=== PATIENT | male | born 1950 | race Caucasian/White ===

== ENCOUNTER 2022-10-16 16:46 | Outpatient (OUT) | payer MEDICARE, OTHER, SELFPAY ==
[2022-10-16 17:08] VITALS: BP 179/85; PULSE 48; RESP 16; O2SAT 97
--- NOTE | 2022-10-16 17:39 | PC.NURSE ---
Call from office, advising pt will be coming for foster placement following post void residual of 1liter. He is a mutual pt of and they have been in communication with treatment. Pt was advised to arrie to hospital at 1700. Order was faxed to place urinary catheter. 1700- pt arrived to unit alert and oriented, explained urinary catheter placement to pt and . He undressed, vitals obtained. This nurse attempted to place 16 fr foster, pt felt pressure and discomfort. Instant return of blood in catheter tubing, bright red. Catheter was removed with no further bleeding. Pt made aware of plan to contact for further interventions. This nruse spoke with whom advised for pt to be evaluated in ED, he was calling for conversation with ED physician. Pt and then escorted to ED.
== END 2022-10-16 17:50 ==
LOC: INF 16:54 → MS 16:58
PROVIDERS: PCP Family Medicine; Visit Provider Family Medicine
DX: N32.89 Other specified disorders of bladder (principal); N40.0 Benign prostatic hyperplasia without lower urinary tract symptoms

== ENCOUNTER 2022-10-16 17:38 | Emergency (ER) | payer MEDICARE, OTHER, SELFPAY ==
[2022-10-16 17:48] VITALS: BP 173/84; PULSE 49; RESP 16; O2SAT 97; BMI 26.6
--- NOTE | 2022-10-16 17:49 | ED.GENADUL1 ---
HPI - General Adult General Chief complaint: Urogenital-Male Stated complaint: BLADDER DISTENSION, PROSTATE ENLARGEMENT Time Seen by Provider: 10/16/22 17:42 History of Present Illness HPI narrative: 71-year-old male presents because he can't urinate. He was at a urologist office today and they found him to have greater than a thousand mL is in his bladder. They wanted to place a catheter there but he walked out. He then called his own physician who directed him to this hospital and as an outpatient attempted to have a catheter placed but were not successful so he was sent down here. He's never had prostate issues and has never had a catheter. No history of kidney issues. No fever or vomiting. Related Data Allergies Allergy/AdvReac Type Severity Reaction Status Date / Time No Known Drug Allergies Allergy Verified 10/16/22 17:48 Review of Systems ROS Narrative A ten point review of systems is negative except as noted above. Genitourinary Reports: decreased urine ouput and difficulty starting urination Exam Narrative Exam Narrative: Nurses note and vital signs reviewed and patient is not hypoxic. General: The patient appears well and in no apparent distress. Patient is sitting comfortably on at the edge of the cart. Skin: Warm, dry, no pallor noted. There is no rash noted. Head: Normocephalic, atraumatic Eye: Normal conjunctiva, no drainage Ears, Nose, Mouth, and Throat: oral mucosa is moist. Nares patent. Cardiovascular: not tachycardic Respiratory: Patient is in no distress, no accessory muscle use, lungs are clear to auscultation, no wheezing, rales or rhonchi Back: non-tender GI: mild distention Musculoskeletal: The patient has no evidence of calf tenderness, no pitting edema, symmetrical pulses noted bilaterally Neurological: A&O, normal speech Psychiatric: Cooperative Constitutional Vital Signs - 24 hr 10/16/22 17:48 Pulse Rate [Monitor] 49 L Respiratory Rate 16 Blood Pressure [Left Arm] 173/84 H Pulse Oximetry 97 Oxygen Delivery Method Room Air Course Vital Signs Vital signs: Vital Signs Pulse Rate 49 L 10/16/22 17:48 Respiratory Rate 16 10/16/22 17:48 Blood Pressure 173/84 H 10/16/22 17:48 Pulse Oximetry 97 10/16/22 17:48 Oxygen Delivery Method Room Air 10/16/22 17:48 Pulse Rate 49 L 10/16/22 17:48 Respiratory Rate 16 10/16/22 17:48 Blood Pressure 173/84 H 10/16/22 17:48 Pulse Oximetry 97 10/16/22 17:48 Oxygen Delivery Method Room Air 10/16/22 17:48 Medical Decision Making MDM Narrative Medical decision making narrative: Creatinine is elevated at 1.93. CT scan is ordered and pending and the patient is signed out to Dr. Corea. Rosa catheter inserted and two thousand mL is of urine were obtained. Differential Diagnosis Differential Diagnosis: urinary retention, prostate enlargement, renal mass, bladder mass Lab Data Lab results reviewed: Yes I reviewed the patient's lab results Labs: Lab Results 10/16/22 Range/Units 17:56 WBC 6.0 (4.0-11.0) 10^3/uL RBC 3.93 L (4.70-6.10) 10^6/uL Hgb 11.6 L (14.0-18.0) g/dL Hct 35.3 L (42.0-54.0) % MCV 89.8 (80.0-94.0) fL MCH 29.5 (25.9-34.0) pg MCHC 32.9 (29.9-35.2) g/dL RDW 12.6 (11.0-15.0) % Plt Count 217 (150-450) 10^3/uL MPV 10.2 (9.5-13.5) fL Neut % (Auto) 68.3 (43.0-75.0) % Lymph % (Auto) 17.4 L (20.5-60.0) % Haskell % (Auto) 9.6 (1.7-12.0) % Eos % (Auto) 3.9 (0.9-7.0) % Baso % (Auto) 0.5 (0.2-2.0) % Neut # (Auto) 4.1 (1.4-6.5) 10^3/uL Lymph # (Auto) 1.0 L (1.2-3.8) 10^3/uL Haskell # (Auto) 0.6 (0.3-0.8) 10^3/uL Eos # (Auto) 0.2 (0.0-0.7) 10^3/uL Baso # (Auto) 0.0 (0.0-0.1) 10^3/uL Abs Immat Gran (auto) 0.02 (0.00-0.03) 10^3/uL Imm/Tot Granulo (auto) 0.3 (0.0-0.5) % Sodium 138 (136-145) mmol/L Potassium 4.3 (3.5-5.1) mmol/L Chloride 104 (98-107) mmol/L Carbon Dioxide 28.1 (21.0-32.0) mmol/L Anion Gap 10.2 BUN 33.0 H (7.0-18.0) mg/dL Creatinine 1.93 H (0.70-1.30) mg/dL Est GFR ( Amer) 42 L (>=60) Est GFR (Non-Af Amer) 34 L (>=60) BUN/Creatinine Ratio 17.1 Glucose 123 H (74-106) mg/dL Calcium 9.2 (8.5-10.1) mg/dL Discharge Plan Discharge Chief Complaint: Urogenital-Male Clinical Impression: Acute urinary retention Referrals: Narayan Melendez MD [Primary Care Provider] - 1 week
[2022-10-16 18:01] LABS: Basophils Percent Auto 0.5 % (0.2-2.0); Eosinophils Absolute Auto 0.2 10^3/uL (0.0-0.7); Eosinophils Percent Auto 3.9 % (0.9-7.0); Hematocrit 35.3 % (42.0-54.0); Hemoglobin 11.6 g/dL (14.0-18.0); Immature Granulocytes Abs Auto 0.02 10^3/uL (0.00-0.03); Immature Granulocytes Pct Auto 0.3 % (0.0-0.5); Lymphocytes Percent Auto 17.4 % (20.5-60.0); Mean Corpuscular HGB Conc 32.9 g/dL (29.9-35.2); Mean Corpuscular Hemoglobin 29.5 pg (25.9-34.0); Mean Corpuscular Volume 89.8 fL (80.0-94.0); Mean Platelet Volume 10.2 fL (9.5-13.5); Monocytes Absolute Auto 0.6 10^3/uL (0.3-0.8); Monocytes Percent Auto 9.6 % (1.7-12.0); Neutrophils Absolute Auto 4.1 10^3/uL (1.4-6.5); Neutrophils Percent Auto 68.3 % (43.0-75.0); Platelet Count 217 10^3/uL (150-450); Red Blood Count 3.93 10^6/uL (4.70-6.10); Red Cell Distribution Width 12.6 % (11.0-15.0)
[2022-10-16] MEDS: LIDOCAINE 2% JELLY 10 ML UR (18:06)
[2022-10-16 18:08] LABS: Anion Gap 10.2; BUN Creatinine Ratio 17.1; Calcium 9.2 mg/dL (8.5-10.1); Carbon Dioxide 28.1 mmol/L (21.0-32.0); Chloride 104 mmol/L (98-107); Estimated GFR (African America 42 (>=60); Estimated GFR (Non-African Ame 34 (>=60); Glucose 123 mg/dL (74-106); Potassium 4.3 mmol/L (3.5-5.1); Sodium 138 mmol/L (136-145)
--- NOTE | 2022-10-16 18:34 | CT_ITS ---
[address] [address] Patient Name: ANAND RUSSELL MRN: [id number] date: 1950 Sex: M Assigned Patient Location: ER Current Patient Location: .[facility] Accession/Order Number: [id number] Exam Date: 10/16/2022 18:45 Report Date: 10/16/2022 20:19 At the request of: LEESA PARK Procedure: CT abdomen pelvis wo con EXAM: CT abdomen pelvis wo con HISTORY: urinary retention, CLARISSE COMPARISON: None. TECHNIQUE: Axial CT imaging was performed through the abdomen and pelvis with intravenous contrast. Multiplanar reformats were performed. Dose reduction techniques were achieved by using automated exposure control and/or adjustment of mA and/or kV according to patient size and/or use of iterative reconstruction technique. FINDINGS: Lung bases: Lung bases are clear. No pleural effusion. GI upper: Unremarkable. Liver: Normal size and contour. There is a 3.4 cm cyst in the left hepatic lobe. A 0.9 cm low density focus is seen in the posterior segment of right hepatic lobe, too small to accurately assess, but likely also a cyst. No specific space-occupying lesion is otherwise identified. Gallbladder: Cholelithiasis without evidence of acute cholecystitis. Biliary system: No intra or extrahepatic biliary ductal dilatation. Pancreas: Unremarkable. Spleen: Normal size. Adrenal glands: Normal adrenal glands. Kidneys/ureters: There is bilateral hydronephrosis and bilateral hydroureter. The ureters are tortuous in their course to the bladder. No nephrolithiasis. Vessels: No aneurysmal dilatation of the aorta. Atherosclerotic disease is noted. Retroperitoneum: No lymphadenopathy. Small bowel: No wall thickening or dilatation. Colon: No wall thickening or dilatation. Appendix: Appendix is identified with normal appearance. Peritoneal cavity: No free fluid or pneumoperitoneum. Lower : There is a Rosa catheter in place with the bladder decompressed. Circumferential wall thickening of the urinary bladder is noted. The prostate is enlarged, measuring approximately 5.60 cm AP by 5.6 cm transverse by 5.3 cm craniocaudal. Bones: No acute bony abnormality. Soft tissues: No acute finding. Additional findings: None. IMPRESSION: Bilateral hydronephrosis and hydroureter. No renal or ureteral calculi are appreciated. Circumferential wall thickening of the urinary bladder. A Rosa catheter is in place with the bladder decompressed. Prostatomegaly. Hepatic cysts. Electronically authenticated by: Nathaly JARRELL Date: 10/16/2022 20:19
[2022-10-16 18:59] LABS: Bilirubin Urine NEGATIVE (NEGATIVE); Blood Urine LARGE (NEGATIVE); Clarity Urine CLEAR (CLEAR); Color Urine LT. YELLOW (YELLOW); Glucose Urine UA NEGATIVE (NEGATIVE); Ketones Urine NEGATIVE (NEGATIVE); Leukocyte Esterase Urine NEGATIVE (NEGATIVE); Nitrite Urine NEGATIVE (NEGATIVE); Protein Urine TRACE mg/dL (NEG/TRACE); Specific Gravity Urine 1.015 (1.005-1.025); Urobilinogen Urine 0.2 EU/dL (0.2-1.0); pH Urine 5.5 (5.0-9.0)
[2022-10-16 19:16] VITALS: BP 154/81; PULSE 51; RESP 16; TEMP 37.1; O2SAT 96
[2022-10-16 20:32] VITALS: BP 158/79; PULSE 54; RESP 16; O2SAT 100
== END 2022-10-16 21:02 | disposition home or self-care (01) ==
PROVIDERS: Emergency Medicine; Emergency Provider Emergency Medicine; PCP Family Medicine
DX: R33.9 Retention of urine, unspecified (principal); N32.89 Other specified disorders of bladder; N40.0 Benign prostatic hyperplasia without lower urinary tract symptoms
CPT/HCPCS: 36415; 74176; 80048; 81003; 85025; 99284

== ENCOUNTER 2022-10-19 09:04 | Outpatient (OUT) | payer MEDICARE, OTHER, SELFPAY ==
[2022-10-19 09:24] LABS: Basophils Percent Auto 0.6 % (0.2-2.0); Eosinophils Absolute Auto 0.4 10^3/uL (0.0-0.7); Hemoglobin 11.4 g/dL (14.0-18.0); Immature Granulocytes Abs Auto 0.02 10^3/uL (0.00-0.03); Immature Granulocytes Pct Auto 0.3 % (0.0-0.5); Lymphocytes Percent Auto 13.9 % (20.5-60.0); Mean Corpuscular HGB Conc 32.6 g/dL (29.9-35.2); Mean Corpuscular Hemoglobin 29.4 pg (25.9-34.0); Mean Corpuscular Volume 90.2 fL (80.0-94.0); Mean Platelet Volume 10.5 fL (9.5-13.5); Monocytes Absolute Auto 0.6 10^3/uL (0.3-0.8); Monocytes Percent Auto 8.3 % (1.7-12.0); Neutrophils Absolute Auto 5.2 10^3/uL (1.4-6.5); Neutrophils Percent Auto 71.9 % (43.0-75.0); Platelet Count 210 10^3/uL (150-450); Red Blood Count 3.88 10^6/uL (4.70-6.10); Red Cell Distribution Width 12.6 % (11.0-15.0); White Blood Count 7.3 10^3/uL (4.0-11.0)
[2022-10-19 10:19] LABS: Alanine Aminotransferase 19 U/L (16-63); Albumin Globulin Ratio 0.9; Albumin Level 3.4 g/dL (3.4-5.0); Alkaline Phosphatase 54 U/L (46-116); Anion Gap 14.3; Aspartate Amino Transferase 14 U/L (15-37); BUN Creatinine Ratio 11.5; Calcium 8.8 mg/dL (8.5-10.1); Carbon Dioxide 27.2 mmol/L (21.0-32.0); Chloride 101 mmol/L (98-107); Estimated GFR (African America 50 (>=60); Estimated GFR (Non-African Ame 41 (>=60); Globulin 3.6 g/dL; Glucose 200 mg/dL (74-106); Potassium 4.5 mmol/L (3.5-5.1); Sodium 138 mmol/L (136-145)
== END 2022-10-19 09:05 | disposition home or self-care (01) ==
LOC: LAB 09:07
PROVIDERS: PCP Family Medicine; Visit Provider Family Medicine
DX: R33.9 Retention of urine, unspecified (principal); Z79.899 Other long term (current) drug therapy
CPT/HCPCS: 36415; 80053; 85025

== ENCOUNTER 2022-10-20 10:13 | Outpatient (OUT) | payer MEDICARE, OTHER, SELFPAY ==
--- NOTE | 2022-10-20 10:16 | US_ITS ---
The [address] [address] Patient Name: ANAND RUSSELL MRN: [id number] date: 1950 Sex: M Assigned Patient Location: US Current Patient Location: [place] Accession/Order Number: [id number] Exam Date: 10/20/2022 10:20 Report Date: 10/20/2022 12:10 At the request of: MCKINLEY GAMBOA Procedure: US renal bladder EXAM: US renal bladder HISTORY: Urine retention R33.9, long-term drug therapy Z79.899 COMPARISON: CT abdomen and pelvis 10/16/2022. TECHNIQUE: Real-time ultrasound imaging of the kidneys and bladder. Findings: The right and left kidneys measure 10.1 and 12.4 cm. The bilateral renal cortices are echogenic. Mild leftward severe right collecting system dilatation. No renal stones. Off the interpolar region of the left kidney there is a 0.5 x 0.4 x 0.3 cm cyst. No perinephric fluid collection. The bladder is nondistended and contains a Rosa catheter. There is bladder wall thickening. IMPRESSION: 1. Mild left and severe right renal collecting system dilatation. 2. Left renal cyst. 3. Bladder wall thickening. Although a portion of this likely relates to lack of distention, findings likely relate to cystitis or chronic outlet obstruction. Electronically authenticated by: LINN BELL Date: 10/20/2022 12:10
== END 2022-10-20 10:14 | disposition home or self-care (01) ==
LOC: US 10:13
PROVIDERS: PCP Family Medicine; Visit Provider Family Medicine
DX: R33.9 Retention of urine, unspecified (principal); Z79.899 Other long term (current) drug therapy
CPT/HCPCS: 76770

== ENCOUNTER 2022-10-23 02:59 | Emergency (ER) | payer MEDICARE, OTHER, SELFPAY ==
[2022-10-23 03:04] VITALS: BP 130/74; PULSE 57; RESP 16; TEMP 36.4; O2SAT 98; BMI 25.8
--- NOTE | 2022-10-23 03:18 | PC.NURSE ---
Pt presents to ER for a catheter that is not draining Pt states he had a cath placed last Wednesday after finding out he had urinary retention Tonight he noticed it has been about 5 hours since he has had any urine output Pt is not in any discomfort at this time Pt was bladder scanned which showed 392ml
--- NOTE | 2022-10-23 03:54 | ED.MALEGU1 ---
HPI - Male Genitourinary General Chief complaint: Urogenital-Male Stated complaint: [employer] PROBLEM- COLD Time Seen by Provider: 10/23/22 03:09 Source: patient Mode of arrival: walk-in Limitations: no limitations History of Present Illness HPI Narrative: This 71-year-old male with a history of prostate enlargement presents for evaluation of a clogged Rosa catheter. The Rosa catheter was placed approximately one week ago urinary retention. The patient has been monitoring his urine output and states that since last night around 10 PM he has not had any drainage. He has not had any blood clots in his urine. He has not had any fever. He denies any abdominal pain. Bladder scan showed around 400 mL of urine retained in the bladder. He denies that he is having any drainage around the urethral meatus or leaking from the catheter. He is scheduled to have some bladder urodynamic testing with Dr. Sims In the near future. Related Data Home Medications Medication Instructions Recorded Confirmed alfuzosin 10 mg tablet,extended 10 mg PO DAILY 10/23/22 10/23/22 release 24 hr apixaban 5 mg tablet (Eliquis) 5 mg PO Q12H 10/23/22 10/23/22 metformin 500 mg tablet 500 mg PO DAILY 10/23/22 10/23/22 simvastatin 10 mg tablet 10 mg PO DAILY 10/23/22 10/23/22 sotalol 120 mg tablet 120 mg PO Q12H 10/23/22 10/23/22 Allergies Allergy/AdvReac Type Severity Reaction Status Date / Time No Known Drug Allergies Allergy Verified 10/23/22 03:09 Review of Systems ROS Status of ROS 10 or more systems reviewed and unremarkable except as noted in history and below PFSH PFS Social History Smoking status: Never smoker Exam Narrative Exam Narrative: Constitutional: Well-appearing elderly male, no distress noted Vital signs reviewed, the patient is afebrile, he is mildly bradycardic with a pulse 57, blood pressure is normal at 130/74, he is not hypoxic with pulse ox of 98 percent on room air HEENT: normocephalic atraumatic, mucous members moist and pink Neck: Supple, no meningeal signs Chest: Lungs are clear with good air entry, there is no wheezing rhonchi or rales appreciated CVS: Regular rate and rhythm, pulses are brisk and equal bilaterally Abdomen: Soft, nondistended, nontender, No tenderness or fullness over the urinary bladder, no flank tenderness : Rosa catheter in urethral meatus, dark yellow urine in the leg bag. Extremity: Nontender, full range of motion Neuro: Normal exam, no focal deficits Constitutional Vital Signs - 24 hr 10/23/22 03:04 Temperature 97.6 F Pulse Rate [Monitor] 57 L Respiratory Rate 16 Blood Pressure [Right Arm] 130/74 H Pulse Oximetry 98 Oxygen Delivery Method Room Air Course Vital Signs Vital signs: Vital Signs Temperature 97.6 F 10/23/22 03:04 Pulse Rate 57 L 10/23/22 03:04 Respiratory Rate 16 10/23/22 03:04 Blood Pressure 130/74 H 10/23/22 03:04 Pulse Oximetry 98 10/23/22 03:04 Oxygen Delivery Method Room Air 10/23/22 03:04 Temperature 97.6 F 10/23/22 03:04 Pulse Rate 57 L 10/23/22 03:04 Respiratory Rate 16 10/23/22 03:04 Blood Pressure 130/74 H 10/23/22 03:04 Pulse Oximetry 98 10/23/22 03:04 Oxygen Delivery Method Room Air 10/23/22 03:04 MDM - Male Genitourinary MDM Narrative Medical decision making narrative: 71-year-old male with a history of an enlarged prostate and urinary retention who had a Rosa catheter placed one week ago presents for evaluation of a blocked Rosa catheter. The patient has not had any fever. He has no abdominal pain. He last had urine output around 10 PM. He presents to the emergency department around 3:30 AM. His physical exam was benign. He is not having difficulty tolerating the Rosa catheter. Bladder scan showed approximately 400 mL of retained urine in the bladder. I had given him a prescription for Detrol last week when he was initially seen for urinary retention and a Rosa catheter was placed but he states he has not been having any bladder spasms and has not needed to use this. His Rosa catheter was removed without incident and replaced. Immediately upon replacement he was able to drain clear yellow urine. He has follow-up with Dr. Sims from urology for urodynamic bladder testing in the near future. He is otherwise stable for discharge. Discharge Plan Discharge Chief Complaint: Urogenital-Male Clinical Impression: Complication, blocked Rosa catheter Patient Disposition: Home, Self-Care Time of Disposition Decision: 03:54 Condition: Good Prescriptions / Home Meds: No Action alfuzosin 10 mg tablet extended release 24 hr 10 mg PO DAILY metformin 500 mg tablet 500 mg PO DAILY simvastatin 10 mg tablet 10 mg PO DAILY sotalol 120 mg tablet 120 mg PO Q12H Eliquis 5 mg tablet 5 mg PO Q12H Instructions: Rosa Catheter Placement and Care (ED) Additional Instructions: Follow up as scheduled with Dr Sims, Return to the ED as needed. Continue to drink plenty of fluids and monitor urine output. Stand Alone Forms: Portal Instructions Referrals: Narayan Melendez MD [Primary Care Provider] - 1 week
--- NOTE | 2022-10-23 03:58 | PC.NURSE ---
16 ge[place]ian coude placed pt tolerated procedure well 400 ml dark yellow urine immediately drained
[2022-10-23] MEDS: LIDOCAINE 2% JELLY 10 ML (04:11)
== END 2022-10-23 04:10 | disposition home or self-care (01) ==
PROVIDERS: Emergency Provider Emergency Medicine; PCP Family Medicine
DX: T83.091A Other mechanical complication of indwelling urethral catheter, initial encounter (principal); N40.0 Benign prostatic hyperplasia without lower urinary tract symptoms; Z79.84 Long term (current) use of oral hypoglycemic drugs; Z79.899 Other long term (current) drug therapy; Z79.01 Long term (current) use of anticoagulants
CPT/HCPCS: 51702; 99284

== ENCOUNTER 2022-11-26 07:46 | Outpatient (OUT) | payer MEDICARE, OTHER, SELFPAY ==
[2022-11-26 08:51] LABS: Basophils Percent Auto 0.5 % (0.2-2.0); Eosinophils Absolute Auto 0.4 10^3/uL (0.0-0.7); Eosinophils Percent Auto 4.9 % (0.9-7.0); Hematocrit 40.5 % (42.0-54.0); Hemoglobin 13.4 g/dL (14.0-18.0); Immature Granulocytes Abs Auto 0.03 10^3/uL (0.00-0.03); Immature Granulocytes Pct Auto 0.4 % (0.0-0.5); Lymphocytes Percent Auto 13.7 % (20.5-60.0); Mean Corpuscular HGB Conc 33.1 g/dL (29.9-35.2); Mean Corpuscular Hemoglobin 29.8 pg (25.9-34.0); Mean Corpuscular Volume 90.2 fL (80.0-94.0); Mean Platelet Volume 9.9 fL (9.5-13.5); Monocytes Absolute Auto 0.6 10^3/uL (0.3-0.8); Monocytes Percent Auto 8.4 % (1.7-12.0); Neutrophils Absolute Auto 5.4 10^3/uL (1.4-6.5); Neutrophils Percent Auto 72.1 % (43.0-75.0); Platelet Count 294 10^3/uL (150-450); Red Blood Count 4.49 10^6/uL (4.70-6.10); Red Cell Distribution Width 12.9 % (11.0-15.0); White Blood Count 7.5 10^3/uL (4.0-11.0)
[2022-11-26 09:03] LABS: Prothrombin Time 10.6 sec (9.0-11.6)
[2022-11-26 09:15] LABS: BUN Creatinine Ratio 17.4; Calcium 9.3 mg/dL (8.5-10.1); Carbon Dioxide 25.9 mmol/L (21.0-32.0); Chloride 103 mmol/L (98-107); Estimated GFR (African America 54 (>=60); Estimated GFR (Non-African Ame 44 (>=60); Glucose 176 mg/dL (74-106); Potassium 4.9 mmol/L (3.5-5.1); Sodium 136 mmol/L (136-145)
== END 2022-11-26 07:47 | disposition home or self-care (01) ==
LOC: PST 07:46
PROVIDERS: PCP Family Medicine; Visit Provider Urology
DX: Z01.812 Encounter for preprocedural laboratory examination (principal); N40.1 Benign prostatic hyperplasia with lower urinary tract symptoms; N13.8 Other obstructive and reflux uropathy; R33.9 Retention of urine, unspecified; I10 Essential (primary) hypertension; D64.9 Anemia, unspecified; I48.91 Unspecified atrial fibrillation; Z79.01 Long term (current) use of anticoagulants
CPT/HCPCS: 80048; 85025; 85610; 85730

== ENCOUNTER 2023-01-01 14:50 | Day surgery (SDC) | payer MEDICARE, OTHER, SELFPAY ==
[2023-01-01] MEDS: LIDOCAINE 2% JELLY 10 ML UR (15:22)
--- NOTE | 2023-01-01 15:53 | P.URON_ITS ---
Urology Surgery Operative Note Operative Note Procedure Date: 01/01/23 Time Out Performed: yes Pre-op Diagnosis: urinary retention inability to place Rosa catheter Post-op Diagnosis: same as pre-op Procedures performed: #1. Cystoscopy. #2. Placement of 22 [employer] tip Rosa catheter over a wire Anesthesia: local Primary Surgeon: Aldair Sims Complications: none Estimated blood loss (mL): 0 Findings: #1. Mild posterior false passage from failed catheter attempts. #2. Long prostate Specimens: none Drains: 22 [employer] tip Rosa catheter into the bladder Indications for Procedures: this gentleman had a cystoscopy and transurethral resection of the prostate just 3 days ago. His catheter was removed this morning. He was only able to void minimal amounts. He tried to catheter himself a few times but was unable. He presented to our office in the nursing staff was unable to pass a catheter. He now presents for cystoscopy and Rosa catheter placement over a wire. He has signed an informed consent for this procedure. Detailed description of Procedure: patient was kept on his rcabot bed and brought into the endoscopy suite. He was in the supine position. Genitals were sterilely prepped and draped in usual fashion. 2 percent Xylocaine jelly was passed per urethra. Time out was done by all parties in the room. We'll agreed-upon the patient's identification and the planned procedures for this patient. I started by passing a flexible cystoscope per urethra and one could see in the posterior bulb of the urethra there was a false passage that was developed from the failed catheter attempts. I was able to divert the beak of the scope anteriorly and get over this and then get t hrough the long prostate and into the bladder. I then passed a Glidewire through the scope and into the bladder. Scope was removed. I then passed a 22 [place] coud? catheter over the wire and into the bladder easily. The wire was removed. 10 mL of fluid was placed in the balloon. I then irrigated the catheter with a catheter tip syringe numerous times and extracted a couple clots. Clear urine then drained easily. He was then discharged to home with a leg bag.
== END 2023-01-01 16:05 | disposition home or self-care (01) ==
PROVIDERS: PCP Family Medicine; Visit Provider Urology
PROC: (CPT 52000; principal; 2023-01-01 14:55)
DX: R33.9 Retention of urine, unspecified (principal); I48.91 Unspecified atrial fibrillation; N40.1 Benign prostatic hyperplasia with lower urinary tract symptoms; E11.9 Type 2 diabetes mellitus without complications; I10 Essential (primary) hypertension; Z79.01 Long term (current) use of anticoagulants; Z79.84 Long term (current) use of oral hypoglycemic drugs; E78.00 Pure hypercholesterolemia, unspecified; I34.0 Nonrheumatic mitral (valve) insufficiency; Z87.440 Personal history of urinary (tract) infections; R35.1 Nocturia; Z79.899 Other long term (current) drug therapy; N13.4 Hydroureter; R97.20 Elevated prostate specific antigen [PSA]
CPT/HCPCS: 52000

== ENCOUNTER 2023-07-15 14:11 | Outpatient (REF) | payer MEDICARE, OTHER, SELFPAY ==
[2023-07-15 15:09] LABS: Influenza Virus A Antigen Positive; Influenza Virus B Antigen Negative; Internal Control Within Normal Limits; SARS-CoV-2 Ag NEGATIVE (NEGATIVE)
[2023-07-15 16:18] LABS: SARS-CoV-2 NAA NOT DETECTED (NOT DETECTE)
== END 2023-07-15 14:12 | disposition home or self-care (01) ==
LOC: LAB 14:11
PROVIDERS: PCP Family Medicine; Visit Provider Family Medicine
DX: J20.9 Acute bronchitis, unspecified (principal)
CPT/HCPCS: 87635; 87804; 87811

== ENCOUNTER 2023-07-27 06:29 | Outpatient (OUT) | payer MEDICARE, OTHER, SELFPAY ==
[2023-07-27 07:08] LABS: Basophils Percent Auto 0.4 % (0.2-2.0); Eosinophils Absolute Auto 0.1 10^3/uL (0.0-0.7); Hematocrit 40.3 % (42.0-54.0); Hemoglobin 13.7 g/dL (14.0-18.0); Immature Granulocytes Abs Auto 0.02 10^3/uL (0.00-0.03); Immature Granulocytes Pct Auto 0.3 % (0.0-0.5); Lymphocytes Absolute Auto 1.8 10^3/uL (1.2-3.8); Lymphocytes Percent Auto 25.3 % (20.5-60.0); Mean Corpuscular Hemoglobin 30.3 pg (25.9-34.0); Mean Corpuscular Volume 89.2 fL (80.0-94.0); Mean Platelet Volume 10.1 fL (9.5-13.5); Monocytes Absolute Auto 0.7 10^3/uL (0.3-0.8); Monocytes Percent Auto 10.6 % (1.7-12.0); Neutrophils Absolute Auto 4.3 10^3/uL (1.4-6.5); Neutrophils Percent Auto 61.4 % (43.0-75.0); Platelet Count 342 10^3/uL (150-450); Red Blood Count 4.52 10^6/uL (4.70-6.10); Red Cell Distribution Width 12.3 % (11.0-15.0)
[2023-07-27 07:26] LABS: Estimated Average Glucose 183 mg/dL
[2023-07-27 08:11] LABS: Alanine Aminotransferase 46 U/L (16-63); Albumin Globulin Ratio 0.9; Albumin Level 3.4 g/dL (3.4-5.0); Alkaline Phosphatase 76 U/L (46-116); Anion Gap 14.5; Aspartate Amino Transferase 24 U/L (15-37); BUN Creatinine Ratio 16.4; Bilirubin Total 0.6 mg/dL (0.2-1.0); Calcium 9.1 mg/dL (8.5-10.1); Carbon Dioxide 25.9 mmol/L (21.0-32.0); Chloride 103 mmol/L (98-107); Chol HDL Ratio 2.9; Cholesterol 115 mg/dL (<=200); Estimated GFR (African America 44 (>=60); Estimated GFR (Non-African Ame 36 (>=60); Free T3 2.44 pg/mL (2.18-3.98); Globulin 3.6 g/dL; Glucose 163 mg/dL (74-106); HDL Cholesterol 39 mg/dL (40-60); Potassium 4.4 mmol/L (3.5-5.1); Sodium 139 mmol/L (136-145); Thyroid Stimulating Hormone 2.884 uIU/mL (0.358-3.740); Triglycerides 218 mg/dL (<=150); Uric Acid 6.9 mg/dL (3.5-7.2); VLDL CHOLESTEROL 43.6 mg/dL
[2023-07-27 09:11] LABS: Prostate Specific Antigen Scrn 7.83 ng/mL (<=4.00)
[2023-07-31 08:11] LABS: PSA, Free 1.31 ng/mL; Prostate Specific Ag 6.4 ng/mL (0.0-4.0)
== END 2023-07-27 06:30 | disposition home or self-care (01) ==
LOC: LAB 06:31
PROVIDERS: PCP Family Medicine; Visit Provider Family Medicine
DX: E78.5 Hyperlipidemia, unspecified (principal); E11.9 Type 2 diabetes mellitus without complications; I48.91 Unspecified atrial fibrillation; Z12.5 Encounter for screening for malignant neoplasm of prostate; R97.20 Elevated prostate specific antigen [PSA]; I11.0 Hypertensive heart disease with heart failure
CPT/HCPCS: 36415; 80053; 80061; 83036; 84153; 84154; 84436; 84443; 84481; 84550; 85025; G0103

== ENCOUNTER 2023-12-03 07:08 | Outpatient (OUT) | payer MEDICARE, OTHER, SELFPAY ==
[2023-12-03 09:54] LABS: Prostate Specific Antigen Dx 6.81 ng/mL (<=4.00)
== END 2023-12-03 07:09 | disposition home or self-care (01) ==
PROVIDERS: PCP Family Medicine; Visit Provider Urology
DX: R97.20 Elevated prostate specific antigen [PSA] (principal)
CPT/HCPCS: 36415; 84153

== ENCOUNTER 2024-02-17 11:41 | Outpatient (OUT) | payer MEDICARE, OTHER, SELFPAY ==
--- OUTSIDE RECORDS SUMMARY | 2024-02-17 11:55 | XMS_ITS | CCD ---
Author Organization 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 Mckinley Melendez Primary Care Unavail able Sai BRAVO, Dr. Nancy Quinteros Attending Unavailable Sai BRAVO, Dr. Nancy Quinteros Referring Unavailable Unavailable Unavailable GREGORY Sun, DR FRANCISCO Quevedo Admitting Unavaila manisha Sun, DR FRANCISCO Quevedo Attending Unavaila ble COOPER ., DR SEN Primary Care Unavailable GREGORY Sun, DR FRANCISCO Quevedo Consulting Unavaila ble HOY ., DR SEN Admitting Unavailable HOY ., DR SEN Attending Unavailable HOY ., DR SEN Primary Care Unavailable HOY ., DR SEN Admitting Unavailable HOY ., DR SEN Attending Unavailable HOY ., DR SEN Primary Care Unavailable HOY ., DR SEN Consulting Unavailable HOY ., DR SEN Admitting Unavailable HOY ., DR SEN Attending Unavailable HOY ., DR SEN Primary Care Unavailable HOY ., DR SEN Consulting Unavailable SIMS ., DR QUINTEROS Admitting Unavailable SIMS ., DR QUINTEROS Attending Unavailable HOY ., DR SEN Primary Care Unavailable SIMS ., DR QUITNEROS Consulting Unavailable MD Mckinley Melendez Primary Care Provider [phone] MD Aldair Sims Attending Provider [phone] Mckinley Melendez Primary Care Unavailable Aldair Sims Attending Unavailable Aldair Sims Admitting Unavailable Aldair Sims Admitting Unavailable Mckinley Melendez Primary Care Unavailable Aldair Sims Attending Unavailable Mckinley Melendez MD Primary Care Provider Aldair SIMS Attending Unavailable Aldair SIMS Attending Unavailable Aldair SIMS Attending Unavailable SIMS, Aldair R Attending Unavailable SIMS, Aldair R Attending Unavailable SIMS, Aldair R Attending Unavailable SIMS, Aldair R Attending Unavailable SIMS, Aldair R Attending Unavailable SIMS, Aldair R Attending Unavailable SIMS, Aldair R Referring Unavailable SIMS, Aldair R Referring Unavailable SIMS, Aldair R Attending Unavailable SIMS, Aldair R Attending Unavailable SIMS, Aldair R Attending Unavailable NANCY MAGUIRE Attending Unavailable MCKINLEY MELENDEZ Primary Care Unavailable SHEJERMAINE ROSA ELENA Attending Unavailable NANCY MAGUIRE Referring Unavailable MCKINLEY MELENDEZ Primary Care Unavailable Medications Current Medications Medication Drug Class(es) Dates Sig (Normalized) Sig (Original) 24 hr alfuzosin hydrochloride 10 mg extended release oral tablet (5 sources) alpha-Adrenergi c Westley Start: 07-27-2022 End: 07-22-2023 take 1 tablet by mouth once daily alfuzosin 10 mg ER Tab 10 mg = 1 tab(s), Oral, Daily, X 30 day(s), # 30 tab(s), Refills(s) 11, [facility]: [facility][id number], 175.3, cm, 07/27/22 12:39:00 EDT, Height/Length Dosing, 79, kg, 07/27/22 12:39:00 EDT, Weight Dosing Start Date: 07/27/22 Stop Date: 07/22/23 Status: Ordered apixaban 5 mg oral tablet (20 sources) Factor Xa Inhibitor Start: 03-02-2019 take 5 mg by mouth twice daily Eliquis 5 mg, Oral, BID, Refills(s) 0 Start Date: 03/02/19 Status: Ordered cholecalciferol 0.05 mg oral capsule (10 sources) Vitamin D Start: 07-03-2019 take 1 capsule by mouth once daily Cholecalciferol (Vitamin D3) (Vitamin D3) 50 mcg (2,000 unit) Capsule Active 2000 UNIT PO Daily July 03, 2019 12:00am take 1 tablet by mouth once tunde y cholecalciferol (Vitamin D-3) 25 MCG (1000 UT) tablet Take 1 tablet (25 mcg) by mouth once daily. Active doxycycline hyclate 100 mg oral tablet (6 sources) Tetracycline-class Drug Start: 05-03-2023 End: 05-24-2023 take 1 tablet by mouth twice daily doxycycline hyclate 100 mg Tab 100 mg = 1 tab(s), Oral, BID, X 21 day(s), # 42 tab(s), Refills(s) 0, [facility]: [facility] #[id number], 175, cm, 05/03/23 12:32:00 EST, Height/Length Dosing, 78, kg, 05/03/23 12:32:00 EST, Weight Dosing Start Date: 05/03/23 Stop Date: 05/24/23 Status: Ordered Start: 12-29-2022 End: 12-29-2022 take 100 mg by mouth twice daily Doxycycline Hyclate Discontinued 100 MG PO Twice daily 14 December 29, 2022 12:00am December 29, 2022 3:58pm Start: 10-22-2022 take 1 capsule by [facility] once daily doxycycline hyclate 100 mg Cap 100 mg = 1 cap(s), Oral, Daily, Take 1 pill the day before the procedure and 1 pill after the procedure, # 2 cap(s), Refills(s) 0, [facility]: [facility] #[id number], 175.3, cm, 07/27/22 12:39:00 EDT, Height/Length Dosing, 79, kg, 07/27/22 12:39:00 EDT, Weight... Start Date: 10/22/22 Status: Ordered Start: 07-27-2022 End: 08-26-2022 take 1 capsule by mouth twice daily doxycycline hyclate 100 mg Cap 100 mg = 1 cap(s), Oral, BID, X 30 day(s), # 60 cap(s), Refills(s) 0, [facility]: [facility] #[id number], 175.3, cm, 07/27/22 12:39:00 EDT, Height/Length Dosing, 79, kg, 07/27/22 12:39:00 EDT, Weight Dosing Start Date: 07/27/22 Stop Date: 08/26/22 Status: Ordered ferrous gluconate 240 mg oral tablet (14 sources) Start: 02-05-2021 take 240 mg by mouth twice daily ferrous gluconate 240 mg, Oral, BID, Refills(s) 0 Start Date: 02/05/21 Status: Ordered ferrous sulfate 325 mg oral tablet (10 sources) Start: 07-03-2019 take 325 mg by mouth once daily Ferrous Sulfate Active 325 MG PO Daily July 03, 2019 12:00am Start: 07-03-2019 take 325 mg by mouth twice briseida ly Ferrous Sulfate Active 325 MG PO 2 times daily July 03, 2019 12:00am Fish Oils (14 sources) Start: 03-01-2019 take 1000 mg by mouth once daily Fish Oil 1,000 mg, Oral, Daily Start Date: 03/01/19 Status: Ordered Garlic preparation (9 sources) Non-Standardized Food Allergenic Extract Start: 07-03-2019 garlic 1,000 mg capsule 1 capsule once daily. 07/03/2019 Active Start: 07-03-2019 garlic 1,000 m g capsule 1 capsule once daily. 0 07/03/2019 Active Start: 07-03-2019 take 1000 mg by mouth once briseida ly Garlic Active 1000 MG PO Daily July 03, 2019 12:00am take 1 capsule by mo uth once daily Garlic 1000 MG Oral Capsule TAKE 1 CAPSULE Daily Quantity: 0 Refills: 0 Ordered: 15-Jun-2022 DO Active glimepiride 2 mg oral tablet (14 sources) Sulfonylurea Start: 04-03-2022 take 1 tablet by mouth once daily Amaryl 2 mg Tab 2 mg = 1 tab(s), Oral, Daily, Refills(s) 0 Start Date: 04/03/22 Status: Ordered lisinopril 10 mg oral tablet (9 sources) Angiotensin Converting Enzyme Inhibitor Start: 02-05-2021 End: 06-15-2023 take 1 tablet by mouth once daily lisinopril 10 mg Tab 10 mg = 1 tab(s), Oral, Daily, Refills(s) 0 Start Date: 02/05/21 Status: Ordered metFORMIN hydrochloride 500 mg oral tablet (20 sources) Biguanide Start: 02-05-2021 take 2 tablets by mouth twice daily metformin 500 mg oral tablet 1,000 mg = 2 tab(s), Oral, BID, Refills(s) 0 Start Date: 02/05/21 Status: Ordered Start: 07-03-2019 take 500 mg by mouth twice briseida ly Metformin Active 500 MG PO Twice daily July 03, 2019 12:00am 24 hr metoprolol succinate 100 mg extended release oral tablet (2 sources) beta-Adrenergic Westley Start: 06-15-2023 End: 06-14-2024 take 1 tablet by mouth once daily metoprolol succinate XL (Toprol XL) 100 mg 24 hr tablet Indications: Paroxysmal atrial fibrillation (Multi) Take 1 tablet (100 mg) by mouth once daily. Do not crush or chew. 90 tablet 3 06/15/2023 06/14/2024 Active multivit-min/ferr ous fumarate (MULTI VITAMIN ORAL) (2 sources) take 1 tablet by mouth once daily multivit-min/lexx us fumarate (MULTI VITAMIN ORAL) Take 1 tablet by mouth once daily. Active take 1 tablet by mouth once tunde y multivit-min/ferrous fumarate (MULTI VITAMIN ORAL) Take 1 tablet by mouth once daily. 0 Active Multivitamin (Multiple Vitamins) Tablet (2 sources) Start: 07-03-2019 take 1 tablet by mouth once daily Multivitamin (Multiple Vitamins) Tablet Active 1 TAB PO Daily July 03, 2019 12:00am Multivitamins and Minerals (14 sources) Start: 02-05-2021 take 1 tablet by mouth once daily Multivitamins and Minerals 1 tab(s), Oral, Daily, Refill(s) 0 Start Date: 02/05/21 Status: Ordered simvastatin 10 mg oral tablet (20 sources) HMG-CoA Reductase Inhibitor Start: 07-03-2019 take 1 tablet by mouth once daily at bedtime simvastatin 10 mg Tab 10 mg = 1 tab(s), Oral, Once a day (at bedtime), Refills(s) 0 Start Date: 02/05/21 Status: Ordered SITagliptin 100 mg oral tablet (20 sources) Dipeptidyl Peptidase 4 Inhibitor Start: 07-03-2019 take 1 tablet by mouth once daily Januvia 100 mg Tab 100 mg = 1 tab(s), Oral, Daily Start Date: 02/05/21 Status: Ordered sotalol hydrochloride 120 mg oral tablet (20 sources) Antiarrhythmic Start: 07-23-2021 End: 06-15-2023 take 1.5 tablets by mouth twice daily sotalol (Betapace) 120 mg tablet Take 1.5 tablets (180 mg) by mouth 2 times a day. 0 07/23/2021 06/15/2023 Discontinued (Therapy completed) Start: 02-05-2021 take 1 tablet by nathan twice daily Betapace AF 120 mg oral tablet 120 mg = 1 tab(s), Oral, BID, Refills(s) 0 Start Date: 02/05/21 Status: Ordered Start: 07-03-2019 take 120 mg by mouth twice briseida ly Sotalol Active 120 MG PO Twice daily July 03, 2019 12:00am Vitamin D3 2000 intl units oral Tab (14 sources) Start: 02-05-2021 take 1 tablet by mouth once daily Vitamin D3 2000 intl units oral Tab = 1 tab(s), Oral, Daily Start Date: 02/05/21 Status: Ordered Completed/Discontinued Medications Medication Drug Class(es) Dates Sig (Normalized) Sig (Original) cephalexin 500 mg oral capsule (2 sources) Cephalosporin Antibacterial Start: 09-27-2019 End: 12-29-2022 take 500 mg by mouth every twelve hours Cephalexin Discontinued 500 MG PO Q12H September 27, 2019 12:00am December 29, 2022 7:43am empagliflozin 10 mg oral tablet (5 sources) Sodium-Glucose Cotransporter 2 Inhibitor take 1 tablet by mouth once daily Jardiance 10 MG Oral Tablet Take 1 tablet daily Quantity: 90 Refills: 1 Ordered: 15-Jun-2022 DO Active Multi Vitamin TABS (6 sources) Multi Vitamin TA BS TAKE 1 TABLET DAILY. Quantity: 0 Refills: 0 Ordered: 06-May-2021 DO Active Prostate CAPS (5 sources) Prostate CAPS TA KE 1 CAPSULE Daily Quantity: 0 Refills: 0 Ordered: 15-Jun-2022 DO Active prostate complete (11 sources) Start: 05-01-2021 prostate complete prostate complete Start Date: 05/01/21 Status: Ordered Problems Active Problems Problem Classification Problem Date Documented Da te Episodic/Chronic Allergic reactions (14 sources) Eczema 04-03-2022 Episodic Cardiac dysrhythmias (20 sources) Atrial fibrillation; Translations: [Atrial fibrillation] Onset: 05-07-2023 02-05-2021 Chronic Cardiac dysrhythmias (14 sources) Bradycardia 02-05-2021 Episodic Congestive heart failure; nonhypertensive (1 source) Unspecified diastolic (congestive) heart failure; Translations: [UNSPECIFIED DIASTOLIC HEART FAILURE] Onset: 07-31-2022 Chronic Deficiency and other anemia (14 sources) Anemia 04-03-2022 Episodic Diabetes mellitus without complication (20 sources) Diabetes mellitus; Translations: [Diabetes mellitus without mention of complication, type II or unspecified type, not stated as uncontrolled] Onset: 07-31-2022 1 Chronic Diabetes mellitus without complication (1 source) Other abnormal glucose; Translations: [OTHER ABNORMAL GLUCOSE] Onset: 07-31-2022 Episodic Disorders of lipid metabolism (20 sources) Hyperlipidemia; Translations: [Other and unspecified hyperlipidemia] Onset: 07-28-2022 03-01-2019 Chronic Essential hypertension (20 sources) Benign essential hypertension; Translations: [Benign essential hypertension] Onset: 05-07-2023 03-01-2019 Chronic Genitourinary symptoms and ill-defined conditions (20 sources) Nocturia; Translations: [Retention of urine] Onset: 10-16-2022 04-09-2020 Episodic Heart valve disorders (14 sources) Mitral valve regurgitation 02-05-2021 Chronic Hyperplasia of prostate (20 sources) Benign prostatic hypertrophy with outflow obstruction; Translations: [Benign prostatic hyperplasia with lower urinary tract symptoms] Onset: 07-27-2022 04-09-2020 Chronic Hypertension with complications and secondary hypertension (1 source) Hypertensive heart disease with heart failure; Translations: [HTN HEART DISEASE W/HEART FAIL] Onset: 07-31-2022 Chronic Neoplasms of unspecified nature or uncertain behavior (13 sources) Neoplasm of uncertain behavior of skin 04-25-2022 Episodic Nutritional deficiencies (14 sources) Vitamin D deficiency 02-05-2021 Chronic Other aftercare (2 sources) intermediate card tender (current) use of anticoagulants; Translations: [intermediate card tender (current) use of anticoagulants] Onset: 01-26-2024 Episodic Other aftercare (2 sources) Long-term current use of anticoagulant; Translations: [intermediate card tender (current) use of anticoagulants] Onset: 01-26-2024 01-26-2024 Episodic Other and ill-defined heart disease (14 sources) Left ventricular hypertrophy 02-05-2021 Chronic Other diseases of kidney and ureters (2 sources) Urinary tract obstruction; Translations: [Other obstructive and reflux uropathy] Onset: 07-27-2022 Episodic Other diseases of kidney and ureters (13 sources) Hydroureter; Translations: [Hydroureter] Onset: 10-16-2022 Episodic Other diseases of kidney and ureters (1 source) Stricture of ureter; Translations: [Crossing vessel and stricture of ureter without hydronephrosis] Onset: 10-16-2022 Episodic Other diseases of kidney and ureters (10 sources) Occlusion of ureter 10-16-2022 Episodic Other diseases of kidney and ureters (3 sources) Acquired renal cyst without neoplastic change; Translations: [Cyst of kidney, acquired] Onset: 05-03-2023 Episodic Other diseases of kidney and ureters (4 sources) Cyst of kidney 01-29-2023 Episodic Other infections; including parasitic (14 sources) History of herpes zoster 02-05-2021 Episodic Other nutritional; endocrine; and metabolic disorders (20 sources) Overweight in adulthood with body mass index of 25 or more but less than 30; Translations: [Overweight] Onset: 01-26-2024 04-14-2022 Episodic Other nutritional; endocrine; and metabolic disorders (2 sources) Body mass index (BMI) 26.0-26.9, adult; Translations: [Body mass index (BMI) 26.0-26.9, adult] Onset: 01-26-2024 Episodic Other screening for suspected conditions (not mental disorders or infectious disease) (20 sources) Raised prostate specific antigen; Translations: [Elevated prostate specific antigen [PSA]] Onset: 07-27-2022 04-09-2020 Episodic Other skin disorders (14 sources) Change in skin lesion 02-07-2021 Episodic Other skin disorders (14 sources) Seborrheic keratosis of scalp 03-18-2021 Episodic Other skin disorders (1 source) Senile hyperkeratosis; Translations: [Other seborrheic keratosis] Onset: 05-05-2022 Episodic Residual codes; unclassified (4 sources) Never smoked any substance; Translations: [Other specified health status] Onset: 06-15-2023 06-15-2023 Episodic Screening and history of mental health and substance abuse codes (6 sources) Ex-smoker; Translations: [Personal history of tobacco use] Episodic Comment on above: Quit 1979; Unclassified (14 sources) Drug therapy finding 03-02-2019 Unclassified (1 source) Benign prostatic hyperplasia with lower urinary tract symptoms; Translations: [Benign prostatic hyperplasia with lower urinary tract symptoms] Onset: 12-29-2022 Urinary tract infections (14 sources) Urinary tract infectious disease; Translations: [Urinary tract infection, site not specified] Onset: 07-27-2022 Episodic Past or Other Problems Problem Classification Problem Date Documented Da te Episodic/Chronic Residual codes; unclassified (2 sources) Other specified health status; Translations: [Other specified health status] Onset: 06-15-2023 Episodic Unclassified (2 sources) Onset: 06-15-2023 06-15-2023 Results Test Name Value Interpretation Reference Range Facil ity Ambulatory Visit Summaryon 0 12-13-2023 Ambulatory Visit Summary Ambulatory Visit Summary LENNY RUSSELL JR :1950 Visit Date:12/13/2023 Ambulatory Visit Instructions Your Diagnosis Elevated PSA Urinary retention BPH with urinary obstruction Renal cyst Your Care Team Attending Physician - Aldair SIMS MD Primary Care Physician - Mckinley Melendez MD This Is Your Medications List Contact prescribing physician if questions or concerns apixaban (Eliquis) cholecalciferol (Vitamin D3 2000 intl units oral Tab) ferrous gluconate glimepiride (Amaryl 2 mg Tab) metformin (metformin 500 mg oral tablet) multivitamin with minerals (Multivitamins and Minerals) omega-3 polyunsaturated fatty acids (Fish Oil) simvastatin (simvastatin 10 mg Tab) sitagliptin (Januvia 100 mg Tab) sotalol (Betapace AF 120 mg oral tablet) Procedures Performed Transurethral resection of prostate (12/29/2022), Cystoscopy (11/10/2022), Urodynamics (11/10/2022), Excisional biopsy (03/12/2021), Transrectal biopsy of prostate using ultrasound (US) guidance (09/27/2019), Cardioversion (04/2019), Transrectal biopsy of prostate using ultrasound (US) guidance (08/15/2018), Colonoscopy, Repair of left inguinal hernia, Vasectomy. Discharge Vitals Temperature (Temporal Artery) 37 ?C Heart Rate (Peripheral) 68 Respiratory Rate 16 Blood Pressure 131/72 Height 175 cm Height 69 in Weight 76.7 kg Weight 168.74 lb BMI 25.04 What to do next Scheduled Follow-Up Appointments Wednesday 8:45 AM EST With: Aldair SIMS MD Where: [facility] [place] [address]- You Need to Schedule the Following Appointments Follow Up with Aldair SIMS MD, URL When: Comments: 6 mos w/ PSA Where: [facility] [address] , [place] [address] [phone] Medications What How Much When Instructions Unchanged apixaban (Eliquis) 5 Milligram By Mouth 2 times a day Contact prescribing physician if questions or concerns Unchanged cholecalciferol (Vitamin D3 2000 intl units oral Tab) 1 Tablets By Mouth Every day Contact prescribing physician if questions or concerns Unchanged ferrous gluconate 240 Milligram By Mouth 2 times a day Contact prescribing physician if questions or concerns Unchanged glimepiride (Amaryl 2 mg Tab) 1 Tablets By Mouth Every day Contact prescribing physician if questions or concerns Unchanged metformin (metformin 500 mg oral tablet) 2 Tablets By Mouth 2 times a day Contact prescribing physician if questions or concerns Unchanged multivitamin with minerals (Multivitamins and Minerals) 1 Tablets By Mouth Every day Contact prescribing physician if questions or concerns Unchanged omega-3 polyunsaturated fatty acids (Fish Oil) 1,000 Milligram By Mouth Every day Contact prescribing physician if questions or concerns Unchanged simvastatin (simvastatin 10 mg Tab) 1 Tablets By Mouth Once a day (at bedtime) Contact prescribing physician if questions or concerns Unchanged sitagliptin (Januvia 100 mg Tab) 1 Tablets By Mouth Every day Contact prescribing physician if questions or concerns Unchanged sotalol (Betapace AF 120 mg oral tablet) 1 Tablets By Mouth 2 times a day Contact prescribing physician if questions or concerns Allergies No Known Allergies Problems Ongoing - Any problem that you are currently receiving treatment for. Anemia Anticoagulated Atrial fibrillation Bilateral ureteral obstruction BMI 27.0-27.9,adult BPH with urinary obstruction Bradycardia Changing pigmented skin lesion Diabetes Eczema Elevated cholesterol Elevated PSA History of shingles Hydroureter Hypercholesterolemia Hypertension Left ventricular hypertrophy Mitral valve regurgitation Neoplasm of uncertain behavior of skin Nocturia Renal cyst Seborrheic keratosis of scalp Urinary retention UTI (urinary tract infection) Vitamin D deficiency Patient Survey You may receive a survey via text or e-mail asking about your office visit. Please share your experience with us by completing your survey. We appreciate your feedback and thank you for choosing us for your care. Education Materials Prostate Cancer Screening Prostate cancer screening is testing that is done to check for the presence of prostate cancer in men. The prostate gland is a walnut-sized gland that is located below the bladder and in front of the rectum in males. The function of the prostate is to add fluid to semen during ejaculation. Prostate cancer is one of the most common types of cancer in men. Who should have prostate cancer screening? Screening recommendations vary based on age and other risk factors, as well as between the professional organizations who make the recommendations. In general, screening is recommended if: ? You are age 50 to 70 and have an average risk for prostate cancer. You should talk with yo (more content not included)... Normal [facility] Urology Office/Clinic Noteon 12-13-2023 Urology Office/Clinic Note Urology Office/Clinic Note Chief Complaint elevated PSA HPI Staff 6 mos w/ PSA. Dx: urinary retention, BPH with obstruction, elevated PSA, hydroureter, renal cyst. S/p TURP 12/29/22. *No urological meds. CIC 2x/day. Previous PSA 09/03/22 - 11.25 Current PSA 12/03/23 - 6.81 Dysuria: no Incomplete bladder emptying: pt is doing CIC 2x daily Hematuria: no Frequency: no Urgency: no Nocturia: not getting up anymore Stream: no straining or intermittency Leaking: no Post void dripping: no Wearing pads/ Depends: no Urge incontinence: no Stress incontinence: no Incontinence without Sensory Awareness: no Abdominal pain: no Flank pain: no Sexual complaints: no History of Present Illness Tests reviewed: reviewed UA, PSA I have reviewed the previous health record information and history for this patient from Dr. Sims. I have reviewed and verified the staff HPI to be accurate for this encounter. Review of Systems PHQ Score Initial Depression Screen Score: 0 SCORE ROS - Provider Constitutional: denies weight loss, denies hot flashes. Eyes: denies eye problems. Gastrointestinal: denies nausea, denies vomiting. Cardiovascular: denies chest pain or angina. Integumentary: no dryness Musculoskeletal: denies musculoskeletal symptoms. ENMT: denies otolaryngeal symptoms. Respiratory: no shortness of breath. Heme/Lymph: denies easy bleeding tendency, denies easy bruising tendency. Psychiatric: no confusion, no anxiety. Genitourinary: See HPI. Physical Exam Vitals & Measurements T: 37 ?C(Temporal Artery) HR: 68(Peripheral) RR: 16 BP: 131/72 HT: 69 in HT: 175 cm WT: 76.7 kg WT: 168.74 lb BMI: 25.04 General Appearance: alert, no distress, well nourished, well developed male. Assessment/Plan 1. Elevated PSA (R97.20: Elevated prostate specific antigen [PSA]) PSA 07/13/19 - 13.14 04/01/20 - 6.8 & 27.5% 04/15/21 - 8.1 & 25.4% 07/08/21 - 10.87 07/10/21 - 9.5 & 20.7% 10/28/21 - 9.5 & 22.7% 07/22/22 - 17.18 07/27/22 - 16.98 09/03/22 - 11.25 12/03/23 - 6.81 (PO TURP) TRUS/bx 08/15/18 and 09/30/19 by DLS - Neg. MRI prostate w/wo con done 10/14/22 - Negative for prostate malignancy. Prostate volume 100mL. PSA has decreased from prior. Will continue to monitor. -PSA in 6 mos 2. Urinary retention (R33.9: Retention of urine, unspecified) Episode of retention in 09/2022. PVR (cc): 05/03/23 - 346 06/04/23 - 117 Completed voiding diary for prior OV 06/04/23, outputs of catheterization ranged from 100-500mL. Continues to CIC 2x/day and also voids 2x/day. States he gets ~200-300mL pvrs. Shares he is able to go on car trips without having to stop. Does not get up during the night to void. -Cont CIC 2x/day 3. BPH with urinary obstruction (N40.1: Benign prostatic hyperplasia with lower urinary tract symptoms) S/p Cysto/UROS 11/10/22 - severe trabeculation of prostate. Renal US 10/20/22 - bladder wall thickening likely due to chronic outlet obstruction. S/p TURP 12/29/22. [1] Not currently taking any BPH meds. Not voicing any urinary habit complaints. -See #1 4. Renal cyst (N28.1: Cyst of kidney, acquired) Renal US 10/20/22 - 0.5 x 0.4 x 0.3 cm cyst off the interpolar region of the left kidney. -No surveillance required for simple cysts Follow-up With When Contact Information EMANUEL MULLIGAN, Aldair Doan, URL [facility] [address], [place] [address] [phone] Additional Instructions: 6 mos w/ PSA Patient Education Prostate Cancer Screening I, Cathleen Bocanegra, personally scribed for Dr. Sims on 12/13/2023 10:28:38. . Documentation recorded by the scribe, Cathleen Bocanegra, accurately reflects the services(s) I performed and decisions made by me. Authenticated by Dr. Sims on 12/13/2023 10:30:50. Problem List/Past Medical History Ongoing Anemia Anticoagulated Atrial fibrillation Bilateral ureteral obstruction BMI 27.0-27.9,adult BPH with urinary obstruction Bradycardia Changing pigmented skin lesion Diabetes Eczema Elevated cholesterol Elevated PSA History of shingles Hydroureter Hypercholesterolemia Hypertension Left ventricular hypertrophy Mitral valve regurgitation Neoplasm of uncertain behavior of skin Nocturia Renal cyst Seborrheic keratosis of scalp Urinary retention UTI (urinary tract infection) Vitamin D deficiency Historical No qualifying data Procedure/Surgical History Transurethral resection of prostate (12/29/2022), Cystoscopy (11/10/2022), Urodynamics (11/10/2022), Excisional biopsy (03/12/2021), Transrectal biopsy of prostate using ultrasound (US) guidance (09/27/2019), Cardioversion (04/2019), Transrectal biopsy of prostate using ultrasound (US) guidance (08/15/2018), Colonoscopy, Repair of left inguinal hernia, Vasectomy. Medications Amaryl 2 mg Tab, 2 mg= 1 tab(s), Oral, Daily Betapace AF 120 mg oral tablet, 120 mg= 1 tab(s), O (more content not included)... Normal [facility] Comment on above: Result Comment: Elec tronically Signed By: Aldair SIMS MD\.br\Date and Time Signed: 12/13/23 10:30 EDT\.br\Electronically Co-Signed By: Cathleen Bocanegra.br\Date and Time Co-Signed: 12/13/23 10:28 EDT Lab Reportson 08-09-2023 Lab Reports [id number] .[id number] Normal [facility] Lab Reports [id number] .00TIFF [facility] [place] ECG 12 Leadon 06-15-2023 Atrial fibrillation with a controlled ventricular response QTc 446 ms [facility] Work Phone: Patient Logson 06-07-2023 Patient Logs [id number] .[id number] [facility] Ambulatory Visit Summaryon 0 06-04-2023 Ambulatory Visit Summary LENNY RUSSELL JR :1950 Visit Date:06/04/2023 Ambulatory Visit Instructions Your Diagnosis Urinary retention BPH with urinary obstruction Elevated PSA Hydroureter Renal cyst Your Care Team Attending Physician - EMANUEL MULLIGAN, Aldair Doan Primary Care Physician - Mckinley Melendez MD This Is Your Medications List Contact prescribing physician if questions or concerns apixaban (Eliquis) cholecalciferol (Vitamin D3 2000 intl units oral Tab) ferrous gluconate glimepiride (Amaryl 2 mg Tab) metformin (metformin 500 mg oral tablet) multivitamin with minerals (Multivitamins and Minerals) omega-3 polyunsaturated fatty acids (Fish Oil) simvastatin (simvastatin 10 mg Tab) sitagliptin (Januvia 100 mg Tab) sotalol (Betapace AF 120 mg oral tablet) Procedures Performed Transurethral resection of prostate (12/29/2022), Cystoscopy (11/10/2022), Urodynamics (11/10/2022), Excisional biopsy (03/12/2021), Transrectal biopsy of prostate using ultrasound (US) guidance (09/27/2019), Cardioversion (04/2019), Transrectal biopsy of prostate using ultrasound (US) guidance (08/15/2018), Colonoscopy, Repair of left inguinal hernia, Vasectomy. Discharge Vitals Heart Rate (Peripheral) 52 Respiratory Rate 16 Blood Pressure 128/77 Height 175 cm Height 69 in Weight 78 kg Weight 171.6 lb BMI 25.47 What to do next Scheduled Follow-Up Appointments Wednesday 9:15 AM EDT With: EMANUEL MULLIGAN, Aldair Doan Where: [facility] Patient Educationon 06-04-19 24 Patient Education Urology Clean Intermittent Catheterization, Male Clean intermittent catheterization (CIC) is a procedure to remove urine from the bladder by placing a small, flexible tube (catheter) into the bladder though the urethra. The urethra is a tube in the body that carries urine from the bladder out of the body. CIC may be done when: ? You cannot completely empty your bladder on your own. This may be due to a blockage in the bladder or urethra. ? Your bladder leaks urine. This may happen when the muscles or nerves near the bladder are not working normally, so the bladder overflows. Your health care provider will show you how to perform CIC and will help you to become comfortable performing this procedure at home. Your health care provider will also help you to get the home care supplies that are needed for this procedure. Supplies needed: ? Germ-free (sterile), water-based lubricant. ? A container for urine collection. You may also use the toilet to dispose of urine from the catheter. ? A catheter. Your health care provider will determine the best size for you. ? Use this catheter size: ? Clean gloves. ? Soap and water. ? Towel. How to perform this procedure: Most people need CIC at least 4 times per day to adequately empty the bladder. Your health care provider will tell you how often you should perform CIC. ? Number of times per day to perform CIC: To perform CIC, follow these steps: 1. Wash your hands with soap and water. If soap and water are not available, use hand director law enforcement. 2. Clean your penis with soap and water. Dry the tip of your penis completely. 3. Prepare the supplies that you will use during the procedure. Open the catheter package and lubricant. 4. Get in a comfortable position. Possible positions include: ? Sitting on a toilet, a chair, or the edge of a bed. ? Standing near a toilet. ? Lying down with your head raised on pillows and your knees pointing to the ceiling. You may wish to place a waterproof mat or pad under you. 5. If you are using a urine collection container, position it between your legs. 6. Urinate, if you are able. 7. Put on gloves. 8. Apply lubricant to about 2 inches (5 cm) of the tip of the catheter. 9. Set the catheter down on a clean, dry surface within reach. 10. Gently stretch your penis out from your body. Pull back any skin that covers the end of your penis (foreskin). Clean the end of your penis with medicated sterile swabs as told by your health care provider. 11. Hold your penis upward at a 45?60 degree angle. This helps to straighten the urethra. 12. Slowly insert the lubricated catheter straight into your urethra until urine flows freely. This is usually about 6?8 inches (15?20 cm). 13. When urine starts to flow freely, insert the catheter 1 inch (3 cm) more. Allow urine to drain into the toilet or the urine collection container. 14. When urine stops flowing, slowly remove the catheter. 15. Note the color, amount, and odor of the urine. 16. Measure your urine and note the amount, if told by your health care provider. 17. Discard the urine in the toilet. 18. Clean your penis using soap and water. 19. Move the foreskin back in place, if applicable. 20. If you are using a single-use catheter, discard the catheter and supplies. 21. Wash your hands with soap and water. 22. If you are using a reusable catheter, follow package instructions about how to clean the catheter after each use. How often should I perform this procedure? ? Do CIC to empty your bladder every 4?6 hours or as often as told by your health care provider. ? If you have symptoms of too much urine in your bladder (overdistension) and you are not able to urinate, perform CIC. Symptoms of overdistension may include: ? Restlessness. ? Sweating or chills. ? Headache. ? Flushed or pale skin. ? Bloated lower abdomen. What are the risks? Generally, this is a safe procedure, however problems may occur, including: ? Infection. ? Injury to the urethra. ? Irritation of the urethra. Follow these instructions at home General instructions ? Drink enough fluid to keep your urine pale yellow. ? Dispose of a multiple use catheter when it becomes dry, brittle, or cloudy. This usually happens after you use the catheter for 1 week. ? Avoid caffeine. Caffeine may make you need to urinate more frequently and more urgently. ? When traveling, bring extra supplies with you in case of delays. Keep supplies with you in a place that you can access easily. If traveling by plane: ? Make sure that the lubricant in your carry-on bag is less than 3.4 ounces (100 mL). ? Use a single-use catheter. It may be difficult to clean a reusable catheter in a small bathroom. ? Take nafg-zih-vlkjnvf and prescription medicines only as told by your he (more content not included)... Normal [facility] Urology Office/Clinic Noteon 06-04-2023 Urology Office/Clinic Note Chief Complaint 1m w/Voiding Diary HPI Staff 1 month f/u Dx: urinary retention (CIC 2x qd), abnormal UA, BPH with urinary obstruction (TURP 12/29/22), elevated PSA, hydroureter and left renal cyst. Denies complications with CIC. No longer getting up at night to void. Voiding 2-3x/day. Does have Voiding Diary with him today. Denies pain/burning and visible blood in urine. PVR 117ml History of Present Illness Tests reviewed: reviewed UA, PVRs I have reviewed the previous health record information and history for this patient from Dr. Sims. I have reviewed and verified the staff HPI to be accurate for this encounter. Review of Systems PHQ Score Initial Depression Screen Score: 0 SCORE ROS - Provider Constitutional: denies weight loss, denies hot flashes. Eyes: denies eye problems. Gastrointestinal: denies nausea, denies vomiting. Cardiovascular: denies chest pain or angina. Integumentary: no dryness Musculoskeletal: denies musculoskeletal symptoms. ENMT: denies otolaryngeal symptoms. Respiratory: no shortness of breath. Heme/Lymph: denies easy bleeding tendency, denies easy bruising tendency. Psychiatric: no confusion, no anxiety. Genitourinary: See HPI. Physical Exam Vitals & Measurements HR: 52(Peripheral) RR: 16 BP: 128/77 HT: 69 in HT: 175 cm WT: 78 kg WT: 171.6 lb BMI: 25.47 General Appearance: alert, no distress, well nourished, well developed male. Genitourinary: normal scrotum, normal testes, normal urethra, normal epididymis, normal vas deferens/spermatic cord. Flank Pain: none. Bladder: nonpalpable. Assessment/Plan 1. Urinary retention (R33.9: Retention of urine, unspecified) Episode of retention in 09/2022. PVR (cc): 05/03/23 - 346 06/04/23 - 117 Recommended to retry CIC 2x/day. States he has been CIC 2x/day without complications and also voids 2x/day. States he no longer gets up at night to void. Completed voiding diary, outputs of catheterization ranged from 100-500mL. Re-discussed importance of emptying the bladder to preserve renal function. Due to PVRs not decreasing, pt will need to continue to self-catheterize. -Cont CIC 2x/day 2. BPH with urinary obstruction (N40.1: Benign prostatic hyperplasia with lower urinary tract symptoms) S/p Cysto/UROS 11/10/22 - severe trabeculation of prostate. Renal US 10/20/22 - bladder wall thickening likely due to chronic outlet obstruction. S/p TURP 12/29/22. Not currently taking any BPH meds. UA today shows moderate blood and large leuks, likely due to colonization for CIC. -See #1. 3. Elevated PSA (R97.20: Elevated prostate specific antigen [PSA]) PSA 07/13/19 - 13.14 04/01/20 - 6.8 & 27.5% 04/15/21 - 8.1 & 25.4% 07/08/21 - 10.87 07/10/21 - 9.5 & 20.7% 10/28/21 - 9.5 & 22.7% 07/22/22 - 17.18 07/27/22 - 16.98 09/03/22 - 11.25 TRUS/bx 08/15/18 and 09/30/19 by DLS - Neg. MRI prostate w/wo con done 10/14/22 - Negative for prostate malignancy. Prostate volume 100mL. -PSA in 6 mos 4. Hydroureter (N13.4: Hydroureter) MRI prostate w/wo con 10/14/22 - prostate volume 100mL and grossly distended bladder with bilateral distal hydroureter. Renal US 10/20/22 - mild left and severe right renal collecting system dilation. [1] -Secondary to #1 5. Renal cyst (N28.1: Cyst of kidney, acquired) Renal US 10/20/22 - 0.5 x 0.4 x 0.3 cm cyst off the interpolar region of the left kidney. [2] -No surveillance required for simple cysts Follow-up With When Contact Information EMANUEL MULLIGAN, Aldair Doan, [facility] [address], [place] [address] [phone] Additional Instructions: 6 mos w/ PSA Patient Education Clean Intermittent Catheterization, Male I, Cathleen Bocanegra, personally scribed for Dr. Sims on 06/04/2023 09:38:13. . Documentation recorded by the scribe, Cathleen Bocanegra, accurately reflects the services(s) I performed and decisions made by me. Authenticated by Dr. Sims on 06/04/2023 09:39:39. Problem List/Past Medical History Ongoing Anemia Anticoagulated Atrial fibrillation Bilateral ureteral obstruction BMI 27.0-27.9,adult BPH with urinary obstruction Bradycardia Changing pigmented skin lesion Diabetes Eczema Elevated cholesterol Elevated PSA History of shingles Hydroureter Hypercholesterolemia Hypertension Left ventricular hypertrophy Mitral valve regurgitation Neoplasm of uncertain behavior of skin Nocturia Renal cyst Seborrheic keratosis of scalp Urinary retention UTI (urinary tract infection) Vitamin D deficiency Historical No qualifying data Procedure/Surgical History Transurethral resection of prostate (12/29/2022), Cystoscopy (11/10/2022), Urodynamics (11/10/2022), Excisional biopsy (03/12/2021), Transrectal biopsy of prostate using ultrasound (US) guidance (09/27/2019), Cardioversion (04/2019), Transrectal biopsy of prostate using ultrasound (US) guidance (08/15/2018), Colonosc (more content not included)... Normal [facility] Comment on above: Result Comment: Elec tronically Signed By: Aldair SIMS MD\.br\Date and Time Signed: 06/04/23 09:39 EST\.br\Electronically Co-Signed By: Cathleen Bocanegra\.br\Date and Time Co-Signed: 06/04/23 09:38 EST Patient Educationon 05-03-19 Patient Education Urology Clean Intermittent Catheterization, Male Clean intermittent catheterization (CIC) is a procedure to remove urine from the bladder by placing a small, flexible tube (catheter) into the bladder though the urethra. The urethra is a tube in the body that carries urine from the bladder out of the body. CIC may be done when: ? You cannot completely empty your bladder on your own. This may be due to a blockage in the bladder or urethra. ? Your bladder leaks urine. This may happen when the muscles or nerves near the bladder are not working normally, so the bladder overflows. Your health care provider will show you how to perform CIC and will help you to become comfortable performing this procedure at home. Your health care provider will also help you to get the home care supplies that are needed for this procedure. Supplies needed: ? Germ-free (sterile), water-based lubricant. ? A container for urine collection. You may also use the toilet to dispose of urine from the catheter. ? A catheter. Your health care provider will determine the best size for you. ? Use this catheter size: ? Clean gloves. ? Soap and water. ? Towel. How to perform this procedure: Most people need CIC at least 4 times per day to adequately empty the bladder. Your health care provider will tell you how often you should perform CIC. ? Number of times per day to perform CIC: To perform CIC, follow these steps: 1. Wash your hands with soap and water. If soap and water are not available, use hand director law enforcement. 2. Clean your penis with soap and water. Dry the tip of your penis completely. 3. Prepare the supplies that you will use during the procedure. Open the catheter package and lubricant. 4. Get in a comfortable position. Possible positions include: ? Sitting on a toilet, a chair, or the edge of a bed. ? Standing near a toilet. ? Lying down with your head raised on pillows and your knees pointing to the ceiling. You may wish to place a waterproof mat or pad under you. 5. If you are using a urine collection container, position it between your legs. 6. Urinate, if you are able. 7. Put on gloves. 8. Apply lubricant to about 2 inches (5 cm) of the tip of the catheter. 9. Set the catheter down on a clean, dry surface within reach. 10. Gently stretch your penis out from your body. Pull back any skin that covers the end of your penis (foreskin). Clean the end of your penis with medicated sterile swabs as told by your health care provider. 11. Hold your penis upward at a 45?60 degree angle. This helps to straighten the urethra. 12. Slowly insert the lubricated catheter straight into your urethra until urine flows freely. This is usually about 6?8 inches (15?20 cm). 13. When urine starts to flow freely, insert the catheter 1 inch (3 cm) more. Allow urine to drain into the toilet or the urine collection container. 14. When urine stops flowing, slowly remove the catheter. 15. Note the color, amount, and odor of the urine. 16. Measure your urine and note the amount, if told by your health care provider. 17. Discard the urine in the toilet. 18. Clean your penis using soap and water. 19. Move the foreskin back in place, if applicable. 20. If you are using a single-use catheter, discard the catheter and supplies. 21. Wash your hands with soap and water. 22. If you are using a reusable catheter, follow package instructions about how to clean the catheter after each use. How often should I perform this procedure? ? Do CIC to empty your bladder every 4?6 hours or as often as told by your health care provider. ? If you have symptoms of too much urine in your bladder (overdistension) and you are not able to urinate, perform CIC. Symptoms of overdistension may include: ? Restlessness. ? Sweating or chills. ? Headache. ? Flushed or pale skin. ? Bloated lower abdomen. What are the risks? Generally, this is a safe procedure, however problems may occur, including: ? Infection. ? Injury to the urethra. ? Irritation of the urethra. Follow these instructions at home General instructions ? Drink enough fluid to keep your urine pale yellow. ? Dispose of a multiple use catheter when it becomes dry, brittle, or cloudy. This usually happens after you use the catheter for 1 week. ? Avoid caffeine. Caffeine may make you need to urinate more frequently and more urgently. ? When traveling, bring extra supplies with you in case of delays. Keep supplies with you in a place that you can access easily. If traveling by plane: ? Make sure that the lubricant in your carry-on bag is less than 3.4 ounces (100 mL). ? Use a single-use catheter. It may be difficult to clean a reusable catheter in a small bathroom. ? Take ncgn-esw-cabypah and prescription medicines only as told by your he (more content not included)... Normal [facility] Urology Office/Clinic Noteon 05-03-2023 Urology Office/Clinic Note Chief Complaint urinary retention HPI Staff 3m PVR DX: Urinary Retention, Elevated PSA, BPH, Hydroureter & Renal Cyst S/P TURP 12/29/22 & NEG TRUS/Bx 2018 & MRI of Prostate 10/14/22 *NO Urology Meds Pt states that he feels he is doing much better with a good steady stream. States no urinary issues today. PVR is 346ml and UA looks infected with small blood, positive nitrates and small leuks. Dysuria: no Incomplete bladder emptying: pt feels he is emptying Hematuria: no gross, UA today shows small blood Frequency: no Urgency: no Nocturia: doesn't get up Stream: good steady stream Leaking: no Post void dripping: no Wearing pads/ Depends: no Urge incontinence: no Stress incontinence: no Incontinence without Sensory Awareness: no Abdominal pain: no Flank pain: no Sexual complaints: no History of Present Illness Tests reviewed: reviewed UA I have reviewed the previous health record information and history for this patient from Dr. Sims. I have reviewed and verified the staff HPI to be accurate for this encounter. Review of Systems PHQ Score Initial Depression Screen Score: 0 SCORE ROS - Provider Constitutional: denies weight loss, denies hot flashes. Eyes: denies eye problems. Gastrointestinal: denies nausea, denies vomiting. Cardiovascular: denies chest pain or angina. Integumentary: no dryness Musculoskeletal: denies musculoskeletal symptoms. ENMT: denies otolaryngeal symptoms. Respiratory: no shortness of breath. Heme/Lymph: denies easy bleeding tendency, denies easy bruising tendency. Psychiatric: no confusion, no anxiety. Genitourinary: See HPI. Physical Exam Vitals & Measurements HR: 64(Peripheral) RR: 16 BP: 130/71 HT: 69 in HT: 175 cm WT: 78 kg WT: 171.6 lb BMI: 25.47 General Appearance: alert, no distress, well nourished, well developed male. Genitourinary: normal scrotum, normal testes, normal urethra, normal epididymis, normal vas deferens/spermatic cord. Flank Pain: none. Bladder: nonpalpable. Assessment/Plan 1. Urinary retention (R33.9: Retention of urine, unspecified) Episode of retention in 09/2022. PVR today 346cc. Does not have urge to void. Discussed pt's bladder has weakened over time so he is unable to empty completely. Advised pt NADIA can lead to infection. UA today shows small blood, small leuks, and positive nitrites. Discussed options, such as chronic catheter placement or CIC. States he has done CIC in the past and would be willing to do this. -F/u in 1 month -Take doxycycline x21 days. -Start CIC 2x/day. Record PVRs. 2. Abnormal urinalysis (R82.90: Unspecified abnormal findings in urine) See #1. 3. BPH with urinary obstruction (N40.1: Benign prostatic hyperplasia with lower urinary tract symptoms) S/p Cysto/UROS 11/10/22 - severe trabeculation of prostate. Renal US 10/20/22 - bladder wall thickening likely due to chronic outlet obstruction. S/p TURP 12/29/22. -See #1 4. Elevated PSA (R97.20: Elevated prostate specific antigen [PSA]) PSA 07/13/19 - 13.14 04/01/20 - 6.8 & 27.5% 04/15/21 - 8.1 & 25.4% 07/08/21 - 10.87 07/10/21 - 9.5 & 20.7% 10/28/21 - 9.5 & 22.7% 07/22/22 - 17.18 07/27/22 - 16.98 09/03/22 - 11.25 TRUS/bx 08/15/18 and 09/30/19 by DLS - Neg. MRI prostate w/wo con done 10/14/22 - negative for prostate malignancy. 5. Hydroureter (N13.4: Hydroureter) MRI prostate w/wo con 10/14/22 - prostate volume 100mL and grossly distended bladder with bilateral distal hydroureter. Renal US 10/20/22 - mild left and severe right renal collecting system dilation. 6. Renal cyst (N28.1: Cyst of kidney, acquired) Renal US 10/20/22 - 0.5 x 0.4 x 0.3 cm cyst off the interpolar region of the left kidney. Follow-up With When Contact Information EMANUEL MULLIGAN, Aldair Doan, [facility] [address], [place] [address]- [phone] Additional Instructions: 1 month Patient Education Clean Intermittent Catheterization, Male I, Cathleen Bocanegra, personally scribed for Dr. Sims on 05/03/2023 13:27:32. . Documentation recorded by the debraibCathleen solano, accurately reflects the services(s) I performed and decisions made by me. Authenticated by Dr. Sims on 05/03/2023 13:30:47. Problem List/Past Medical History Ongoing Abnormal urinalysis Anemia Anticoagulated Atrial fibrillation Bilateral ureteral obstruction BMI 27.0-27.9,adult BPH with urinary obstruction Bradycardia Changing pigmented skin lesion Diabetes Eczema Elevated cholesterol Elevated PSA History of shingles Hydroureter Hypercholesterolemia Hypertension Left ventricular hypertrophy Mitral valve regurgitation Neoplasm of uncertain behavior of skin Nocturia Renal cyst Seborrheic keratosis of scalp Urinary retention UTI (urinary tract infection) Vitamin D deficiency Historical No qualifying data Procedure/Surgical History Transurethral resection o (more content not included)... Normal [facility] Comment on above: Result Comment: Elec tronically Signed By: Aldair SIMS MD\.br\Date and Time Signed: 05/03/23 13:30 EST\.br\Electronically Co-Signed By: Cathleen Bocanegra\.br\Date and Time Co-Signed: 05/03/23 13:28 EST Ambulatory Visit Summaryon 1 Ambulatory Visit Summary LENNY RUSSELL JR :1950 Visit Date:01/29/2023 Ambulatory Visit Instructions Your Diagnosis Urinary retention Elevated PSA BPH with urinary obstruction Hydroureter Renal cyst Tests Performed Urnls Dip Stick Auto w/o Microscopy POC 13219 Your Care Team Attending Physician - Aldair SIMS MD Primary Care Physician - Mckinley Melendez MD This Is Your Medications List Contact prescribing physician if questions or concerns Non-Formulary Medication (prostate complete) apixaban (Eliquis) cholecalciferol (Vitamin D3 2000 intl units oral Tab) ferrous gluconate glimepiride (Amaryl 2 mg Tab) metformin (metformin 500 mg oral tablet) multivitamin with minerals (Multivitamins and Minerals) omega-3 polyunsaturated fatty acids (Fish Oil) simvastatin (simvastatin 10 mg Tab) sitagliptin (Januvia 100 mg Tab) sotalol (Betapace AF 120 mg oral tablet) Procedures Performed Transurethral resection of prostate (12/29/2022), Cystoscopy (11/10/2022), Urodynamics (11/10/2022), Excisional biopsy (03/12/2021), Transrectal biopsy of prostate using ultrasound (US) guidance (09/27/2019), Cardioversion (04/2019), Transrectal biopsy of prostate using ultrasound (US) guidance (08/15/2018), Colonoscopy, Repair of left inguinal hernia, Vasectomy. Discharge Vitals Heart Rate (Peripheral) 70 Respiratory Rate 16 Blood Pressure 106/75 Height 175 cm Height 69 in Weight 78.2 kg Weight 172.04 lb BMI 25.53 What to do next Scheduled Follow-Up Appointments Wednesday 11:45 AM EST With: Aldair SIMS MD Where: [facility] Patient Educationon 01-30-20 Patient Education Urology Benign Prostatic Hyperplasia Benign prostatic hyperplasia (BPH) is an enlarged prostate gland that is caused by the normal aging process. The prostate may get bigger as a man gets older. The condition is not caused by cancer. The prostate is a walnut-sized gland that is involved in the production of semen. It is located in front of the rectum and below the bladder. The bladder stores urine. The urethra carries stored urine out of the body. An enlarged prostate can press on the urethra. This can make it harder to pass urine. The buildup of urine in the bladder can cause infection. Back pressure and infection may progress to bladder damage and kidney (renal) failure. What are the causes? This condition is part of the normal aging process. However, not all men develop problems from this condition. If the prostate enlarges away from the urethra, urine flow will not be blocked. If it enlarges toward the urethra and compresses it, there will be problems passing urine. What increases the risk? This condition is more likely to develop in men older than 50 years. What are the signs or symptoms? Symptoms of this condition include: ? Getting up often during the night to urinate. ? Needing to urinate frequently during the day. ? Difficulty starting urine flow. ? Decrease in size and strength of your urine stream. ? Leaking (dribbling) after urinating. ? Inability to pass urine. This needs immediate treatment. ? Inability to completely empty your bladder. ? Pain when you pass urine. This is more common if there is also an infection. ? Urinary tract infection (UTI). How is this diagnosed? This condition is diagnosed based on your medical history, a physical exam, and your symptoms. Tests will also be done, such as: ? A post-void bladder scan. This measures any amount of urine that may remain in your bladder after you finish urinating. ? A digital rectal exam. In a rectal exam, your health care provider checks your prostate by putting a lubricated, gloved finger into your rectum to feel the back of your prostate gland. This exam detects the size of your gland and any abnormal lumps or growths. ? An exam of your urine (urinalysis). ? A prostate specific antigen (PSA) screening. This is a blood test used to screen for prostate cancer. ? An ultrasound. This test uses sound waves to electronically produce a picture of your prostate gland. Your health care provider may refer you to a specialist in kidney and prostate diseases (urologist). How is this treated? Once symptoms begin, your health care provider will monitor your condition (active surveillance or watchful waiting). Treatment for this condition will depend on the severity of your condition. Treatment may include: ? Observation and yearly exams. This may be the only treatment needed if your condition and symptoms are mild. ? Medicines to relieve your symptoms, including: ? Medicines to shrink the prostate. ? Medicines to relax the muscle of the prostate. ? Surgery in severe cases. Surgery may include: ? Prostatectomy. In this procedure, the prostate tissue is removed completely through an open incision or with a laparoscope or robotics. ? Transurethral resection of the prostate (TURP). In this procedure, a tool is inserted through the opening at the tip of the penis (urethra). It is used to cut away tissue of the inner core of the prostate. The pieces are removed through the same opening of the penis. This removes the blockage. ? Transurethral incision (TUIP). In this procedure, small cuts are made in the prostate. This lessens the prostate's pressure on the urethra. ? Transurethral microwave thermotherapy (TUMT). This procedure uses microwaves to create heat. The heat destroys and removes a small amount of prostate tissue. ? Transurethral needle ablation (TUNA). This procedure uses radio frequencies to destroy and remove a small amount of prostate tissue. ? Interstitial laser coagulation (ILC). This procedure uses a laser to destroy and remove a small amount of prostate tissue. ? Transurethral electrovaporization (TUVP). This procedure uses electrodes to destroy and remove a small amount of prostate tissue. ? Prostatic urethral lift. This procedure inserts an implant to push the lobes of the prostate away from the urethra. Follow these instructions at home: ? Take izaf-juj-yclreiu and prescription medicines only as told by your health care provider. ? Monitor your symptoms for any changes. Contact your health care provider with any changes. ? Avoid drinking large amounts of liquid before going to bed or out in public. ? Avoid or reduce how much caffeine or alcohol you drink. ? Give yourself time when you urinate. ? Keep all follow-up visits. This is important. Contact a health care provider if: ? You have unexplained back pain. ? Your symptoms do not get better with treatment. ? You develop side effects from the medicine (more content not included)... Normal [facility] Urology Office/Clinic Noteon 01-29-2023 Urology Office/Clinic Note Chief Complaint P/O TURP HPI Staff 72 yo male here for f/u to TURP. Previous Dx: urinary retention, BPH with obstruction, hydroureter, elevated PSA, anticoagulated. S/p Cysto/Rosa placement 01/01/23, UROS 11/10/22, TRUS/bx 12/29/22 and 03/12/21 and 08/15/18. Dysuria: no Incomplete bladder emptying: no Hematuria: no Frequency: no Urgency: no Nocturia: 1x Stream: good stream, a little straining to start stream sometimes Leaking: no Post void dripping: no Wearing pads/ Depends: no Urge incontinence: no Stress incontinence: no Incontinence without Sensory Awareness: no Abdominal pain: no Flank pain: no Sexual complaints: no History of Present Illness Tests reviewed: reviewed UA, path report, operative report I have reviewed the previous health record information and history for this patient from Dr. Sims. I have reviewed and verified the staff HPI to be accurate for this encounter. Review of Systems PHQ Score Initial Depression Screen Score: 0 ROS - Provider Constitutional: denies weight loss, denies hot flashes. Eyes: denies eye problems. Gastrointestinal: denies nausea, denies vomiting. Cardiovascular: denies chest pain or angina. Integumentary: no dryness Musculoskeletal: denies musculoskeletal symptoms. ENMT: denies otolaryngeal symptoms. Respiratory: no shortness of breath. Heme/Lymph: denies easy bleeding tendency, denies easy bruising tendency. Psychiatric: no confusion, no anxiety. Genitourinary: See HPI. Physical Exam Vitals & Measurements HR: 70(Peripheral) RR: 16 BP: 106/75 HT: 69 in HT: 175 cm WT: 78.2 kg WT: 172.04 lb BMI: 25.53 General Appearance: alert, no distress, well nourished, well developed male. Genitourinary: normal scrotum, normal testes, normal urethra, normal epididymis, normal vas deferens/spermatic cord. Flank Pain: none. Bladder: nonpalpable. Assessment/Plan 1. Urinary retention (R33.9: Retention of urine, unspecified) S/p Cysto/UROS 11/10/22 - severe trabeculation of prostate. Renal US 10/20/22 - bladder wall thickening likely due to chronic outlet obstruction. S/p TURP 12/29/22. Neg path report. Catheter removed 01/26/23. UA today shows moderate blood and large leukocytes (still postop). Denies any issues or complications since procedure. voiding with a good stream. Feels he empties completely. Denies any burning with urination or gross hematuria. Denies any accidents. States he drinks 4-5 16oz bottles of water per day and drinks less coffee. Recommended pt to increase fluid intake to seven to eight 16oz bottles a day; preferably water, clear pop, and sugar free lemonade. Follow up with [facility] in 3 months. All questions/concerns were discussed. Pt to call the office if he encounters any issues prior. Pt acknowledges understanding. -increase fluid intake 2. Elevated PSA (R97.20: Elevated prostate specific antigen [PSA]) TRUS/bx 08/15/18 and 09/30/19 by DLS - Neg. MRI prostate w/wo con done 10/14/22 - negative for prostate malignancy. PSA 07/11/18 - 7.4 & 24.6% 01/24/19 - 8.4 & 21.4% 07/13/19 - 13.14 04/01/20 - 6.8 & 27.5% 04/15/21 - 8.1 & 25.4% 07/08/21 - 10.87 07/10/21 - 9.5 & 20.7% 10/28/21 - 9.5 & 22.7% 07/22/22 - 17.18 07/27/22 - 16.98 09/03/22 - 11.25 3. 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 States he only gets up 1-2x/night (used to be every hour). 4. Hydroureter (N13.4: Hydroureter) MRI prostate w/wo con 10/14/22 - prostate volume 100mL and grossly distended bladder with bilateral distal hydroureter. Renal US 10/20/22 - mild left and severe right renal collecting system dilation. 5. Renal cyst (N28.1: Cyst of kidney, acquired) Renal US 10/20/22 - 0.5 x 0.4 x 0.3 cm cyst off the interpolar region of the left kidney. Follow-up With When Contact Information Aldair SIMS MD, [facility] [address], [place] [address] [phone] Additional Instructions: f/u in 3 months w/ [facility] Patient Education Benign Prostatic Hyperplasia I, Cathleen Bocanegra, personally scribed for Dr. Sims on 01/29/2023 10:17:12. . Documentation recorded by the scribeCathleen, accurately reflects the services(s) I performed and decisions made by me. Authenticated by Dr. Sims on 01/29/2023 10:18:52. Problem List/Past Medical History Ongoing Anemia Anticoagulated Atrial fibrillation Bilateral ureteral obstruction BMI 27.0-27.9,adult BPH with urinary obstruction Bradycardia Changing pigmented skin lesion Diabetes Eczema Elevated cholesterol Elevated PSA History of shingles Hydroureter Hypercholesterolemia Hypertension Left ventricular hypertrophy Mitral valve regurgitation Neoplasm of uncertain behavior of skin Nocturia Renal cyst Seborrheic keratosis of scalp Urinary retention UTI (urinary tract infection) V (more content not included)... Normal [facility] Comment on above: Result Comment: Elec tronically Signed By: Aldair SIMS MD\.br\Date and Time Signed: 01/29/23 10:18 EDT\.br\Electronically Co-Signed By: Cathleen Bocanegra\.br\Date and Time Co-Signed: 01/29/23 10:17 EDT Ambulatory Visit Summaryon 1 Ambulatory Visit Summary LENNY RUSSELL JR :1950 Visit Date:01/26/2023 Ambulatory Visit Instructions Your Care Team Attending Physician - Aldair SIMS MD Primary Care Physician - Mckinley Melendez MD This Is Your Medications List Non-Formulary Medication (prostate complete) apixaban (Eliquis) cholecalciferol (Vitamin D3 2000 intl units oral Tab) ferrous gluconate glimepiride (Amaryl 2 mg Tab) metformin (metformin 500 mg oral tablet) multivitamin with minerals (Multivitamins and Minerals) omega-3 polyunsaturated fatty acids (Fish Oil) simvastatin (simvastatin 10 mg Tab) sitagliptin (Januvia 100 mg Tab) sotalol (Betapace AF 120 mg oral tablet) Procedures Performed Cystoscopy (11/10/2022), Urodynamics (11/10/2022), Excisional biopsy (03/12/2021), Transrectal biopsy of prostate using ultrasound (US) guidance (09/27/2019), Cardioversion (04/2019), Transrectal biopsy of prostate using ultrasound (US) guidance (08/15/2018), Colonoscopy, Repair of left inguinal hernia, Vasectomy. What to do next Scheduled Follow-Up Appointments Wednesday 9:30 AM EDT With: EMANUEL MULLIGAN, Aldair Doan Where: [facility] Normal [address] [place] [address]- \.br\ Medications\.br\ What How Much When Instructions\.br \ Unchanged apixaban (Eliquis) 5 Milligram By Mouth 2 times a day\.br\ Unchanged cholecalciferol (Vitamin D3 2000 intl units oral Tab) 1 Tablets By Mouth Every day\.br\ Unchanged ferrous gluconate 240 Milligram By Mouth 2 times a day\.br\ Unchanged glimepiride (Amaryl 2 mg Tab) 1 Tablets By Mouth Every day\.br\ Unchanged metformin (metformin 500 mg oral tablet) 2 Tablets By Mouth 2 times a day\.br\ Unchanged multivitamin with minerals (Multivitamins and Minerals) 1 Tablets By Mouth Every day\.br\ Unchanged Non-Formulary Medication (prostate complete)\.br\ Unchanged omega-3 polyunsaturated fatty acids (Fish Oil) 1,000 Milligram By Mouth Every day\.br\ Unchanged simvastatin (simvastatin 10 mg Tab) 1 Tablets By Mouth Once a day (at bedtime)\.br\ Unchanged sitagliptin (Januvia 100 mg Tab) 1 Tablets By Mouth Every day\.br\ Unchanged sotalol (Betapace AF 120 mg oral tablet) 1 Tablets By Mouth 2 times a day\.br\ Allergies\.br\ No Known Allergies\.br\ Problems\.br\ Ongoing - Any problem that you are currently receiving treatment for.\.br\ Anemia\.br\ Anticoagulated\. br\ Atrial fibrillation\.br \ Bilateral ureteral obstruction\.br\ BMI 27.0-27.9,adult\ .br\ BPH with urinary obstruction\.br\ Bradycardia\.br\ Changing pigmented skin lesion\.br\ Diabetes\.br\ Eczema\.br\ Elevated cholesterol\.br\ Elevated PSA\.br\ History of shingles\.br\ Hydroureter\.br\ Hypercholesterol emia\.br\ Hypertension\.br \ Left ventricular hypertrophy\.br\ Mitral valve regurgitation\.b r\ Neoplasm of uncertain behavior of skin\.br\ Nocturia\.br\ Seborrheic keratosis of scalp\.br\ Urinary retention\.br\ UTI (urinary tract infection)\.br\ Vitamin D deficiency\.br\ \.br\ [facility] Consent for Procedure/Surger yon 01-04-2023 Consent for Procedure/Surgery [id number] .[id number]:127 Normal [facility] Operative Reporton Operative Report [id number]. 00CD:127 Normal [facility] Ambulatory Visit Summaryon 0 01-01-2023 Ambulatory Visit Summary DREW JACKSONLENNY Adama :1950 Visit Date:01/01/2023 Ambulatory Visit Instructions Your Diagnosis BPH with urinary obstruction Other obstructive and reflux uropathy Your Care Team Attending Physician - EMANUEL MULLIGAN, Aldair Doan Primary Care Physician - Mckinley Melendez MD This Is Your Medications List Non-Formulary Medication (prostate complete) apixaban (Eliquis) cholecalciferol (Vitamin D3 2000 intl units oral Tab) ferrous gluconate glimepiride (Amaryl 2 mg Tab) metformin (metformin 500 mg oral tablet) multivitamin with minerals (Multivitamins and Minerals) omega-3 polyunsaturated fatty acids (Fish Oil) simvastatin (simvastatin 10 mg Tab) sitagliptin (Januvia 100 mg Tab) sotalol (Betapace AF 120 mg oral tablet) Procedures Performed Cystoscopy (11/10/2022), Urodynamics (11/10/2022), Excisional biopsy (03/12/2021), Transrectal biopsy of prostate using ultrasound (US) guidance (09/27/2019), Cardioversion (04/2019), Transrectal biopsy of prostate using ultrasound (US) guidance (08/15/2018), Colonoscopy, Repair of left inguinal hernia, Vasectomy. What to do next Scheduled Follow-Up Appointments Wednesday 9:30 AM EDT With: EMANUEL MULLIGAN, Aldair Doan Where: [facility] Normal [address] [place] [address] [place] [address]- \.br\ Medications\.br\ What How Much When Instructions\.br \ Unchanged apixaban (Eliquis) 5 Milligram By Mouth 2 times a day\.br\ Unchanged cholecalciferol (Vitamin D3 2000 intl units oral Tab) 1 Tablets By Mouth Every day\.br\ Unchanged ferrous gluconate 240 Milligram By Mouth 2 times a day\.br\ Unchanged glimepiride (Amaryl 2 mg Tab) 1 Tablets By Mouth Every day\.br\ Unchanged metformin (metformin 500 mg oral tablet) 2 Tablets By Mouth 2 times a day\.br\ Unchanged multivitamin with minerals (Multivitamins and Minerals) 1 Tablets By Mouth Every day\.br\ Unchanged Non-Formulary Medication (prostate complete)\.br\ Unchanged omega-3 polyunsaturated fatty acids (Fish Oil) 1,000 Milligram By Mouth Every day\.br\ Unchanged simvastatin (simvastatin 10 mg Tab) 1 Tablets By Mouth Once a day (at bedtime)\.br\ Unchanged sitagliptin (Januvia 100 mg Tab) 1 Tablets By Mouth Every day\.br\ Unchanged sotalol (Betapace AF 120 mg oral tablet) 1 Tablets By Mouth 2 times a day\.br\ Allergies\.br\ No Known Allergies\.br\ Problems\.br\ Ongoing - Any problem that you are currently receiving treatment for.\.br\ Anemia\.br\ Anticoagulated\. br\ Atrial fibrillation\.br \ Bilateral ureteral obstruction\.br\ BMI 27.0-27.9,adult\ .br\ BPH with urinary obstruction\.br\ Bradycardia\.br\ Changing pigmented skin lesion\.br\ Diabetes\.br\ Eczema\.br\ Elevated cholesterol\.br\ Elevated PSA\.br\ History of shingles\.br\ Hydroureter\.br\ Hypercholesterol emia\.br\ Hypertension\.br \ Left ventricular hypertrophy\.br\ Mitral valve regurgitation\.b r\ Neoplasm of uncertain behavior of skin\.br\ Nocturia\.br\ Seborrheic keratosis of scalp\.br\ Urinary retention\.br\ UTI (urinary tract infection)\.br\ Vitamin D deficiency\.br\ \.br\ [facility] Nurse Consultation Noteon Nurse Consultation Note Reason for Visit Post Op Cath Removal Assessment/Plan 1. BPH with urinary obstruction (N40.1: Benign prostatic hyperplasia with lower urinary tract symptoms) S/P TURP 12/29/22 Pt?s catheter has been removed in office today with no complications. They have been advised to drink plenty of fluids. Pt has been instructed to call the office in the event that they are not able to void in the next 4-6 hours, or go the ER. Advised Pt if they experience any severe bleeding, fever over 101 and/ or shaking chills to go to the ER. Other obstructive and reflux uropathy (N13.8: Other obstructive and reflux uropathy) Pt has follow up scheduled with Dr Sims 01/22/23. Medications Amaryl 2 mg Tab, 2 mg= 1 tab(s), Oral, Daily Betapace AF 120 mg oral tablet, 120 mg= 1 tab(s), Oral, BID Eliquis, 5 mg, Oral, BID ferrous gluconate, 240 mg, Oral, BID Fish Oil, 1000 mg, Oral, Daily Januvia 100 mg Tab, 100 mg= 1 tab(s), Oral, Daily metformin 500 mg oral tablet, 1000 mg= 2 tab(s), Oral, BID Multivitamins and Minerals, 1 tab(s), Oral, Daily prostate complete simvastatin 10 mg Tab, 10 mg= 1 tab(s), Oral, Once a day (at bedtime) Vitamin D3 2000 intl units oral Tab, 1 tab(s), Oral, Daily Allergies No Known Allergies Immunizations Vaccine Date Status Comments influenza virus vaccine, inactivated - Not Given Patient Refuses SARSCoV2 mRNA(lacho mandujano) vac 06/04/2021 Recorded SARS-CoV-2 (COVID-19) mRNA BNT-162b2 vax 07/23/2020 Recorded SARS-CoV-2 (COVID-19) Ad26 vaccine 07/23/2020 Recorded SARS-CoV-2 (COVID-19) mRNA BNT-162b2 vax 07/01/2020 Recorded SARS-CoV-2 (COVID-19) Ad26 vaccine 07/01/2020 Recorded Normal [facility] Pathology Noteon 01-01-2023 Pathology Note [id number]:127 Normal [facility] Glucose Glucometer (BldC) [M ass/Vol]Ordered By: Aldair Sims on 12-30-2022 Glucose [Mass/Vol] 235 mg/dL [facility] Comment on above: Random Glucose Refer ence Range is dependent on time and content of last meal. Glucose of more than 200 mg/dL in a nonstressed, ambulatory subject supports the diagnosis of Diabetes Mellitus. Glucose Poct Glucometerson 0 12-30-2022 Glucose [Mass/Vol] 235 mg/dL Normal [facility] Comment on above: Result Comment: [place] om Glucose Reference Range is dependent on time and content of last meal. Glucose of more than 200 mg/dL in a nonstressed, ambulatory subject supports the diagnosis of Diabetes Mellitus. PERFORMED BY: [place] [address] PATHOLOGIST [employer]ICE TECHNICIAN TRACEY SPENCER M.D. Performed By: #### G LULS #### Point of Care testing , Basic Metabolic Panelon Anion gap [Moles/Vol] 11.7 mmol/L Normal 6.0-15.0 [facility] Comment on above: Performed By: #### C BC, BMP #### [facility] [address] Calcium [Mass/Vol] 9.1 mg/dL Normal 8.6-10.3 [facility] Comment on above: Performed By: #### C BC, BMP #### [facility] [address] [place] [address] [place] Chloride [Moles/Vol] 106 mmol/L Normal 98-107 [facility] Comment on above: Performed By: #### C BC, BMP #### [facility] [address] CO2 [Moles/Vol] 22.7 mmol/L Normal 21.0-31.0 [facility] Comment on above: Performed By: #### C BC, BMP #### [facility] [address] [place] [address] [place] Creatinine [Mass/Vol] 1.60 mg/dL High 0.70-1.30 [facility] Comment on above: Performed By: #### C BC, BMP #### [facility] [address] [place] [address] [place] Creatinine Clr Calc Pharmacy 41.12 [facility] Comment on above: Result Comment: PERF ORMED BY: [place] [address] PATHOLOGIST [employer] SERVICE TECHNICIAN TRACEY SPENCER M.D. Performed By: #### C BC, BMP #### [place] [address] [place] GFR/1.73 sq M.predicted MDRD (S/P/Bld) [Vol rate/Area] 45.213 mL/min/{1.73_m2} [facility] Comment on above: Performed By: #### C BC, BMP #### [facility] [address] [place] [address] [place] Glucose [Mass/Vol] 198 mg/dL High 70-100 [facility] Comment on above: Result Comment: [place] Glucose Reference Range is dependent on time and content of last meal. Glucose of more than 200 mg/dL in a nonstressed, ambulatory subject supports the diagnosis of Diabetes Mellitus. ADA recommended reference range Performed By: #### C BC, BMP #### [facility] [address] [place] [address] [place] Potassium [Moles/Vol] 4.4 mmol/L Normal 3.5-5.1 [facility] Comment on above: Performed By: #### C ANTOLIN, BMP #### [facility] [address] Sodium [Moles/Vol] 136 mmol/L Normal 136-145 [facility] Comment on above: Performed By: #### C ANTOLIN, BMP #### [facility] [address] Urea nitrogen [Mass/Vol] 30 mg/dL High 7-25 [facility] Comment on above: Performed By: #### C ANTOLIN, BMP #### [facility] [address] Basophils Auto (Bld) [#/Vol] Ordered By: Pacheco Edwards on 12-29-2022 Basophils (Bld) [#/Vol] 0.0 10*3/uL 0.0-0.2 [facility] Basophils/100 WBC Auto (Bld) Ordered By: Pacheco Edwards on 12-29-2022 Basophils/100 WBC (Bld) 0.4 % . [facility] Calcium [Mass/volume] in Ser um or PlasmaOrdered By: Pacheco Edwards on 12-29-2022 Calcium [Mass/Vol] 9.1 mg/dL 8.6-10.3 [facility] Carbon dioxide, total [Moles /volume] in Serum or PlasmaOrdered By: Pacheco dEwards on 12-29-2022 CO2 [Moles/Vol] 22.7 mmol/L 21.0-31.0 [facility] Chloride [Moles/volume] in S bettina or PlasmaOrdered By: Pacheco Edwards on 12-29-2022 Chloride [Moles/Vol] 106 mmol/L 98-107 [facility] Complete Blood Count Auto Di ffon 12-29-2022 Basophils (Bld) [#/Vol] 0.0 10*3/uL Normal 0.0-0.2 [facility] Comment on above: Result Comment: PERF ORMED BY: [facility] [address] [place] [address] PATHOLOGIST [employer] SERVICE TECHNICIAN TRACEY SPENCER M.D. Performed By: #### C BC, BMP #### [facility] [address] [place] [address] [place] Basophils/100 WBC (Bld) 0.4 % Normal . [facility] Comment on above: Performed By: #### C BC, BMP #### [facility] [address] [place] [address] [place] Eosinophils (Bld) [#/Vol] 0.1 10*3/uL Normal 0.0-0.45 [facility] Comment on above: Performed By: #### C BC, BMP #### [facility] [address] Eosinophils/100 WBC (Bld) 1.9 % Normal . [facility] Comment on above: Performed By: #### C BC, BMP #### [facility] [address] Erythrocyte distribution width (RBC) [Ratio] 13.2 % Normal 12.0-14.8 [facility] Comment on above: Performed By: #### C BC, BMP #### [facility] [address] Hematocrit (Bld) [Volume fraction] 38.6 % Low 38.8-50.0 [facility] Comment on above: Performed By: #### C BC, BMP #### [facility] [address] [place] [address] [place] Hemoglobin (Bld) [Mass/Vol] 13.0 g/dL Normal 13.0-17.0 [facility] Comment on above: Performed By: #### C BC, BMP #### [facility] [address] [place] [address] [place] Lymphocytes (Bld) [#/Vol] 1.0 10*3/uL Normal 1.00-4.8 [facility] Comment on above: Performed By: #### C BC, BMP #### [facility] [address] [place] [id number] [place] Lymphocytes/100 WBC (Bld) 13.5 % Normal . [facility] Comment on above: Performed By: #### C BC, BMP #### [facility] [address] MCH (RBC) [Entitic mass] 29.6 pg Normal 27.5-35.2 [facility] Comment on above: Performed By: #### C BC, BMP #### [facility] [address] MCV (RBC) [Entitic vol] 87.8 fL Normal 83.5-101 [facility] Comment on above: Performed By: #### C BC, BMP #### [facility] [address] Mean Corpuscular HGB Conc 33.7 g/dL Normal 32.5-35.6 [facility] Comment on above: Performed By: #### C BC, BMP #### [facility] [address] Monocytes (Bld) [#/Vol] 0.8 10*3/uL Normal 0.0-0.8 [facility] Comment on above: Performed By: #### C BC, BMP #### [facility] [address] [place] [address] [place] Monocytes/100 WBC (Bld) 10.3 % Normal . [facility] Comment on above: Performed By: #### C BC, BMP #### [facility] [address] Neutrophils (Bld) [#/Vol] 5.4 10*3/uL Normal 1.8-7.7 [facility] Comment on above: Performed By: #### C BC, BMP #### [facility] [address] [place] [address] [place] Neutrophils/100 WBC (Bld) 73.9 % Normal . [facility] Comment on above: Performed By: #### C BC, BMP #### [facility] [address] NRBC% 0.0 /100{WBC} Normal 0-0.5 [facility] Comment on above: Performed By: #### C BC, BMP #### [facility] [address] Platelet mean volume (Bld) [Entitic vol] 8.4 fL Normal 6.6-10.1 [facility] Comment on above: Performed By: #### C BC, BMP #### [facility] [address] Platelets (Bld) [#/Vol] 281 10*3/uL Normal 150-450 [facility] Comment on above: Performed By: #### C BC, BMP #### [facility] [address] RBC (Bld) [#/Vol] 4.40 10*6/uL Normal 3.90-5.60 [facility] Comment on above: Performed By: #### C BC, BMP #### [facility] [address] WBC (Bld) [#/Vol] 7.3 10*3/uL Normal 4.1-10.5 [facility] Comment on above: Performed By: #### C BC, BMP #### [facility] [address] Creatinine [Mass/volume] in Serum or PlasmaOrdered By: Pacheco Edwards on 12-29-2022 Creatinine [Mass/Vol] 1.60 mg/dL 0.70-1.30 [facility] ECG 12 lead ECGon 12-29-2022 ECG 12 lead ECG [facility] [place] [address] [place] [address] Electrocardiograph Report Signed Patient: Lenny Russell Jr MR#: [id number] : 1950 Acct:[id number] Age/Sex: 72 / M ADM Date: 12/29/22 Loc: [place] Room: Type: [facility] Attending Dr: Aldair Sims MD Ordering Provider: Pacheco Edwards MD Date of Service: 12/29/2209/15/733 ECG/ECG 12 lead ECG: preop Copies to: Test Reason : Blood Pressure : / mmHG Vent. Rate : 080 BPM Atrial Rate : 093 BPM P-R Int : 000 ms QRS Dur : 080 ms QT Int : 384 ms P-R-T Axes : 000 019 001 degrees QTc Int : 442 ms Atrial fibrillation Nonspecific T wave abnormality Abnormal ECG When compared with ECG of 04-JUL-2019 13:38, Atrial fibrillation has replaced Sinus rhythm Vent. rate has increased BY 32 BPM QT has lengthened Confirmed by ROSA ELENA RUSSELL MD ([id number]) on 12/29/2022 11:22:25 AM Referred By: Electronically Signed By:ROSA ELENA RUSSELL MD Transcribed By: MUS Signed By Rosa Elena Russell MD 0 12/29/22 1122 Normal [facility] Eosinophils Auto (Bld) [#/Vo l]Ordered By: Pacheco Edwards on 12-29-2022 Eosinophils (Bld) [#/Vol] 0.1 10*3/uL 0.0-0.45 [facility] Eosinophils/100 WBC Auto (Bl d)Ordered By: Pacheco Edwards on 12-29-2022 Eosinophils/100 WBC (Bld) 1.9 % . [facility] Erythrocyte distribution wid th Auto (RBC) [Ratio]Ordered By: Pacheco Edwards on 12-29-2022 Erythrocyte distribution width (RBC) [Ratio] 13.2 % 12.0-14.8 [facility] Glucose Poct Glucometerson 0 12-29-2022 Commemt1 Glu2: Cleaned Meter Normal [facility] Comment on above: Result Comment: PERF ORMED BY: [facility] [address] [place] [address] PATHOLOGIST [employer] TECHNICIAN TRACEY SPENCER M.D. Performed By: #### G LULS #### Point of Care testing , Glucose [Mass/Vol] 156 mg/dL Normal [facility] Comment on above: Result Comment: [facility] Glucose Reference Range is dependent on time and content of last meal. Glucose of more than 200 mg/dL in a nonstressed, ambulatory subject supports the diagnosis of Diabetes Mellitus. Performed By: #### G LULS #### Point of Care testing , Glucose [Mass/Vol] 194 mg/dL Normal [facility] Comment on above: Result Comment: [place] om Glucose Reference Range is dependent on time and content of last meal. Glucose of more than 200 mg/dL in a nonstressed, ambulatory subject supports the diagnosis of Diabetes Mellitus. PERFORMED BY: [address] [place] [address] PATHOLOGIST [employer] SERVICE TECHNICIAN TRACEY SPENCER M.D. Performed By: #### G LULS ####Point of Care testing, Glucose [Mass/Vol] 172 mg/dL Normal [facility] Comment on above: Result Comment: [place] om Glucose Reference Range is dependent on time and content of last meal. Glucose of more than 200 mg/dL in a nonstressed, ambulatory subject supports the diagnosis of Diabetes Mellitus. PERFORMED BY: [address] [place] [id number] PATHOLOGIST [employer] SERVICE TECHNICIAN TRACEY SPENCER M.D. Performed By: #### G LULS #### Point of Care testing , Glucose [Mass/Vol] 200 mg/dL Normal [facility] Comment on above: Result Comment: [place] om Glucose Reference Range is dependent on time and content of last meal. Glucose of more than 200 mg/dL in a nonstressed, ambulatory subject supports the diagnosis of Diabetes Mellitus. PERFORMED BY: [address] [place] [id number] PATHOLOGIST [employer] SERVICE TECHNICIAN TRACEY SPENCER M.D. Performed By: #### G LULS #### Point of Care testing , Commemt1 Glu2: Cleaned Meter Normal [facility] Comment on above: Result Comment: PERF ORMED BY: [facility] [address] [place] [id number] PATHOLOGIST [employer] SERVICE TECHNICIAN TRACEY SPENCER M.D. Performed By: #### G LULS #### Point of Care testing , Glucose [Mass/Vol] 200 mg/dL Normal [facility] Comment on above: Result Comment: [place] Glucose Reference Range is dependent on time and content of last meal. Glucose of more than 200 mg/dL in a nonstressed, ambulatory subject supports the diagnosis of Diabetes Mellitus. Performed By: #### G EVGENY #### Point of Care testing , Glucose [Mass/volume] in Ser um or PlasmaOrdered By: Pacheco Edwards on 12-29-2022 Glucose [Mass/Vol] 198 mg/dL 70-100 [facility] Comment on above: ADA recommended refe rence rangeRandom Glucose Reference Range is dependent on time and content of last meal. Glucose of more than 200 mg/dL in a nonstressed, ambulatory subject supports the diagnosis of Diabetes Mellitus. Hematocrit Auto (Bld) [Volum e fraction]Ordered By: Pacheco Edwards on 12-29-2022 Hematocrit (Bld) [Volume fraction] 38.6 % 38.8-50.0 [facility] Hemoglobin [Mass/volume] in BloodOrdered By: Pacheco Edwards on 12-29-2022 Hemoglobin (Bld) [Mass/Vol] 13.0 g/dL 13.0-17.0 [facility] Moisés 12-29-2022 L - -------- Specimen: [id number] Received: 12/29/22 Status: MICHA Bee Num: [id number] Spec Type: Surgical Subm Dr: Aldair Sims MD Tissues: A Prostate - Tur (PROSTATE TISSUE) Procedures: /10, Gross/Micro L4 -------- Age/ Patient Sex Location Account Attending Physician -------- Lenny Russell Jr 72/M [place] [id number] Aldair Sims MD -------- SPEC NUM: [id number] RECD: 12/29/22 STATUS: MICHA BEE NUM: [id number] SONALI: 12/29/[address] [place] [address]: Aldair Sims MD ENTERED: 12/29/[address] [facility] [address]: SPEC TYPE: Surgical DEPT: S ORDERED: HE/10, Gross/Micro L4 ORDERED: HE/10, Gross/Micro L4 Pathological Diagnosis Prostate, transurethral resection of prostate (TURP): - 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 Entirely submitted in seven cassettes labeled A1-A7. Microscopic Description Seven H E slides reviewed. The microscopic examination confirms the diagnosis. -------- Specimen: [id number] Received: 12/29/22 Status: MICHA Bee Num: [id number] Spec Type: Surgical Subm Dr: Aldair Sims MD Tissues: A Prostate - Tur (PROSTATE TISSUE) Procedures: Asmita/Micro L4 -------- Patient: Lenny Russell Jr [id number] (Continued) -------- Specimen: [id number] Received: 12/29/22 (Continued) Signed (signature on file) Ferdinand Walker MD 12/31/22 0836 -------- Specimen: [id number] Received: 12/29/22 Status: MICHA Req Num: [id number] Spec Type: Surgical Subm Dr: Aldair Sims MD Tissues: A Prostate - Tur (PROSTATE TISSUE) Procedures: Gross/Micro L4 -------- Patient: Lenny Russell Jr [id number] (Continued) -------- Specimen: Received: 12/29/22 (Continued) CPT Codes 61883 -------- -------- Specimen: Received: 12/29/22 Status: MICHA Bee Num: [id number] Spec Type: Surgical Subm Dr: Aldair Sims MD Tissues: A Prostate - Tur (PROSTATE TISSUE) Procedures: /10, Gross/Micro L4 -------- Patient: Lenny Russell Jr [id number] (Continued) -------- Signed (signature on file) Ferdinand Walker MD 12/31/22 0836 Normal [facility] Leukocytes [#/volume] correc nehal for nucleated erythrocytes in Blood by Automated counOrdered By: Pacheco Edwards on 12-29-2022 WBC corrected for nucl RBC Auto (Bld) [#/Vol] 7.3 10*3/uL 4.1-10.5 [facility] Lymphocytes Auto (Bld) [#/Vo l]Ordered By: Pacheco Edwards on 12-29-2022 Lymphocytes (Bld) [#/Vol] 1.0 10*3/uL 1.00-4.8 [facility] Lymphocytes/100 WBC Auto (Bl d)Ordered By: Pacheco Edwards on 12-29-2022 Lymphocytes/100 WBC (Bld) 13.5 % . [facility] MCH Auto (RBC) [Entitic mass ]Ordered By: Pacheco Edwards on 12-29-2022 MCH (RBC) [Entitic mass] 29.6 pg 27.5-35.2 [facility] MCHC Auto (RBC) [Mass/Vol]Or dered By: Pacheco Edwards on 12-29-2022 MCHC (RBC) [Mass/Vol] 33.7 g/dL 32.5-35.6 [facility] MCV Auto (RBC) [Entitic vol] Ordered By: Pacheco Edwards on 12-29-2022 MCV (RBC) [Entitic vol] 87.8 fL 83.5-101 [facility] Monocytes Auto (Bld) [#/Vol] Ordered By: Pacheco Edwards on 12-29-2022 Monocytes (Bld) [#/Vol] 0.8 10*3/uL 0.0-0.8 [facility] Monocytes/100 WBC Auto (Bld) Ordered By: Pacheco Edwards on 12-29-2022 Monocytes/100 WBC (Bld) 10.3 % . [facility] Neutrophils Auto (Bld) [#/Vo l]Ordered By: Pacheco Edwards on 12-29-2022 Neutrophils (Bld) [#/Vol] 5.4 10*3/uL 1.8-7.7 [facility] Neutrophils/100 WBC Auto (Bl d)Ordered By: Pacheco Edwards on 12-29-2022 Neutrophils/100 WBC (Bld) 73.9 % . [facility] No Panel InformationOrdered By: Aldair Sims on 12-29-2022 Bedside Glucose Comment Glu2: cleaned meter [facility] No Panel InformationOrdered By: Pacheco Edwards on 12-29-2022 Estimated GFR (CKD-EPI) 45.213 mL/Min [facility] Creatinine Clearance (Chem 41.12 [facility] Nucleated erythrocytes [Pres ence] in Blood by Automated countOrdered By: Pacheco Edwards on 12-29-2022 Nucleated RBC Auto Ql (Bld) 0.0 /100{WBC} 0-0.5 [facility] Operative Reporton Operative Report [id number] .[id number]:127 Normal [facility] Platelet mean volume Auto (B ld) [Entitic vol]Ordered By: Pacheco Edwards on 12-29-2022 Platelet mean volume (Bld) [Entitic vol] 8.4 fL 6.6-10.1 [facility] Platelets Auto (Bld) [#/Vol] Ordered By: Pacheco Edwards on 12-29-2022 Platelets (Bld) [#/Vol] 281 10*3/uL 150-450 [facility] Potassium [Moles/volume] in Serum or PlasmaOrdered By: Pacheco Edwards on 12-29-2022 Potassium [Moles/Vol] 4.4 mmol/L 3.5-5.1 [facility] RBC Auto (Bld) [#/Vol]Ordere d By: Pacheco Edwards on 12-29-2022 RBC (Bld) [#/Vol] 4.40 10*6/uL 3.90-5.60 [facility] Serum or plasma anion gap de terminationOrdered By: Pacheco Edwards on 12-29-2022 Anion gap [Moles/Vol] 11.7 mmol/L 6.0-15.0 [facility] Sodium [Moles/volume] in Ser um or PlasmaOrdered By: Pacheco Edwards on 12-29-2022 Sodium [Moles/Vol] 136 mmol/L 136-145 [facility] Urea nitrogen [Mass/volume] in Serum or PlasmaOrdered By: Pacheco Edwards on 12-29-2022 Urea nitrogen [Mass/Vol] 30 mg/dL 7-25 [facility] WBC Auto (Bld) [#/Vol]Ordere d By: Pacheco Edwards on 12-29-2022 WBC (Bld) [#/Vol] 7.3 10*3/uL 4.1-10.5 [facility] Creatinine (Bld) [Mass/Vol]O rdered By: Aldair Sims on 10-14-2022 Creatinine [Mass/Vol] 2.2 mg/dL 0.6-1.3 [facility] Comment on above: ER/ESD physician is notified/shown all ISTAT results.Critical values may be confirmed by laboratory testing ifdeemed necessary by ER attending doctor. MR prostate wo conon 023 MR prostate wo con [facility] [address] MRI Report Signed Patient: Lenny Russell Jr MR#: [id number] : 1950 Acct:[id number] Age/Sex: 71 / M ADM Date: 10/14/22 Loc: MR Room: Type: [facility] Attending Dr: Aldair Sims MD Copies to: Aldair Sims MD Ordering Provider: Aldair Sims MD Date of Service: 10/14/22 MR/MR prostate wo con: R97.20 EXAMINATION: MR prostate wo con HISTORY: Elevated PSA COMPARISON: NONE TECHNIQUE: Multiparametric imaging of the prostate gland was performed without IV contrast. FINDINGS: Prostate Dimensions: 5.6 x 4.7 x 7.3 cm Prostate Volume: 100 mL Peripheral Zone: Atrophic. No suspicious T2 or ADC map abnormality is identified to suggest prostate malignancy. Central/Transitional Zone: BPH changes. Seminal Vesicles: Unremarkable Neurovascular bundles: Unremarkable. Lymphadenopathy: No evidence of lymphadenopathy. Bladder: Grossly distended with bilateral distal hydroureter. Bowel: The visualized bowel is without acute abnormality. Peritoneal Cavity: No free fluid. Bones: No suspicious bony lesion. MR/MR prostate wo con IMPRESSION: 1. No MRI evidence of prostate malignancy. 2. BPH changes with grossly distended urinary bladder and distal bilateral hydroureter. Findings suggest bladder outlet obstruction. Rosa catheter decompression should BE considered. Impression dictated by: Fabrizio Peterson Jr., D.O.10/14/2022 9:05 AM Dictation Location: [place] [address] Transcribed By: [facility] 10/14/22 0905 Dictated By: Fabrizio Peterson Jr, DO 10/14/22 0852 Signed By: 10/14/22 0905 Normal [facility] INSULINon 07-28-2022 Insulin 7.7 uIU/mL Normal 2.6-24.9 [facility] Comment on above: Performed By: #### I NSULIN #### [facility] [address] [place] [address] Dr. Karen Richter BNPon 07-27-2022 Natriuretic peptide B (Bld) [Mass/Vol] 1335.0 pg/mL Critically high <=900.0 [facility] Comment on above: Performed By: #### I NSULIN #### [facility] [address] [place] [address] [address] Karen Richter CBC AUTO DIFFon 07-27-2022 BASO # 0.1 103/ul Normal 0.0-0.1 [facility] Comment on above: Performed By: #### P SAD #### [facility] [address] [place] [address] [address] Karen Richter Basophils/100 WBC (Bld) 0.5 % Normal 0.2-2.0 [facility] Comment on above: Performed By: #### P SAD #### [facility] [address] [place] [address] [address] Karen Richter EO # 0.3 103/ul Normal 0.0-0.7 [facility] Comment on above: Performed By: #### P SAD #### [facility] [address] [place] [address] [address] Karen Richter Eosinophils/100 WBC (Bld) 3.2 % Normal 0.9-7.0 [facility] Comment on above: Performed By: #### P SAD #### [facility] [address] [place] [address] Dr. Karen Richter Erythrocyte distribution width (RBC) [Ratio] 12.9 % Normal 11.0-15.0 [facility] Comment on above: Performed By: #### P SAD #### [facility] [address] [place] [address] Dr. Karen Richter Hematocrit (Bld) [Volume fraction] 38.2 % Critically low 42.0-54.0 [facility] Comment on above: Performed By: #### P SAD #### [facility] [address] [place] [address] Dr. Karen Richter Hemoglobin (Bld) [Mass/Vol] 12.7 g/dL Critically low 14.0-18.0 [facility] Comment on above: Performed By: #### P SAD #### [facility] [address] [place] [address] Dr. Karen Richter IG # 0.02 10e3/ul Normal 0.00-0.03 [facility] Comment on above: Performed By: #### P SAD #### [facility] [address] [place] [address] [address] Karen Richter IG % 0.2 % Normal 0.0-0.5 [facility] Comment on above: Performed By: #### P SAD #### [facility] [address] [place] [address] Dr. Karen Richter LYMPH # 1.4 103/ul Normal 1.2-3.8 [facility] Comment on above: Performed By: #### P SAD #### [facility] [address] [place] [address] Dr. Karen Richter Lymphocytes/100 WBC (Bld) 14.9 % Critically low 20.5-60.0 [facility] Comment on above: Performed By: #### P SAD #### [facility] [address] [place] [address] Dr. Karen Richter MANUAL DIFF REQ NO Normal [facility] Comment on above: Performed By: #### P SAD #### [facility] [address] [place] [address] Dr. Karen Richter MCH (RBC) [Entitic mass] 30.0 pg Normal 25.9-34.0 [facility] Comment on above: Performed By: #### P SAD #### [facility] [address] [place] [address] Dr. Karen Richter MCHC (RBC) [Mass/Vol] 33.2 g/dL Normal 29.9-35.2 [facility] Comment on above: Performed By: #### P SAD #### [facility] [address] [place] [address] Dr. Karen Richter MCV (RBC) [Entitic vol] 90.3 fL Normal 80.0-94.0 [facility] Comment on above: Performed By: #### P SAD #### [facility] [address] [place] [address] Dr. Karen Richter MONO # 0.9 103/ul Critically high 0.3-0.8 [facility] Comment on above: Performed By: #### P SAD #### [facility] [address] [place] [address] Dr. Karen Richter Monocytes/100 WBC (Bld) 10.0 % Normal 1.7-12.0 [facility] Comment on above: Performed By: #### P SAD #### [facility] [address] [place] [address] Dr. Karen Richter NEUT # 6.5 103/ul Normal 1.4-6.5 [facility] Comment on above: Performed By: #### P SAD #### [facility] [address] [place] [address] Dr. Karen Richter Neutrophils/100 WBC (Bld) 71.2 % Normal 43.0-75.0 [facility] Comment on above: Performed By: #### P SAD #### [facility] [address] [place] [address] Dr. Karen Richter Platelet mean volume (Bld) [Entitic vol] 10.2 fL Normal 9.5-13.5 [facility] Comment on above: Performed By: #### P SAD #### [facility] [address] [place] [address] Dr. Karen Richter PLT 253 103/ul Normal 150-450 [facility] Comment on above: Performed By: #### P SAD #### [facility] [address] [place] [address] Dr. Karen Richter RBC 4.23 106/ul Critically low 4.70-6.10 [facility] Comment on above: Performed By: #### P SAD #### [facility] [address] [place] [address] Dr. Karen Richter WBC 9.2 103/ul Normal 4.0-11.0 [facility] Comment on above: Performed By: #### P SAD #### [facility] [address] [place] [address] Dr. Karen Richter FREE THYROXINE INDEX T7on FTI 2.04 Normal 1.30-4.50 [facility] Comment on above: Performed By: #### T SH, URIC, T7, BNP, CMP, LIPID #### [facility] [address] [place] [address] Dr. Karen Richter T3U 34.0 % Normal 33.0-40.0 [facility] Comment on above: Performed By: #### T SH, URIC, T7, BNP, CMP, LIPID #### [facility] [address] [place] [address] Dr. Karen Richter T4 [Mass/Vol] 6.00 ug/dL Normal 4.50-12.10 [facility] Comment on above: Performed By: #### T SH, URIC, T7, BNP, CMP, LIPID #### [facility] [address] [place] [address] [address] Karen Richter GLYCOHEMOGLOBIN A1Con 2022 ADA RECOMMENDATION SEE BELOW Normal [facility] Comment on above: Result Comment: ADA RECOMMENDED LIMIT 4.0 - 6.0 ADA THERAPEUTIC TARGET < 7.0 ACTION SUGGESTED > 7.0 Performed By: #### I NSULIN #### [facility] [address] [place] [address] [address] Karen Richter Glucose [Mass/Vol] 134 mg/dL Normal [facility] Comment on above: Performed By: #### I NSULIN #### [facility] [address] [place] [address] Dr. Karen Richter HbA1c (Bld) [Mass fraction] 6.3 % Critically high 4.5-6.2 [facility] Comment on above: Performed By: #### I NSULIN #### [facility] [address] [place] [address] Dr. Karen Richter LIPID PROFILEon 07-27-2022 CHOL-HDL RATIO NORM SEE BELOW Normal [facility] Comment on above: Result Comment: 3.3 - 4.4 LOW RISK 4.4 - 7.1 AVERAGE RISK 7.1 - 11.0 MODERATE RISK >11.0 HIGH RISK Performed By: #### T SH, URIC, T7, BNP, CMP, LIPID #### [facility] [address] [place] [address] Dr. Karen Richter Cholesterol [Mass/Vol] 123 mg/dL Normal <=200 Th [facility] Comment on above: Performed By: #### T SH, URIC, T7, BNP, CMP, LIPID #### [facility] [address] [place] [address] Dr. Karen Richter Cholesterol in HDL [Mass/Vol] 39 mg/dL Critically low 40-60 [facility] Comment on above: Performed By: #### T SH, URIC, T7, BNP, CMP, LIPID #### [facility] [address] [place] [address] Dr. Karen Richter Cholesterol in LDL [Mass/Vol] 65.6 mg/dL Normal [facility] Comment on above: Performed By: #### T SH, URIC, T7, BNP, CMP, LIPID #### [facility] [address] [place] [address] Dr. Karen Richter Cholesterol.total/Chol esterol in HDL [Mass ratio] 3.2 {ratio} Normal [facility] Comment on above: Performed By: #### T SH, URIC, T7, BNP, CMP, LIPID #### [facility] [address] [place] [address] Dr. Karen Richter HDL NORMAL > or = 60 mg/dl - LO W CARDIOVASCULAR RISK <40 mg/dl - HIGH CARDIOVASCULAR RISK Normal [facility] Comment on above: Performed By: #### T SH, URIC, T7, BNP, CMP, LIPID #### [facility] [address] [place] [address] Dr. Karen Richter LDL CALC NORMAL SEE BELOW Normal [facility] Comment on above: Result Comment: <100 mg/dl OPTIMAL 100 - 129 mg/dl NEAR OR ABOVE OPTIMAL 130 - 159 mg/dl BORDERLINE HIGH 160 - 189 mg/dl HIGH >190 mg/dl VERY HIGH Performed By: #### T SH, URIC, T7, BNP, CMP, LIPID #### [facility] [address] [place] [address] Dr. Karen Richter Triglyceride [Mass/Vol] 92 mg/dL Normal <=150 [facility] Comment on above: Performed By: #### T SH, URIC, T7, BNP, CMP, LIPID #### [facility] [address] [place] [address] Dr. Karen Rcihter VLDL CALC 18.4 mg/dL Normal [facility] Comment on above: Performed By: #### T SH, URIC, T7, BNP, CMP, LIPID #### [facility] [address] [place] [address] Dr. Karen Richter PROF 14(COMP METB)on 023 Albumin [Mass/Vol] 3.6 g/dL Normal 3.4-5.0 [facility] Comment on above: Performed By: #### T SH, URIC, T7, BNP, CMP, LIPID #### [facility] [address] [place] [address] Dr. Karen Richter Albumin/Globulin [Mass ratio] 1.1 {ratio} Normal [facility] Comment on above: Performed By: #### T SH, URIC, T7, BNP, CMP, LIPID #### [facility] [address] [place] [address] Dr. Karen Richter ALP [Catalytic activity/Vol] 56 U/L Normal 46-116 [facility] Comment on above: Performed By: #### T SH, URIC, T7, BNP, CMP, LIPID #### [facility] [address] [place] [address] Dr. Karen Richter ALT [Catalytic activity/Vol] 19 U/L Normal 16-63 [facility] Comment on above: Performed By: #### T SH, URIC, T7, BNP, CMP, LIPID #### [facility] [address] [place] [address] Dr. Karen Richter Anion gap [Moles/Vol] 10.5 mmol/L Normal [facility] Comment on above: Performed By: #### T SH, URIC, T7, BNP, CMP, LIPID #### [facility] [address] [place] [address] Dr. Karen Richter AST [Catalytic activity/Vol] 15 U/L Normal 15-37 [facility] Comment on above: Performed By: #### T SH, URIC, T7, BNP, CMP, LIPID #### [facility] [address] [place] [address] Dr. Karen Richter Bilirubin [Mass/Vol] 0.4 mg/dL Normal 0.2-1.0 [facility] Comment on above: Performed By: #### T SH, URIC, T7, BNP, CMP, LIPID #### [facility] [address] [place] [address] Dr. Karen Richter Calcium [Mass/Vol] 9.0 mg/dL Normal 8.5-10.1 [facility] Comment on above: Performed By: #### T SH, URIC, T7, BNP, CMP, LIPID #### [facility] [address] [place] [address] Dr. Karen Richter Chloride [Moles/Vol] 106 mmol/L Normal 98-107 [facility] Comment on above: Performed By: #### T SH, URIC, T7, BNP, CMP, LIPID #### [facility] [address] [place] [address] Dr. Karen Richter CO2 [Moles/Vol] 25.1 mmol/L Normal 21.0-32.0 [facility] Comment on above: Performed By: #### T SH, URIC, T7, BNP, CMP, LIPID #### [facility] [address] [place] [address] Dr. Karen Richter Creatinine [Mass/Vol] 1.95 mg/dL Critically high 0.70-1.30 [facility] Comment on above: Performed By: #### T SH, URIC, T7, BNP, CMP, LIPID #### [facility] [address] [place] [address] Dr. Karen Richter EGFR-AF [place]AN 41 mL/min/1.73m2 Critically low >=60 [facility] Comment on above: Performed By: #### T SH, URIC, T7, BNP, CMP, LIPID #### [facility] [address] [place] [address] Dr. Karen Richter EGFR-NON AF [place] 34 mL/min/1.73m2 Critically low >=60 [facility] Comment on above: Performed By: #### T SH, URIC, T7, BNP, CMP, LIPID #### [facility] [address] [place] [address] Dr. Karen Richter Globulin (S) [Mass/Vol] 3.4 g/dL Normal [facility] Comment on above: Performed By: #### T SH, URIC, T7, BNP, CMP, LIPID #### [facility] [address] [place] [address] Dr. Karen Richter Glucose [Mass/Vol] 162 mg/dL Critically high 74-106 [facility] Comment on above: Performed By: #### T SH, URIC, T7, BNP, CMP, LIPID #### [facility] [address] [place] [address] Dr. Karen Richter Potassium [Moles/Vol] 4.6 mmol/L Normal 3.5-5.1 [facility] Comment on above: Performed By: #### T SH, URIC, T7, BNP, CMP, LIPID #### [facility] [address] [place] [address] Dr. Karen Richter Protein [Mass/Vol] 7.0 g/dL Normal 6.4-8.2 [facility] Comment on above: Performed By: #### T SH, URIC, T7, BNP, CMP, LIPID #### [facility] [address] [place] [address] Dr. Karen Richter Sodium [Moles/Vol] 137 mmol/L Normal 136-145 [facility] Comment on above: Performed By: #### T SH, URIC, T7, BNP, CMP, LIPID #### [facility] [address] [place] [address] Dr. Karen Richter Urea nitrogen [Mass/Vol] 35.0 mg/dL Critically high 7.0-18.0 [facility] Comment on above: Performed By: #### T SH, URIC, T7, BNP, CMP, LIPID #### [facility] [address] [place] [address] Dr. Karen Richter Urea nitrogen/Creatinine [Mass ratio] 17.9 mg/mg Normal [facility] Comment on above: Performed By: #### T SH, URIC, T7, BNP, CMP, LIPID #### [facility] [address] [place] [address] Dr. Karen Richter TSHon 07-27-2022 TSH 2.367 uIU/mL Normal 0.358-3.740 [facility] Comment on above: Performed By: #### T SH, URIC, T7, BNP, CMP, LIPID #### [facility] [address] [place] [address] Dr. Karen Richter URIC ACID SERUMon 07-27-2022 Urate [Mass/Vol] 6.5 mg/dL Normal 3.5-7.2 [facility] Comment on above: Performed By: #### T SH, URIC, T7, BNP, CMP, LIPID #### [facility] [address] [place] [address] Dr. Karen Richter INSULINon 07-23-2022 Insulin 6.3 uIU/mL Normal 2.6-24.9 [facility] Comment on above: Performed By: #### I NSULIN #### [facility] [address] [place] [address] Dr. Karen Richter BNPon 07-22-2022 Natriuretic peptide B (Bld) [Mass/Vol] 192.0 pg/mL Normal <=900.0 [facility] Comment on above: Performed By: #### I NSULIN #### [facility] [address] [place] [address] Dr. Karen Richter CBC AUTO DIFFon 07-22-2022 BASO # 0.0 103/ul Normal 0.0-0.1 [facility] Comment on above: Performed By: #### C BC #### [facility] [address] [place] [address] Dr. Karen Richter Basophils/100 WBC (Bld) 0.5 % Normal 0.2-2.0 [facility] Comment on above: Performed By: #### C BC #### [facility] [address] [place] [address] Dr. Karen Richter EO # 0.2 103/ul Normal 0.0-0.7 [facility] Comment on above: Performed By: #### C BC #### [facility] [address] [place] [address] Dr. Karen Richter Eosinophils/100 WBC (Bld) 2.3 % Normal 0.9-7.0 [facility] Comment on above: Performed By: #### C BC #### [facility] [address] [place] [address] Dr. Karen Richter Erythrocyte distribution width (RBC) [Ratio] 13.1 % Normal 11.0-15.0 [facility] Comment on above: Performed By: #### C BC #### [facility] [address] [place] [address] Dr. Karen Richter Hematocrit (Bld) [Volume fraction] 39.7 % Critically low 42.0-54.0 [facility] Comment on above: Performed By: #### C BC #### [facility] [address] [place] [address] Dr. Karen Richter Hemoglobin (Bld) [Mass/Vol] 13.0 g/dL Critically low 14.0-18.0 [facility] Comment on above: Performed By: #### C BC #### [facility] [address] [place] [address] Dr. Karen Richter IG # 0.03 10e3/ul Normal 0.00-0.03 [facility] Comment on above: Performed By: #### C BC #### [facility] [address] [place] [address] Dr. Karen Richter IG % 0.4 % Normal 0.0-0.5 [facility] Comment on above: Performed By: #### C BC #### [facility] [address] [place] [address] Dr. Karen Richter LYMPH # 0.9 103/ul Critically low 1.2-3.8 [facility] Comment on above: Performed By: #### C BC #### [facility] [address] [place] [address] Dr. Karen Richter Lymphocytes/100 WBC (Bld) 12.0 % Critically low 20.5-60.0 [facility] Comment on above: Performed By: #### C BC #### [facility] [address] [place] [address] Dr. Karen Richter MANUAL DIFF REQ NO Normal [facility] Comment on above: Performed By: #### C BC #### [facility] [address] [place] [address] Dr. Karen Richter MCH (RBC) [Entitic mass] 29.9 pg Normal 25.9-34.0 [facility] Comment on above: Performed By: #### C BC #### [facility] [address] [place] [address] Dr. Karen Richter MCHC (RBC) [Mass/Vol] 32.7 g/dL Normal 29.9-35.2 [facility] Comment on above: Performed By: #### C BC #### [facility] [address] [address] [address] Karen Richter MCV (RBC) [Entitic vol] 91.3 fL Normal 80.0-94.0 [facility] Comment on above: Performed By: #### C BC #### [facility] [address] [address] [address] Karen Richter MONO # 0.5 103/ul Normal 0.3-0.8 [facility] Comment on above: Performed By: #### C BC #### [facility] [address] [place] [address] Dr. Karen Richter Monocytes/100 WBC (Bld) 7.0 % Normal 1.7-12.0 [facility] Comment on above: Performed By: #### C BC #### [facility] [address] [place] [address] Dr. Karen Richter NEUT # 5.8 103/ul Normal 1.4-6.5 [facility] Comment on above: Performed By: #### C BC #### [facility] [address] [place] [address] Dr. Karen Richter Neutrophils/100 WBC (Bld) 77.8 % Critically high 43.0-75.0 [facility] Comment on above: Performed By: #### C BC #### [facility] [address] [address] [address] Karen Richter Platelet mean volume (Bld) [Entitic vol] 9.8 fL Normal 9.5-13.5 [facility] Comment on above: Performed By: #### C BC #### [facility] [address] [place] [address] Dr. Karen Richter PLT 272 103/ul Normal 150-450 [facility] Comment on above: Performed By: #### C BC #### [facility] [address] [place] [address] Dr. Karen Richter RBC 4.35 106/ul Critically low 4.70-6.10 [facility] Comment on above: Performed By: #### C BC #### [facility] [address] [address] [address] Karen Richter WBC 7.4 103/ul Normal 4.0-11.0 [facility] Comment on above: Performed By: #### C BC #### [facility] [address] [address] [address] Karen Richter FREE THYROXINE INDEX T7on FTI 2.38 Normal 1.30-4.50 [facility] Comment on above: Performed By: #### I NSULIN #### [facility] [address] [address] [address] Karen Richter T3U 33.0 % Normal 33.0-40.0 [facility] Comment on above: Performed By: #### I NSULIN #### [facility] [address] [place] [address] Dr. Karen Richter T4 [Mass/Vol] 7.20 ug/dL Normal 4.50-12.10 [facility] Comment on above: Performed By: #### I NSULIN #### [facility] [address] [place] [address] Dr. Karen Richter GLYCOHEMOGLOBIN A1Con 2022 ADA RECOMMENDATION SEE BELOW Normal [facility] Comment on above: Result Comment: ADA RECOMMENDED LIMIT 4.0 - 6.0 ADA THERAPEUTIC TARGET < 7.0 ACTION SUGGESTED > 7.0 Performed By: #### I NSULIN #### [facility] [address] [address] [address] Karen Richter Glucose [Mass/Vol] 137 mg/dL Normal [facility] Comment on above: Performed By: #### I NSULIN #### [facility] [address] [address] [address] Karen Richter HbA1c (Bld) [Mass fraction] 6.4 % Critically high 4.5-6.2 [facility] Comment on above: Performed By: #### I NSULIN #### [facility] [address] [address] [address] Karen Richter LIPID PROFILEon 07-22-2022 CHOL-HDL RATIO NORM SEE BELOW Normal [facility] Comment on above: Result Comment: 3.3 - 4.4 LOW RISK 4.4 - 7.1 AVERAGE RISK 7.1 - 11.0 MODERATE RISK >11.0 HIGH RISK Performed By: #### I NSULIN #### [facility] [address] [address] [address] Karen Richter Cholesterol [Mass/Vol] 135 mg/dL Normal <=200 [facility] Comment on above: Performed By: #### I NSULIN #### [facility] [address] [address] [address] Karen Richter Cholesterol in HDL [Mass/Vol] 48 mg/dL Normal 40-60 [facility] Comment on above: Performed By: #### I NSULIN #### [facility] [address] [address] [address] Karen Richter Cholesterol in LDL [Mass/Vol] 62.2 mg/dL Normal [facility] Comment on above: Performed By: #### I NSULIN #### [facility] [address] [address] [address] Karen Richter Cholesterol.total/Chol esterol in HDL [Mass ratio] 2.8 {ratio} Normal [facility] Comment on above: Performed By: #### I NSULIN #### [facility] [address] [address] [address] Karen Richter HDL NORMAL > or = 60 mg/dl - LO W CARDIOVASCULAR RISK <40 mg/dl - HIGH CARDIOVASCULAR RISK Normal [facility] Comment on above: Performed By: #### I NSULIN #### [facility] [address] [address] [address] Karen Richter LDL CALC NORMAL SEE BELOW Normal [facility] Comment on above: Result Comment: <100 mg/dl OPTIMAL 100 - 129 mg/dl NEAR OR ABOVE OPTIMAL 130 - 159 mg/dl BORDERLINE HIGH 160 - 189 mg/dl HIGH >190 mg/dl VERY HIGH Performed By: #### I NSULIN #### [facility] [address] [address] [address] Karen Richter Triglyceride [Mass/Vol] 124 mg/dL Normal <=150 [facility] Comment on above: Performed By: #### I NSULIN #### [facility] [address] [place] [address] Dr. Karen Richter VLDL CALC 24.8 mg/dL Normal [facility] Comment on above: Performed By: #### I NSULIN #### [facility] [address] [place] [address] Dr. Karen Richter PROF 14(COMP METB)on 023 Albumin [Mass/Vol] 4.2 g/dL Normal 3.4-5.0 [facility] Comment on above: Performed By: #### I NSULIN #### [facility] [address] [place] [address] Dr. Karen Richter Albumin/Globulin [Mass ratio] 1.1 {ratio} Normal [facility] Comment on above: Performed By: #### I NSULIN #### [facility] [address] [place] [address] Dr. Karen Richter ALP [Catalytic activity/Vol] 59 U/L Normal 46-116 [facility] Comment on above: Performed By: #### I NSULIN #### [facility] [address] [place] [address] Dr. Karen Richter ALT [Catalytic activity/Vol] 24 U/L Normal 16-63 [facility] Comment on above: Performed By: #### I NSULIN #### [facility] [address] [place] [address] Dr. Karen Richter Anion gap [Moles/Vol] 15.1 mmol/L Normal [facility] Comment on above: Performed By: #### I NSULIN #### [facility] [address] [place] [address] Dr. Karen Richter AST [Catalytic activity/Vol] 15 U/L Normal 15-37 [facility] Comment on above: Performed By: #### I NSULIN #### [facility] [address] [place] [address] Dr. Karen Richter Bilirubin [Mass/Vol] 0.9 mg/dL Normal 0.2-1.0 [facility] Comment on above: Performed By: #### I NSULIN #### [facility] [address] [address] [address] Karen Richter Calcium [Mass/Vol] 9.8 mg/dL Normal 8.5-10.1 [facility] Comment on above: Performed By: #### I NSULIN #### [facility] [address] [address] [address] Karen Richter Chloride [Moles/Vol] 108 mmol/L Critically high 98-107 [facility] Comment on above: Performed By: #### I NSULIN #### [facility] [address] [address] [address] Karen Richter CO2 [Moles/Vol] 26.9 mmol/L Normal 21.0-32.0 [facility] Comment on above: Performed By: #### I NSULIN #### [facility] [address] [address] [address] Karen Richter Creatinine [Mass/Vol] 2.13 mg/dL Critically high 0.70-1.30 [facility] Comment on above: Performed By: #### I NSULIN #### [facility] [address] [address] [address] Karen Richter EGFR-AF [place] 37 mL/min/1.73m2 Critically low >=60 [facility] Comment on above: Performed By: #### I NSULIN #### [facility] [address] [address] [address] Karen Richter EGFR-NON AF [place] 31 mL/min/1.73m2 Critically low >=60 [facility] Comment on above: Performed By: #### I NSULIN #### [facility] [address] [address] [address] Karen Richter Globulin (S) [Mass/Vol] 3.9 g/dL Normal [facility] Comment on above: Performed By: #### I NSULIN #### [facility] [address] [address] [address] Karen Richter Glucose [Mass/Vol] 147 mg/dL Critically high 74-106 [facility] Comment on above: Performed By: #### I NSULIN #### [facility] [address] [address] [address] Karen Richter Potassium [Moles/Vol] 5.0 mmol/L Normal 3.5-5.1 [facility] Comment on above: Performed By: #### I NSULIN #### [facility] [address] [address] [address] Karen Richter Protein [Mass/Vol] 8.1 g/dL Normal 6.4-8.2 [facility] Comment on above: Performed By: #### I NSULIN #### [facility] [address] [address] [address] Karen Richter Sodium [Moles/Vol] 145 mmol/L Normal 136-145 [facility] Comment on above: Performed By: #### I NSULIN #### [facility] [address] [address] [address] Karen Richter Urea nitrogen [Mass/Vol] 31.0 mg/dL Critically high 7.0-18.0 [facility] Comment on above: Performed By: #### I NSULIN #### [facility] [address] [address] [address] Karen Richter Urea nitrogen/Creatinine [Mass ratio] 14.6 mg/mg Normal [facility] Comment on above: Performed By: #### I NSULIN #### [facility] [address] [address] [address] Karen Richter TSHon 07-22-2022 TSH 1.891 uIU/mL Normal 0.358-3.740 [facility] Comment on above: Performed By: #### I NSULIN #### [facility] [address] [address] [address] Karen Richter URIC ACID SERUMon 07-22-2022 Urate [Mass/Vol] 6.8 mg/dL Normal 3.5-7.2 [facility] Comment on above: Performed By: #### I NSULIN #### [facility] [address] [place] [address] Dr. Karen Richter Office Visit (Cardiology)on 06-15-2022 Follow-up visit Diagnoses/Problems Assessed Atrial fibrillation (427.31) (I48.91) Benign essential hypertension (401.1) (I10) Diabetes mellitus (250.00) (E11.9) Hyperlipidemia (272.4) (E78.5) Overweight with body mass index (BMI) of 26 to 26.9 in adult (278.02,V85.22) (E66.3,Z68.26) Former smoker (V15.82) (Z87.891) Quit 1980 Orders Atrial fibrillation IO EKG Electrocardiogram- 12 Lead; Status:Complete; Done: [id number] Overweight with body mass index (BMI) of 26 to 26.9 in adult Healthy Weight Tips; Status:Complete - Retrospective Authorization; Done: [id number] Some eating tips that can help you lose weight.; Status:Complete - Retrospective Authorization; Done: [id number] SocHx: Former smoker Tobacco Use Screening; Status:Complete; Done: [id number] Patient Instructions Please bring all medicines, vitamins, and herbal supplements with you when you come to the office. Prescriptions will not be filled unless you are compliant with your follow up appointments or have a follow up appointment scheduled as per instruction of your physician. Refills should be requested at the time of your visit. Follow up in 1 year. Chief Complaint LENNY RUSSELL is being seen for an annual follow-up of. History of Present Illness [place] symptoms 2-5 miles Patient returns in follow-up of problems as noted. He states he is done well. He denies any breakthrough arrhythmia symptomatology and his EKG today demonstrates sinus rhythm with acceptable QT interval. Because of this it does not appear that adjustments in sotalol therapy will be necessary. Blood pressure is low normal and this was discussed. He is completely asymptomatic and he will discuss the matter with his primary care physician to decide if he wishes to cut back on lisinopril therapy. The benefits of lisinopril, though, were advocated because not only affects his essential hypertension would also protect his kidneys from the effects of diabetes mellitus. This was discussed. Lipids appear to be adequately managed. We noted increased body mass index and the merits of diet exercise and weight loss were advocated not only for improved weight loss but also improved control of blood pressure and diabetes. Surgical History Problems History of Cardioversion History of Complete colonoscopy History of Hernia repair History of Prostate biopsy History of Vasectomy Current Meds Medication NameInstruction Eliquis 5 MG Oral Tablettake 1 tablet by mouth twice a day Ferrous Sulfate 325 (65 Fe) MG Oral TabletTAKE 1 TABLET DAILY DIRECTED. Garlic 1000 MG Oral CapsuleTAKE 1 CAPSULE Daily Januvia 100 MG Oral TabletTAKE 1 TABLET DAILY. Jardiance 10 MG Oral TabletTake 1 tablet daily Lisinopril 10 MG Oral TabletTAKE 1 TABLET DAILY. metFORMIN HCl - 500 MG Oral TabletTAKE 2 TABLET Twice daily Multi Vitamin TABSTAKE 1 TABLET DAILY. Prostate CAPSTAKE 1 CAPSULE Daily Simvastatin 10 MG Oral TabletTAKE 1 TABLET AT BEDTIME. Sotalol HCl - 120 MG Oral TabletTAKE 1.5 TABLET Twice daily Vitamin D3 25 MCG (1000 UT) Oral TabletTAKE 1 TABLET DAILY. Allergies Medication No Known Drug Allergies Recorded By: Erlinda Barrera; 04/07/2021 11:29:59 AM Social History Problems Caffeine use (V49.89) (Z78.9) 3 cups coffee daily if make it to restaurant Former smoker (V15.82) (Z87.891) Quit 1979 No alcohol use Quit 1979 No illicit drug use Review of Systems Constitutional: not feeling tired. Eyes: no eyesight problems. ENT: no hearing loss and no nosebleeds. Cardiovascular: no intermittent leg claudication and as noted in HPI. Respiratory: no chronic cough and no shortness of breath. Gastrointestinal: no change in bowel habits and no blood in stools. Genitourinary: no urinary frequency and no hematuria. Skin: no skin rashes. Neurological: no seizures and no frequent falls. Psychiatric: no depression and not suicidal. All other systems have been reviewed and are negative for complaint. Vitals Vital Signs Recorded: [id number] 07:56AM Heart Rate49, Apical [id number], RUE, Sitting [id number], RUE, Sitting Height5 ft 9 in Oggptx081 lb BMI Mohourocnq65.43 kg/m2 BSA Calculated1.97 Tobacco Useb) No PHQ-2 #1. Over the last 2 weeks have you felt down, depressed or hopeless? (If yes, answer PHQ-9 below)No PHQ-2 #2. Over the last 2 weeks have you felt little interest or pleasure in doing things? (If yes, answer PHQ-9 below)No Falls Screening (Age 18+)a) No falls within the last year EKG done in office today. Physical Exam Constitutional: alert and in no acute distress. Eyes: no erythema, swelling or discharge from the eye . Neck: neck is supple, symmetric, trachea midline, no masses and no thyromegaly . Pulmonary: no increased work of breathing or signs of respiratory distress and lungs clear to auscultation. Cardiovascular: carotid pulses 2+ bilaterally with no bruit , JVP was normal, no thrills , regular rhythm, normal S1 and S2, no murmurs , (more content not included)... Normal [employer] Tobacco Screening.on 023 Adult depression screening assessment No [facility] [employer] DO Work Phone: Fall risk assessment a) No falls within the last year [facility] [employer] 250 DO Work Phone: Tobacco use status CPHS b) No [facility] [employer] 250 DO Work Phone: PSA, FREE AND TOTAL RATIOon 10-29-2021 % Free PSA 22.7 % Normal [facility] Comment on above: Result Comment: The table below lists the probability of prostate cancer for men with non-suspicious HARLEEN results and total PSA between 4 and 10 ng/mL, by patient age (Viktor et al, RALF 1998, 279:1542). % Free PSA 50-64 yr 65-75 yr 0.00-10.00% 56% 55% 10.01-15.00% 24% 35% 15.01-20.00% 17% 23% 20.01-25.00% 10% 20% >25.00% 5% 9% Please note: Viktor et al did not make specific recommendations regarding the use of percent free PSA for any other population of men. Performed By: #### P SAD #### [facility] [address] [place] [address] Dr. Karen Richter Prostate specific Ag [Mass/Vol] 9.5 ng/mL Critically high 0.0-4.0 [facility] Comment on above: Result Comment: Anum LAN methodology. . According to the [employer], Serum PSA should decrease and remain at undetectable levels after radical prostatectomy. The AUA defines biochemical recurrence as an initial PSA value 0.2 ng/mL or greater followed by a subsequent confirmatory PSA value 0.2 ng/mL or greater. Values obtained with different assay methods or kits cannot be used interchangeably. Results cannot be interpreted as absolute evidence of the presence or absence of malignant disease. Performed By: #### P SAD #### [facility] [address] [place], [place] [address] Dr. Karen Richter PSA, Free 2.16 ng/mL Normal N/A [facility] Comment on above: Result Comment: Anum solano ECLIA methodology. Performed By: #### P SAD #### [facility] [address] [place], [place] [address] Dr. Karen Richter Vital Signs Date Time Vital Sign Value Performing Clinician Facility 01-26-2024 14:46-0400 Body height 175.3 cm Rosa Elena Russell MD Work Phone: [facility] 01-26-2024 14:46-0400 Body mass index (BMI) [Ratio] 26.11 kg/m2 Rosa Elena Russell MD Work Phone: [facility] 01-26-2024 14:46-0400 Body weight 80.2 kg Rosa Elena Russell MD Work Phone: [facility] 01-26-2024 14:46-0400 Diastolic blood pressure 76 mm[Hg] Rosa Elena Russell MD Work Phone: [facility] 01-26-2024 14:46-0400 Heart rate 82 /min Rosa Elena Russell MD Work Phone: [facility] 01-26-2024 14:46-0400 Systolic blood pressure 104 mm[Hg] Rosa Elena Russell MD Work Phone: [facility] 12-13-2023 09:50-0400 Blood Pressure Location Aldair SIMS [facility] 12-13-2023 09:50-0400 Body temperature 98.6 [degF] Aldair SIMS [facility] 12-13-2023 09:50-0400 Diastolic blood pressure 72 mm[Hg] Aldair SIMS [facility] 12-13-2023 09:50-0400 Heart rate 68 /min Aldairpeter SIMS [facility] 12-13-2023 09:50-0400 Respiratory rate 16 /min Aldair SIMS [facility] 12-13-2023 09:50-0400 Systolic blood pressure 131 mm[Hg] Aldair SIMS [facility] 06-15-2023 08:28-0500 Body height 175.3 cm Nancy Maguire MD Work Phone: [facility] 06-15-2023 08:28-0500 Body mass index (BMI) [Ratio] 26.88 kg/m2 Nancy Maguire MD Work Phone: [facility] 06-15-2023 08:28-0500 Body weight 82.56 kg Nancy Maguire MD Work Phone: [facility] 06-15-2023 08:28-0500 Diastolic blood pressure 80 mm[Hg] Nancy Maguire MD Work Phone: [facility] 06-15-2023 08:28-0500 Heart rate 81 /min Nancy Maguire MD Work Phone: [facility] 06-15-2023 08:28-0500 Systolic blood pressure 118 mm[Hg] Nancy Maguire MD Work Phone: [facility] 06-04-2023 08:47-0500 Blood Pressure Location Aldair SIMS [facility] 06-04-2023 08:47-0500 Diastolic blood pressure 77 mm[Hg] Aldair SIMS [facility] 06-04-2023 08:47-0500 Heart rate 52 /min Aldair SIMS [facility] 06-04-2023 08:47-0500 Respiratory rate 16 /min Aldair SIMS [facility] 06-04-2023 08:47-0500 Systolic blood pressure 128 mm[Hg] Aldair SIMS [facility] 05-03-2023 12:22-0500 Blood Pressure Location Aldair SIMS [facility] 05-03-2023 12:22-0500 Diastolic blood pressure 71 mm[Hg] Aldair SIMS [facility] 05-03-2023 12:22-0500 Heart rate 64 /min Aldair SIMS [facility] 05-03-2023 12:22-0500 Respiratory rate 16 /min Aldair SIMS [facility] 05-03-2023 12:22-0500 Systolic blood pressure 130 mm[Hg] Aldair SIMS [facility] 12-30-2022 07:41-0400 Body temperature 98.3 [degF] MD Mckinley Melendez Work Phone: [facility] 12-30-2022 07:41-0400 Diastolic blood pressure 91 mm[Hg] MD Mckinley Melendez Work Phone: [facility] 12-30-2022 07:41-0400 Heart rate 105 /min MD Mckinley Melendez Work Phone: [facility] 12-30-2022 07:41-0400 Respiratory rate 13 /min MD Mckinley Melendez Work Phone: [facility] 12-30-2022 07:41-0400 SaO2% (BldA) [Mass fraction] 97 % MD Mckinley Melendez Work Phone: [facility] 12-30-2022 07:41-0400 Systolic blood pressure 126 mm[Hg] MD Mckinley Melendez Work Phone: [facility] 12-30-2022 05:39-0400 Body weight 78.5 kg MD Mckinley Melendez Work Phone: [facility] 12-29-2022 11:13-0400 Inhaled oxygen flow rate 10 L/min MD Mckinley Melendez Work Phone: [facility] 12-29-2022 08:47-0400 Body height 175.26 cm MD Mckinley Melendez Work Phone: [facility] 12-29-2022 08:47-0400 Body mass index (BMI) [Ratio] 25.4 kg/m2 MD Mckinley Melendez Work Phone: [facility] 10-14-2022 07:07-0400 Body height 175.26 cm MD Mckinley Melendez Work Phone: [facility] 10-14-2022 07:07-0400 Body weight 81.64 kg MD Mckinley Melendez Work Phone: [facility] 07-27-2022 12:37-0400 Blood Pressure Location Aldair SIMS [facility] 07-27-2022 12:37-0400 Diastolic blood pressure 74 mm[Hg] Aldair SIMS [facility] 07-27-2022 12:37-0400 Heart rate 82 /min Aldair SIMS [facility] 07-27-2022 12:37-0400 Respiratory rate 16 /min Aldair SIMS [facility] 07-27-2022 12:37-0400 Systolic blood pressure 114 mm[Hg] Aldair SIMS [facility] 06-15-2022 07:56-0500 Body height 175.26 cm Mckinley M Hoy Work Phone: [facility] 250 DO Work Phone: 06-15-2022 07:56-0500 Body mass index (BMI) [Ratio] 26.43 kg/m2 Mckinley M Hoy Work Phone: [facility] 250 DO Work Phone: 06-15-2022 07:56-0500 Body surface area Derived from formula 1.97 m2 Mckinley M Hoy Work Phone: [facility] 250 DO Work Phone: 06-15-2022 07:56-0500 Body weight 81.19 kg Mckinley M Hoy Work Phone: [facility] 250 DO Work Phone: 06-15-2022 07:56-0500 Diastolic blood pressure 62 mm[Hg] Mckinley M Hoy Work Phone: [facility] 250 DO Work Phone: 06-15-2022 07:56-0500 Heart rate 49 /min Mckinley M Hoy Work Phone: [facility] 250 DO Work Phone: 06-15-2022 07:56-0500 Systolic blood pressure 98 mm[Hg] Mckinley M Hoy Work Phone: [facility] 250 DO Work Phone: 04-14-2022 14:51-0500 Blood Pressure Location Steve MARTEL [facility] [place] 04-14-2022 14:51-0500 Diastolic blood pressure 66 mm[Hg] Steve NILL [facility] [place] 04-14-2022 14:51-0500 Heart rate 64 /min Steve NILL [facility] [place] 04-14-2022 14:51-0500 Respiratory rate 16 /min Steve MARTEL [facility] [place] 04-14-2022 14:51-0500 Systolic blood pressure 100 mm[Hg] Steve MARTEL [facility] [place] Encounters Encounter Date Encounter Type Care Provider Facility Start: 06-12-2024 ambulatory Aldair SIMS [facility] ty: [facility] Start: 01-26-2024 End: 01-26-2024 Office outpatient visit 25 minutes Rosa Elena Russell MD Work Phone: [facility] Comment on above: Persistent atrial fi brillation (Multi) (Primary Dx); Paroxysmal atrial fibrillation (Multi); Mixed hyperlipidemia; Benign essential hypertension; Type 2 diabetes mellitus without complication, without long-term current use of insulin (Multi); Never smoked any substance; long-term current use of anticoagulant therapy; BMI 26.0-26.9,adult Start: 01-26-2024 End: 01-26-2024 ambulatory [facility] Start: 12-13-2023 End: 12-13-2023 ambulatory Aldair SIMS Facility:[facility] Start: 12-13-2023 End: 12-13-2023 Patient encounter procedure Aldair SIMS [facility] Start: 06-15-2023 End: 06-15-2023 Office outpatient visit 25 minutes Nancy Maguire MD Work Phone: [facility] Comment on above: Paroxysmal atrial fi brillation (CMS/HCC) (Primary Dx); Benign essential hypertension; Mixed hyperlipidemia; Never smoked any substance Start: 06-15-2023 End: 06-15-2023 ambulatory [facility] Start: 06-04-2023 End: 06-04-2023 ambulatory Aldair SIMS Facility:[facility] Start: 06-04-2023 End: 06-04-2023 Patient encounter procedure Aldair SIMS [facility] [place] Start: 05-03-2023 End: 05-03-2023 ambulatory Aldair SIMS Facility:[facility] Start: 05-03-2023 End: 05-03-2023 Patient encounter procedure Aldair SIMS [facility] [place] Start: 01-29-2023 End: 01-29-2023 ambulatory Aldair SIMS Facility:[facility] Start: 01-26-2023 End: 01-26-2023 ambulatory Aldair SIMS Facility:[facility] Start: 01-26-2023 End: 01-26-2023 Patient encounter procedure Aldair SIMS [facility] [place] Start: 01-01-2023 End: 01-01-2023 ambulatory Aldair SIMS Facility:[facility] Start: 01-01-2023 End: 01-01-2023 Patient encounter procedure Aldair SIMS [facility] Start: 01-01-2023 End: 01-01-2023 ambulatory Aldair SIMS Facility:CD:[id number] Start: 12-29-2022 End: 12-30-2022 ambulatory Aldair Sims Facility:[facility] Start: 12-29-2022 End: 12-30-2022 Admission to same day surgery center MD Mckinley Melendez Work Phone: [facility] [place] Start: 12-29-2022 End: 12-30-2022 ambulatory MD Mckinley Mleendez Work Phone: [facility] Work Phone: Start: 12-29-2022 End: 12-29-2022 ambulatory Aldair SIMS Facility::[id number] Start: 12-14-2022 ambulatory Aldair SIMS Facili ty:[facility] [place] Start: 12-11-2022 End: 12-11-2022 Patient encounter procedure Aldair SIMS [facility] Start: 11-21-2022 Message Mckinley Melendez Work Phone: [facility] 250 DO Work Phone: Start: 11-10-2022 End: 11-10-2022 Patient encounter procedure Aldair R EMANUEL [facility] Start: 10-23-2022 End: 10-23-2022 Patient encounter procedure Aldair R EMANUEL [facility] Start: 10-16-2022 End: 10-16-2022 Patient encounter procedure Aldair SIMS [facility] Start: 10-14-2022 End: 10-14-2022 ambulatory MD Mckinley Melendez Work Phone: [facility] Work Phone: Start: 10-14-2022 End: 10-14-2022 Patient encounter procedure MD Mckinley Melendez Work Phone: [facility] [place] Work Phone: Start: 09-03-2022 End: 09-04-[address] ALDAIR SIMS . Facility:[facility] Start: 07-27-2022 End: 07-27-2022 Lab Drop off Aldair SIMS [facility] Start: 07-27-2022 End: 07-27-2022 Patient encounter procedure Aldair SIMS [facility] [place] Start: 07-27-2022 End: 07-28-[address] MCKINLEY MELENDEZ . Facility:[facility] Start: 07-22-2022 End: 07-23-[address] MCKINLEY MELENDEZ . Facility:[facility] Start: 07-20-2022 Rx Renewal Mckinley Melendez Work Phone: [facility] 250 DO Work Phone: Start: 06-15-2022 Office outpatient vi sit 25 minutes Mckinley Melendez Work Phone: [facility] [place] 250 DO Work Phone: Start: 06-15-[address] Mckinley Melendez Facility: Start: 05-05-2022 End: 05-05-2022 Patient encounter procedure Steve R NILL [facility] [place] Start: 04-14-2022 End: 04-14-2022 Patient encounter procedure Steve R NILL [facility] [place] Start: 01-15-[address] MCKINLEY MELENDEZ . Facili ty:[facility] Start: 10-28-2021 End: 10-29-[address] FRANCISCO Sun Facility:[facility] Start: 07-23-2021 Rx Renewal Mckinley Melendez Work Phone: [facility] 250 DO Work Phone: Procedures Date Procedure Procedure Detail Performing Clinician Start: 06-15-2023 ECG 12-LEAD NANCY BLANKENSHIP Start: 06-15-2023 Ecg routine ecg w/le ast 12 lds w/i&r Nancy Maguire MD Work Phone: Start: 12-29-2022 Transurethral prostatectomy MD Mckinley Melendez Work Phone: Start: 12-29-2022 Transurethral prostatectomy Aldair SIMS Start: 11-10-2022 Cystoscopy Aldair SIMONA LEBRON Start: 11-10-2022 Urodynamic studies Patr ick EMANUEL Start: 10-14-2022 MR prostate wo con MD Jamison Melendez Work Phone: Start: 09-03-[address] FRANCISCO Sun Comment on above: Performed By: #### P SAD #### [facility] [address] [place] [address] Dr. Karen Richter Start: 07-27-[address] FRANCISCO Sun Comment on above: Performed By: #### P SASC #### [facility] [address] [place] [address] Dr. Karen Richter Start: 07-22-[address] FRANCISCO Sun Comment on above: Performed By: #### I NSULIN #### [facility] [address] [place] [address] Dr. Karen Richter Start: 03-12-2021 Excisional biopsy Darion VARGAS Comment on above: right scalp Start: 09-27-2019 Transrectal biopsy o f prostate using ultrasound guidance Steve VARGAS Start: 05-17-2019 Echocardiography Start: 04-26-2019 Cardioversion Steve BLANTON Start: 08-15-2018 Transrectal biopsy o f prostate using ultrasound guidance Steve VARGAS Biopsy of prostate Mckinley Melendez Work Phone: Cardioversion Mckinley Melendez Work Phone: Colonoscopy Steve VARGAS Hernia repair Mckinley Melendez Work Phone: Repair of left ingui nal hernia Steve MARTEL Total colonoscopy Mckinley Melendez Work Phone: Vasectomy Mckinley Melendez Work Phone: Vasectomy Steve NILL Plan of Treatment Date Care Activity Detail Author Start: 07-26-2024 End: 07-26-2024 Patient encounter procedure 07/26/2024 11:00 AM EDT Office Visit [address] [place] [address] Rosa Elena Russell MD [address] [facility], [facility] [address] [place] [address] [facility] Start: 02-03-2024 DTaP/Tdap/Td Vaccines (2 - Td or Tdap) DTaP/Tdap/Td Vaccines (2 - Td or Tdap) [facility] Start: 12-26-2023 COVID-19 Vaccine ( season) COVID-19 Vaccine ( season) [facility] Start: 12-26-2023 Influenza vaccination Influenza Vaccine (#1) [facility] Start: 2023 End: 2023 Patient encounter procedure 2023 9:20 AM EDT Office Visit [place] [id number] [facility] [address] [place] [id number] Nancy Maguire MD [address] [facility], [facility] [address] [place] [address] [facility] Start: 06-15-2023 FUV, Provider: Nancy Maguire, Status: Pen, Time: 8:30 AM FUV, Provider: Nancy Maguire, Status: Pen, Time: 8:30 AM [facility] 250 DO Work Phone: Start: 12-30-2022 [facility] Start: 12-29-2022 Hospital admission [facility] Start: 12-25-2022 COVID-19 Vaccine ( season) COVID-19 Vaccine () [facility] Start: 12-25-2022 Influenza vaccination Influenza Vaccine (#1) [facility] Start: 05-12-2022 FUV, Provider: Nancy Maguire, Status: Pen, Time: 8:50 AM FUV, Provider: Nancy Maguire, Status: Pen, Time: 8:50 AM [facility] 250 DO Work Phone: Start: 05-17-2020 Echocardiography Echocardiogram [facility] Start: 2009 RSV patients and/or patients aged 60+ years (1 - 1-dose 60+ series) RSV patients and/or patients aged 60+ years (1 - 1-dose 60+ series) [facility] Start: 12-08-1999 Zoster Vaccines (1 of 2) Zoster Vaccines (1 of 2) [facility] Start: 1968 Urine screening for protein Diabetes: Urine Protein Screening [facility] Start: 12-08-1967 Hepatitis C screening Hepatitis C Screening [facility] Start: 12-08-1959 Diabetic foot examination Diabetes: Foot Exam [facility] Start: 12-08-1959 Glaucoma screening Diabetes: Retinopathy Screening [facility] Start: 12-08-1955 Pneumococcal Vaccine: 65+ Years (1 - PCV) Pneumococcal Vaccine: 65+ Years (1 - PCV) [facility] Start: 12-08-1955 Pneumococcal Vaccine: 65+ Years (1 of 2 - PCV) Pneumococcal Vaccine: 65+ Years (1 of 2 - PCV) [facility] Start: 1949 Creatinine measurement Creatinine Level [facility] Start: 1949 Hemoglobin A1c measurement Diabetes: Hemoglobin A1C [facility] Start: 1949 Lipid panel Lipid Panel [facility] Start: 1949 Medicare Annual Wellness Visit Medicare Annual Wellness Visit (AWV) [facility] Start: 1949 Potassium measurement Potassium Level [facility] Start: 1949 Screening for malignant neoplasm of colon [facility] Start: 1949 Yearly Adult Physical Yearly Adult Physical [facility] Patient referral [facility] Work Phone: [facility] Immunizations Immunization Date Immunization Notes Care Provider Fa cility 06-04-2021 Comirnaty 30 MCG/0.3 ML Intramuscular Suspension Mckinley Melendez Work Phone: [facility] 250 DO Work Phone: 06-04-2021 SARS-CoV-2 mRNA (yodfbzgkygz-yfry-nqyi ose) vaccine Steve VARGAS [facility] 07-23-2020 Pfizer-BioNTech COVID-19 Vacc 30 MCG/0.3ML Intramuscular Suspension Mckinley Melendez Work Phone: [facility] 07-23-2020 SARS-CoV-2 (COVID-19 ) Ad26 vaccine, recombinant Steve NILL [facility] 07-01-2020 Pfizer-BioNTech COVID-19 Vacc 30 MCG/0.3ML Intramuscular Suspension Mckinley Melendez Work Phone: [facility] 07-01-2020 SARS-CoV-2 (COVID-19 ) Ad26 vaccine, recombinant Steve NILL [facility] NEGATED: Highlighted row has not occurred!04-14-2022 influenza virus vaccine, unspecified formulation Steve VARGAS [facility] Payers Date Payer Category Payer [employer] ( [employer] others) [employer] [id number] 2023-Present [address] [place] [address] [id number] 2022 [employer] ( [employer] others) [id number] 2022 [employer] ( [employer] others) [id number] 2022 Self-pay [id number] 2014 Medicare MEDICARE MEDICAR E RAILROAD [id number] 2014-Present [address] [place] [address] [id number] 1959 [employer] ( and others) [id number] 1959 Medicare [id number] 1949 Unknown [id number] 2.16.840.1.247179.3.579.2. 356 1949 Unknown [id number] 2.16.840.1.132393.3.579.2. 593 1949 Unknown [id number] 2.16.840.1.379503.3.579.2. 593 1949 Unknown [id number] 2.16.840.1.175125.3.579.2. 593 1949 Unknown [id number] 2.16.840.1.900228.3.579.2. 593 1949 Unknown [id number] 2.16.840.1.478344.3.579.2. 593 1949 Unknown [id number] 2.16.840.1.271145.3.579.2. 727 1949 Unknown [id number] 2.16.840.1.547884.3.579.2. 727 1949 Unknown [id number] 2.16.840.1.303036.3.579.2. 727 1949 Unknown [id number] 2.16.840.1.927163.3.579.2. 727 1949 Unknown [id number] 2.16.840.1.593250.3.579.2. 727 1949 Unknown [id number] 2.16.840.1.955330.3.579.2. 72 1949 Unknown [id number] 2.16.840.1.113354.3.579.2. 72 1949 Unknown [id number] 2.16.840.1.604081.3.579.2. 727 1949 Unknown [id number] 2.16.840.1.553662.3.579.2. 72 1949 Unknown [id number] 2.16.840.1.835668.3.579.2. 72 1949 Unknown [id number] 2.16.840.1.429191.3.579.2. 72 1949 Unknown [id number] 2.16.840.1.983635.3.579.2. 727 1949 Unknown [id number] 2.16.840.1.952733.3.579.2. 1244 1949 Unknown [id number] 2.16.840.1.539579.3.579.2. 1244 Unknown Unknown [id number] 2.16.840.1.032071.3.579.2. 531 Unknown [id number] 2.16.840.1.467152.3.579.2. 531 Social History Date Type Detail Facility Start: 06-15-2023 No alcohol use No alcohol use [place] [address] DO Work Phone: Comment on above: 3 cups daily; 3 cups coffee daily if make it to restaurant; Quit 1979; Start: 04-14-2022 End: 06-15-2023 Tobacco smoking status Never smoked tobacco (finding) [facility] [place] Tobacco smoking status Never [facility] [place] Start: 06-15-2023 Sex Assigned At Male F [facility] Start: 1950 Sex Assigned At Male F [facility] Start: 06-15-2023 Tobacco use and exposure Smokeless tobacco non-user [facility] Work Phone: Start: 06-15-2023 End: 01-26-2024 Alcohol intake Lifetime non-drinker (finding) [facility] Work Phone: Start: 1950 Sex Assigned At Not on file [facility] Work Phone: Start: 06-05-2023 End: 01-26-2024 Exposure to SARS-CoV-2 (event) Not sure [facility] Goals Date Patient Goal Desired Activity /State Functional Status Date Assessment Result Facility 12-13-2023 Functional Status N/A [facility] 06-04-2023 Functional Status N/A [facility] 05-03-2023 Functional Status N/A [facility] 12-30-2022 Functional status 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 Baseline [facility] Work Phone: 11-10-2022 Functional Status N/A [facility] 07-27-2022 Functional Status N/A [facility] 04-14-2022 Functional Status N/A [facility] Mental Status Date Assessment Result Facility 12-30-2022 Cognitive function Cognitive Sta tus Patient at Baseline [facility] Work Phone: Clinical Notes 06-15-2022 to 01-26-2024 Rosa Elena Russell MD - 01/26/2024 3:00 PM EDTPatient InstructionsBlane Maguire MD - 06/15/2023 8:30 AM ESTPatient Instructions Note Date & Type Note Facility 01-26-2024 History of Present illness Narrative Kishor Russell is a 73 y.o. male Chief Complaint Follow-up HPI Patient is here for follow-up. He is a former patient of Dr. Maguire. He had a history of persistent atrial fibrillation. He underwent cardioversion remotely with recurrence last time Dr. Maguire discussed with him sotalol but apparently he elected for heart rate control on long-term anticoagulation. Today patient report he feels well. He denies chest pain, palpitation, lightheadedness, dizziness or syncope. Described functional class I. He is compliant with his medication. Assessment 1. Persistent atrial fibrillation patient seem to be an preference for heart rate control on long-term anticoagulation 2. Essential hypertension 3. Long-term anticoagulation 4. Patient is diabetic 5. BMI of 26 Plan 1. I discussed with patient treatment option at great length. We discussed rhythm control strategy versus heart rate control strategy. Following lengthy discussion the patient elected for heart rate control strategy and long-term anticoagulation 2. Risk, benefits alternative anticoagulation reviewed with patient 3. Patient report he does his lab work once a year through his PCP 4. Will see him back in the office in 6 months with plan to repeat his EKG. Review of Systems All other systems reviewed and are negative. Vitals: 01/26/24 1446 BP: 104/76 BP Location: Left arm Patient Position: Sitting Pulse: 82 Weight: 80.2 kg (176 lb 12.8 oz) Height: 1.753 m (5' 9 ) Objective Physical Exam Constitutional: Appearance: Normal appearance. HENT: Nose: Nose normal. Neck: Vascular: No carotid bruit. Cardiovascular: Rate and Rhythm: Normal rate. Rhythm regularly irregular. Pulses: Normal pulses. Heart sounds: Normal heart sounds. Pulmonary: Effort: Pulmonary effort is normal. Abdominal: General: Bowel sounds are normal. Palpations: Abdomen is soft. Musculoskeletal: General: Normal range of motion. Cervical back: Normal range of motion. Right lower leg: No edema. Left lower leg: No edema. Skin: General: Skin is warm and dry. Neurological: General: No focal deficit present. Mental Status: He is alert. Psychiatric: Mood and Affect: Mood normal. Behavior: Behavior normal. Thought Content: Thought content normal. Judgment: Judgment normal. Allergies Patient has no known allergies. Current Medications Current Outpatient Medications: apixaban (Eliquis) 5 mg tablet, Take 1 tablet (5 mg) by mouth 2 times a day., Disp: , Rfl: cholecalciferol (Vitamin D-3) 25 MCG (1000 UT) tablet, Take 1 tablet (25 mcg) by mouth once daily., Disp: , Rfl: ferrous sulfate, 325 mg ferrous sulfate, tablet, Take 1 tablet (325 mg) by mouth once daily., Disp: , Rfl: garlic 1,000 mg capsule, 1 capsule once daily., Disp: , Rfl: metFORMIN (Glucophage) 500 mg tablet, Take 2 tablets (1,000 mg) by mouth 2 times a day., Disp: , Rfl: metoprolol succinate XL (Toprol XL) 100 mg 24 hr tablet, Take 1 tablet (100 mg) by mouth once daily. Do not crush or chew., Disp: 90 tablet, Rfl: 3 multivit-min/ferrous fumarate (MULTI VITAMIN ORAL), Take 1 tablet by mouth once daily., Disp: , Rfl: simvastatin (Zocor) 10 mg tablet, Take 1 tablet (10 mg) by mouth once daily at bedtime., Disp: , Rfl: SITagliptin phosphate (Januvia) 100 mg tablet, Take 1 tablet (100 mg) by mouth once daily., Disp: , Rfl: Assessment/Plan 1. Persistent atrial fibrillation (Multi) 2. Paroxysmal atrial fibrillation (Multi) Follow Up In Cardiology Follow Up In Cardiology 3. Mixed hyperlipidemia 4. Benign essential hypertension 5. Type 2 diabetes mellitus without complication, without long-term current use of insulin (Multi) 6. Never smoked any substance 7. long-term current use of anticoagulant therapy 8. BMI 26.0-26.9,adult Scribe Attestation By signing my name below, I, Caridad Mireles LPN attest that this documentation has been prepared under the direction and in the presence of RosaE lena Russell MD. Provider Attestation - Scribe documentation All medical record entries made by the Scribe were at my direction and personally dictated by me. I have reviewed the chart and agree that the record accurately reflects my personal performance of the history, physical exam, discussion and plan. documented in this encounter [facility] Work Phone: 01-26-2024 Instructions Chandrika Campbell LPN - 01/26/2024 3:00 PM EDT Please bring all medicines, vitamins, and herbal supplements with you when you come to the office. Prescriptions will not be filled unless you are compliant with your follow up appointments or have a follow up appointment scheduled as per instruction of your physician. Refills should be requested at the time of your visit. BMI was above normal measurement. Current weight: 80.2 kg (176 lb 12.8 oz) Weight change since last visit (-) denotes wt loss -5.2 lbs Weight loss needed to achieve BMI 25: 7.9 Lbs Weight loss needed to achieve BMI 30: -25.9 Lbs Provided instructions on dietary changes. The following attachments cannot be sent through Care Everywhere.Heart Healthy Diet (Chinese)documented in this encounter [facility] Work Phone: 12-13-2023 Hospital Discharge instructions Patient Education 12/13/2023 10:28:29 Prostate Cancer Screening Prostate Cancer Screening Prostate cancer screening is testing that is done to check for the presence of prostate cancer in men. The prostate gland is a walnut-sized gland that is located below the bladder and in front of the rectum in males. The function of the prostate is to add fluid to semen during ejaculation. Prostate cancer is one of the most common types of cancer in men. Who should have prostate cancer screening? Screening recommendations vary based on age and other risk factors, as well as between the professional organizations who make the recommendations. In general, screening is recommended if: You are age 50 to 70 and have an average risk for prostate cancer. You should talk with your health care provider about your need for screening and how often screening should be done. Because most prostate cancers are slow growing and will not cause , screening in this age group is generally reserved for men who have a 10- to 15-year life expectancy. You are younger than age 50, and you have these risk factors: ?Having a father, brother, or uncle who has been diagnosed with prostate cancer. The risk is higher if your family member's cancer occurred at an early age or if you have multiple family members with prostate cancer at an early age. ?Being a male who is Black or is of [place] or sub-Saharan descent. In general, screening is not recommended if: You are younger than age 40. You are between the ages of 40 and 49 and you have no risk factors. You are 70 years of age or older. At this age, the risks that screening can cause are greater than the benefits that it may provide. If you are at high risk for prostate cancer, your health care provider may recommend that you have screenings more often or that you start screening at a younger age. How is screening for prostate cancer done? The recommended prostate cancer screening test is a blood test called the prostate-specific antigen (PSA) test. PSA is a protein that is made in the prostate. As you age, your prostate naturally produces more PSA. Abnormally high PSA levels may be caused by: Prostate cancer. An enlarged prostate that is not caused by cancer (benign prostatic hyperplasia, or BPH). This condition is very common in older men. A prostate gland infection (prostatitis) or urinary tract infection. Certain medicines such as male hormones (like testosterone) or other medicines that raise testosterone levels. A rectal exam may be done as part of prostate cancer screening to help provide information about the size of your prostate gland. When a rectal exam is performed, it should be done after the PSA level is drawn to avoid any effect on the results. Depending on the PSA results, you may need more tests, such as: A physical exam to check the size of your prostate gland, if not done as part of screening. Blood and imaging tests. A procedure to remove tissue samples from your prostate gland for testing (biopsy). This is the only way to know for certain if you have prostate cancer. What are the benefits of prostate cancer screening? Screening can help to identify cancer at an early stage, before symptoms start and when the cancer can be treated more easily. There is a small chance that screening may lower your risk of dying from prostate cancer. The chance is small because prostate cancer is a slow-growing cancer, and most men with prostate cancer from a different cause. What are the risks of prostate cancer screening? The main risk of prostate cancer screening is diagnosing and treating prostate cancer that would never have caused any symptoms or problems. This is called overdiagnosisand overtreatment. PSA screening cannot tell you if your PSA is high due to cancer or a different cause. A prostate biopsy is the only procedure to diagnose prostate cancer. Even the results of a biopsy may not tell you if your cancer needs to be treated. Slow-growing prostate cancer may not need any treatment other than monitoring, so diagnosing and treating it may cause unnecessary stress or other side effects. Questions to ask your health care provider When should I start prostate cancer screening? What is my risk for prostate cancer? How often do I need screening? What type of screening tests do I need? How do I get my test results? What do my results mean? Do I need treatment? Where to find more information The [place] [employer]: www.cancer.org [place] [employer]: www.auanet.org Contact a health care provider if: You have difficulty urinating. You have pain when you urinate or ejaculate. You have blood in your urine or semen. You have pain in your back or in the area of your prostate. Summary Prostate cancer is a common type of cancer in men. The prostate gland is located below the bladder and in front of the rectum. This gland adds fluid to semen during ejaculation. Prostate cancer screening may identify cancer at an early stage, when the cancer can be treated more easily and is less likely to have spread to other areas of the body. The prostate-specific antigen (PSA) test is the recommended screening test for prostate cancer, but it has associated risks. Discuss the risks and benefits of prostate cancer screening with your health care provider. If you are age 70 or older, the risks that screening can cause are greater than the benefits that it may provide. This information is not intended to replace advice given to you by your health care provider. Make sure you discuss any questions you have with your health care provider. Document Revised: 10/06/2021 Document Reviewed: 10/06/2021 [employer] Patient Education 2022 [employer] Follow Up Care 06/04/2023 09:42:59 With:EMANUEL MULLIGAN, Aldair Doan, URL Address: [facility] [address] [place] [address]- [phone] When: Unknown Comments:6 mos w/ PSA [facility] 12-13-2023 Note Patient Education Oncology Prostate Cancer Screening Prostate cancer screening is testing that is done to check for the presence of prostate cancer in men. The prostate gland is a walnut-sized gland that is located below the bladder and in front of the rectum in males. The function of the prostate is to add fluid to semen during ejaculation. Prostate cancer is one of the most common types of cancer in men. Who should have prostate cancer screening? Screening recommendations vary based on age and other risk factors, as well as between the professional organizations who make the recommendations. In general, screening is recommended if: ? You are age 50 to 70 and have an average risk for prostate cancer. You should talk with your health care provider about your need for screening and how often screening should be done. Because most prostate cancers are slow growing and will not cause , screening in this age group is generally reserved for men who have a 10- to 15-year life expectancy. ? You are younger than age 50, and you have these risk factors: ? Having a father, brother, or uncle who has been diagnosed with prostate cancer. The risk is higher if your family member's cancer occurred at an early age or if you have multiple family members with prostate cancer at an early age. ? Being a male who is Black or is of [place] or sub-Saharan descent. In general, screening is not recommended if: ? You are younger than age 40. ? You are between the ages of 40 and 49 and you have no risk factors. ? You are 70 years of age or older. At this age, the risks that screening can cause are greater than the benefits that it may provide. If you are at high risk for prostate cancer, your health care provider may recommend that you have screenings more often or that you start screening at a younger age. How is screening for prostate cancer done? The recommended prostate cancer screening test is a blood test called the prostate-specific antigen (PSA) test. PSA is a protein that is made in the prostate. As you age, your prostate naturally produces more PSA. Abnormally high PSA levels may be caused by: ? Prostate cancer. ? An enlarged prostate that is not caused by cancer (benign prostatic hyperplasia, or BPH). This condition is very common in older men. ? A prostate gland infection (prostatitis) or urinary tract infection. ? Certain medicines such as male hormones (like testosterone) or other medicines that raise testosterone levels. A rectal exam may be done as part of prostate cancer screening to help provide information about the size of your prostate gland. When a rectal exam is performed, it should be done after the PSA level is drawn to avoid any effect on the results. Depending on the PSA results, you may need more tests, such as: ? A physical exam to check the size of your prostate gland, if not done as part of screening. ? Blood and imaging tests. ? A procedure to remove tissue samples from your prostate gland for testing (biopsy). This is the only way to know for certain if you have prostate cancer. What are the benefits of prostate cancer screening? ? Screening can help to identify cancer at an early stage, before symptoms start and when the cancer can be treated more easily. ? There is a small chance that screening may lower your risk of dying from prostate cancer. The chance is small because prostate cancer is a slow-growing cancer, and most men with prostate cancer from a different cause. What are the risks of prostate cancer screening? The main risk of prostate cancer screening is diagnosing and treating prostate cancer that would never have caused any symptoms or problems. This is called overdiagnosisand overtreatment. PSA screening cannot tell you if your PSA is high due to cancer or a different cause. A prostate biopsy is the only procedure to diagnose prostate cancer. Even the results of a biopsy may not tell you if your cancer needs to be treated. Slow-growing prostate cancer may not need any treatment other than monitoring, so diagnosing and treating it may cause unnecessary stress or other side effects. Questions to ask your health care provider ? When should I start prostate cancer screening? ? What is my risk for prostate cancer? ? How often do I need screening? ? What type of screening tests do I need? ? How do I get my test results? ? What do my results mean? ? Do I need treatment? Where to find more information ? The [place] Cancer Society: www.cancer.org ? [place] [employer] Association: www.auanet.org Contact a health care provider if: ? You have difficulty urinating. ? You have pain when you urinate or ejaculate. ? You have blood in your urine or semen. ? You have pain in your back or in the area of your prostate. Summary ? Prostate cancer is a common type of cancer in men. The prostate gland is located below the bladder and in front of the rectum. (more content not included)... [facility] 06-15-2023 History of Present illness Narrative Kishor Russell is a 72 y.o. male Chief Complaint Annual Exam HPI Patient returns in follow-up of problems as noted. In the interim he states he has been feeling well. He walks vigorously multiple times per week with no functional impairment. We note, though, he is in atrial fibrillation. He was unaware. This occurred on 180 mg of sotalol twice a day and because of this I am reluctant to further intensify sotalol. Additionally am reluctant to try other antiarrhythmics because interestingly it is asymptomatic. I cannot elicit any other complaints or concerns and appears he is doing well. Review of treatment strategy for other risk factors appear satisfactory because of all the above we make no change except from sotalol to Toprol. Follow-up in the fall to assess the impact of this intervention Review of Systems All other systems reviewed and are negative. Vitals: 06/15/23 0828 BP: 118/80 BP Location: Left arm Patient Position: Sitting Pulse: 81 Weight: 82.6 kg (182 lb) Height: 1.753 m (5' 9 ) EKG done in office today Objective Physical Exam Constitutional: Appearance: Normal appearance. He is normal weight. HENT: Nose: Nose normal. Neck: Vascular: No carotid bruit. Cardiovascular: Rate and Rhythm: Normal rate. Pulses: Normal pulses. Heart sounds: Normal heart sounds. Pulmonary: Effort: Pulmonary effort is normal. Abdominal: General: Bowel sounds are normal. Palpations: Abdomen is soft. Genitourinary: Rectum: Normal. Musculoskeletal: General: Normal range of motion. Cervical back: Normal range of motion. Right lower leg: No edema. Left lower leg: No edema. Skin: General: Skin is warm and dry. Neurological: General: No focal deficit present. Mental Status: He is alert. Psychiatric: Mood and Affect: Mood normal. Behavior: Behavior normal. Thought Content: Thought content normal. Judgment: Judgment normal. Allergies Patient has no known allergies. Current Medications Current Outpatient Medications: apixaban (Eliquis) 5 mg tablet, Take 1 tablet (5 mg) by mouth 2 times a day., Disp: , Rfl: cholecalciferol (Vitamin D-3) 25 MCG (1000 UT) tablet, Take 1 tablet (25 mcg) by mouth once daily., Disp: , Rfl: ferrous sulfate, 325 mg ferrous sulfate, tablet, Take 1 tablet by mouth once daily., Disp: , Rfl: garlic 1,000 mg capsule, 1 capsule once daily., Disp: , Rfl: metFORMIN (Glucophage) 500 mg tablet, Take 2 tablets (1,000 mg) by mouth 2 times a day., Disp: , Rfl: multivit-min/ferrous fumarate (MULTI VITAMIN ORAL), Take 1 tablet by mouth once daily., Disp: , Rfl: simvastatin (Zocor) 10 mg tablet, Take 1 tablet (10 mg) by mouth once daily at bedtime., Disp: , Rfl: SITagliptin phosphate (Januvia) 100 mg tablet, Take 1 tablet (100 mg) by mouth once daily., Disp: , Rfl: Assessment/Plan 1. Paroxysmal atrial fibrillation (CMS/HCC) Patient's had recurrent atrial fibrillation, and was unaware. This would suggest its asymptomatic and well-tolerated. Because of this it appears rate control with anticoagulant therapy is probably an appropriate strategy at this point 2. Benign essential hypertension Review of treatment strategy demonstrates acceptable control. 3. Mixed hyperlipidemia Review of treatment strategy reveals acceptable control 4. Never smoked any substance Congratulated on lifestyle choices Scribe Attestation By signing my name below, I, Caridad Augustine LPN attest that this documentation has been prepared under the direction and in the presence of Nancy Maguire MD. Provider Attestation - Scribe documentation All medical record entries made by the Scribe were at my direction and personally dictated by me. I have reviewed the chart and agree that the record accurately reflects my personal performance of the history, physical exam, discussion and plan. documented in this encounter [facility] Work Phone: 06-15-2023 Instructions Nay Nick LPN - 06/15/2023 8:30 AM EST Please bring all medicines, vitamins, and herbal supplements with you when you come to the office. Prescriptions will not be filled unless you are compliant with your follow up appointments or have a follow up appointment scheduled as per instruction of your physician. Refills should be requested at the time of your visit. BMI was above normal measurement. Current weight: 82.6 kg (182 lb) Weight change since last visit (-) denotes wt loss 3 lbs Weight loss needed to achieve BMI 25: 13.1 Lbs Weight loss needed to achieve BMI 30: -20.7 Lbs documented in this encounter [facility] Work Phone: 06-04-2023 Hospital Discharge instructions Patient Education 06/04/2023 09:35:43 Clean Intermittent Catheterization, Male Clean Intermittent Catheterization, Male Clean intermittent catheterization (CIC) is a procedure to remove urine from the bladder by placing a small, flexible tube (catheter) into the bladder though the urethra. The urethra is a tube in the body that carries urine from the bladder out of the body. CIC may be done when: You cannot completely empty your bladder on your own. This may be due to a blockage in the bladder or urethra. Your bladder leaks urine. This may happen when the muscles or nerves near the bladder are not working normally, so the bladder overflows. Your health care provider will show you how to perform CIC and will help you to become comfortable performing this procedure at home. Your health care provider will also help you to get the home care supplies that are needed for this procedure. Supplies needed: Germ-free (sterile), water-based lubricant. A container for urine collection. You may also use the toilet to dispose of urine from the catheter. A catheter. Your health care provider will determine the best size for you. ?Use this catheter size: Clean gloves. Soap and water. Towel. How to perform this procedure: Most people need CIC at least 4 times per day to adequately empty the bladder. Your health care provider will tell you how often you should perform CIC. Number of times per day to perform CIC: To perform CIC, follow these steps: 1.Wash your hands with soap and water. If soap and water are not available, use hand director law enforcement. 2.Clean your penis with soap and water. Dry the tip of your penis completely. 3.Prepare the supplies that you will use during the procedure. Open the catheter package and lubricant. 4.Get in a comfortable position. Possible positions include: Sitting on a toilet, a chair, or the edge of a bed. Standing near a toilet. Lying down with your head raised on pillows and your knees pointing to the ceiling. You may wish to place a waterproof mat or pad under you. 5.If you are using a urine collection container, position it between your legs. 6.Urinate, if you are able. 7.Put on gloves. 8.Apply lubricant to about 2 inches (5 cm) of the tip of the catheter. 9.Set the catheter down on a clean, dry surface within reach. 10.Gently stretch your penis out from your body. Pull back any skin that covers the end of your penis (foreskin). Clean the end of your penis with medicated sterile swabs as told by your health care provider. 11.Hold your penis upward at a 45 60 degree angle. This helps to straighten the urethra. 12.Slowly insert the lubricated catheter straight into your urethra until urine flows freely. This is usually about 6 8 inches (15 20 cm). 13.When urine starts to flow freely, insert the catheter 1 inch (3 cm) more. Allow urine to drain into the toilet or the urine collection container. 14.When urine stops flowing, slowly remove the catheter. 15.Note the color, amount, and odor of the urine. 16.Measure your urine and note the amount, if told by your health care provider. 17.Discard the urine in the toilet. 18.Clean your penis using soap and water. 19.Move the foreskin back in place, if applicable. 20.If you are using a single-use catheter, discard the catheter and supplies. 21.Wash your hands with soap and water. 22.If you are using a reusable catheter, follow package instructions about how to clean the catheter after each use. How often should I perform this procedure? Do CIC to empty your bladder every 4 6 hours or as often as told by your health care provider. If you have symptoms of too much urine in your bladder (overdistension) and you are not able to urinate, perform CIC. Symptoms of overdistension may include: ?Restlessness. ?Sweating or chills. ?Headache. ?Flushed or pale skin. ?Bloated lower abdomen. What are the risks? Generally, this is a safe procedure, however problems may occur, including: Infection. Injury to the urethra. Irritation of the urethra. Follow these instructions at home General instructions Drink enough fluid to keep your urine pale yellow. Dispose of a multiple use catheter when it becomes dry, brittle, or cloudy. This usually happens after you use the catheter for 1 week. Avoid caffeine. Caffeine may make you need to urinate more frequently and more urgently. When traveling, bring extra supplies with you in case of delays. Keep supplies with you in a place that you can access easily. If traveling by plane: ?Make sure that the lubricant in your carry-on bag is less than 3.4 ounces (100 mL). ?Use a single-use catheter. It may be difficult to clean a reusable catheter in a small bathroom. Take akfs-sud-pomrviu and prescription medicines only as told by your health care provider. Keep all follow-up visits as told by your health care provider. This is important. Contact a health care provider if you: Have difficulty performing CIC. Have urine leaking during CIC. Have: ?Dark or cloudy urine. ?Blood in your urine or in your catheter. ?A change in the smell of your urine or discharge. ?A burning feeling while you urinate. Feel nauseous or you vomit. Have pain in your abdomen, your back, or your sides below your ribs. Have swelling or redness around the opening of your urethra. Develop a rash or sores on your skin. Get help right away if you have: A fever. Symptoms that do not go away after 3 days. Symptoms that suddenly get worse. Severe pain. A decrease in the amount of urine that drains from your bladder. Summary Clean intermittent catheterization (CIC) is a procedure to remove urine from the bladder by placing a small, flexible tube (catheter) into the bladder though the urethra. Your health care provider will show you how to perform CIC and will help you to become comfortable performing this procedure at home. Most people need CIC at least 4 times per day to adequately empty the bladder. This information is not intended to replace advice given to you by your health care provider. Make sure you discuss any questions you have with your health care provider. Document Revised: 02/16/2022 Document Reviewed: 02/16/2022 [employer] Patient Education 2022 [employer]. Follow Up Care 05/03/2023 13:30:45 With:EMANUEL MULLIGAN, Aldair Doan, URL Address: [facility] [address] , [place] [phone] When: Unknown Comments:6 mos w/ CATE [facility] 05-03-2023 Hospital Discharge instructions Patient Education 05/03/2023 13:26:22 Clean Intermittent Catheterization, Male Clean Intermittent Catheterization, Male Clean intermittent catheterization (CIC) is a procedure to remove urine from the bladder by placing a small, flexible tube (catheter) into the bladder though the urethra. The urethra is a tube in the body that carries urine from the bladder out of the body. CIC may be done when: You cannot completely empty your bladder on your own. This may be due to a blockage in the bladder or urethra. Your bladder leaks urine. This may happen when the muscles or nerves near the bladder are not working normally, so the bladder overflows. Your health care provider will show you how to perform CIC and will help you to become comfortable performing this procedure at home. Your health care provider will also help you to get the home care supplies that are needed for this procedure. Supplies needed: Germ-free (sterile), water-based lubricant. A container for urine collection. You may also use the toilet to dispose of urine from the catheter. A catheter. Your health care provider will determine the best size for you. ?Use this catheter size: Clean gloves. Soap and water. Towel. How to perform this procedure: Most people need CIC at least 4 times per day to adequately empty the bladder. Your health care provider will tell you how often you should perform CIC. Number of times per day to perform CIC: To perform CIC, follow these steps: 1.Wash your hands with soap and water. If soap and water are not available, use hand director law enforcement. 2.Clean your penis with soap and water. Dry the tip of your penis completely. 3.Prepare the supplies that you will use during the procedure. Open the catheter package and lubricant. 4.Get in a comfortable position. Possible positions include: Sitting on a toilet, a chair, or the edge of a bed. Standing near a toilet. Lying down with your head raised on pillows and your knees pointing to the ceiling. You may wish to place a waterproof mat or pad under you. 5.If you are using a urine collection container, position it between your legs. 6.Urinate, if you are able. 7.Put on gloves. 8.Apply lubricant to about 2 inches (5 cm) of the tip of the catheter. 9.Set the catheter down on a clean, dry surface within reach. 10.Gently stretch your penis out from your body. Pull back any skin that covers the end of your penis (foreskin). Clean the end of your penis with medicated sterile swabs as told by your health care provider. 11.Hold your penis upward at a 45 60 degree angle. This helps to straighten the urethra. 12.Slowly insert the lubricated catheter straight into your urethra until urine flows freely. This is usually about 6 8 inches (15 20 cm). 13.When urine starts to flow freely, insert the catheter 1 inch (3 cm) more. Allow urine to drain into the toilet or the urine collection container. 14.When urine stops flowing, slowly remove the catheter. 15.Note the color, amount, and odor of the urine. 16.Measure your urine and note the amount, if told by your health care provider. 17.Discard the urine in the toilet. 18.Clean your penis using soap and water. 19.Move the foreskin back in place, if applicable. 20.If you are using a single-use catheter, discard the catheter and supplies. 21.Wash your hands with soap and water. 22.If you are using a reusable catheter, follow package instructions about how to clean the catheter after each use. How often should I perform this procedure? Do CIC to empty your bladder every 4 6 hours or as often as told by your health care provider. If you have symptoms of too much urine in your bladder (overdistension) and you are not able to urinate, perform CIC. Symptoms of overdistension may include: ?Restlessness. ?Sweating or chills. ?Headache. ?Flushed or pale skin. ?Bloated lower abdomen. What are the risks? Generally, this is a safe procedure, however problems may occur, including: Infection. Injury to the urethra. Irritation of the urethra. Follow these instructions at home General instructions Drink enough fluid to keep your urine pale yellow. Dispose of a multiple use catheter when it becomes dry, brittle, or cloudy. This usually happens after you use the catheter for 1 week. Avoid caffeine. Caffeine may make you need to urinate more frequently and more urgently. When traveling, bring extra supplies with you in case of delays. Keep supplies with you in a place that you can access easily. If traveling by plane: ?Make sure that the lubricant in your carry-on bag is less than 3.4 ounces (100 mL). ?Use a single-use catheter. It may be difficult to clean a reusable catheter in a small bathroom. Take qcsp-znp-zampzek and prescription medicines only as told by your health care provider. Keep all follow-up visits as told by your health care provider. This is important. Contact a health care provider if you: Have difficulty performing CIC. Have urine leaking during CIC. Have: ?Dark or cloudy urine. ?Blood in your urine or in your catheter. ?A change in the smell of your urine or discharge. ?A burning feeling while you urinate. Feel nauseous or you vomit. Have pain in your abdomen, your back, or your sides below your ribs. Have swelling or redness around the opening of your urethra. Develop a rash or sores on your skin. Get help right away if you have: A fever. Symptoms that do not go away after 3 days. Symptoms that suddenly get worse. Severe pain. A decrease in the amount of urine that drains from your bladder. Summary Clean intermittent catheterization (CIC) is a procedure to remove urine from the bladder by placing a small, flexible tube (catheter) into the bladder though the urethra. Your health care provider will show you how to perform CIC and will help you to become comfortable performing this procedure at home. Most people need CIC at least 4 times per day to adequately empty the bladder. This information is not intended to replace advice given to you by your health care provider. Make sure you discuss any questions you have with your health care provider. Document Revised: 02/16/2022 Document Reviewed: 02/16/2022 [employer] Patient Education 2022 [employer]. Follow Up Care 05/26/2022 09:30:22 With:EMANUEL MULLIGAN, Aldair Doan, URL Address: [facility] [address] [place] [phone] When: Unknown Comments:1 month [facility] 10-22-2022 Hospital Discharge instructions Follow Up Care 10/22/2022 14:09:52 With:Aldair SIMS Address: [facility] [address] [place] [address]- Business (1) When:11/24/2022 10:08:57 Comments:Patient is to see me to discuss his current situation [facility] 10-16-2022 Hospital Discharge instructions Patient Education 10/16/2022 08:57:49 Acute Urinary Retention, Male Acute Urinary Retention, Male Acute urinary retention is a condition in which a person is unable to pass urine or can only pass a little urine. This condition can happen suddenly and last for a short time. If left untreated, it can become long-term (chronic) and result in kidney damage or other serious complications. What are the causes? This condition may be caused by: Obstruction or narrowing of the tube that drains the bladder (urethra). This may be caused by surgery, problems with nearby organs, or injury to the bladder or urethra. Problems with the nerves in the bladder. Tumors in the area of the pelvis, bladder, or urethra. Certain medicines. Bladder or urinary tract infection. Constipation. What increases the risk? This condition is more likely to develop in older men. As men age, their prostate may become larger and may start to press or squeeze on the bladder or the urethra. Other chronic health conditions can increase the risk of acute urinary retention. These include: Diseases such as multiple sclerosis. Spinal cord injuries. Diabetes. Degenerative cognitive conditions, such as delirium or dementia. Psychological conditions. A man may hold his urine due to trauma or because he does not want to use the bathroom. What are the signs or symptoms? Symptoms of this condition include: Trouble urinating. Pain in the lower abdomen. How is this diagnosed? This condition is diagnosed based on a physical exam and your medical history. You may also have other tests, including: An ultrasound of the bladder or kidneys or both. Blood tests. A urine analysis. Additional tests may be needed, such as a CT scan, MRI, and kidney or bladder function tests. How is this treated? Treatment for this condition may include: Medicines. Placing a thin, sterile tube (catheter) into the bladder to drain urine out of the body. This is called an indwelling urinary catheter. After it is inserted, the catheter is held in place with a small balloon that is filled with sterile water. Urine drains from the catheter into a collection bag outside of the body. Behavioral therapy. Treatment for other conditions. If needed, you may be treated in the hospital for kidney function problems or to manage other complications. Follow these instructions at home: Medicines Take aayz-hgk-fmxmqsw and prescription medicines only as told by your health care provider. Avoid certain medicines, such as decongestants, antihistamines, and some prescription medicines. Do not take any medicine unless your health care provider approves. If you were prescribed an antibiotic medicine, take it as told by your health care provider. Do not stop using the antibiotic even if you start to feel better. General instructions Do not use any products that contain nicotine or tobacco. These products include cigarettes, chewing tobacco, and vaping devices, such as e-cigarettes. If you need help quitting, ask your health care provider. Drink enough fluid to keep your urine pale yellow. If you have an indwelling urinary catheter, follow the instructions from your health care provider. Monitor any changes in your symptoms. Tell your health care provider about any changes. If instructed, monitor your blood pressure at home. Report changes as told by your health care provider. Keep all follow-up visits. This is important. Contact a health care provider if: You have uncomfortable bladder contractions that you cannot control (spasms). You leak urine with the spasms. Get help right away if: You have chills or a fever. You have blood in your urine. You have a catheter and the following happens: ?Your catheter stops draining urine. ?Your catheter falls out. Summary Acute urinary retention is a condition in which a person is unable to pass urine or can only pass a little urine. If left untreated, this condition can result in kidney damage or other serious complications. An enlarged prostate may cause this condition. As men age, their prostate gland may become larger and may press or squeeze on the bladder or the urethra. Treatment for this condition may include medicines and placement of an indwelling urinary catheter. Monitor any changes in your symptoms. Tell your health care provider about any changes. This information is not intended to replace advice given to you by your health care provider. Make sure you discuss any questions you have with your health care provider. Document Revised: 01/01/2021 Document Reviewed: 01/01/2021 [employer] Patient Education 2022 [employer]. Follow Up Care 10/15/2022 08:42:00 With:EMANUEL MULLIGAN, Aldair Doan, URL Address: [facility] [address] , [place] [phone] When: Unknown [facility] 07-27-2022 Hospital Discharge instructions Patient Education 07/27/2022 08:41:14 Prostate Cancer Screening Prostate Cancer Screening The prostate is a walnut-sized gland that is located below the bladder and in front of the rectum in males. The function of the prostate (prostate gland) is to add fluid to semen during ejaculation. Prostate cancer is the second most common type of cancer in men. A screening test for cancer is a test that is done before cancer symptoms start. Screening can help to identify cancer at an early stage, when the cancer can be treated more easily. The recommended prostate cancer screening test is a blood test called the prostate-specific antigen (PSA) test. PSA is a protein that is made in the prostate. As you age, your prostate naturally produces more PSA. Abnormally high PSA levels may be caused by: Prostate cancer. An enlarged prostate that is not caused by cancer (benign prostatic hyperplasia, BPH). This condition is very common in older men. A prostate gland infection (prostatitis). Medicines to assist with hair growth, such as finasteride. Depending on the PSA results, you may need more tests, such as: A physical exam to check the size of your prostate gland. Blood and imaging tests. A procedure to remove tissue samples from your prostate gland for testing (biopsy). Who should have screening? Screening recommendations vary based on age. If you are younger than age 40, screening is not recommended. If you are age 40 54 and you have no risk factors, screening is not recommended. If you are younger than age 55, ask your health care provider if you need screening if you have one of these risk factors: ?Being of -[place] descent. ?Having a family history of prostate cancer. If you are age 55 69, talk with your health care provider about your need for screening and how often screening should be done. If you are older than age 70, screening is not recommended. This is because the risks that screening can cause are greater than the benefits that it may provide (risks outweigh the benefits). If you are at high risk for prostate cancer, your health care provider may recommend that you have screenings more often or start screening at a younger age. You may be at high risk if you: Are older than age 55. Are -[place]ian. Have a father, brother, or uncle who has been diagnosed with prostate cancer. The risk may be higher if your family member's cancer occurred at an early age. What are the benefits of screening? There is a small chance that screening may lower your risk of dying from prostate cancer. The chance is small because prostate cancer is typically a slow-growing cancer, and most men with prostate cancer from a different cause. What are the risks of screening? The main risk of prostate cancer screening is diagnosing and treating prostate cancer that would never have caused any symptoms or problems (overdiagnosis and overtreatment). PSA screening cannot tell you if your PSA is high due to cancer or a different cause. A prostate biopsy is the only procedure to diagnose prostate cancer. Even the results of a biopsy may not tell you if your cancer needs to be treated. Slow-growing prostate cancer may not need any treatment other than monitoring, so diagnosing and treating it may cause unnecessary stress or other side effects. A prostate biopsy may also cause: Infection or fever. A false negative. This is a result that shows that you do not have prostate cancer when you actually do have prostate cancer. Questions to ask your health care provider When should I start prostate cancer screening? What is my risk for prostate cancer? How often do I need screening? What type of screening tests do I need? How do I get my test results? What do my results mean? Do I need treatment? Contact a health care provider if: You have difficulty urinating. You have pain when you urinate or ejaculate. You have blood in your urine or semen. You have pain in your back or in the area of your prostate. You have trouble getting or maintaining an erection (erectile dysfunction, ED). Summary Prostate cancer is a common type of cancer in men. The prostate (prostate gland) is located below the bladder and in front of the rectum. This gland adds fluid to semen during ejaculation. Prostate cancer screening may identify cancer at an early stage, when the cancer can be treated more easily. The prostate-specific antigen (PSA) test is the recommended screening test for prostate cancer. Discuss the risks and benefits of prostate cancer screening with your health care provider. If you are age 70 or older, screening is likely to lead to more risks than benefits (risks outweigh the benefits). This information is not intended to replace advice given to you by your health care provider. Make sure you discuss any questions you have with your health care provider. Document Released: 01/21/2018 Document Revised: 03/25/2018 Document Reviewed: 01/21/2018 [employer] Patient Education 2019 [employer]. Follow Up Care 07/24/2022 09:34:47 With:EMANUEL MULLIGAN, Aldair Doan, URL Address: [facility] [address] , [place] [address]- When: Unknown [facility] 06-15-2022 History of Present illness [place] 2-5 milesPatient returns in follow-up of problems as noted. He states he is done well. He denies any breakthrough arrhythmia symptomatology and his EKG today demonstrates sinus rhythm with acceptable QT interval. Because of this it does not appear that adjustments in sotalol therapy will be necessary. Blood pressure is low normal and this was discussed. He is completely asymptomatic and he will discuss the matter with his primary care physician to decide if he wishes to cut back on lisinopril therapy. The benefits of lisinopril, though, were advocated because not only affects his essential hypertension would also protect his kidneys from the effects of diabetes mellitus. This was discussed. Lipids appear to be adequately managed. We noted increased body mass index and the merits of diet exercise and weight loss were advocated not only for improved weight loss but also improved control of blood pressure and diabetes. [facility] [address] DO Work Phone: Evaluation + Plan note Future Appointments Appointment Date:05/05/2022 01:40:00 PM Scheduled Provider:Steve VARGAS MD Location:[facility] Appointment Type: Procedure 30 Appointment Date:05/26/2022 09:00:00 AM Scheduled Provider:SIERRA JACKSON PA-C Location:[facility] Appointment Type:URO Office Visit General Surgery [place] Evaluation + Plan note Future Appointments Appointment Date:05/26/2022 09:00:00 AM Scheduled Provider:SIERRA JACKSON PA-C Location:[facility] Appointment Type:URO Office Visit General [facility] Evaluation + Plan note Future Appointments Appointment Date:10/30/2022 08:15:00 AM Scheduled Provider:Aldair SIMS MD Location:[facility] Appointment Type:URO Office Visit Appointment Date:06/01/2023 09:00:00 AM Scheduled Provider:SIERRA JACKSON PA-C Location:[facility] Appointment Type:URO Office Visit Diagnostic Tests PendingPSA Total 07/27/22 [facility] Evaluation + Plan note Future Appointments Appointment Date:10/30/2022 08:15:00 AM Scheduled Provider:Aldair SIMS MD Location:[facility] Appointment Type:URO Office Visit Appointment Date:06/01/2023 09:00:00 AM Scheduled Provider:SIERRA JACKSON PA-C Location:[facility] Appointment Type:URO Office Visit Diagnostic Tests PendingUrine Culture 07/27/22 [facility] Evaluation + Plan note Future Appointments Appointment Date:11/16/2022 08:45:00 AM Scheduled Provider:Aldair SIMS MD Location:[facility] Appointment Type:URO Office Visit Appointment Date:06/01/2023 09:00:00 AM Scheduled Provider:SIERRA JACKSON PA-C Location:[facility] Appointment Type:URO Office Visit [facility] Evaluation + Plan note Future Appointments Appointment Date:10/26/2022 01:45:00 PM Scheduled Provider: Location:[facility] Appointment Type:Urology CALL PAT FT Appointment Date:11/10/2022 08:30:00 AM Scheduled Provider: Location:[facility] Appointment Type:Urology FT Appointment Date:11/10/2022 09:45:00 AM Scheduled Provider: Location:[facility] Appointment Type:Urology FT Appointment Date:11/16/2022 08:45:00 AM Scheduled Provider:Aldair SIMS MD Location:[facility] Appointment Type:URO Office Visit Appointment Date:06/01/2023 09:00:00 AM Scheduled Provider:SIERRA JACKSON PA-C Location:[facility] Appointment Type:URO Office Visit [facility] Evaluation + Plan note Future Appointments Appointment Date:11/23/2022 11:30:00 AM Scheduled Provider:Aldair SIMS MD Location:[facility] Appointment Type:URO Office Visit Appointment Date:06/01/2023 09:00:00 AM Scheduled Provider:SIERRA JACKSON PA-C Location:[facility] Appointment Type:URO Office Visit [facility] Evaluation + Plan note Future Appointments Appointment Date:01/01/2023 08:30:00 AM Scheduled Provider: [facility] App[facility] Type:URO Nurse Visit Appointment Date:01/22/2023 08:00:00 AM Scheduled Provider:Aldair SIMS MD Location:[facility] Appointment Type:URO Office Visit Appointment Date:06/01/2023 09:00:00 AM Scheduled Provider:SIERRA JACKSON PA-C Location:[facility] Appointment Type:URO Office Visit [facility] Evaluation + Plan note Future Appointments Appointment Date:01/29/2023 09:30:00 AM Scheduled Provider:Aldair SIMS MD [facility] [facility] Appointment Type:URO Office Visit Appointment Date:06/01/2023 09:00:00 AM Scheduled Provider:SIERRA JACKSON PA-C Location:[facility] Appointment Type:URO Office Visit [facility] Evaluation + Plan note Future Appointments Appointment Date:06/04/2023 08:45:00 AM Scheduled Provider:Aldair SIMS MD Location:[facility] Appointment Type:URO Office Visit [facility] Evaluation + Plan note Future Appointments Appointment Date:12/10/2023 09:15:00 AM Scheduled Provider:Aldair SIMS MD Location:[facility] Appointment Type:URO Office Visit [facility] Evaluation + Plan note Future Appointments Appointment Date:12/10/2023 09:15:00 AM Scheduled Provider:Aldair SIMS MD Location:[facility] Appointment Type:URO Office Visit Diagnostic Tests PendingPSA Total 06/04/23 [facility] Evaluation + Plan note Future Appointments Appointment Date:06/12/2024 08:45:00 AM Scheduled Provider:Aldair SIMS MD Location:[facility] Appointment Type:URO Office Visit Diagnostic Tests PendingPSA Total 12/13/23 [facility] Evaluation note No assessment inform ation available [facility] Work Phone: Evaluation note Diagnosis Paroxysmal atrial fibrillation (CMS/HCC)- Primary Atrial fibrillation Benign essential hypertension Essential hypertension, benign Mixed hyperlipidemia Never smoked any substance documented in this encounter [facility] Work Phone: Evaluation note* Diagnosis Persistent atrial fibrillation (Multi)- Primary Atrial fibrillation Paroxysmal atrial fibrillation (Multi) Atrial fibrillation Mixed hyperlipidemia Benign essential hypertension Essential hypertension, benign Type 2 diabetes mellitus without complication, without long-term current use of insulin (Multi) Never smoked any substance long-term current use of anticoagulant therapy BMI 26.0-26.9,adult documented in this encounter [facility] Work Phone: Hospital course Narrative No data available for this section General Surgery [facility] Discharge instructions No data available for this section General Surgery [facility] Discharge instructions Additional Instructions Dr Sims to call in antibiotic prescription to your pharmacy. [facility]: Progress note No data available for this section General Surgery [place] Reason for referral (narrative)* Consultation (Routine) - Authorized Specialty Diagnoses / Procedures Referred By Clarisse joiner Referred To Contact Cardiology Diagnoses Paroxysmal atrial fibrillation (Multi) Procedures Follow Up In Cardiology Rosa Elena Russell MD [address] [place] [address], [address] [address] Rosa Elena Russell MD [address] [place] [address] 2, [address] [address] Referral ID Status Reason Start Date Expiration Date V isits Requested Visits Authorized [id number] Authorized 01/26/2024 01/25/2025 1 1 [facility] Work Phone: Summary Purpose Family History Unknown Family Member Name Dates Details Family history of atrial fib rillation: Brother(V17.49, Z82.49) Status:Active Family history of cardiovasc ular disease: Father, Brother(V17.49, Z82.49) Status:Active Family history of diabetes m ellitus: Father(V18.0, Z83.3) Status:Active Family history of malignant neoplasm of kidney: Mother(V16.51, Z80.51) Status:Active Family history of myocardial infarction: Father(V17.3, Z82.49) Status:Active S/P CABG x 2: Brother(V45.81 , Z95.1) Status:Active Unknown Family Member Name Dates Details Family history of atrial fib rillation: Brother(V17.49, Z82.49) Status:Active Family history of cardiovasc ular disease: Father, Brother(V17.49, Z82.49) Status:Active Family history of diabetes m ellitus: Father(V18.0, Z83.3) Status:Active Family history of malignant neoplasm of kidney: Mother(V16.51, Z80.51) Status:Active Family history of myocardial infarction: Father(V17.3, Z82.49) Status:Active S/P CABG x 2: Brother(V45.81 , Z95.1) Status:Active Unknown Family Member Name Dates Details Family history of atrial fib rillation: Brother(V17.49, Z82.49) Status:Active Family history of cardiovasc ular disease: Father, Brother(V17.49, Z82.49) Status:Active Family history of diabetes m ellitus: Father(V18.0, Z83.3) Status:Active Family history of malignant neoplasm of kidney: Mother(V16.51, Z80.51) Status:Active Family history of myocardial infarction: Father(V17.3, Z82.49) Status:Active S/P CABG x 2: Brother(V45.81 , Z95.1) Status:Active Unknown Family Member Name Dates Details Family history of atrial fib rillation: Brother(V17.49, Z82.49) Status:Active Family history of cardiovasc ular disease: Father, Brother(V17.49, Z82.49) Status:Active Family history of diabetes m ellitus: Father(V18.0, Z83.3) Status:Active Family history of malignant neoplasm of kidney: Mother(V16.51, Z80.51) Status:Active Family history of myocardial infarction: Father(V17.3, Z82.49) Status:Active S/P CABG x 2: Brother(V45.81 , Z95.1) Status:Active Unknown Family Member Name Dates Details Family history of atrial fib rillation: Brother(V17.49, Z82.49) Status:Active Family history of cardiovasc ular disease: Father, Brother(V17.49, Z82.49) Status:Active Family history of diabetes m ellitus: Father(V18.0, Z83.3) Status:Active Family history of malignant neoplasm of kidney: Mother(V16.51, Z80.51) Status:Active Family history of myocardial infarction: Father(V17.3, Z82.49) Status:Active S/P CABG x 2: Brother(V45.81 , Z95.1) Status:Active Unknown Family Member Name Dates Details Family history of atrial fib rillation: Brother(V17.49, Z82.49) Status:Active Family history of cardiovasc ular disease: Father, Brother(V17.49, Z82.49) Status:Active Family history of diabetes m ellitus: Father(V18.0, Z83.3) Status:Active Family history of malignant neoplasm of kidney: Mother(V16.51, Z80.51) Status:Active Family history of myocardial infarction: Father(V17.3, Z82.49) Status:Active S/P CABG x 2: Brother(V45.81 , Z95.1) Status:Active Relationship Condition Age at Onset Recorded Date/T teddy Not Specified Diabetes mellitus Unknown Not Specified Malignant neoplasm Unknown father Congestive heart failure Unknown Advance Directives Advance Directive Response Recorded Date/ Time Advance Directives No July 02 20 9:07am Chief Complaint LENNY RUSSELL is being seen for an annual follow-up of. 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 Reason for Referral Specialty Diagnoses / Procedures Referred By Contac t Referred To Contact Diagnoses Paroxysmal atrial fibrillation (CMS/HCC) Procedures ECG 12 Lead Nancy Maguire MD [address] [place] [address] 2, [facility] [address] [place] [address] Referral ID Status Reason Start Date Expiration Date V isits Requested Visits Authorized [id number] Authorized 06/15/2023 06/14/2024 1 1 Specialty Diagnoses / Procedures Referred By Contac t Referred To Contact Cardiology Diagnoses Paroxysmal atrial fibrillation (CMS/HCC) Procedures Follow Up In Cardiology Nancy Maguire MD [address] [place] [address] 2, [facility] [address] [place] [address] Nancy Maguire MD [address] [place] [address] 2, [address] [address] Referral ID Status Reason Start Date Expiration Date V isits Requested Visits Authorized [id number] Authorized 06/15/2023 06/14/2024 1 1 Additional Source Comments (unrecognized sect ion and content) No Status Records FoundNo Status Records FoundNo Status Records FoundNo Status Records FoundNo Status Records FoundNo Status Records FoundNo Status Records Found INFORMATION SOURCE (unrecogn ized section and content) DATE CREATED AUTHOR 05/19/2019 [facility] DATE CREATED AUTHOR AUTHOR'S ORGANIZ ATION 06/15/2022 [facility] DATE CREATED AUTHOR AUTHOR'S ORGANIZ ATION 06/15/2022 [employer] DATE CREATED AUTHOR AUTHOR'S ORGANIZ ATION 09/06/2022 [facility] DATE CREATED AUTHOR AUTHOR'S ORGANIZ ATION 01/08/2023 [facility] DATE CREATED AUTHOR AUTHOR'S ORGANIZ ATION 12/15/2023 [facility] DATE CREATED AUTHOR AUTHOR'S ORGANIZ ATION 01/28/2024 [facility] Care team informatio n (unrecognized section and content) Team Status: Active Member Role Status Dates Mckinley Melendez MD Primary Care Provider Active Team Status: Inactive Member Role Status Dates Mckinley Melendez MD Primary Care Provider Active Aldair Sims MD Attending Provider Active 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 Relationship Specialty Start Date End Date Mckinley Melendez MD [address] [place] [address] PCP - General 05/17/19 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 Relationship Specialty Start Date End Date Mckinley Melendez MD [address] [place] [address] PCP - General 05/17/19 Goals (unrecognized section and content) Goals may be documented in a n alternate section Reason for Visit (unrecogniz ed section and content) Reason Comments Annual Exam Specialty Diagnoses / Procedures Referred By Contac t Referred To Contact Diagnoses Paroxysmal atrial fibrillation (CMS/HCC) Procedures ECG 12 Lead Nancy Maguire MD [address] [facility] [address], [address] [address] Referral ID Status Reason Start Date Expiration Date V isits Requested Visits Authorized [id number] Authorized 06/15/2023 06/14/2024 1 1 Reason Comments Follow-up 6 month Specialty Diagnoses / Procedures Referred By Contac t Referred To Contact Cardiology Diagnoses Paroxysmal atrial fibrillation (Multi) Procedures Follow Up In Cardiology Nancy Maguire MD Retired From Practice Nancy Maguire MD Retired From Practice Referral ID Status Reason Start Date Expiration Date V isits Requested Visits Authorized [id number] Authorized 06/15/2023 06/14/2024 1 1 FOR RECORDS PERTAINING TO PATIENTS WHO ARE OR HAVE BEEN ENROLLED IN A CHEMICAL DEPENDENCY/SUBSTANCEABUSE PROGRAM, SOME INFORMATION MAY BE OMITTED. This clinical summary was aggregated from multiple sources. Caution should be exercised in using it in the provision of clinical care. This summary normalizes information from multiple sources, and as a consequence, information in this document may materially change the coding, format and clinical context of patient data. In addition, data may be omitted in some cases. CLINICAL DECISIONS SHOULD BE BASED ON THE PRIMARY CLINICAL RECORDS. [employer] provides no warranty or guarantee of the accuracy or completeness of information in this document.
[2024-02-18 04:08] LABS: PSA, Free 1.83 ng/mL; Prostate Specific Ag 6.9 ng/mL (0.0-4.0)
== END 2024-02-17 11:42 | disposition home or self-care (01) ==
LOC: LAB 11:42
PROVIDERS: PCP Family Medicine; Visit Provider Family Medicine
DX: R97.20 Elevated prostate specific antigen [PSA] (principal)
CPT/HCPCS: 36415; 84153; 84154

== ENCOUNTER 2024-06-05 10:34 | Outpatient (OUT) | payer MEDICARE, OTHER, SELFPAY ==
--- OUTSIDE RECORDS SUMMARY | 2024-06-05 10:43 | XMS_ITS | CCD ---
Author Organization [facility] Care Team Providers Care Tax Manager Cpa Name Role Phone Mckinley Melendez Unavailable Unavailable Unavailable Mckinley Melendez Primary Care Physician Dr. Mckinley Melendez Primary Care Unavail able Sai BRAVO, Dr. Guanaco Quinteros Attending Unavailable Sai BRAVO, Dr. Guanaco Quinteros Referring Unavailable Unavailable Unavailable GREGORY Sun, [...] SEN Primary Care Unavailable SIMS ., DR QUINTEROS Consulting Unavailable MD Mckinley Melendez Primary Care Provider [phone] MD Tyler Sims Attending Provider [phone] Mckinley Melendez Primary Care Unavailable Tyler Sims Attending Unavailable Tyler Sims Admphyllis Unavailable Tyler Sims Unavailable Mckinley Melendez Primary Care Unavailable Tyler Sims Attending Unavailable Mckinley Melendez MD Primary Care Provider GUANACO MAGUIRE Attending Unavailable MCKINLEY MELENDEZ Primary Care Unavailable ROSA ELENA RUSSELL Attending Unavailable GUANACO MAGUIRE Referring Unavailable MCKINLEY MELENDEZ Primary Care Unavailable EMANUEL, Tyler Doan Attending Unavailable EMANUEL, Tyler Doan Attending Unavailable EMANUEL, Tyler Doan Attending Unavailable EMANUEL, Tyler Doan Attending Unavailable EMANUEL, Tyler Doan Attending Unavailable EMANUEL, Tyler Doan Attending Unavailable EMANUEL, Tyler Doan Attending Unavailable EMANUEL, Tyler Doan Admitting Unavailable Medications Current Medications Medication Drug Class(es) Dates Sig (Normalized) Sig (Original) 24 hr alfuzosin hydrochloride 10 mg extended release oral tablet (5 sources) alpha-Adrenergi c Westley Start: 07-27-2022 End: 07-22-2023 take 1 tablet by mouth once daily alfuzosin 10 mg ER Tab 10 mg = 1 tab(s), Oral, Daily, X 30 day(s), # 30 tab(s), Refills(s) 11, Pharmacy: [facility] #[id number], 175.3, cm, 07/27/22 12:39:00 EDT, Height/Length Dosing, [...] day(s), # 42 tab(s), Refills(s) 0, Pharmacy: [facility] #[id number], 175, cm, 05/03/23 12:32:00 EST, Height/Length Dosing, 78, kg, 05/03/23 12:32:00 EST, Weight Dosing Start Date: 05/03/23 Stop Date: 05/24/23 Status: Ordered Start: 12-29-2022 End: 12-29-2022 take 100 mg by mouth twice daily Doxycycline Hyclate Discontinued 100 MG PO Twice daily 06 11December 29, 2022 12:00am December 29, 2022 3:58pm Start: 10-22-2022 take 1 capsule by [facility] once daily doxycycline hyclate 100 mg Cap 100 mg = 1 cap(s), Oral, Daily, Take 1 pill the day before the procedure and 1 pill after the procedure, # 2 cap(s), Refills(s) 0, Pharmacy: [facility] #[id number], 175.3, cm, 07/27/22 12:39:00 EDT, Height/Length Dosing, 79, kg, 07/27/22 12:39:00 EDT, Weight... Start Date: 10/22/22 Status: Ordered Start: 07-27-2022 End: 08-26-2022 take 1 capsule by mouth twice daily doxycycline hyclate 100 mg Cap 100 mg = 1 cap(s), Oral, BID, X 30 day(s), # 60 cap(s), Refills(s) 0, Pharmacy: [facility] #[id number], 175.3, cm, 07/27/22 12:39:00 EDT, Height/Length Dosing, 79, kg, 07/27/22 12:39:00 EDT, Weight Dosing Start Date: 07/27/22 Stop Date: 08/26/22 Status: Ordered ferrous gluconate 240 mg oral tablet (16 sources) Start: 02-05-2021 take 240 mg by [...] daily July 03, 2019 12:00am Fish Oils (16 sources) Start: 03-01-2019 take 1000 mg by [...] DO Active glimepiride 2 mg oral tablet (16 sources) Sulfonylurea Start: 04-03-2022 take 1 tablet [...] July 03, 2019 12:00am Multivitamins and Minerals (16 sources) Start: 02-05-2021 take 1 tablet by [...] Start: 02-05-2021 take 1 tablet by nathan th twice daily Betapace AF 120 mg oral tablet 120 mg = 1 tab(s), Oral, BID, Refills(s) 0 Start Date: 02/05/21 Status: Ordered Start: 07-03-2019 take 120 mg by mouth twice briseida ly Sotalol Active 120 MG PO Twice daily July 03, 2019 12:00am Vitamin D3 1999 intl units oral Tab (16 sources) Start: 02-05-2021 take 1 tablet by [...] Date Documented Da te Episodic/Chronic Allergic reactions (16 sources) Eczema 04-03-2022 Episodic Cardiac dysrhythmias (20 sources) Atrial fibrillation; Translations: [Atrial fibrillation] Onset: 05-07-2023 02-05-2021 Chronic Cardiac dysrhythmias (16 sources) Bradycardia 02-05-2021 Episodic Congestive heart failure; nonhypertensive (1 source) Unspecified diastolic (congestive) heart failure; Translations: [UNSPECIFIED DIASTOLIC HEART FAILURE] Onset: 07-31-2022 Chronic Deficiency and other anemia (16 sources) Anemia 04-03-2022 Episodic Diabetes mellitus without complication (20 sources) Diabetes mellitus; Translations: [Diabetes mellitus without mention of complication, type II or unspecified type, not stated as uncontrolled] Onset: 07-31-2022 02-05-2021 Chronic Diabetes mellitus without complication (1 source) [...] Onset: 10-16-2022 04-09-2020 Episodic Heart valve disorders (16 sources) Mitral valve regurgitation 02-05-2021 Chronic Hyperplasia of prostate (20 sources) Benign prostatic hypertrophy with outflow obstruction; Translations: [Benign prostatic hyperplasia with lower urinary tract symptoms] Onset: 07-27-2022 04-09-2020 Chronic Hypertension with complications and secondary hypertension (1 source) Hypertensive heart disease with heart failure; Translations: [HTN HEART DISEASE W/HEART FAIL] Onset: 07-31-2022 Chronic Neoplasms of unspecified nature or uncertain behavior (15 sources) Neoplasm of uncertain behavior of skin 04-25-2022 Episodic Nutritional deficiencies (16 sources) Vitamin D deficiency 02-05-2021 Chronic Other aftercare (2 sources) MCC (current) use of anticoagulants; Translations: [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] Onset: 01-26-2024 Episodic Other aftercare (2 sources) Long-term current use of anticoagulant; Translations: [MCC (current) use of anticoagulants] Onset: 01-26-2024 01-26-2024 Episodic Other and ill-defined heart disease (16 sources) Left ventricular hypertrophy 02-05-2021 Chronic Other diseases of kidney and ureters (2 sources) Urinary tract obstruction; Translations: [Other obstructive and reflux uropathy] Onset: 07-27-2022 Episodic Other diseases of kidney and ureters (15 sources) Hydroureter; Translations: [Hydroureter] Onset: 10-16-2022 Episodic Other diseases of kidney and ureters (1 source) Stricture of ureter; Translations: [Crossing vessel and stricture of ureter without hydronephrosis] Onset: 10-16-2022 Episodic Other diseases of kidney and ureters (12 sources) Occlusion of ureter 10-16-2022 Episodic Other diseases of kidney and ureters (3 sources) Acquired renal cyst without neoplastic change; Translations: [Cyst of kidney, acquired] Onset: 05-03-2023 Episodic Other diseases of kidney and ureters (6 sources) Cyst of kidney 01-29-2023 Episodic Other infections; including parasitic (16 sources) History of herpes zoster 02-05-2021 Episodic [...] Onset: 07-27-2022 04-09-2020 Episodic Other skin disorders (16 sources) Change in skin lesion 02-07-2021 Episodic Other skin disorders (16 sources) Seborrheic keratosis of scalp 03-18-2021 Episodic [...] Episodic Comment on above: Quit 1979; Unclassified (16 sources) Drug therapy finding 03-02-2019 Unclassified (1 source) Benign prostatic hyperplasia with lower urinary tract symptoms; Translations: [Benign prostatic hyperplasia with lower urinary tract symptoms] Onset: 12-29-2022 Urinary tract infections (16 sources) Urinary tract infectious disease; Translations: [Urinary tract infection, site not specified] Onset: 07-27-2022 Episodic Past or Other Problems Problem Classification Problem Date Documented Da te Episodic/Chronic Residual codes; unclassified (2 sources) Other specified health status; Translations: [Other specified health status] Onset: 06-15-2023 Episodic Unclassified (2 sources) Onset: 06-15-2023 4 Results Test Name Value Interpretation Reference Range Facility Urineon 04-13-2024 Bacteria identified Cx Nom (U) Microbiology PROCEDURE: Urine Culture [R1] SOURCE: U Random BODY SITE: COLLECTED DATE/TIME: 04/11/2024 10:09 EST RECEIVED DATE/TIME: 04/11/2024 17:36 EST START DATE/TIME: 04/11/2024 17:36 EST FREE TEXT SOURCE: EMANUEL MULLIGAN, Tyler SIMS MD, Tyler Doan FINAL REPORTS Final Report [] Verified Date/Time: 04/13/2024 09:24 EST >100,000 cfu/ml Klebsiella pneumoniae SUSCEPTIBILITY RESULTS LEGEND: S=Susceptible, N/R=Not Reported, Blank=Data not available, or drug not advisable or tested, I=Intermediate, ESBL=Extended spectrum beta-lactamase, R=Resistant, TFG=Thymidine-depen dent strain, CARROL=Beta-lactamase positive, GUILLERMO=mcg/m;(mg/L), S*=Predicted susceptible interp, R*=Predicted resistant interp Klepne Antibiotic GUILLERMO Dilutn GUILLERMO Interp Ampicillin >16 R Ampicillin/ <=8/4 S Sulbactam Aztreonam <=4 S Cefazolin <=2 S Cefepime <=2 S Ceftazidime <=1 S Ceftazidime/ <=8 S Avibactam Ceftriaxone <=1 S Cefuroxime <=4 S Ciprofloxacin <=0.25 S Ertapenem <=0.5 S Gentamicin <=2 S Levofloxacin <=0.5 S Meropenem <=1 S Nitrofurantoin 64 I Piperacillin/ <=8 S Tazobactam Tetracycline <=4 S Tobramycin <=2 S Trimethoprim/ <=2/38 S Sulfa Performing Locations R1: This test was performed at: [facility], [address] [place] [address], [address] , [place], Normal [facility] Comment on above: Performed By: #### 2 [id number] #### [facility] [address] [place] [address] Ambulatory Visit Summaryon 0 12-13-2023 Ambulatory Visit Summary Ambulatory Visi t Summary LENNY RUSSELL JR :1950 Visit Date:12/13/2023 Ambulatory Visit Instructions Your Diagnosis Elevated PSA Urinary retention BPH with urinary obstruction Renal cyst Your Care Team Attending Physician - EMANUEL MULLIGAN, Tyler Doan Primary Care Physician - Mckinley Melendez [...] Follow-Up Appointments Wednesday 8:45 AM EST With: Tyler SIMS MD Where: [facility] [address] [place] [address]- You Need to Schedule the Following Appointments Follow Up with Tyler SIMS MD, URL When: Comments: 6 mos w/ PSA Where: [facility] [address], [place] [phone] Medications What How Much When Instructions Unchanged [...] cholesterol Elevated PSA History of shingles Hydroureter Hypercholesterolemi a Hypertension Left ventricular hypertrophy Mitral valve regurgitation [...] with yo (more content not included)... Normal [facility] Urology Office/Clinic Noteon 12-13-2023 Urology Office/Clinic Note [...] Follow-up With When Contact Information EMANUEL MULLIGAN, Tyler Doan, URL [facility] [address], [place] [phone] Additional Instructions: 6 mos w/ PSA Patient [...] cholesterol Elevated PSA History of shingles Hydroureter Hypercholesterolemi a Hypertension Left ventricular hypertrophy Mitral valve regurgitation [...] tab(s), O (more content not included)... Normal [facility] Comment on above: Result Comment: Elec tronically Signed By: Tyler SIMS MD\.br\Date and Time Signed: 12/13/23 10:30 EDT\.br\Electronically Co-Signed By: Cathleen Bocanegra\.br\Date and Time Co-Signed: 12/13/23 10:28 EDT Lab Reportson 08-09-2023 Lab Reports [id number]#[id number] Normal [facility] Lab Reports [id number]#[id number] [facility] ECG 12 Leadon 06-15-2023 Atrial fibrillation with a controlled ventricular response QTc 446 ms [facility] Work Phone: Patient Logson 06-07-2023 Patient Logs [id number] [facility] Ambulatory Visit Summaryon 0 06-04-2023 Ambulatory Visit Summary LENNY RUSSELL JR :1950 Visit Date:06/04/2023 Ambulatory Visit Instructions Your Diagnosis Urinary retention BPH with urinary obstruction Elevated PSA Hydroureter Renal cyst Your Care Team Attending Physician - Tyler SIMS MD Primary Care Physician - Mckinley [...] Wednesday 9:15 AM EDT With: EMANUEL MULLIGAN, Tyler Doan Where: [facility] Patient Educationon 06-04-19 Patient Education Urology Clean Intermittent Catheterization, Male [...] and water are not available, use hand forging operator. 2. Clean your penis with soap and [...] catheter in a small bathroom. ? Take [id number] and prescription medicines only as told by your he (more content not included)... Normal [facility] Urology Office/Clinic Noteon 06-04-2023 Urology Office/Clinic Note [...] Follow-up With When Contact Information EMANUEL MULLIGAN, Tyler Doan, URL [facility] [address], [place] [phone] Additional Instructions: 6 mos w/ PSA Patient Education Clean Intermittent Catheterization, Male I, Cathleen Bocanegra, personally scribed for Dr. Sims on 06/04/2023 09:38:13. . Documentation recorded by the debraibCathleen solano, accurately reflects the services(s) I performed and decisions made by me. Authenticated by Dr. Sims on 06/04/2023 09:39:39. Problem List/Past Medical History Ongoing Anemia Anticoagulated Atrial fibrillation Bilateral ureteral obstruction BMI 27.0-27.9,adult BPH with urinary obstruction Bradycardia Changing pigmented skin lesion Diabetes Eczema Elevated cholesterol Elevated PSA History of shingles Hydroureter Hypercholesterolemi a Hypertension Left ventricular hypertrophy Mitral valve regurgitation [...] (08/15/2018), Colonosc (more content not included)... Normal [facility] Comment on above: Result Comment: Elec tronically Signed By: Tyler SIMS MD\.br\Date and Time Signed: 06/04/23 09:39 [...] and water are not available, use hand forging operator. 2. Clean your penis with soap and [...] catheter in a small bathroom. ? Take rwoh-wud-vowoapa and prescription medicines only as told by your he (more content not included)... Normal [facility] Urology Office/Clinic Noteon 05-03-2023 Urology Office/Clinic Note [...] Follow-up With When Contact Information EMANUEL MULLIGAN, Tyler Doan, URL [facility] [address] [place] [address]- [phone] Additional Instructions: 1 month Patient Education Clean Intermittent Catheterization, Male I, Cathleen Bocanegra, personally scribed for Dr. Sims on 05/03/2023 13:27:32. . Documentation recorded by the Cathleen rebolledo, accurately reflects the services(s) I performed and decisions made by me. Authenticated by Dr. Sims on 05/03/2023 13:30:47. Problem List/Past Medical History Ongoing Abnormal urinalysis Anemia Anticoagulated Atrial fibrillation Bilateral ureteral obstruction BMI 27.0-27.9,adult BPH with urinary obstruction Bradycardia Changing pigmented skin lesion Diabetes Eczema Elevated cholesterol Elevated PSA History of shingles Hydroureter Hypercholesterolemi a Hypertension Left ventricular hypertrophy Mitral valve regurgitation Neoplasm of uncertain behavior of skin Nocturia Renal cyst Seborrheic keratosis of scalp Urinary retention UTI (urinary tract infection) Vitamin D deficiency Historical No qualifying data Procedure/Surgical History Transurethral resection o (more content not included)... Normal [facility] Comment on above: Result Comment: Elec tronically Signed By: Tyler SIMS MD\.br\Date and Time Signed: 05/03/23 13:30 EST\.br\Electronically Co-Signed By: Cathleen Bocanegra\.br\Date and Time Co-Signed: 05/03/23 13:28 EST Glucose Glucometer (BldC) [M ass/Vol]Ordered By: Tyler Sims on 12-30-2022 Glucose [Mass/Vol] 235 mg/dL [facility] Comment on above: Random Glucose Refer ence Range is dependent on time and content of last meal. Glucose of more than 200 mg/dL in a nonstressed, ambulatory subject supports the diagnosis of Diabetes Mellitus. Glucose Poct Glucometerson 0 12-30-2022 Glucose [Mass/Vol] 235 mg/dL Normal [facility] Comment on above: Result Comment: Council Glucose Reference Range is dependent on time and content of last meal. Glucose of more than 200 mg/dL in a nonstressed, ambulatory subject supports the diagnosis of Diabetes Mellitus. PERFORMED BY: [facility] [address] [place] [address] PATHOLOGIST COLD MEAT COOK TRACEY SPENCER M.D. Performed By: #### G LULS #### Point of Care testing , Basic Metabolic Panelon Anion gap [Moles/Vol] 11.7 mmol/L Normal 6.0-15.0 [facility] Comment on above: Performed By: #### C BC, BMP #### [facility] [address] [place] [address] [place] Calcium [Mass/Vol] 9.1 mg/dL Normal 8.6-10.3 [facility] Comment on above: Performed By: #### C BC, BMP #### [facility] [address] [place] [address] [place] Chloride [Moles/Vol] 106 mmol/L Normal 98-107 [facility] Comment on above: Performed By: #### C BC, BMP #### [facility] [address] CO2 [Moles/Vol] 22.7 mmol/L Normal 21.0-31.0 [facility] Comment on above: Performed By: #### C BC, BMP #### [facility] [address] [place] [address] [place] Creatinine [Mass/Vol] 1.60 mg/dL High 0.70-1.30 [facility] Comment on above: Performed By: #### C BC, BMP #### [facility] [address] [place] [address] [place] Creatinine Clr Calc Pharmacy 41.12 [facility] Comment on above: Result Comment: PERF ORMED BY: [place] [address] PATHOLOGIST COLD MEAT COOK TRACEY SPENCER M.D. Performed By: #### C BC, BMP #### [place] [id number] [place] GFR/1.73 sq M.predicted MDRD (S/P/Bld) [Vol rate/Area] 45.213 mL/min/{1.73_m2} [facility] Comment on above: Performed By: #### C BC, BMP #### [facility] [address] [place] [address] [place] Glucose [Mass/Vol] 198 mg/dL High 70-100 [facility] Comment on above: Result Comment: Council Glucose Reference Range is dependent on time and content of last meal. Glucose of more than 200 mg/dL in a nonstressed, ambulatory subject supports the diagnosis of Diabetes Mellitus. ADA recommended reference range Performed By: #### C BC, BMP #### [facility] [address] Potassium [Moles/Vol] 4.4 mmol/L Normal 3.5-5.1 [facility] Comment on above: Performed By: #### C BC, BMP #### [facility] [address] Sodium [Moles/Vol] 136 mmol/L Normal 136-145 [facility] Comment on above: Performed By: #### C BC, BMP #### [facility] [address] Urea nitrogen [Mass/Vol] 30 mg/dL High 7-25 [facility] Comment on above: Performed By: #### C BC, BMP #### [facility] [address] Basophils Auto (Bld) [#/Vol] Ordered By: Pacheco Edwards on 12-29-2022 Basophils (Bld) [#/Vol] 0.0 10*3/uL 0.0-0.2 [facility] Basophils/100 WBC Auto (Bld) Ordered By: Pacheco Edwards on 12-29-2022 Basophils/100 WBC (Bld) 0.4 % . F [facility] Calcium [Mass/volume] in Ser um or PlasmaOrdered By: Pacheco Edwards on 12-29-2022 Calcium [Mass/Vol] 9.1 mg/dL 8.6-10.3 [facility] Carbon dioxide, total [Moles /volume] in Serum or PlasmaOrdered By: Pacheco Edwards on 12-29-2022 CO2 [Moles/Vol] 22.7 mmol/L 21.0-31.0 [facility] Chloride [Moles/volume] in S bettina or PlasmaOrdered By: Pacheco Edwards on 12-29-2022 Chloride [Moles/Vol] 106 mmol/L 98-107 [facility] Complete Blood Count Auto Di ffon 12-29-2022 Basophils (Bld) [#/Vol] 0.0 10*3/uL Normal 0.0-0.2 [facility] Comment on above: Result Comment: PERF ORMED BY: [place] [address] PATHOLOGIST COLD MEAT COOK TRACEY SPENCER M.D. Performed By: #### C BC, BMP #### [facility] [address] [place] [address] [place] Basophils/100 WBC (Bld) 0.4 % Normal . F [facility] Comment on above: Performed By: #### C BC, BMP #### [facility] [address] [place] [address] [place] Eosinophils (Bld) [#/Vol] 0.1 10*3/uL Normal 0.0-0.45 [facility] Comment on above: Performed By: #### C BC, BMP #### [address] Eosinophils/100 WBC (Bld) 1.9 % Normal . [facility] Comment on above: Performed By: #### C BC, BMP #### [address] Erythrocyte distribution width (RBC) [Ratio] 13.2 % Normal 12.0-14.8 [facility] Comment on above: Performed By: #### C BC, BMP #### [address] Hematocrit (Bld) [Volume fraction] 38.6 % Low 38.8-50.0 [facility] Comment on above: Performed By: #### C BC, BMP #### [place] [id number] [place] Hemoglobin (Bld) [Mass/Vol] 13.0 g/dL Normal 13.0-17.0 [facility] Comment on above: Performed By: #### C BC, BMP #### [place] [id number] [place] Lymphocytes (Bld) [#/Vol] 1.0 10*3/uL Normal 1.00-4.8 [facility] Comment on above: Performed By: #### C BC, BMP #### [facility] [address] [place] [address] [place] Lymphocytes/100 WBC (Bld) 13.5 % Normal . [facility] Comment on above: Performed By: #### C BC, BMP #### [facility] [address] [place] [id number] [facility] MCH (RBC) [Entitic mass] 29.6 pg Normal 27.5-35.2 [facility] Comment on above: Performed By: #### C BC, BMP #### [facility] [address] MCV (RBC) [Entitic vol] 87.8 fL Normal 83.5-101 F [facility] Comment on above: Performed By: #### C BC, BMP #### [facility] [address] Mean Corpuscular HGB Conc 33.7 g/dL Normal 32.5-35.6 [facility] Comment on above: Performed By: #### C BC, BMP #### [facility] [address] [place] [address] [place] Monocytes (Bld) [#/Vol] 0.8 10*3/uL Normal 0.0-0.8 [facility] Comment on above: Performed By: #### C BC, BMP #### [facility] [address] [place] [address] [place] Monocytes/100 WBC (Bld) 10.3 % Normal . F [facility] Comment on above: Performed By: #### C BC, BMP #### [facility] [address] [place] [phone] [place] Neutrophils (Bld) [#/Vol] 5.4 10*3/uL Normal 1.8-7.7 [facility] Comment on above: Performed By: #### C BC, BMP #### [facility] [address] [place] [id number] [place] Neutrophils/100 WBC (Bld) 73.9 % Normal . [facility] Comment on above: Performed By: #### C BC, BMP #### [facility] [address] NRBC% 0.0 /100{WBC} Normal 0-0.5 [facility] Comment on above: Performed By: #### C BC, BMP #### [facility] [address] Platelet mean volume (Bld) [Entitic vol] 8.4 fL Normal 6.6-10.1 [facility] Comment on above: Performed By: #### C BC, BMP #### [facility] [address] Platelets (Bld) [#/Vol] 281 10*3/uL Normal 150-450 [facility] Comment on above: Performed By: #### C BC, BMP #### [facility] [address] RBC (Bld) [#/Vol] 4.40 10*6/uL Normal 3.90-5.60 [facility] Comment on above: Performed By: #### C BC, BMP #### [facility] [address] WBC (Bld) [#/Vol] 7.3 10*3/uL Normal 4.1-10.5 [facility] Comment on above: Performed By: #### C BC, BMP #### [address] Creatinine [Mass/volume] in Serum or PlasmaOrdered By: Pacheco Edwards on 12-29-2022 Creatinine [Mass/Vol] 1.60 mg/dL 0.70-1.30 [facility] ECG 12 lead ECGon 12-29-2022 ECG 12 lead ECG [facility] Main [place] [address] [place] [address] Electrocardiograph Report Signed Patient: Lenny Russell Jr MR#: [id number] : 1950 Acct:[id number] Age/Sex: 72 / M ADM Date: 12/29/22 Loc: [place] Room: Type: [facility] Attending Dr: Tyler Sims MD Ordering Provider: Pacheco Edwards MD [...] Elena Russell MD 0 12/29/22 1122 Normal [facility] Eosinophils Auto (Bld) [#/Vo l]Ordered By: Pacheco Edwards on 12-29-2022 Eosinophils (Bld) [#/Vol] 0.1 10*3/uL 0.0-0.45 [facility] Eosinophils/100 WBC Auto (Bl d)Ordered By: Pacheco Edwards on 12-29-2022 Eosinophils/100 WBC (Bld) 1.9 % . [facility] Erythrocyte distribution wid th Auto (RBC) [Ratio]Ordered By: Pacheco Edwards on 12-29-2022 Erythrocyte distribution width (RBC) [Ratio] 13.2 % 12.0-14.8 [facility] Glucose Poct Glucometerson 0 12-29-2022 Commemt1 Glu2: Cleaned Meter Normal [facility] Comment on above: Result Comment: PERF ORMED BY: [facility] [address] [place] [address] PATHOLOGIST COLD MEAT COOK TRACEY SPENCER M.D. Performed By: #### G LULULY #### Point of Care testing , Glucose [Mass/Vol] 156 mg/dL Normal [facility] Comment on above: Result Comment: [facility] Glucose Reference Range is dependent on time and content of last meal. Glucose of more than 200 mg/dL in a nonstressed, ambulatory subject supports the diagnosis of Diabetes Mellitus. Performed By: #### G LULS #### Point of Care testing , Glucose [Mass/Vol] 194 mg/dL Normal [facility] Comment on above: Result Comment: [facility] Glucose Reference Range is dependent on time and content of last meal. Glucose of more than 200 mg/dL in a nonstressed, ambulatory subject supports the diagnosis of Diabetes Mellitus. PERFORMED BY: [address] [place] [address] PATHOLOGIST [employer] TRACEY SPENCER M.D. Performed By: #### G LULS ####Point of Care testing, Glucose [Mass/Vol] 172 mg/dL Normal [facility] Comment on above: Result Comment: [facility] Glucose Reference Range is dependent on time and content of last meal. Glucose of more than 200 mg/dL in a nonstressed, ambulatory subject supports the diagnosis of Diabetes Mellitus. PERFORMED BY: [address] [place] [address] PATHOLOGIST [employer] TRACEY SPENCER M.D. Performed By: #### G LULS #### Point of Care testing , Glucose [Mass/Vol] 200 mg/dL Normal [facility] Comment on above: Result Comment: [facility] Glucose Reference Range is dependent on time and content of last meal. Glucose of more than 200 mg/dL in a nonstressed, ambulatory subject supports the diagnosis of Diabetes Mellitus. PERFORMED BY: [address] [place] [id number] PATHOLOGIST [employer] TRACEY SPENCER M.D. Performed By: #### G LULS #### Point of Care testing , Commemt1 Glu2: Cleaned Meter Normal [facility] Comment on above: Result Comment: PERF ORMED BY: [facility] [address] [place] [id number] PATHOLOGIST [employer] TRACEY SPENCER M.D. Performed By: #### G LULS #### Point of Care testing , Glucose [Mass/Vol] 200 mg/dL Normal [facility] Comment on above: Result Comment: [facility] Glucose Reference Range is dependent on time and content of last meal. Glucose of more than 200 mg/dL in a nonstressed, ambulatory subject supports the diagnosis of Diabetes Mellitus. Performed By: #### G EVGENY #### Point of Care testing , Glucose [Mass/volume] in Ser um or PlasmaOrdered By: Pacheco Edwards on 12-29-2022 Glucose [Mass/Vol] 198 mg/dL 70-100 [facility] Comment on above: ADA recommended refe rence rangeRandom Glucose Reference Range is dependent on time and content of last meal. Glucose of more than 200 mg/dL in a nonstressed, ambulatory subject supports the diagnosis of Diabetes Mellitus. Hematocrit Auto (Bld) [Volum e fraction]Ordered By: Pacheco Edwards on 12-29-2022 Hematocrit (Bld) [Volume fraction] 38.6 % 38.8-50.0 [facility] Hemoglobin [Mass/volume] in BloodOrdered By: Pacheco Edwards on 12-29-2022 Hemoglobin (Bld) [Mass/Vol] 13.0 g/dL 13.0-17.0 [facility] Moisés 12-29-2022 L Specimen: [id number] Received: 12/29/22 Status: MICHA Bee Num: [id number] Spec Type: Surgical Subm Dr: Tyler Sims MD Tissues: A Prostate - Tur (PROSTATE TISSUE) Procedures: /10, Gross/Micro L4 Age/ Patient Sex Location Account Attending Physician Lenny Russell Jr 72/M [place] [id number] Tyler Sims MD SPEC NUM: [id number] RECD: 12/29/22 STATUS: MICHA BEE NUM: [id number] SONALI: 12/29/22 DR: Tyler Sims MD ENTERED: 12/29/[address]: ERNESTO TYPE: Surgical DEPT: S ORDERED: HE/10, Gross/Micro [...] reviewed. The microscopic examination confirms the diagnosis. Specimen: [id number] Received: 12/29/22 Status: MICHA Bee Num: [id number] Spec Type: Surgical Subm Dr: Tyler Sims MD Tissues: A Prostate - Tur (PROSTATE TISSUE) Procedures: Asmita Serrato/Pippa L4 Patient: Lenny Russell [id number] (Continued) Specimen: Received: 12/29/22 (Continued) Signed (signatur e on file) Ferdinand Walker MD 12/31/22 0836 Specimen: Received: 12/29/22 Status: MICHA Bee Num: [id number] Spec Type: Surgical Subm Dr: Tyler Sims MD Tissues: A Prostate - Tur (PROSTATE TISSUE) Procedures: HE/10, Gross/Micro L4 Patient: Lenny Russell Jr [id number] (Continued) Specimen: [id number] Received: 12/29/22 (Continued) CPT Codes 88951 Specimen: [id number] Received: 12/29/22 Status: MICHA Bee Num: [id number] Spec Type: Surgical Subm Dr: Tyler Sims MD Tissues: A Prostate - Tur (PROSTATE TISSUE) Procedures: Gross/Micro L4 Patient: Lenny Russell Jr [id number] (Continued) Signed (signatur e on file) Ferdinand Walker MD 12/31/22 0836 Normal [facility] Leukocytes [#/volume] correc nehal for nucleated erythrocytes in Blood by Automated counOrdered By: Pacheco Edwards on 12-29-2022 WBC corrected for nucl RBC Auto (Bld) [#/Vol] 7.3 10*3/uL 4.1-10.5 [facility] Lymphocytes Auto (Bld) [#/Vo l]Ordered By: Pacheco Edwards on 12-29-2022 Lymphocytes (Bld) [#/Vol] 1.0 10*3/uL 1.00-4.8 [facility] Lymphocytes/100 WBC Auto (Bl d)Ordered By: Pacheco Edwards on 12-29-2022 Lymphocytes/100 WBC (Bld) 13.5 % . [facility] MCH Auto (RBC) [Entitic mass ]Ordered By: Pacheco Edwards on 12-29-2022 MCH (RBC) [Entitic mass] 29.6 pg 27.5-35.2 [facility] MCHC Auto (RBC) [Mass/Vol]Or dered By: Pacheco Edwards on 12-29-2022 MCHC (RBC) [Mass/Vol] 33.7 g/dL 32.5-35.6 [facility] MCV Auto (RBC) [Entitic vol] Ordered By: Pacheco Edwards on 12-29-2022 MCV (RBC) [Entitic vol] 87.8 fL 83.5-101 F [facility] Monocytes Auto (Bld) [#/Vol] Ordered By: Pacheco Edwards on 12-29-2022 Monocytes (Bld) [#/Vol] 0.8 10*3/uL 0.0-0.8 [facility] Monocytes/100 WBC Auto (Bld) Ordered By: Pacheco Edwards on 12-29-2022 Monocytes/100 WBC (Bld) 10.3 % . [facility] Neutrophils Auto (Bld) [#/Vo l]Ordered By: Pacheco Edwards on 12-29-2022 Neutrophils (Bld) [#/Vol] 5.4 10*3/uL 1.8-7.7 [facility] Neutrophils/100 WBC Auto (Bl d)Ordered By: Pacheco Edwards on 12-29-2022 Neutrophils/100 WBC (Bld) 73.9 % . [facility] No Panel InformationOrdered By: Tyler Sims on 12-29-2022 Bedside Glucose Comment Glu2: cleaned meter [facility] No Panel InformationOrdered By: Pacheco Edwards on 12-29-2022 Estimated GFR (CKD-EPI) 45.213 mL/Min [facility] Creatinine Clearance (Chem 41.12 [facility] Nucleated erythrocytes [Pres ence] in Blood by Automated countOrdered By: Pacheco Edwards on 12-29-2022 Nucleated RBC Auto Ql (Bld) 0.0 /100{WBC} 0-0.5 [facility] Platelet mean volume Auto (B ld) [Entitic vol]Ordered By: Pacheco Edwards on 12-29-2022 Platelet mean volume (Bld) [Entitic vol] 8.4 fL 6.6-10.1 [facility] Platelets Auto (Bld) [#/Vol] Ordered By: Pacheco Edwards on 12-29-2022 Platelets (Bld) [#/Vol] 281 10*3/uL 150-450 [facility] Potassium [Moles/volume] in Serum or PlasmaOrdered By: Pacheco Edwards on 09-05-2023 Potassium [Moles/Vol] 4.4 mmol/L 3.5-5.1 [facility] RBC Auto (Bld) [#/Vol]Ordere d By: Pacheco Jerry on 12-29-2022 RBC (Bld) [#/Vol] 4.40 10*6/uL 3.90-5.60 [facility] Serum or plasma anion gap de terminationOrdered By: Pacheco Edwards on 12-29-2022 Anion gap [Moles/Vol] 11.7 mmol/L 6.0-15.0 [facility] Sodium [Moles/volume] in Ser um or PlasmaOrdered By: Pacheco Edwards on 12-29-2022 Sodium [Moles/Vol] 136 mmol/L 136-145 [facility] Urea nitrogen [Mass/volume] in Serum or PlasmaOrdered By: Pacheco Edwards on 12-29-2022 Urea nitrogen [Mass/Vol] 30 mg/dL 7-25 [facility] WBC Auto (Bld) [#/Vol]Ordere d By: Pacheco Edwards on 12-29-2022 WBC (Bld) [#/Vol] 7.3 10*3/uL 4.1-10.5 [facility] Creatinine (Bld) [Mass/Vol]O rdered By: Tylre Sims on 10-14-2022 Creatinine [Mass/Vol] 2.2 mg/dL 0.6-1.3 [facility] Comment on above: ER/ESD physician is notified/shown all ISTAT results.Critical values may be confirmed by laboratory testing ifdeemed necessary by ER attending doctor. MR prostate wo barbaraon 023 MR prostate wo con [facility] [place] [address] MRI Report Signed Patient: Lenny Russell Jr MR#: [id number] : 1950 Acct:[id number] Age/Sex: 71 / M ADM Date: 10/14/22 Loc: MR Room: Type: [facility] Attending Dr: Tyler Sims MD Copies to: Tyler Sims MD Ordering Provider: Tyler Sims MD Date of Service: 10/14/22 MR/MR prostate wo con: R97.20 EXAMINATION: MR prostate wo con HISTORY: Elevated PSA COMPARISON: NONE TECHNIQUE: Multiparametric imaging of the prostate gland was performed without IV contrast. FINDINGS: Prostate Dimensions: 5.6 x 4.7 x 7.3 cm Prostate Volume: 100 mL Peripheral Zone: Atrophic. No suspicious T2 or ADC map abnormality is identified to suggest prostate malignancy. Central/Transitiona l Zone: BPH changes. Seminal Vesicles: Unremarkable Neurovascular [...] considered. Impression dictated by: Fabrizio Peterson Jr., D.ODino10/14/2022 9:05 AM Dictation Location: [place] [address] Transcribed By: [facility] 10/14/22 0905 Dictated By: Fabrizio Peterson Jr DO 10/14/22 0852 Signed By: 10/14/22 0905 [facility] INSULINon 07-28-2022 Insulin 7.7 uIU/mL Normal 2.6-24.9 [facility] Comment on above: Performed By: #### I NSULIN #### [facility] [address] [place] [address] Dr. Karen Richter BNPon 07-27-2022 Natriuretic peptide B (Bld) [Mass/Vol] 1335.0 pg/mL Critically high <=900.0 [facility] Comment on above: Performed By: #### I NSULIN #### [facility] [address] [place] [address] Dr. Karen Richter CBC AUTO DIFFon 07-27-2022 BASO # 0.1 103/ul Normal 0.0-0.1 [facility] Comment on above: Performed By: #### P SAD #### [facility] [address] [place] [address] Dr. Karen Richter Basophils/100 WBC (Bld) 0.5 % Normal 0.2-2.0 [facility] Comment on above: Performed By: #### P SAD #### [facility] [address] [place] [address] Dr. Karen Richter EO # 0.3 103/ul Normal 0.0-0.7 [facility] Comment on above: Performed By: #### P SAD #### [facility] [address] [place] [address] Dr. Karen Richter Eosinophils/100 WBC (Bld) 3.2 % Normal 0.9-7.0 [facility] Comment on above: Performed By: #### P SAD #### [facility] [address] [place] [address] Dr. Karen Richter Erythrocyte distribution width (RBC) [Ratio] 12.9 % Normal 11.0-15.0 [facility] Comment on above: Performed By: #### P SAD #### [facility] [address] [place] [address] Dr. Karen Richter Hematocrit (Bld) [Volume fraction] 38.2 % Critically low 42.0-54.0 [facility] Comment on above: Performed By: #### P SAD #### [facility] [address] [place] [address] Dr. Karen Richter Hemoglobin (Bld) [Mass/Vol] 12.7 g/dL Critically low 14.0-18.0 [facility] Comment on above: Performed By: #### P SAD #### [facility] [address] [place] [address] Dr. Karen Richter IG # 0.02 10e3/ul Normal 0.00-0.03 [facility] Comment on above: Performed By: #### P SAD #### [facility] [address] [place] [address] Dr. Karen Richter IG % 0.2 % Normal 0.0-0.5 [facility] Comment on above: Performed By: #### P SAD #### [facility] [address] [place] [address] Dr. Karen Richter LYMPH # 1.4 103/ul Normal 1.2-3.8 [facility] Comment on above: Performed By: #### P SAD #### [facility] [address] [place] [address] Dr. Karen Richter Lymphocytes/100 WBC (Bld) 14.9 % Critically low 20.5-60.0 [facility] Comment on above: Performed By: #### P SAD #### [facility] [address] [place] [address] Dr. Karen Richter MANUAL DIFF REQ NO Normal [facility] Comment on above: Performed By: #### P SAD #### [facility] [address] [place] [address] Dr. Karen Richter MCH (RBC) [Entitic mass] 30.0 pg Normal 25.9-34.0 [facility] Comment on above: Performed By: #### P SAD #### [facility] [address] [place] [address] Dr. Kaern Richter MCHC (RBC) [Mass/Vol] 33.2 g/dL Normal 29.9-35.2 [facility] Comment on above: Performed By: #### P SAD #### [facility] [address] [place] [address] Dr. Karen Richter MCV (RBC) [Entitic vol] 90.3 fL Normal 80.0-94.0 [facility] Comment on above: Performed By: #### P SAD #### [facility] [address] [place] [address] Dr. Karen Richter MONO # 0.9 103/ul Critically high 0.3-0.8 [facility] Comment on above: Performed By: #### P SAD #### [facility] [address] [place] [address] Dr. Karen Richter Monocytes/100 WBC (Bld) 10.0 % Normal 1.7-12.0 [facility] Comment on above: Performed By: #### P SAD #### [facility] [address] [place] [address] Dr. Karen Richter NEUT # 6.5 103/ul Normal 1.4-6.5 [facility] Comment on above: Performed By: #### P SAD #### [facility] [address] [place] [address] Dr. Karen Richter Neutrophils/100 WBC (Bld) 71.2 % Normal 43.0-75.0 [facility] Comment on above: Performed By: #### P SAD #### [facility] [address] [place] [address] Dr. Karen Richter Platelet mean volume (Bld) [Entitic vol] 10.2 fL Normal 9.5-13.5 [facility] Comment on above: Performed By: #### P SAD #### [facility] [address] [place] [address] Dr. Karen Richter PLT 253 103/ul Normal 150-450 [facility] Comment on above: Performed By: #### P SAD #### [facility] [address] [place] [address] Dr. Karen Richter RBC 4.23 106/ul Critically low 4.70-6.10 [facility] Comment on above: Performed By: #### P SAD #### [facility] [address] [place] [address] Dr. Karen Richter WBC 9.2 103/ul Normal 4.0-11.0 [facility] Comment on above: Performed By: #### P SAD #### [facility] [address] [place] [address] Dr. Karen Richter FREE THYROXINE INDEX T7on FTI 2.04 Normal 1.30-4.50 [facility] Comment on above: Performed By: #### T SH, URIC, T7, BNP, CMP, LIPID #### [facility] [address] [place] [address] Dr. Karen Richter T3U 34.0 % Normal 33.0-40.0 [facility] Comment on above: Performed By: #### T SH, URIC, T7, BNP, CMP, LIPID #### [facility] [address] [place] [address] Dr. Karen Richter T4 [Mass/Vol] 6.00 ug/dL Normal 4.50-12.10 [facility] Comment on above: Performed By: #### T SH, URIC, T7, BNP, CMP, LIPID #### [facility] [address] [place] [address] [address] Karen Richter GLYCOHEMOGLOBIN A1Con 2022 ADA RECOMMENDATION SEE BELOW Normal [facility] Comment on above: Result Comment: ADA RECOMMENDED LIMIT 4.0 - 6.0 ADA THERAPEUTIC TARGET < 7.0 ACTION SUGGESTED > 7.0 Performed By: #### I NSULIN #### [facility] [address] [place] [address] [address] Karen Richter Glucose [Mass/Vol] 134 mg/dL Normal [facility] Comment on above: Performed By: #### I NSULIN #### [facility] [address] [place] [address] Dr. Karen Richter HbA1c (Bld) [Mass fraction] 6.3 % Critically high 4.5-6.2 [facility] Comment on above: Performed By: #### I NSULIN #### [facility] [address] [place] [address] [address] Karen Richter LIPID PROFILEon 07-27-2022 CHOL-HDL RATIO NORM SEE BELOW Normal [facility] Comment on above: Result Comment: 3.3 - 4.4 LOW RISK 4.4 - 7.1 AVERAGE RISK 7.1 - 11.0 MODERATE RISK >11.0 HIGH RISK Performed By: #### T SH, URIC, T7, BNP, CMP, LIPID #### [facility] [address] [place] [address] Dr. Karen Richter Cholesterol [Mass/Vol] 123 mg/dL Normal <=200 [facility] Comment on above: Performed By: #### T SH, URIC, T7, BNP, CMP, LIPID #### [facility] [address] [place] [address] Dr. Karen Richter Cholesterol in HDL [Mass/Vol] 39 mg/dL Critically low 40-60 [facility] Comment on above: Performed By: #### T SH, URIC, T7, BNP, CMP, LIPID #### [facility] [address] [place] [address] [address] Karen Richter Cholesterol in LDL [Mass/Vol] 65.6 mg/dL Normal [facility] Comment on above: Performed By: #### T SH, URIC, T7, BNP, CMP, LIPID #### [facility] [address] [place] [address] [address] Karen Richetr Cholesterol.total/Choles terol in HDL [Mass ratio] 3.2 {ratio} Normal [facility] Comment on above: Performed By: #### T SH, URIC, T7, BNP, CMP, LIPID #### [facility] [address] [place] [address] [address] Karen Richter HDL NORMAL > or = 60 mg/dl - LOW CARDIOVASCULAR RISK <40 mg/dl - HIGH CARDIOVASCULAR RISK Normal [facility] Comment on above: Performed By: #### T SH, URIC, T7, BNP, CMP, LIPID #### [facility] [address] [place] [address] [address] Karen Richter LDL CALC NORMAL SEE BELOW Normal [facility] Comment on above: Result Comment: <100 mg/dl OPTIMAL 100 - 129 mg/dl NEAR OR ABOVE OPTIMAL 130 - 159 mg/dl BORDERLINE HIGH 160 - 189 mg/dl HIGH >190 mg/dl VERY HIGH Performed By: #### T SH, URIC, T7, BNP, CMP, LIPID #### [facility] [address] [place] [address] [address] Karen Richter Triglyceride [Mass/Vol] 92 mg/dL Normal <=150 [facility] Comment on above: Performed By: #### T SH, URIC, T7, BNP, CMP, LIPID #### [facility] [address] [place] [address] [address] Karen Richter VLDL CALC 18.4 mg/dL Normal [facility] Comment on above: Performed By: #### T SH, URIC, T7, BNP, CMP, LIPID #### [facility] [address] [place] [address] [address] Karen Richter PROF 14(COMP METB)on 023 Albumin [Mass/Vol] 3.6 g/dL Normal 3.4-5.0 [facility] Comment on above: Performed By: #### T SH, URIC, T7, BNP, CMP, LIPID #### [facility] [address] [place] [address] Dr. Karen Richter Albumin/Globulin [Mass ratio] 1.1 {ratio} Normal [facility] Comment on above: Performed By: #### T SH, URIC, T7, BNP, CMP, LIPID #### [facility] [address] [place] [address] Dr. Karen Richter ALP [Catalytic activity/Vol] 56 U/L Normal 46-116 [facility] Comment on above: Performed By: #### T SH, URIC, T7, BNP, CMP, LIPID #### [facility] [address] [place] [address] Dr. Karen Richter ALT [Catalytic activity/Vol] 19 U/L Normal 16-63 [facility] Comment on above: Performed By: #### T SH, URIC, T7, BNP, CMP, LIPID #### [facility] [address] [place] [address] Dr. Karen Richter Anion gap [Moles/Vol] 10.5 mmol/L Normal [facility] Comment on above: Performed By: #### T SH, URIC, T7, BNP, CMP, LIPID #### [facility] [address] [place] [address] Dr. Karen Richter AST [Catalytic activity/Vol] 15 U/L Normal 15-37 [facility] Comment on above: Performed By: #### T SH, URIC, T7, BNP, CMP, LIPID #### [facility] [address] [place] [address] Dr. Karen Richter Bilirubin [Mass/Vol] 0.4 mg/dL Normal 0.2-1.0 [facility] Comment on above: Performed By: #### T SH, URIC, T7, BNP, CMP, LIPID #### [facility] [address] [place] [address] Dr. Karen Richter Calcium [Mass/Vol] 9.0 mg/dL Normal 8.5-10.1 [facility] Comment on above: Performed By: #### T SH, URIC, T7, BNP, CMP, LIPID #### [facility] [address] [place] [address] Dr. Karen Richter Chloride [Moles/Vol] 106 mmol/L Normal 98-107 [facility] Comment on above: Performed By: #### T SH, URIC, T7, BNP, CMP, LIPID #### [facility] [address] [place] [address] Dr. Karen Richter CO2 [Moles/Vol] 25.1 mmol/L Normal 21.0-32.0 [facility] Comment on above: Performed By: #### T SH, URIC, T7, BNP, CMP, LIPID #### [facility] [address] [place] [address] Dr. Karen Richter Creatinine [Mass/Vol] 1.95 mg/dL Critically high 0.70-1.30 [facility] Comment on above: Performed By: #### T SH, URIC, T7, BNP, CMP, LIPID #### [facility] [address] [place] [address] Dr. Karen Richter EGFR-AF MALAWIAN 41 mL/min/1.73m2 Critically low >=60 [facility] Comment on above: Performed By: #### T SH, URIC, T7, BNP, CMP, LIPID #### [facility] [address] [place] [address] Dr. Karen Richter EGFR-NON AF MALAWIAN 34 mL/min/1.73m2 Critically low >=60 [facility] Comment on above: Performed By: #### T SH, URIC, T7, BNP, CMP, LIPID #### [facility] [address] [place] [address] Dr. Karen Richter Globulin (S) [Mass/Vol] 3.4 g/dL Normal [facility] Comment on above: Performed By: #### T SH, URIC, T7, BNP, CMP, LIPID #### [facility] [address] [place] [address] Dr. Karen Richter Glucose [Mass/Vol] 162 mg/dL Critically high 74-106 [facility] Comment on above: Performed By: #### T SH, URIC, T7, BNP, CMP, LIPID #### [facility] [address] [place] [address] Dr. Karen Richter Potassium [Moles/Vol] 4.6 mmol/L Normal 3.5-5.1 [facility] Comment on above: Performed By: #### T SH, URIC, T7, BNP, CMP, LIPID #### [facility] [address] [place] [address] Dr. Karen Richter Protein [Mass/Vol] 7.0 g/dL Normal 6.4-8.2 [facility] Comment on above: Performed By: #### T SH, URIC, T7, BNP, CMP, LIPID #### [facility] [address] [place] [address] Dr. Karen Richter Sodium [Moles/Vol] 137 mmol/L Normal 136-145 [facility] Comment on above: Performed By: #### T SH, URIC, T7, BNP, CMP, LIPID #### [facility] [address] [place] [address] Dr. Karen Richter Urea nitrogen [Mass/Vol] 35.0 mg/dL Critically high 7.0-18 .0 [facility] Comment on above: Performed By: #### T SH, URIC, T7, BNP, CMP, LIPID #### [facility] [address] [place] [address] Dr. Karen Richter Urea nitrogen/Creatinine [Mass ratio] 17.9 mg/mg Normal [facility] Comment on above: Performed By: #### T SH, URIC, T7, BNP, CMP, LIPID #### [facility] [address] [place] [address] Dr. Karen Richter TSHon 07-27-2022 TSH 2.367 uIU/mL Normal 0.358-3.740 [facility] Comment on above: Performed By: #### T SH, URIC, T7, BNP, CMP, LIPID #### [facility] [address] [place] [address] Dr. Karen Richter URIC ACID SERUMon 07-27-2022 Urate [Mass/Vol] 6.5 mg/dL Normal 3.5-7.2 [facility] Comment on above: Performed By: #### T SH, URIC, T7, BNP, CMP, LIPID #### [facility] [address] [place] [address] Dr. Karen Richter INSULINon 07-23-2022 Insulin 6.3 uIU/mL Normal 2.6-24.9 [facility] Comment on above: Performed By: #### I NSULIN #### [facility] [address] [place] [address] Dr. Karen Richter BNPon 07-22-2022 Natriuretic peptide B (Bld) [Mass/Vol] 192.0 pg/mL Normal <=900.0 [facility] Comment on above: Performed By: #### I NSULIN #### [facility] [address] [place] [address] Dr. Karen Richter CBC AUTO DIFFon 07-22-2022 BASO # 0.0 103/ul Normal 0.0-0.1 [facility] Comment on above: Performed By: #### C BC #### [facility] [address] [place] [address] Dr. Karen Richter Basophils/100 WBC (Bld) 0.5 % Normal 0.2-2.0 [facility] Comment on above: Performed By: #### C BC #### [facility] [address] [place] [address] Dr. Karen Richter EO # 0.2 103/ul Normal 0.0-0.7 [facility] Comment on above: Performed By: #### C BC #### [facility] [address] [place] [address] Dr. Karen Richter Eosinophils/100 WBC (Bld) 2.3 % Normal 0.9-7.0 [facility] Comment on above: Performed By: #### C BC #### [facility] [address] [place] [address] Dr. Karen Richter Erythrocyte distribution width (RBC) [Ratio] 13.1 % Normal 11.0-15.0 [facility] Comment on above: Performed By: #### C BC #### [facility] [address] [address] [address] Karen Richter Hematocrit (Bld) [Volume fraction] 39.7 % Critically low 42.0-54.0 [facility] Comment on above: Performed By: #### C BC #### [facility] [address] [place] [address] Dr. Karen Richter Hemoglobin (Bld) [Mass/Vol] 13.0 g/dL Critically low 14.0-18.0 [facility] Comment on above: Performed By: #### C BC #### [facility] [address] [place] [address] Dr. Karen Richter IG # 0.03 10e3/ul Normal 0.00-0.03 [facility] Comment on above: Performed By: #### C BC #### [facility] [address] [place] [address] Dr. Karen Richter IG % 0.4 % Normal 0.0-0.5 [facility] Comment on above: Performed By: #### C BC #### [facility] [address] [place] [address] Dr. Karen Richter LYMPH # 0.9 103/ul Critically low 1.2-3.8 [facility] Comment on above: Performed By: #### C BC #### [facility] [address] [place] [address] Dr. Karen Richter Lymphocytes/100 WBC (Bld) 12.0 % Critically low 20.5-60.0 [facility] Comment on above: Performed By: #### C BC #### [facility] [address] [place] [address] Dr. Karen Richter MANUAL DIFF REQ NO Normal [facility] Comment on above: Performed By: #### C BC #### [facility] [address] [place] [address] Dr. Karen Richter MCH (RBC) [Entitic mass] 29.9 pg Normal 25.9-34.0 [facility] Comment on above: Performed By: #### C BC #### [facility] [address] [address] [address] Karen Richter MCHC (RBC) [Mass/Vol] 32.7 g/dL Normal 29.9-35.2 [facility] Comment on above: Performed By: #### C BC #### [facility] [address] [address] [address] Karen Richter MCV (RBC) [Entitic vol] 91.3 fL Normal 80.0-94.0 [facility] Comment on above: Performed By: #### C BC #### [facility] [address] [place] [address] Dr. Karen Richter MONO # 0.5 103/ul Normal 0.3-0.8 [facility] Comment on above: Performed By: #### C BC #### [facility] [address] [place] [address] Dr. Karen Richter Monocytes/100 WBC (Bld) 7.0 % Normal 1.7-12.0 [facility] Comment on above: Performed By: #### C BC #### [facility] [address] [place] [address] Dr. Karen Richter NEUT # 5.8 103/ul Normal 1.4-6.5 [facility] Comment on above: Performed By: #### C BC #### [facility] [address] [place] [address] Dr. Karen Richter Neutrophils/100 WBC (Bld) 77.8 % Critically high 43.0-75.0 [facility] Comment on above: Performed By: #### C BC #### [facility] [address] [place] [address] Dr. Karen Richter Platelet mean volume (Bld) [Entitic vol] 9.8 fL Normal 9.5-13.5 [facility] Comment on above: Performed By: #### C BC #### [facility] [address] [place] [address] Dr. Karen Richter PLT 272 103/ul Normal 150-450 [facility] Comment on above: Performed By: #### C BC #### [facility] [address] [address] [address] Karen Richter RBC 4.35 106/ul Critically low 4.70-6.10 [facility] Comment on above: Performed By: #### C BC #### [facility] [address] [address] [address] Karen Richter WBC 7.4 103/ul Normal 4.0-11.0 [facility] Comment on above: Performed By: #### C BC #### [facility] [address] [address] [address] Karen Richter FREE THYROXINE INDEX T7on FTI 2.38 Normal 1.30-4.50 [facility] Comment on above: Performed By: #### I NSULIN #### [facility] [address] [address] [address] Karen Richter T3U 33.0 % Normal 33.0-40.0 [facility] Comment on above: Performed By: #### I NSULIN #### [facility] [address] [address] [address] Karen Richter T4 [Mass/Vol] 7.20 ug/dL Normal 4.50-12.10 [facility] Comment on above: Performed By: #### I NSULIN #### [facility] [address] [address] [address] Karen Richter GLYCOHEMOGLOBIN A1Con 2022 ADA RECOMMENDATION SEE BELOW Normal [facility] Comment on above: Result Comment: ADA RECOMMENDED LIMIT 4.0 - 6.0 ADA THERAPEUTIC TARGET < 7.0 ACTION SUGGESTED > 7.0 Performed By: #### I NSULIN #### [facility] [address] [address] [address] Karen Richter Glucose [Mass/Vol] 137 mg/dL Normal [facility] Comment on above: Performed By: #### I NSULIN #### [facility] [address] [place] [address] Dr. Karen Richter HbA1c (Bld) [Mass fraction] 6.4 % Critically high 4.5-6.2 [facility] Comment on above: Performed By: #### I NSULIN #### [facility] [address] [address] [address] Karen Richter LIPID PROFILEon 07-22-2022 CHOL-HDL RATIO NORM SEE BELOW Normal [facility] Comment on above: Result Comment: 3.3 - 4.4 LOW RISK 4.4 - 7.1 AVERAGE RISK 7.1 - 11.0 MODERATE RISK >11.0 HIGH RISK Performed By: #### I NSULIN #### [facility] [address] [address] [address] Karen Richter Cholesterol [Mass/Vol] 135 mg/dL Normal <=200 [facility] Comment on above: Performed By: #### I NSULIN #### [facility] [address] [address] [address] Karen Richter Cholesterol in HDL [Mass/Vol] 48 mg/dL Normal 40-60 [facility] Comment on above: Performed By: #### I NSULIN #### [facility] [address] [address] [address] Karen Richter Cholesterol in LDL [Mass/Vol] 62.2 mg/dL Normal [facility] Comment on above: Performed By: #### I NSULIN #### [facility] [address] [address] [address] Karen Richter Cholesterol.total/Choles terol in HDL [Mass ratio] 2.8 {ratio} Normal [facility] Comment on above: Performed By: #### I NSULIN #### [facility] [address] [address] [address] Karen Richter HDL NORMAL > or = 60 mg/dl - LOW CARDIOVASCULAR RISK <40 mg/dl - HIGH CARDIOVASCULAR RISK Normal [facility] Comment on above: Performed By: #### I NSULIN #### [facility] [address] [address] [address] Karen Richter LDL CALC NORMAL SEE BELOW Normal [facility] Comment on above: Result Comment: <100 mg/dl OPTIMAL 100 - 129 mg/dl NEAR OR ABOVE OPTIMAL 130 - 159 mg/dl BORDERLINE HIGH 160 - 189 mg/dl HIGH >190 mg/dl VERY HIGH Performed By: #### I NSULIN #### [facility] [address] [place] [address] Dr. Karen Richter Triglyceride [Mass/Vol] 124 mg/dL Normal <=150 [facility] Comment on above: Performed By: #### I NSULIN #### [facility] [address] [address] [address] Karen Richter VLDL CALC 24.8 mg/dL Normal [facility] Comment on above: Performed By: #### I NSULIN #### [facility] [address] [address] [address] Karen Richter PROF 14(COMP METB)on 023 Albumin [Mass/Vol] 4.2 g/dL Normal 3.4-5.0 [facility] Comment on above: Performed By: #### I NSULIN #### [facility] [address] [place] [address] Dr. Karen Richter Albumin/Globulin [Mass ratio] 1.1 {ratio} Normal [facility] Comment on above: Performed By: #### I NSULIN #### [facility] [address] [place] [address] Dr. Karen Richter ALP [Catalytic activity/Vol] 59 U/L Normal 46-116 [facility] Comment on above: Performed By: #### I NSULIN #### [facility] [address] [place] [address] Dr. Karen Richter ALT [Catalytic activity/Vol] 24 U/L Normal 16-63 [facility] Comment on above: Performed By: #### I NSULIN #### [facility] [address] [place] [address] Dr. Karen Richter Anion gap [Moles/Vol] 15.1 mmol/L Normal [facility] Comment on above: Performed By: #### I NSULIN #### [facility] [address] [place] [address] Dr. Karen Richter AST [Catalytic activity/Vol] 15 U/L Normal 15-37 [facility] Comment on above: Performed By: #### I NSULIN #### [facility] [address] [address] [address] Karen Richter Bilirubin [Mass/Vol] 0.9 mg/dL Normal 0.2-1.0 [facility] Comment on above: Performed By: #### I NSULIN #### [facility] [address] [address] [address] Karen Richter Calcium [Mass/Vol] 9.8 mg/dL Normal 8.5-10.1 [facility] Comment on above: Performed By: #### I NSULIN #### [facility] [address] [address] [address] Karen Richter Chloride [Moles/Vol] 108 mmol/L Critically high 98-107 [facility] Comment on above: Performed By: #### I NSULIN #### [facility] [address] [place] [address] Dr. Karen Richter CO2 [Moles/Vol] 26.9 mmol/L Normal 21.0-32.0 [facility] Comment on above: Performed By: #### I NSULIN #### [facility] [address] [address] [address] Karen Richter Creatinine [Mass/Vol] 2.13 mg/dL Critically high 0.70-1.30 [facility] Comment on above: Performed By: #### I NSULIN #### [facility] [address] [place] [address] Dr. Karen Richter EGFR-AF MALAWIAN 37 mL/min/1.73m2 Critically low >=60 [facility] Comment on above: Performed By: #### I NSULIN #### [facility] [address] [address] [address] Karen Richter EGFR-NON AF MALAWIAN 31 mL/min/1.73m2 Critically low >=60 [facility] Comment on above: Performed By: #### I NSULIN #### [facility] [address] [address] [address] Karen Richter Globulin (S) [Mass/Vol] 3.9 g/dL Normal [facility] Comment on above: Performed By: #### I NSULIN #### [facility] [address] [address] [address] Karen Richter Glucose [Mass/Vol] 147 mg/dL Critically high 74-106 [facility] Comment on above: Performed By: #### I NSULIN #### [facility] [address] [address] [address] Karen Richter Potassium [Moles/Vol] 5.0 mmol/L Normal 3.5-5.1 [facility] Comment on above: Performed By: #### I NSULIN #### [facility] [address] [address] [address] Karen Richter Protein [Mass/Vol] 8.1 g/dL Normal 6.4-8.2 [facility] Comment on above: Performed By: #### I NSULIN #### [facility] [address] [place] [address] Dr. Karen Richter Sodium [Moles/Vol] 145 mmol/L Normal 136-145 [facility] Comment on above: Performed By: #### I NSULIN #### [facility] [address] [address] [address] Karen Richter Urea nitrogen [Mass/Vol] 31.0 mg/dL Critically high 7.0-18 .0 [facility] Comment on above: Performed By: #### I NSULIN #### [facility] [address] [address] [address] Karen Richter Urea nitrogen/Creatinine [Mass ratio] 14.6 mg/mg Normal [facility] Comment on above: Performed By: #### I NSULIN #### [facility] [address] [address] [address] Karen Richter TSHon 07-22-2022 TSH 1.891 uIU/mL Normal 0.358-3.740 [facility] Comment on above: Performed By: #### I NSULIN #### [facility] [address] [place] [address] Dr. Karen Richter URIC ACID SERUMon 07-22-2022 Urate [Mass/Vol] 6.8 mg/dL Normal 3.5-7.2 [facility] Comment on above: Performed By: #### I NSULIN #### [facility] [address] [address] [address] Karen Richter Office Visit (Cardiology)on 06-15-2022 Follow-up visit Diagnoses/Problems Assessed Atrial fibrillation (427.31) (I48.91) Benign essential hypertension (401.1) (I10) Diabetes mellitus (250.00) (E11.9) Hyperlipidemia (272.4) (E78.5) Overweight with body mass index (BMI) of 26 to 26.9 in adult (278.02,V85.22) (E66.3,Z68.26) Former smoker (V15.82) (Z87.891) Quit 1980 Orders Atrial fibrillation IO EKG Electrocardiogram- 12 Lead; Status:Complete; Done: [id number] Overweight with body mass index (BMI) of 26 to 26.9 in adult Healthy Weight Tips; Status:Complete - Retrospective Authorization; Done: [id number] Some eating tips that can help you lose weight.; Status:Complete - Retrospective Authorization; Done: [id number] SocHx: Former smoker Tobacco Use Screening; Status:Complete; Done: [id number] Patient Instructions Please bring all medicines, vitamins, [...] negative for complaint. Vitals Vital Signs Recorded: [id number] 07:56AM Heart Rate49, Apical Gljgtgwk17, RUE, Sitting Suvsnyvmg22, RUE, Sitting Height5 ft 9 in Uwkbff352 lb BMI Zsoejkufbd91.43 kg/m2 BSA Calculated1.97 Tobacco Useb) No PHQ-2 [...] murmurs , (more content not included)... [facility] Screening.on 023 Adult depression screening assessment No [facility] [employer] [facility] DO Work Phone: Fall risk assessment a) [facility] falls within the last year [facility] DO Work Phone: Tobacco use status CP b) No M [facility] DO Work Phone: PSA, FREE AND TOTAL RATIOon 10-29-2021 % Free PSA 22.7 % Normal [facility] Comment on above: Result Comment: The table [...] men. Performed By: #### P SAD #### [facility] [address] [place] [address] Dr. Karen Richter Prostate specific Ag [Mass/Vol] 9.5 ng/mL Critically high 0.0-4.0 [facility] Comment on above: Result Comment: [employer] ECLHUMBERTO methodology. . According to the [employer], Serum PSA should decrease and [...] disease. Performed By: #### P SAD #### [facility] [address] [address] [address] Karen Richter PSA, Free 2.16 ng/mL Normal N/A [facility] Comment on above: Result Comment: [employer] ECLIA methodology. Performed By: #### P SAD #### [facility] [address] [address] [address] Karen Richter Vital Signs Date Time Vital Sign Value Performing Clinician Facility 01-26-2024 14:46-0400 Body height 175.3 cm Rosa Elena Russell MD Work Phone: [facility] 01-26-2024 14:46-0400 Body mass index (BMI) [Ratio] 26.11 kg/m2 Rosa Elena Russell MD Work Phone: [facility] 01-26-2024 14:46-0400 Body weight 80.2 kg Rosa Elena Russell MD Work Phone: [facility] 01-26-2024 14:46-0400 Diastolic blood pressure 76 mm[Hg] Rosa Elena Russell MD Work Phone: [facility] 01-26-2024 14:46-0400 Heart rate 82 /min Rosa Elena Russell MD Work Phone: [facility] 01-26-2024 14:46-0400 Systolic blood pressure 104 mm[Hg] Rosa Elena Russell MD Work Phone: [facility] 12-13-2023 09:50-0400 Blood Pressure Location Tyler [facility] 12-13-2023 09:50-0400 Body temperature 98.6 [degF] Tyler [facility] 12-13-2023 09:50-0400 Diastolic blood pressure 72 mm[Hg] Tylerpeter SIMS [facility] 12-13-2023 09:50-0400 Heart rate 68 /min Tylerpeter [facility] 12-13-2023 09:50-0400 Respiratory rate 16 /min Tyler [facility] 12-13-2023 09:50-0400 Systolic blood pressure 131 mm[Hg] Tyler [facility] 06-15-2023 08:28-0500 Body height 175.3 cm Guanaco Maguire MD Work Phone: [facility] 06-15-2023 08:28-0500 Body mass index (BMI) [Ratio] 26.88 kg/m2 Guanaco Maguire MD Work Phone: [facility] 06-15-2023 08:28-0500 Body weight 82.56 kg Guanaco Maguire MD Work Phone: [facility] 06-15-2023 08:28-0500 Diastolic blood pressure 80 mm[Hg] Guanaco Maguire MD Work Phone: [facility] 06-15-2023 08:28-0500 Heart rate 81 /min Guanaco Maguire MD Work Phone: [facility] 06-15-2023 08:28-0500 Systolic blood pressure 118 mm[Hg] Guanaco Maguire MD Work Phone: [facility] 06-04-2023 08:47-0500 Blood Pressure Location Tyler [facility] 06-04-2023 08:47-0500 Diastolic blood pressure 77 mm[Hg] Tyler [facility] 06-04-2023 08:47-0500 Heart rate 52 /min Tyler [facility] 06-04-2023 08:47-0500 Respiratory rate 16 /min Tyler [facility] 06-04-2023 08:47-0500 Systolic blood pressure 128 mm[Hg] Tyler [facility] 05-03-2023 12:22-0500 Blood Pressure Location Tyler [facility] 05-03-2023 12:22-0500 Diastolic blood pressure 71 mm[Hg] Tyler [facility] 05-03-2023 12:22-0500 Heart rate 64 /min Tyler [facility] 05-03-2023 12:22-0500 Respiratory rate 16 /min Tyler [facility] 05-03-2023 12:22-0500 Systolic blood pressure 130 mm[Hg] Tyler [facility] 12-30-2022 07:41-0400 Body temperature 98.3 [degF] MD Mckinley Melendez Work Phone: [facility] 12-30-2022 07:41-0400 Diastolic blood pressure 91 mm[Hg] MD Mckinley Melendez Work Phone: [facility] 12-30-2022 07:41-0400 Heart rate 105 /min MD Mckinley Melendez Work Phone: [facility] 12-30-2022 07:41-0400 Respiratory rate 13 /min MD Mckinley Melendez Work Phone: [facility] 12-30-2022 07:41-0400 SaO2% (BldA) [Mass fraction] 97 % MD Mckinley Melendez Work Phone: [facility] 12-30-2022 07:41-0400 Systolic blood pressure 126 mm[Hg] MD Mckinley Melendez Work Phone: [facility] 12-30-2022 05:39-0400 Body weight 78.5 kg MD Mckinley Melendez Work Phone: [facility] 12-29-2022 11:13-0400 Inhaled oxygen flow rate 10 L/min MD Mckinley Melendez Work Phone: [facility] 12-29-2022 08:47-0400 Body height 175.26 cm MD Mckinley Melendez Work Phone: [facility] 12-29-2022 08:47-0400 Body mass index (BMI) [Ratio] 25.4 kg/m2 MD Mckinley Melendez Work Phone: [facility] 10-14-2022 07:07-0400 Body height 175.26 cm MD Mckinley Melendez Work Phone: [facility] 10-14-2022 07:07-0400 Body weight 81.64 kg MD Mckinley Melendez Work Phone: [facility] 07-27-2022 12:37-0400 Blood Pressure Location Tyler EMANUEL [facility] 07-27-2022 12:37-0400 Diastolic blood pressure 74 mm[Hg] Tyler [facility] 07-27-2022 12:37-0400 Heart rate 82 /min Tyler [facility] 07-27-2022 12:37-0400 Respiratory rate 16 /min Tylerpeter [facility] 07-27-2022 12:37-0400 Systolic blood pressure 114 mm[Hg] Tyler [facility] 06-15-2022 07:56-0500 Body height 175.26 cm Mckinley Herman Hoy Work Phone: [facility] 250 DO Work Phone: 06-15-2022 07:56-0500 Body mass index (BMI) [Ratio] 26.43 kg/m2 Mckinley M Hoy Work Phone: [facility] 250 DO Work Phone: 06-15-2022 07:56-0500 Body surface area Derived from formula 1.97 m2 Mckinley M Hoy Work Phone: [facility] Miguel 250 DO Work Phone: 06-15-2022 07:56-0500 Body weight 81.19 kg Mckinley M Hoy Work Phone: [facility] [place] 250 DO Work Phone: 06-15-2022 07:56-0500 Diastolic blood pressure 62 mm[Hg] Mckinley M Hoy Work Phone: [facility] 250 DO Work Phone: 06-15-2022 07:56-0500 Heart rate 49 /min Mckinley M Hoy Work Phone: [facility] 250 DO Work Phone: 06-15-2022 07:56-0500 Systolic blood pressure 98 mm[Hg] Mckinley Melendez Work Phone: -[facility] [place] 250 DO Work Phone: 04-14-2022 14:51-0500 Blood Pressure Location Steve MARTEL [facility] [place] 04-14-2022 14:51-0500 Diastolic blood pressure 66 mm[Hg] Steve NILL [facility] [place] 04-14-2022 14:51-0500 Heart rate 64 /min Steve NILL [facility] [place] 04-14-2022 14:51-0500 Respiratory rate 16 /min Steve NILL [facility] [place] 04-14-2022 14:51-0500 Systolic blood pressure 100 mm[Hg] Steve NILL [facility] [place] Encounters Encounter Date Encounter Type Care Provider Facility Start: 04-11-2024 End: 04-11-2024 Lab Drop off Tyler SIMS [facility] Start: 04-11-2024 End: 04-11-2024 ambulatory Tyler SIMS Facility:[facility] Start: 04-11-2024 End: 04-11-2024 Patient encounter procedure Tyler SIMS [facility] Start: 01-26-2024 End: 01-26-2024 Office outpatient visit 25 minutes Rosa Elena Russell MD Work Phone: [facility] Comment on above: Persistent atrial fi brillation (Multi) (Primary Dx); Paroxysmal atrial fibrillation (Multi); Mixed hyperlipidemia; Benign essential hypertension; Type 2 diabetes mellitus without complication, without long-term current use of insulin (Multi); Never smoked any substance; 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; BMI 26.0-26.9,adult Start: 01-26-2024 End: 01-26-2024 ambulatory [facility] Start: 12-13-2023 End: 12-13-2023 ambulatory Tyler SIMS Facility:[facility] [place] Start: 12-13-2023 End: 12-13-2023 Patient encounter procedure Tyler SIMS [facility] Start: 06-15-2023 End: 06-15-2023 Office outpatient visit 25 minutes Guanaco Maguire MD Work Phone: [facility] Comment on above: Paroxysmal atrial fi brillation (CMS/HCC) (Primary Dx); Benign essential hypertension; Mixed hyperlipidemia; Never smoked any substance Start: 06-15-2023 End: 06-15-2023 ambulatory GUANACO MAGUIRE [facility] Ambulatory Start: 06-04-2023 End: 06-04-2023 ambulatory Tyler SIMS Facility:[facility] Start: 06-04-2023 End: 06-04-2023 Patient encounter procedure Tyler SIMS [facility] Start: 05-03-2023 End: 05-03-2023 ambulatory Tyler SIMS Facility:[facility] Start: 05-03-2023 End: 05-03-2023 Patient encounter procedure Tyler SIMS [facility] Start: 01-26-2023 End: 01-26-2023 Patient encounter procedure Tyler SIMS [facility] Start: 01-01-2023 End: 01-01-2023 Patient encounter procedure Tyler SIMS [facility] Start: 12-29-2022 End: 12-30-2022 ambulatory Tyler Sims Facility:[facility] Start: 12-29-2022 End: 12-30-2022 Admission to same day surgery center MD Mckilney Melendez Work Phone: [facility] [place] Start: 12-29-2022 End: 12-30-2022 ambulatory MD Mckinley Melendez Work Phone: [facility] Work Phone: Start: 12-11-2022 End: 12-11-2022 Patient encounter procedure Tyler SIMS [facility] Start: 11-21-2022 Message Mckinley Melendez Work Phone: [facility] 250 DO Work Phone: Start: 11-10-2022 End: 11-10-2022 Patient encounter procedure Tyler R SIMS [facility] Start: 10-23-2022 End: 10-23-2022 Patient encounter procedure Tyler R SIMS [facility] Start: 10-16-2022 End: 10-16-2022 Patient encounter procedure Tyler R SIMS [facility] Start: 10-14-2022 End: 10-14-2022 ambulatory MD Mckinley Melendez Work Phone: [facility] Work Phone: Start: 10-14-2022 End: 10-14-2022 Patient encounter procedure MD Mckinley Melendez Work Phone: [facility] [place] Work Phone: Start: 09-03-2022 End: 09-04-[address] TYLER SIMS . Facility:[facility] Start: 07-27-2022 End: 07-27-2022 Lab Drop off Tyler SIMS [facility] Start: 07-27-2022 End: 07-27-2022 Patient encounter procedure Tyler SIMS [facility] [place] Start: 07-27-2022 End: 07-28-[address] MCKINLEY MELENDEZ . Facility:[facility] Start: 07-22-2022 End: 07-23-[address] MCKINLEY MELENDEZ . Facility:[facility] Start: 07-20-2022 Rx Renewal Mckinley Melendez Work Phone: [facility] Miguel 250 DO Work Phone: Start: 06-15-2022 Office outpatient vi sit 25 minutes Mckinley Melendez Work Phone: [facility] Miguel 250 DO Work Phone: Start: 06-15-[address] Mckinley Melendez Facility: Start: 05-05-2022 End: 05-05-2022 Patient encounter procedure Steve R NILL [facility] [place] Start: 04-14-2022 End: 04-14-2022 Patient encounter procedure Steve R NILL [facility] [place] Start: 01-15-[address] MCKINLEY MELENDEZ . Facili ty:[facility] Start: 10-28-2021 End: 10-29-[address] FRANCISCO Sun Facility:[facility] Start: 07-23-2021 Rx Renewal Mckinley Melendez Work Phone: [facility] 250 DO Work Phone: Procedures Date Procedure Procedure Detail Performing Clinician Start: 06-15-2023 ECG 12-LEAD GUANACO BLANKENSHIP Start: 06-15-2023 Ecg routine ecg w/le ast 12 lds w/i&r Guanaco Maguire MD Work Phone: Start: 12-29-2022 Transurethral prostatectomy MD Mckinley Melendez Work Phone: Start: 12-29-2022 Transurethral prostatectomy Tyler ISMS Start: 11-10-2022 Cystoscopy Tyler SIMONA LEBRON Start: 11-10-2022 Urodynamic studies Patr yanique SIMS Start: 10-14-2022 MR prostate wo con MD Jamison Melendez Work Phone: Start: 09-03-[address] FRANCISCO Sun Comment on above: Performed By: #### P SAD #### [facility] [address] [place] [address] Dr. Karen Richter Start: 07-27-[address] FRANCISCO Sun Comment on above: Performed By: #### P SASC #### [facility] [address] [place] [address] Dr. Karen Richter Start: 07-22-[address] FRANCISCO Sun Comment on above: Performed By: #### I NSULIN #### [facility] [address] [place] [address] Dr. Karen Richter Start: 03-12-2021 Excisional biopsy [...] Vasectomy Mckinley Melendez Work Phone: Vasectomy Steve MARTEL Plan of Treatment Date Care Activity Detail Author Start: 07-26-2024 End: 07-26-2024 Patient encounter procedure 07/26/2024 11:00 AM EDT Office Visit [address] [place] [address] Rosa Elena Russell MD [address] [facility] [address] [place] [address] [facility] Start: 06-12-2024 ambulatory Ambulatory Facility:[facility] Start: 02-03-2024 DTaP/Tdap/Td Vaccines (2 - Td or Tdap) DTaP/Tdap/Td Vaccines (2 - Td or Tdap) [facility] Start: 12-26-2023 COVID-19 Vaccine ( season) COVID-19 Vaccine ( season) [facility] Start: 12-26-2023 Influenza vaccination Influenza Vaccine (#1) [facility] Start: 2023 End: 2023 Patient encounter procedure 2023 9:20 AM EDT Office Visit [place] [address] [facility] [address] [place] [address] Guanaco Maguire MD [address] [facility] [address] [place] [address] 143- [facility] Start: 06-15-2023 FUV, Provider: Guanaco Maguire, Status: Pen, Time: 8:30 AM FUV, Provider: Guanaco Maguire, Status: Pen, Time: 8:30 AM [facility] 250 DO Work Phone: Start: 12-30-2022 [facility] Start: 12-29-2022 Hospital admission [facility] Start: 12-25-2022 COVID-19 Vaccine ( season) COVID-19 Vaccine ( season) [facility] Start: 12-25-2022 Influenza vaccination Influenza Vaccine (#1) [facility] Start: 05-12-2022 FUV, Provider: Guanaco Maguire, Status: Pen, Time: 8:50 AM FUV, Provider: Guanaco Maguire, Status: Pen, Time: 8:50 AM [facility] 250 DO Work Phone: Start: 05-17-2020 Echocardiography Echocardiogram [facility] Start: 2009 RSV patients and/or patients aged 60+ years (1 - 1-dose 60+ series) RSV patients and/or patients aged 60+ years (1 - 1-dose 60+ series) [facility] Start: 12-08-1999 Zoster Vaccines (1 of 2) Zoster Vaccines (1 of 2) [facility] Start: 1968 Urine screening for protein Diabetes: Urine Protein Screening [facility] Start: 12-08-1967 Hepatitis C screening Hepatitis C Screening [facility] Start: 12-08-1959 Diabetic foot examination Diabetes: Foot Exam [facility] Start: 12-08-1959 Glaucoma screening Diabetes: Retinopathy Screening [facility] Start: 12-08-1955 Pneumococcal Vaccine: 65+ Years (1 - PCV) Pneumococcal Vaccine: 65+ Years (1 - PCV) [facility] Start: 12-08-1955 Pneumococcal Vaccine: 65+ Years (1 of 2 - PCV) Pneumococcal Vaccine: 65+ Years (1 of 2 - PCV) [facility] Start: 1949 Creatinine measurement Creatinine Level [place] Start: 1949 Hemoglobin A1c measurement Diabetes: Hemoglobin A1C [facility] Start: 1949 Lipid panel Lipid Panel [facility] Start: 1949 Medicare Annual Wellness Visit Medicare Annual Wellness Visit (AWV) [facility] Start: 1949 Potassium measurement Potassium Level [facility] Start: 1949 Screening for malignant neoplasm of colon [facility] Start: 1949 Yearly Adult Physical Yearly Adult Physical [facility] Patient referral [facility] Work Phone: [facility] Immunizations Immunization Date Immunization Notes Care Provider Fa cility 06-04-2021 Comirnaty 30 MCG/0.3 ML Intramuscular Suspension Mckinley M Cooper Work Phone: [facility] 250 DO Work Phone: 06-04-2021 SARS-CoV-2 mRNA (cfajgvfidib-uiie-cpio ose) vaccine Steve VARGAS [facility] 07-23-2020 Pfizer-BioNTech COVID-19 Vacc 30 MCG/0.3ML Intramuscular Suspension Mckinley M Cooper Work Phone: [facility] 07-23-2020 SARS-CoV-2 (COVID-19 ) Ad26 vaccine, recombinant Steve VARGAS [facility] 07-01-2020 Pfizer-BioNTech COVID-19 Vacc 30 MCG/0.3ML Intramuscular Suspension Mckinley M Cooper Work Phone: [facility] 07-01-2020 SARS-CoV-2 (COVID-19 ) Ad26 vaccine, recombinant Steve VARGAS [facility] NEGATED: Highlighted row has not occurred!04-14-2022 influenza virus vaccine, unspecified formulation Steve VARGAS [facility] Payers Date Payer Category Payer [employer] ( [employer] others) FOR LIFE [id number] 2023-Present [address] [place] [address] [id number] 2022 [employer] ( [employer] others) [id number] 2022 [employer] ( [employer] others) [id number] 2022 Self-pay [id number] 2014 Medicare MEDICARE MEDICAR E RAILROAD [id number] 2014-Present [address] [place] [address] [id number] 1959 [employer] ( and others) [id number] 1959 Medicare [id number] 1949 Unknown [id number] 2.16.840.1.342382.3.579.2. 356 1949 Unknown [id number] 2.16.840.1.894099.3.579.2. 593 1949 Unknown [id number] 2.16.840.1.457397.3.579.2. 593 1949 Unknown [id number] 2.16.840.1.807278.3.579.2. 593 1949 Unknown [id number] 2.16.840.1.370079.3.579.2. 593 1949 Unknown [id number] 2.16.840.1.646173.3.579.2. 593 1949 Unknown [id number] 2.16.840.1.110711.3.579.2. 1244 1949 Unknown [id number] 2.16.840.1.360400.3.579.2. 1244 1949 Unknown [id number] 2.16.840.1.901532.3.579.2. 727 1949 Unknown [id number] 2.16.840.1.810689.3.579.2. 727 1949 Unknown [id number] 2.16.840.1.432048.3.579.2. 727 1949 Unknown [id number] 2.16.840.1.783628.3.579.2. 727 1949 Unknown [id number] 2.16.840.1.714208.3.579.2. 727 1949 Unknown [id number] 2.16.840.1.896428.3.579.2. 727 1949 Unknown [id number] 2.16.840.1.147795.3.579.2. 727 Unknown Unknown [id number] 2.16.840.1.222856.3.579.2. 531 Unknown [id number] 2.16.840.1.634804.3.579.2. 531 Social History Date Type Detail Facility Start: 06-15-2023 No alcohol use No alcohol use [place] [address] DO Work Phone: Comment on above: 3 cups daily; 3 cups coffee daily if make it to restaurant; Quit 1979; Start: 04-14-2022 End: 12-13-2023 Tobacco smoking status Never smoked tobacco (finding) [facility] [place] Tobacco smoking status Never [facility] [place] Start: 06-15-2023 Sex Assigned At Male F [facility] Start: 1950 Sex Assigned At Male F [facility] Start: 06-15-2023 Tobacco use and exposure Smokeless tobacco non-user [facility] Work Phone: Start: 06-15-2023 End: 01-26-2024 Alcohol intake Lifetime non-drinker (finding) [facility] Work Phone: Start: 1950 Sex Assigned At Not on file U [facility] Work Phone: Start: 06-05-2023 End: 01-26-2024 Exposure to SARS-CoV-2 (event) Not sure [facility] Goals Date Patient Goal Desired Activity /State Functional Status Date Assessment Result Facility 12-13-2023 Functional Status N/A [facility] 06-04-2023 Functional Status N/A [facility] 05-03-2023 Functional Status N/A [facility] 12-30-2022 Functional status 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 Baseline [facility] Work Phone: 11-10-2022 Functional Status N/A [facility] 07-27-2022 Functional Status N/A [facility] 04-14-2022 Functional Status N/A [facility] Mental Status Date Assessment Result Facility 12-30-2022 Cognitive function Cognitive Sta tus Patient at Baseline [facility] Work Phone: Clinical Notes 06-15-2022 to 01-26-2024 Rosa Elena Russell MD - 01/26/2024 3:00 PM EDTPatient InstructionsAttaVince Maguire MD - 06/15/2023 8:30 AM ESTPatient Instructions Note Date & Type Note Facility 01-26-2024 History of Present illness Narrative Subjective Lenny Russell is a 73 y.o. male Chief [...] (Multi) 6. 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 BMI 26.0-26.9,adult Scribe Attestation By signing my name below, I, Kesha Mireles LPN attest that this documentation has been prepared under the direction and in the presence of Rosa Elena Russell MD. Provider Attestation - Scribe documentation All medical record entries made by the Scribe were at my direction and personally dictated by me. I have reviewed the chart and agree that the record accurately reflects my personal performance of the history, physical exam, discussion and plan. documented in this encounter [facility] Work Phone: 01-26-2024 Instructions Chandrika [...] be sent through Care Everywhere.Heart Healthy Diet (Yi)documented in this encounter [facility] Work Phone: 12-13-2023 Hospital Discharge [...] treatment? Where to find more information [employer] [place] [employer]: www.cancer.org [place] [employer]: www.auanet.org Contact a health care [...] provider. Document Revised: 10/06/2021 Document Reviewed: 10/06/2021 [employer] Patient Education 2022 Casetext. Follow Up Care 06/04/2023 09:42:59 With:EMANUEL MULLIGAN, Tyler Doan, URL Address: [facility] [address] [place] [address] [phone] When: Unknown Comments:6 mos w/ PSA [facility] 12-13-2023 Note Patient Education Oncology Prostate Cancer [...] Where to find more information ? The [place] [employer]: www.cancer.org ? [employer]: www.auanet.org Contact a health care [...] of the rectum. (more content not included)... [facility] 06-15-2023 History of Present illness Narrative Kishor [...] Attestation By signing my name below, I, Kesha Augustine LPN attest that this documentation has been prepared under the direction and in the presence of Guanaco Maguire MD. Provider Attestation - Scribe documentation All medical record entries made by the Scribe were at my direction and personally dictated by me. I have reviewed the chart and agree that the record accurately reflects my personal performance of the history, physical exam, discussion and plan. documented in this encounter [facility] Work Phone: 06-15-2023 Instructions Nay [...] 30: -20.7 Lbs documented in this encounter [facility] Work Phone: 06-04-2023 Hospital Discharge [...] and water are not available, use hand forging operator. 2.Clean your penis with soap and water. [...] reusable catheter in a small bathroom. Take yvev-ydp-immrsrk and prescription medicines only as told by [...] provider. Document Revised: 02/16/2022 Document Reviewed: 02/16/2022 [employer] Patient Education 2022 Casetext. Follow Up Care 05/03/2023 13:30:45 With:Tyler SIMS MD, URL Address: [facility] [address] [place] [address]- [phone] When: Unknown Comments:6 mos w/ CATE [facility] 05-03-2023 Hospital Discharge instructions Patient Education 05/03/2023 [...] and water are not available, use hand forging operator. 2.Clean your penis with soap and water. [...] reusable catheter in a small bathroom. Take cmqb-uoh-fbfjejr and prescription medicines only as told by [...] provider. Document Revised: 02/16/2022 Document Reviewed: 02/16/2022 [employer] Patient Education 2022 Casetext. Follow Up Care 05/26/2022 09:30:22 With:Tyler SIMS MD, ANTONIETA Address: [facility] [address] [place] [address]- [phone] When: Unknown Comments:1 month [facility] 10-22-2022 Hospital Discharge instructions Follow Up Care 10/22/2022 14:09:52 With:Tyler SIMS Address: [facility] [address] [place] [address]- Business (1) When:11/24/2022 10:08:57 Comments:Patient is to see me to discuss his current situation [facility] 10-16-2022 Hospital Discharge instructions Patient Education [...] Follow these instructions at home: Medicines Take etmo-ayf-lxtvhwd and prescription medicines only as told by [...] provider. Document Revised: 01/01/2021 Document Reviewed: 01/01/2021 [employer] Patient Education 2022 Casetext. Follow Up Care 10/15/2022 08:42:00 With:EMANUEL MULLIGAN, Tyler Doan, URL Address: [facility] [address] [place] [address]- [phone] When: Unknown [facility] 07-27-2022 Hospital Discharge instructions Patient Education 07/27/2022 [...] one of these risk factors: ?Being of -[place]ien descent. ?Having a family history of prostate [...] you: Are older than age 55. Are -N[place]ien. Have a father, brother, or uncle who [...] 01/21/2018 Document Revised: 03/25/2018 Document Reviewed: 01/21/2018 [employer] Patient Education [employer]. Follow Up Care 07/24/2022 09:34:47 With:EMANUEL MULLIGAN, Tyler Doan, URL Address: [facility] [address] [place] [address]- When: Unknown [facility] 06-15-2022 History of Present illness Narrative [place] [...] improved control of blood pressure and diabetes. [facility] 250 DO Work Phone: Evaluation + Plan note Future Appointments Appointment Date:05/05/2022 01:40:00 PM Scheduled Provider:Steve VARGAS MD Location:[facility] Appointment Type:GS Procedure 30 Appointment Date:05/26/2022 09:00:00 AM Scheduled Provider:SIERRA JACKSON PA-C Location:[facility] Appointment Type:URO Office Visit General Surgery [place] Evaluation + Plan note Future Appointments Appointment Date:05/26/2022 09:00:00 AM Scheduled Provider:SIERRA JACKSON PA-C Location:[facility] Appointment Type:URO Office Visit General Surgery [place] Evaluation + Plan note Future Appointments Appointment Date:10/30/2022 08:15:00 AM Scheduled Provider:Tyler SIMS MD Location:[facility] Appointment Type:URO Office Visit Appointment Date:06/01/2023 09:00:00 AM Scheduled Provider:SIERRA JACKSON PA-C Location:[facility] Appointment Type:URO Office Visit Diagnostic Tests PendingPSA Total 07/27/22 [facility] Evaluation + Plan note Future Appointments Appointment Date:10/30/2022 08:15:00 AM Scheduled Provider:Tyler SIMS MD Location:[facility] Appointment Type:URO Office Visit Appointment Date:06/01/2023 09:00:00 AM Scheduled Provider:SIERRA JACKSON PA-C Location:[facility] Appointment Type:URO Office Visit Diagnostic Tests PendingUrine Culture 07/27/22 [facility] Evaluation + Plan note Future Appointments Appointment Date:11/16/2022 08:45:00 AM Scheduled Provider:Tyler SIMS MD Location:[facility] Appointment Type:URO Office Visit Appointment Date:06/01/2023 09:00:00 AM Scheduled Provider:SIERRA JACKSON PA-C [facility] Type:[facility]O Office Visit [facility] Evaluation + Plan note Future Appointments Appointment Date:10/26/2022 01:45:00 PM Scheduled Provider: Location:[facility] Appointment Type:Urology CALL PAT FT Appointment Date:11/10/2022 08:30:00 AM Scheduled Provider: Location:[facility] Appointment Type:Urology FT Appointment Date:11/10/2022 09:45:00 AM Scheduled Provider: Location:[facility] Appointment Type:Urology FT Appointment Date:11/16/2022 08:45:00 AM Scheduled Provider:Tyler SIMS MD [facility] Appoint[facility] Type:URO Office Visit Appointment Date:06/01/2023 09:00:00 AM Scheduled Provider:SIERRA JACKSON PA-C [facility] Appoint[facility] Type:URO Office Visit [facility] Evaluation + Plan note Future Appointments Appointment Date:11/23/2022 11:30:00 AM Scheduled Provider:Tyler SIMS MD [facility] Appointment Type:URO Office Visit Appointment Date:06/01/2023 09:00:00 AM Scheduled Provider:SIERRA JACKSON PA-C [facility] App[facility] Type:URO Office Visit [facility] Evaluation + Plan note Future Appointments Appointment Date:01/01/2023 08:30:00 AM Scheduled Provider: Location[facility] Appointment Type:URO Nurse Visit Appointment Date:01/22/2023 08:00:00 AM Scheduled Provider:Tyler SIMS MD Location[facility] Appointment Type:URO Office Visit Appointment Date:06/01/2023 09:00:00 AM Scheduled Provider:SIERRA JACKSON PA-C Location[facility] Appointment Type:URO Office Visit [facility] Evaluation + Plan note Future Appointments Appointment Date:01/29/2023 09:30:00 AM Scheduled Provider:Tyler SIMS MD Location:[facility] [place] Appointment Type:URO Office Visit Appointment Date:06/01/2023 09:00:00 AM Scheduled Provider:SIERRA JACKSON PA-C Location:[facility] Appointment Type:URO Office Visit [facility] Evaluation + Plan note Future Appointments Appointment Date:06/04/2023 08:45:00 AM Scheduled Provider:Tyler SIMS MD Location:[facility] Appointment Type:URO Office Visit [facility] Evaluation + Plan note Future Appointments Appointment Date:12/10/2023 09:15:00 AM Scheduled Provider:Tyler SIMS MD Location:[facility] Appointment Type:URO Office Visit [facility] Evaluation + Plan note Future Appointments Appointment Date:12/10/2023 09:15:00 AM Scheduled Provider:Tyler SIMS MD Location:[facility] Appointment Type:URO Office Visit Diagnostic Tests PendingPSA Total 06/04/23 [facility] Evaluation + Plan note Future Appointments Appointment Date:06/12/2024 08:45:00 AM Scheduled Provider:Tyler SIMS MD [facility] Type:[facility]O Office Visit Diagnostic Tests PendingPSA Total 12/13/23 [facility] Evaluation + Plan note Future Appointments Appointment Date:06/12/2024 08:45:00 AM Scheduled Provider:Tyler SIMS MD Location:[facility] Appointment Type:URO Office Visit [facility] Evaluation + Plan note Future Appointments Appointment Date:06/12/2024 08:45:00 AM Scheduled Provider:Tyler SIMS MD Location:[facility] Appointment Type:URO Office Visit Diagnostic Tests PendingUrine Culture 04/11/24 [facility] Evaluation note No assessment inform ation available [facility] Work Phone: Evaluation note Diagnosis Paroxysmal atrial fibrillation (CMS/HCC)- Primary Atrial fibrillation Benign essential hypertension Essential hypertension, benign Mixed hyperlipidemia Never smoked any substance documented in this encounter [facility] Work Phone: Evaluation note* Diagnosis Persistent atrial fibrillation (Multi)- Primary Atrial fibrillation Paroxysmal atrial fibrillation (Multi) Atrial fibrillation Mixed hyperlipidemia Benign essential hypertension Essential hypertension, benign Type 2 diabetes mellitus without complication, without long-term current use of insulin (Multi) 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 [facility] Work [facility]: Progress note No data available for this section General Surgery [place] Reason for referral (narrative)* Consultation (Routine) - Authorized Specialty Diagnoses / Procedures Referred By Contac t Referred To Contact Cardiology Diagnoses Paroxysmal atrial fibrillation (Multi) Procedures Follow Up In Cardiology Rosa Elena Russell MD [address] [facility] [address], [address] [address] Rosa Elena Russell MD [address] [facility] [address], [address] [address] Referral ID Status Reason Start Date Expiration Date V isits Requested Visits Authorized [id number] Authorized 01/26/2024 01/25/2025 1 1 [facility] Work Phone: Summary Purpose Family History No Family History Records FoundUnknown Family Member Name Dates Details Family history [...] father Congestive heart failure Unknown Advance Directives No Advanced Directives Records Found Advance Directive Response Recorded Date/ Time Advance Directives No July 02 20 9:07am Chief Complaint LENNY RUSSELL is being seen for an annual follow-up of. 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 Reason for Referral Specialty Diagnoses / Procedures Referred By Clarisse t Referred To Contact Diagnoses Paroxysmal atrial fibrillation (CMS/HCC) Procedures ECG 12 Lead Guanaco Maguire MD [address] [facility], [address] [place] [address] Referral ID Status Reason Start Date Expiration Date V isits Requested Visits Authorized [id number] Authorized 06/15/2023 06/14/2024 1 1 Specialty Diagnoses / Procedures Referred By Contac t Referred To Contact Cardiology Diagnoses Paroxysmal atrial fibrillation (CMS/HCC) Procedures Follow Up In Cardiology Guanaco Maguire MD [address] [facility] [address], [address] [place] [address] Guanaco Maguire MD [address] [facility] [place] [address] Referral ID Status Reason Start Date Expiration Date V isits Requested Visits Authorized [id number] Authorized 06/15/2023 06/14/2024 1 1 Additional Source Comments (unrecognized sect ion and content) No Status Records FoundNo Status Records FoundNo Status Records FoundNo Status Records FoundNo Status Records FoundNo Status Records FoundNo Status Records FoundNo Status Records FoundNo Status Records Found INFORMATION SOURCE (unrecogn ized section and content) DATE CREATED AUTHOR 05/19/2019 [facility] DATE CREATED AUTHOR AUTHOR'S ORGANIZ ATION 06/15/2022 [facility] DATE CREATED AUTHOR AUTHOR'S ORGANIZ ATION 06/15/2022 [employer] DATE CREATED AUTHOR AUTHOR'S ORGANIZ ATION 09/06/2022 [facility] DATE CREATED AUTHOR AUTHOR'S ORGANIZ ATION 01/08/2023 [facility] DATE CREATED AUTHOR AUTHOR'S ORGANIZ ATION 01/28/2024 [facility] DATE CREATED AUTHOR AUTHOR'S ORGANIZ ATION 04/13/2024 [facility] DATE CREATED AUTHOR AUTHOR'S ORGANIZ ATION 04/16/2024 [facility] DATE CREATED AUTHOR AUTHOR'S ORGANIZ ATION 04/18/2024 [facility] Patient Care team informatio n (unrecognized section and content) Team Status: Active Member Role Status Dates Mckinley Melendez MD Primary Care Provider Active Team Status: Inactive Member Role Status Dates Mckinley Melendez MD Primary Care Provider Active Tyler Sims MD Attending Provider Active Tax Manager Cpa Relationship Specialty Start Date End Date Mckinley Melendez MD [address] [id number] PCP - General 05/17/19 Tax Manager Cpa Relationship Specialty Start Date End Date Mckinley Melendez MD [address] [place] [address] PCP - General 05/17/19 Goals (unrecognized section and content) Goals may be documented in a n alternate section Reason for Visit (unrecogniz ed section and content) Reason Comments Annual Exam Specialty Diagnoses / Procedures Referred By Contac t Referred To Contact Diagnoses Paroxysmal atrial fibrillation (CMS/HCC) Procedures ECG 12 Lead Guanaco Maguire MD [address] [facility] [address], [address] [address] Referral ID Status Reason Start Date Expiration Date V isits Requested Visits Authorized [id number] Authorized 06/15/2023 06/14/2024 1 1 Reason Comments Follow-up 6 month Specialty Diagnoses / Procedures Referred By Contac t Referred To Contact Cardiology Diagnoses Paroxysmal atrial fibrillation ([facility]) Procedures Follow Up In Cardiology Guanaco Maguire MD Retired From Practice Guanaco Maguire MD Retired From Practice Referral ID Status Reason Start Date Expiration Date V isits Requested Visits Authorized [id number] Authorized 06/15/2023 06/14/2024 1 1 FOR RECORDS [...] BE BASED ON THE PRIMARY CLINICAL RECORDS. [facility] [employer] [facility]. provides no warranty or guarantee of the accuracy or completeness of information in this document.
[2024-06-05 12:16] LABS: Prostate Specific Antigen Dx 7.07 ng/mL (<=4.00)
== END 2024-06-05 10:35 | disposition home or self-care (01) ==
LOC: LAB 10:36
PROVIDERS: PCP Family Medicine; Visit Provider Urology
DX: R97.20 Elevated prostate specific antigen [PSA] (principal)
CPT/HCPCS: 36415; 84153

== ENCOUNTER 2024-08-01 07:22 | Outpatient (OUT) | payer MEDICARE, OTHER, SELFPAY ==
--- OUTSIDE RECORDS SUMMARY | 2024-08-01 07:27 | XMS_ITS | CCD ---
Author Organization [facility] Care Team Providers Care Filling Winder Name Role Phone Narayan Melendez Unavailable Unavailable Unavailable Narayan Melendez Primary Care Physician Dr. Narayan Melendez Primary Care Unavail able Sai BRAVO, [...] SIMS ., DR QUINTEROS Consulting Unavailable MD Narayan Melendez Primary Care Provider [phone] MD Tyler Sims Attending Provider Narayan Melendez Primary Care Unavailable Tyler Sims Attending Unavailable Tyler Sims Admitting Unavailable Tyler Sims Unavailable Narayan Melendez Primary Care Unavailable Tyler Sims Attending Unavailable Narayan Melendez MD Primary Care Provider GUANACO MAGUIRE Attending Unavailable NARAYAN MELENDEZ Primary Care Unavailable ROSA ELENA RUSSELL Attending Unavailable GUANACO MAGUIRE Referring Unavailable NARAYAN MELENDEZ Primary Care Unavailable SIERRA JACKSON Attending Unavailable SIERRA JACKSON Attending Unavailable SIERRA JACKSON Attending Unavailable Tyler SIMS Attending Unavailable Tyler SIMS Admitting Unavailable Tyler SIMS Attending Unavailable Tyler SIMS Attending Unavailable Medications Current Medications Medication Drug Class(es) Dates Sig (Normalized) Sig (Original) 24 hr alfuzosin hydrochloride 10 mg extended release oral tablet (5 sources) alpha-Adrenergi c Westley Start: 07-27-2022 End: 07-22-2023 take 1 tablet by mouth once daily alfuzosin 10 mg ER Tab 10 mg = 1 tab(s), Oral, Daily, X 30 day(s), # 30 tab(s), Refills(s) 11, Pharmacy: [facility] #[id number], 175.3, cm, 07/27/22 12:39:00 EDT, Height/Length Dosing, [...] day(s), # 42 tab(s), Refills(s) 0, Pharmacy: [facility] #[id number], 175, cm, 05/03/23 12:32:00 EST, Height/Length Dosing, 78, kg, 05/03/23 12:32:00 EST, Weight Dosing Start Date: 05/03/23 Stop Date: 05/24/23 Status: Ordered Start: 12-29-2022 End: 12-29-2022 take 100 mg by mouth twice daily Doxycycline Hyclate Discontinued 100 MG PO Twice daily 06 11December 29, 2022 12:00am December 29, 2022 3:58pm Start: 10-22-2022 take 1 capsule by [facility] once daily doxycycline hyclate 100 mg Cap 100 mg = 1 cap(s), Oral, Daily, Take 1 pill the day before the procedure and 1 pill after the procedure, # 2 cap(s), Refills(s) 0, Pharmacy: [facility] #[id number], 175.3, cm, 07/27/22 12:39:00 EDT, Height/Length Dosing, 79, kg, 07/27/22 12:39:00 EDT, Weight... Start Date: 10/22/22 Status: Ordered Start: 07-27-2022 End: 08-26-2022 take 1 capsule by mouth twice daily doxycycline hyclate 100 mg Cap 100 mg = 1 cap(s), Oral, BID, X 30 day(s), # 60 cap(s), Refills(s) 0, Pharmacy: [facility] #[id number], 175.3, cm, 07/27/22 12:39:00 EDT, Height/Length Dosing, 79, kg, 07/27/22 12:39:00 EDT, Weight Dosing Start Date: 07/27/22 Stop Date: 08/26/22 Status: Ordered ferrous gluconate 240 mg oral tablet (17 sources) Start: 02-05-2021 take 240 mg by [...] daily July 03, 2019 12:00am Fish Oils (17 sources) Start: 03-01-2019 take 1000 mg by [...] DO Active glimepiride 2 mg oral tablet (17 sources) Sulfonylurea Start: 04-03-2022 take 1 tablet [...] July 03, 2019 12:00am Multivitamins and Minerals (17 sources) Start: 02-05-2021 take 1 tablet by [...] Vitamin D3 1999 intl units oral Tab (17 sources) Start: 02-05-2021 take 1 tablet by [...] Date Documented Da te Episodic/Chronic Allergic reactions (17 sources) Eczema 04-03-2022 Episodic Cardiac dysrhythmias (20 sources) Atrial fibrillation; Translations: [Atrial fibrillation] Onset: 05-07-2023 02-05-2021 Chronic Cardiac dysrhythmias (17 sources) Bradycardia 02-05-2021 Episodic Congestive heart failure; nonhypertensive (1 source) Unspecified diastolic (congestive) heart failure; Translations: [UNSPECIFIED DIASTOLIC HEART FAILURE] Onset: 07-31-2022 Chronic Deficiency and other anemia (17 sources) Anemia 04-03-2022 Episodic Diabetes mellitus without [...] Onset: 10-16-2022 04-09-2020 Episodic Heart valve disorders (17 sources) Mitral valve regurgitation 02-05-2021 Chronic Hyperplasia of prostate (20 sources) Benign prostatic hypertrophy with outflow obstruction; Translations: [Benign prostatic hyperplasia with lower urinary tract symptoms] Onset: 07-27-2022 04-09-2020 Chronic Hypertension with complications and secondary hypertension (1 source) Hypertensive heart disease with heart failure; Translations: [HTN HEART DISEASE W/HEART FAIL] Onset: 07-31-2022 Chronic Neoplasms of unspecified nature or uncertain behavior (16 sources) Neoplasm of uncertain behavior of skin 04-25-2022 Episodic Nutritional deficiencies (17 sources) Vitamin D deficiency 02-05-2021 Chronic Other aftercare (2 sources) 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; Translations: [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] Onset: 01-26-2024 Episodic Other aftercare (2 sources) Long-term current use of anticoagulant; Translations: [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] Onset: 01-26-2024 01-26-2024 Episodic Other and ill-defined heart disease (17 sources) Left ventricular hypertrophy 02-05-2021 Chronic Other diseases of kidney and ureters (2 sources) Urinary tract obstruction; Translations: [Other obstructive and reflux uropathy] Onset: 07-27-2022 Episodic Other diseases of kidney and ureters (16 sources) Hydroureter; Translations: [Hydroureter] Onset: 10-16-2022 Episodic Other diseases of kidney and ureters (1 source) Stricture of ureter; Translations: [Crossing vessel and stricture of ureter without hydronephrosis] Onset: 10-16-2022 Episodic Other diseases of kidney and ureters (13 sources) Occlusion of ureter 10-16-2022 Episodic Other diseases of kidney and ureters (3 sources) Acquired renal cyst without neoplastic change; Translations: [Cyst of kidney, acquired] Onset: 05-03-2023 Episodic Other diseases of kidney and ureters (7 sources) Cyst of kidney 01-29-2023 Episodic Other infections; including parasitic (17 sources) History of herpes zoster 02-05-2021 Episodic [...] Onset: 07-27-2022 04-09-2020 Episodic Other skin disorders (17 sources) Change in skin lesion 02-07-2021 Episodic Other skin disorders (17 sources) Seborrheic keratosis of scalp 03-18-2021 Episodic [...] Episodic Comment on above: Quit 1979; Unclassified (17 sources) Drug therapy finding 03-02-2019 Unclassified (1 source) Benign prostatic hyperplasia with lower urinary tract symptoms; Translations: [Benign prostatic hyperplasia with lower urinary tract symptoms] Onset: 12-29-2022 Urinary tract infections (17 sources) Urinary tract infectious disease; Translations: [Urinary tract infection, site not specified] Onset: 07-27-2022 Episodic Past or Other Problems Problem Classification Problem Date Documented Da te Episodic/Chronic Residual codes; unclassified (2 sources) Other specified health status; Translations: [Other specified health status] Onset: 06-15-2023 Episodic Unclassified (2 sources) Onset: 06-15-2023 4 Results Test Name Value Interpretation Reference Range Facility Ambulatory Visit Summaryon 0 06-12-2024 Ambulatory Visit Summary Ambulatory Visi t Summary LENNY RUSSELL JR :1950 Visit Date:06/12/2024 Ambulatory Visit Instructions Your Diagnosis Elevated PSA BPH with urinary obstruction Urinary retention Your Care Team Attending Physician - SIERRA JACKSON PA-C Primary Care Physician - Narayan Melendez MD This Is Your Medications List apixaban (Eliquis) cholecalciferol (Vitamin D3 2000 intl [...] left inguinal hernia, Vasectomy. Discharge Vitals Temperature (Oral) 37 ???C Heart Rate (Peripheral) 70 Blood Pressure 132/88 Height 175 cm Height 69 in Weight 80 kg Weight 176.37 lb BMI 26.12 What to do next Scheduled Follow-Up Appointments Wednesday 9:00 AM EDT With: Where: [facility] [address] [place], [place] [id number]- Wednesday 8:20 AM EDT With: SIERRA JACKSON PA-C Where: [facility] [address] [place] [address]- You Need to Schedule the Following Appointments Follow Up with SIERRA JACKSON PA-C, URL When: In 6 months Where: [address] [place] [address] Follow Up with EMANUEL MULLIGAN, ANTONIETA Fishman When: Where: [facility] [address] [place] [address]- [phone] Medications What How Much When Instructions Unchanged apixaban (Eliquis) 5 Milligram By Mouth 2 times a day Unchanged cholecalciferol (Vitamin D3 2000 intl units oral Tab) 1 Tablets By Mouth Every day Unchanged ferrous gluconate 240 Milligram By Mouth 2 times a day Unchanged glimepiride (Amaryl 2 mg Tab) 1 Tablets By Mouth Every day Unchanged metformin (metformin 500 mg oral tablet) 2 Tablets By Mouth 2 times a day Unchanged multivitamin with minerals (Multivitamins and Minerals) 1 Tablets By Mouth Every day Unchanged omega-3 polyunsaturated fatty acids (Fish Oil) 1,000 Milligram By Mouth Every day Unchanged simvastatin (simvastatin 10 mg Tab) 1 Tablets By Mouth Once a day (at bedtime) Unchanged sitagliptin (Januvia 100 mg Tab) 1 Tablets By Mouth Every day Unchanged sotalol (Betapace AF 120 mg oral tablet) 1 Tablets By Mouth 2 times a day Allergies No Known Allergies Problems Ongoing - [...] choosing us for your care. Education Materials Benign Prostatic Hyperplasia Benign prostatic hyperplasia (BPH) [...] develop in men older than 50 years. (more content not included)... Normal [facility] Urology Office/Clinic Noteon 06-12-2024 Urology Office/Clinic Note Urology Office/Clinic Note Chief Complaint 6 mth f/u w/ PSA HPI Staff 6 mos w/ PSA. Dx: urinary retention, BPH with obstruction, elevated PSA, hydroureter, renal cyst. S/p TURP 12/29/22. *No urological meds. CIC 2x/day. PSA 07/13/19 - 13.14 04/01/20 - 6.8 & 27.5% 04/15/21 - 8.1 & 25.4% 07/08/21 - 10.87 07/10/21 - 9.5 & 20.7% 10/28/21 - 9.5 & 22.7% 07/22/22 - 17.18 07/27/22 - 16.98 09/03/22 - 11.25 12/03/23 - 6.81 (PO TURP) 06/05/24 - 7.07 PVR (cc): 05/03/23 - 346 06/04/23 - 117 pt denies any urinary issues today. Review of Systems PHQ Score Initial Depression Screen Score: 0 SCORE No fever, chills, malaise, myalgia. No dysuria, pain w/ ejaculation, pain w/ BM. No blood in urine, ejaculate, or stool. No change in urgency/frequency, straining, stream changes. No discharge, odor, or change in color of urine. No perineal pain/pressure, scrotal pain, or suprapubic pain. Physical Exam Vitals & Measurements T: 37 ???C(Oral) HR: 70(Peripheral) BP: 132/88 HT: 69 in HT: 175 cm WT: 80 kg WT: 176.37 lb BMI: 26.12 General: nontoxic, NAD Mouth: moist mucosa Lungs: normal respiratory effort Cardio: regular rate, good distal perfusion Abdomen: nondistended, no suprapubic distention or tenderness, no CVA tenderness Neurologic: Grossly normal Skin: No rashes or suspicious lesions Assessment/Plan 1. Elevated PSA (R97.20: Elevated prostate specific antigen [PSA]) PSA 07/13/19 - 13.14 04/01/20 - 6.8 & 27.5% 04/15/21 - 8.1 & 25.4% 07/08/21 - 10.87 07/10/21 - 9.5 & 20.7% 10/28/21 - 9.5 & 22.7% 07/22/22 - 17.18 07/27/22 - 16.98 09/03/22 - 11.25 12/03/23 - 6.81 (PO TURP) 06/05/24 - 7.07 TRUS/bx 08/15/18 and 09/30/19 by DLS - Neg. MRI prostate w/wo con done 10/14/22 - Negative for prostate malignancy. Prostate volume 100mL. PSA has increased slightly from prior, however it has been much higher in past. Will continue to monitor. -PSA in 6 mos 2. BPH with urinary obstruction (N40.1: Benign prostatic hyperplasia with lower urinary tract symptoms) S/p Cysto/UROS 11/10/22 - severe trabeculation of prostate. Renal US 10/20/22 - bladder wall thickening likely due to chronic outlet obstruction. S/p TURP 12/29/22. [1] Pt is currently taking no bladder/prostate medication and is highly satisfied with overall symptom control. No indication for treatment at this time. Continue to monitor. UA shows small blood and moderate leuks. Denies UTI sx. Likely secondary to CIC. No indication for cx at this time. 3. Urinary retention (R33.9: Retention of urine, unspecified) Episode of retention in 09/2022. PVR (cc): 05/03/23 - 346 06/04/23 - 117 Continues to CIC 2x/day and also voids a few times/day. Cath volume has decreased since TURP. Shares he is able to go on car trips without having to stop. Does not get up during the night to void. This makes him very happy. -Cont CIC 2x/day Follow-up With When Contact Information RENETTA PIPER, ANTONIETA CALLOWAY In 6 months [address] [place] [address] Additional Instructions: EMANUEL MULLIGAN, ANTONIETA Fishman [facility] [address], [place] [address]- [phone] Additional Instructions: Patient Education Benign Prostatic Hyperplasia Problem List/Past Medical History Ongoing Anemia Anticoagulated [...] Multivitamins and Minerals, 1 tab(s), Oral, Daily simvastatin 10 mg Tab, 10 mg= 1 tab(s), Oral, Once a day (at bedtime) Vitamin D3 2000 intl units oral Tab, 1 tab(s), Oral, Daily Allergies No Known Allergies Social History Alcohol - Denies Alcohol Use, 02/07/2021 Never., 06/12/2024 Substance Abuse - Denies Substance Abuse, (more content not included)... Normal [facility] Comment on above: Result Comment: Elec tronically Signed By: RENETTA PIPER, SIERRA Lopez\Date and Time Signed: 06/12/24 09:28 EST C Urineon 04-13-2024 Bacteria identified Cx Nom (U) [...] Locations R1: This test was performed at: [facility], [address] [place] [address], [phone] , , [facility] Comment on above: Performed By: #### [id number] #### [facility] [address] [place] [address] Ambulatory Visit Summaryon 0 12-13-2023 Ambulatory Visit Summary Ambulatory Visi t Summary LENNY RUSSELL JR :1950 Visit Date:12/13/2023 Ambulatory Visit Instructions Your Diagnosis Elevated PSA Urinary retention BPH with urinary obstruction Renal cyst Your Care Team Attending Physician - Tyler SIMS MD Primary Care Physician - Narayan Melendez MD This Is Your Medications List [...] Tyler SIMS MD Where: [facility] [address] [place] [address]- You Need to Schedule the Following Appointments Follow Up with Tyler SIMS MD, URL When: Comments: 6 mos w/ PSA Where: [facility] [address], [place] [phone] Medications What How Much When Instructions Unchanged [...] with yo (more content not included)... Normal [facility] Urology Office/Clinic Noteon 12-13-2023 Urology Office/Clinic [...] [facility] [address], [place] [phone] Additional Instructions: 6 mos w/ PSA Patient [...] tab(s), O (more content not included)... Normal [facility] Comment on above: Result Comment: Elec tronically Signed By: EMANUEL MULLIGAN, Tyler Doan\.br\Date and Time Signed: 12/13/23 10:30 EDT\.br\Electronically Co-Signed By: Cathleen Bocanegra\.br\Date and Time Co-Signed: 12/13/23 10:28 EDT Lab Reportson 08-09-2023 Lab Reports [id number] B2#1.00TIFF Normal [facility] Lab Reports [id number] E5#1.00TIFF [facility] ECG 12 Leadon 06-15-2023 Atrial fibrillation with a controlled ventricular response QTc 446 ms [facility] Work Phone: Glucose Glucometer (BldC) [M ass/Vol]Ordered By: Tyler Sims on 12-30-2022 Glucose [Mass/Vol] 235 mg/dL [facility] Comment on above: Random Glucose Refer ence Range is dependent on time and content of last meal. Glucose of more than 200 mg/dL in a nonstressed, ambulatory subject supports the diagnosis of Diabetes Mellitus. Glucose Poct Glucometerson 0 12-30-2022 Glucose [Mass/Vol] 235 mg/dL Normal [facility] Comment on above: Result Comment: [place] Glucose Reference Range is dependent on time and content of last meal. Glucose of more than 200 mg/dL in a nonstressed, ambulatory subject supports the diagnosis of Diabetes Mellitus. PERFORMED BY: [place] [address] [place] [address] PATHOLOGIST COMPLIANCE AUDITOR TRACEY SPENCER M.D. Performed By: #### G EVGENY #### Point of Care testing , Basic Metabolic Panelon Anion gap [Moles/Vol] 11.7 mmol/L Normal 6.0-15.0 [facility] Comment on above: Performed By: #### C BC, BMP #### [facility] [address] [place] [address] [place] Calcium [Mass/Vol] 9.1 mg/dL Normal 8.6-10.3 [facility] Comment on above: Performed By: #### C BC, BMP #### [facility] [address] [place] [address] [place] Chloride [Moles/Vol] 106 mmol/L Normal 98-107 [facility] Comment on above: Performed By: #### C BC, BMP #### [facility] [address] CO2 [Moles/Vol] 22.7 mmol/L Normal 21.0-31.0 [facility] Comment on above: Performed By: #### C BC, BMP #### [facility] [address] [place] [address] [place] Creatinine [Mass/Vol] 1.60 mg/dL High 0.70-1.30 [facility] Comment on above: Performed By: #### C BC, BMP #### [facility] [address] [place] [address] [place] Creatinine Clr Calc Pharmacy 41.12 [facility] Comment on above: Result Comment: PERF ORMED BY: [place] [address] PATHOLOGIST COMPLIANCE AUDITOR TRACEY SPENCER M.D. Performed By: #### C BC, BMP #### [facility] [address] [place] [address] [place] GFR/1.73 sq M.predicted MDRD (S/P/Bld) [Vol rate/Area] 45.213 mL/min/{1.73_m2} [facility] Comment on above: Performed By: #### C BC, BMP #### [facility] [address] Glucose [Mass/Vol] 198 mg/dL High 70-100 [facility] Comment on above: Result Comment: [place] Glucose Reference Range is dependent on time and content of last meal. Glucose of more than 200 mg/dL in a nonstressed, ambulatory subject supports the diagnosis of Diabetes Mellitus. ADA recommended reference range Performed By: #### C BC, BMP #### [facility] [address] Potassium [Moles/Vol] 4.4 mmol/L Normal 3.5-5.1 [facility] Comment on above: Performed By: #### C BC, BMP #### [facility] [address] Sodium [Moles/Vol] 136 mmol/L Normal 136-145 [facility] Comment on above: Performed By: #### C BC, BMP #### [facility] [address] Urea nitrogen [Mass/Vol] 30 mg/dL High 7-25 [facility] Comment on above: Performed By: #### C BC, BMP #### [facility] [address] Basophils Auto (Bld) [#/Vol] Ordered By: Pacheco Edwards on 12-29-2022 Basophils (Bld) [#/Vol] 0.0 10*3/uL 0.0-0.2 [facility] Basophils/100 WBC Auto (Bld) Ordered By: Pacheco Edwards on 12-29-2022 Basophils/100 WBC (Bld) 0.4 % . [facility] Calcium [Mass/volume] in Ser um or PlasmaOrdered By: Pacheco Edwards on 12-29-2022 Calcium [Mass/Vol] 9.1 mg/dL 8.6-10.3 [facility] Carbon dioxide, total [Moles /volume] in Serum or PlasmaOrdered By: Pacheco Edwards on 12-29-2022 CO2 [Moles/Vol] 22.7 mmol/L 21.0-31.0 [facility] Chloride [Moles/volume] in S bettina or PlasmaOrdered By: Pacheco Edwards on 12-29-2022 Chloride [Moles/Vol] 106 mmol/L 98-107 [facility] Complete Blood Count Auto Di ffon 12-29-2022 Basophils (Bld) [#/Vol] 0.0 10*3/uL Normal 0.0-0.2 [facility] Comment on above: Result Comment: PERF ORMED BY: [place] [address] PATHOLOGIST COMPLIANCE AUDITOR TRACEY SPENCER M.D. Performed By: #### C BC, BMP #### [facility] [address] Basophils/100 WBC (Bld) 0.4 % Normal . [facility] Comment on above: Performed By: #### C BC, BMP #### [facility] [address] [place] [address] [place] Eosinophils (Bld) [#/Vol] 0.1 10*3/uL Normal 0.0-0.45 [facility] Comment on above: Performed By: #### C BC, BMP #### [facility] [address] Eosinophils/100 WBC (Bld) 1.9 % Normal . [facility] Comment on above: Performed By: #### C BC, BMP #### [facility] [address] Erythrocyte distribution width (RBC) [Ratio] 13.2 % Normal 12.0-14.8 [facility] Comment on above: Performed By: #### C BC, BMP #### [facility] [address] Hematocrit (Bld) [Volume fraction] 38.6 % Low 38.8-50.0 [facility] Comment on above: Performed By: #### C BC, BMP #### [facility] [address] Hemoglobin (Bld) [Mass/Vol] 13.0 g/dL Normal 13.0-17.0 [facility] Comment on above: Performed By: #### C BC, BMP #### [facility] [address] [place] [address] [place] Lymphocytes (Bld) [#/Vol] 1.0 10*3/uL Normal 1.00-4.8 [facility] Comment on above: Performed By: #### C BC, BMP #### [facility] [address] [place] [id number] [place] Lymphocytes/100 WBC (Bld) 13.5 % Normal . [facility] Comment on above: Performed By: #### C BC, BMP #### [facility] [address] [place] [address] [place] MCH (RBC) [Entitic mass] 29.6 pg Normal 27.5-35.2 [facility] Comment on above: Performed By: #### C BC, BMP #### [facility] [address] [place] [address] [place] MCV (RBC) [Entitic vol] 87.8 fL Normal 83.5-101 [facility] Comment on above: Performed By: #### C BC, BMP #### [facility] [address] [place] [address] [place] Mean Corpuscular HGB Conc 33.7 g/dL Normal 32.5-35.6 [facility] Comment on above: Performed By: #### C BC, BMP #### [facility] [address] [place] [address] [place] Monocytes (Bld) [#/Vol] 0.8 10*3/uL Normal 0.0-0.8 [facility] Comment on above: Performed By: #### C BC, BMP #### [facility] [address] [place] [id number] [place] Monocytes/100 WBC (Bld) 10.3 % Normal . [facility] Comment on above: Performed By: #### C BC, BMP #### [facility] [address] [place] [address] [place] Neutrophils (Bld) [#/Vol] 5.4 10*3/uL Normal 1.8-7.7 [facility] Comment on above: Performed By: #### C BC, BMP #### [facility] [address] [place] [address] [place] Neutrophils/100 WBC (Bld) 73.9 % Normal . [facility] Comment on above: Performed By: #### C BC, BMP #### [facility] [address] NRBC% 0.0 /100{WBC} Normal 0-0.5 [facility] Comment on above: Performed By: #### C BC, BMP #### [facility] [address] Platelet mean volume (Bld) [Entitic vol] 8.4 fL Normal 6.6-10.1 [facility] Comment on above: Performed By: #### C BC, BMP #### [facility] [address] Platelets (Bld) [#/Vol] 281 10*3/uL Normal 150-450 [facility] Comment on above: Performed By: #### C BC, BMP #### [facility] [address] [place] [address] [place] RBC (Bld) [#/Vol] 4.40 10*6/uL Normal 3.90-5.60 [facility] Comment on above: Performed By: #### C BC, BMP #### [place] [address] [place] WBC (Bld) [#/Vol] 7.3 10*3/uL Normal 4.1-10.5 [facility] Comment on above: Performed By: #### C BC, BMP #### [place] [address] [place] Creatinine [Mass/volume] in Serum or PlasmaOrdered By: Pacheco Edwards on 12-29-2022 Creatinine [Mass/Vol] 1.60 mg/dL 0.70-1.30 [facility] ECG 12 lead ECGon 12-29-2022 ECG 12 lead ECG [facility] [place] [address] [place] [address] Electrocardiograph Report Signed Patient: Lenny Russell Jr MR#: [id number] : 1950 Acct:[id number] Age/Sex: 72 / M ADM Date: 12/29/22 Loc: [place] Room: Type: [facility] Attending Dr: Tyler Sims MD Ordering Provider: [...] 32 BPM QT has lengthened Confirmed by ROSAE LENA RUSSELL MD ([id number]) on 12/29/2022 11:22:25 AM Referred By: Electronically Signed By:ROSA ELENA RUSSELL MD Transcribed By: MUS Signed By Rosa Elena Russell MD 0 12/29/22 1122 Normal [facility] Eosinophils Auto (Bld) [#/Vo l]Ordered By: Pacheco Edwards on 12-29-2022 Eosinophils (Bld) [#/Vol] 0.1 10*3/uL 0.0-0.45 [facility] Eosinophils/100 WBC Auto (Bl d)Ordered By: Pacheco Edwards on 12-29-2022 Eosinophils/100 WBC (Bld) 1.9 % . [facility] Erythrocyte distribution wid th Auto (RBC) [Ratio]Ordered By: Pacheco Edwards on 12-29-2022 Erythrocyte distribution width (RBC) [Ratio] 13.2 % 12.0-14.8 [facility] Glucose Poct Glucometerson 0 12-29-2022 Commemt1 Glu2: Cleaned Meter Normal [facility] Comment on above: Result Comment: PERF ORMED BY: [facility] [address] [place] [address] PATHOLOGIST COMPLIANCE AUDITOR TRACEY SPENCER M.D. Performed By: #### G LULS #### Point of Care testing , Glucose [Mass/Vol] 156 mg/dL Normal [facility] Comment on above: Result Comment: [place] om Glucose Reference Range is dependent on time and content of last meal. Glucose of more than 200 mg/dL in a nonstressed, ambulatory subject supports the diagnosis of Diabetes Mellitus. Performed By: #### G LULS #### Point of Care testing , Glucose [Mass/Vol] 194 mg/dL Normal [facility] Comment on above: Result Comment: [place] Glucose Reference Range is dependent on time and content of last meal. Glucose of more than 200 mg/dL in a nonstressed, ambulatory subject supports the diagnosis of Diabetes Mellitus. PERFORMED BY: [address] [place] [id number] PATHOLOGIST COMPLIANCE AUDITOR TRACEY SPENCER M.D. Performed By: #### G LULS ####Point of Care testing, Glucose [Mass/Vol] 172 mg/dL [facility] Comment on above: Result Comment: [place] Glucose Reference Range is dependent on time and content of last meal. Glucose of more than 200 mg/dL in a nonstressed, ambulatory subject supports the diagnosis of Diabetes Mellitus. PERFORMED BY: [address] [place] [address] PATHOLOGIST COMPLIANCE AUDITOR TRACEY SPENCER M.D. Performed By: #### G LULS #### Point of Care testing , Glucose [Mass/Vol] 200 mg/dL Normal [facility] Comment on above: Result Comment: [place] Glucose Reference Range is dependent on time and content of last meal. Glucose of more than 200 mg/dL in a nonstressed, ambulatory subject supports the diagnosis of Diabetes Mellitus. PERFORMED BY: [address] [place] [address] PATHOLOGIST COMPLIANCE AUDITOR TRACEY SPENCER M.D. Performed By: #### G LULS #### Point of Care testing , Commemt1 Glu2: Cleaned Meter Normal [facility] Comment on above: Result Comment: PERF ORMED BY: [facility] [place] [address] PATHOLOGIST COMPLIANCE AUDITOR TRACEY SPENCER M.D. Performed By: #### G LULS #### Point of Care testing , Glucose [Mass/Vol] 200 mg/dL Normal [facility] Comment on above: Result Comment: [place] Glucose Reference Range is dependent on time and content of last meal. Glucose of more than 200 mg/dL in a nonstressed, ambulatory subject supports the diagnosis of Diabetes Mellitus. Performed By: #### G LULS #### Point of Care testing , Glucose [Mass/volume] in Ser um or PlasmaOrdered By: Pacheco Edwards on 12-29-2022 Glucose [Mass/Vol] 198 mg/dL 70-100 [facility] Comment on above: ADA recommended refe rence rangeRandom Glucose Reference Range is dependent on time and content of last meal. Glucose of more than 200 mg/dL in a nonstressed, ambulatory subject supports the diagnosis of Diabetes Mellitus. Hematocrit Auto (Bld) [Volum e fraction]Ordered By: Pacheco Edwards on 12-29-2022 Hematocrit (Bld) [Volume fraction] 38.6 % 38.8-50.0 [facility] Hemoglobin [Mass/volume] in BloodOrdered By: Pacheco Edwards on 12-29-2022 Hemoglobin (Bld) [Mass/Vol] 13.0 g/dL 13.0-17.0 [facility] Moisés 12-29-2022 L Specimen: [id number] Received: 12/29/22 Status: MICHA Bee Num: [id number] Spec Type: Surgical Subm Dr: Tyler Sims MD Tissues: A Prostate - Tur (PROSTATE TISSUE) Procedures: /10, Gross/Micro L4 Age/ Patient Sex Location Account Attending Physician Lenny Russell Jr 72/M [place] [id number] Tyler Sims MD SPEC NUM: [id number] RECD: 12/29/22 STATUS: MICHA BEE NUM: [id number] SONALI: 12/29/22- [facility] DR: Tyler Sims MD ENTERED: 12/29/[address] [facility] [address]: ERNESTO TYPE: Surgical DEPT: S ORDERED: [...] The microscopic examination confirms the diagnosis. Specimen: [id number] Received: 12/29/22 Status: MICHA Bee Num: [id number] Spec Type: Surgical Subm Dr: Tyler Sims MD Tissues: A Prostate - Tur (PROSTATE TISSUE) Procedures: , Gross/Micro L4 Patient: Lenny Russell [id number] (Continued) Specimen: [id number] Received: 12/29/22 (Continued) Signed (signatur e on file) Ferdinand Walker MD 12/31/22 0836 Specimen: Received: 12/29/22 Status: MICHA Bee Num: [id number] Spec Type: Surgical Subm Dr: Tyler Sims MD Tissues: A Prostate - Tur (PROSTATE TISSUE) Procedures: , Gross/Micro L4 Patient: Lenny Russell [id number] (Continued) Specimen: Received: 12/29/22 (Continued) CPT Codes 86181 Specimen: Received: 12/29/22 Status: MICHA Bee Num: [id number] Spec Type: Surgical Subm Dr: Tyler Sims MD Tissues: A Prostate - Tur (PROSTATE TISSUE) Procedures: , Gross/Micro L4 Patient: Lenny Russell Jr [id number] (Continued) Signed (signatur e on file) Ferdinand Walker MD 12/31/22 0836 Normal [facility] Leukocytes [#/volume] correc nehal for nucleated erythrocytes in Blood by Automated counOrdered By: Pacheco Edwards on 12-29-2022 WBC corrected for nucl RBC Auto (Bld) [#/Vol] 7.3 10*3/uL 4.1-10.5 [facility] Lymphocytes Auto (Bld) [#/Vo l]Ordered By: Pacheco Edwards on 12-29-2022 Lymphocytes (Bld) [#/Vol] 1.0 10*3/uL 1.00-4.8 [facility] Lymphocytes/100 WBC Auto (Bl d)Ordered By: Pacheco Edwards on 12-29-2022 Lymphocytes/100 WBC (Bld) 13.5 % . [facility] MCH Auto (RBC) [Entitic mass ]Ordered By: Pacheco Edwards on 12-29-2022 MCH (RBC) [Entitic mass] 29.6 pg 27.5-35.2 [facility] MCHC Auto (RBC) [Mass/Vol]Or dered By: Pacheco Edwards on 12-29-2022 MCHC (RBC) [Mass/Vol] 33.7 g/dL 32.5-35.6 [facility] MCV Auto (RBC) [Entitic vol] Ordered By: Pacheco Edwards on 12-29-2022 MCV (RBC) [Entitic vol] 87.8 fL 83.5-101 [facility] Monocytes Auto (Bld) [#/Vol] Ordered By: Pacheco Edwards on 12-29-2022 Monocytes (Bld) [#/Vol] 0.8 10*3/uL 0.0-0.8 [facility] Monocytes/100 WBC Auto (Bld) Ordered By: Pacheco Edwards on 12-29-2022 Monocytes/100 WBC (Bld) 10.3 % . [facility] Neutrophils Auto (Bld) [#/Vo l]Ordered By: Pacheco Edwards on 12-29-2022 Neutrophils (Bld) [#/Vol] 5.4 10*3/uL 1.8-7.7 [facility] Neutrophils/100 WBC Auto (Bl d)Ordered By: Pacheco Edwards on 12-29-2022 Neutrophils/100 WBC (Bld) 73.9 % . [facility] No Panel InformationOrdered By: Tyler Sims on 12-29-2022 Bedside Glucose Comment Glu2: cleaned meter [facility] No Panel InformationOrdered By: Pacheco Edwards on 12-29-2022 Estimated GFR (CKD-EPI) 45.213 mL/Min [facility] Creatinine Clearance (Chem 41.12 [facility] Nucleated erythrocytes [Pres ence] in Blood by Automated countOrdered By: Pacheco Edwards on 12-29-2022 Nucleated RBC Auto Ql (Bld) 0.0 /100{WBC} 0-0.5 [facility] Platelet mean volume Auto (B ld) [Entitic vol]Ordered By: Pacheco Edwards on 12-29-2022 Platelet mean volume (Bld) [Entitic vol] 8.4 fL 6.6-10.1 [facility] Platelets Auto (Bld) [#/Vol] Ordered By: Pacheco Edwards on 12-29-2022 Platelets (Bld) [#/Vol] 281 10*3/uL 150-450 [facility] Potassium [Moles/volume] in Serum or PlasmaOrdered By: Pacheco Edwards on 12-29-2022 Potassium [Moles/Vol] 4.4 mmol/L 3.5-5.1 [facility] RBC Auto (Bld) [#/Vol]Ordere d By: Pacheco Edwards on 12-29-2022 RBC (Bld) [#/Vol] 4.40 10*6/uL 3.90-5.60 [facility] Serum or plasma anion gap de terminationOrdered By: Pacheco Edwards on 12-29-2022 Anion gap [Moles/Vol] 11.7 mmol/L 6.0-15.0 [facility] Sodium [Moles/volume] in Ser um or PlasmaOrdered By: Pacheco Edwards on 12-29-2022 Sodium [Moles/Vol] 136 mmol/L 136-145 [facility] Urea nitrogen [Mass/volume] in Serum or PlasmaOrdered By: Pacheco Edwards on 12-29-2022 Urea nitrogen [Mass/Vol] 30 mg/dL 7-25 [facility] WBC Auto (Bld) [#/Vol]Ordere d By: Pacheco Edwards on 12-29-2022 WBC (Bld) [#/Vol] 7.3 10*3/uL 4.1-10.5 [facility] Creatinine (Bld) [Mass/Vol]O rdered By: Tyler Sims on 10-14-2022 Creatinine [Mass/Vol] 2.2 mg/dL 0.6-1.3 [facility] Comment on above: ER/ESD physician is notified/shown all ISTAT results.Critical values may be confirmed by laboratory testing ifdeemed necessary by ER attending doctor. prostate wo lam 023 MR prostate wo con [facility] [address] [place] [id number] MRI Report Signed Patient: Lenny Russell Jr MR#: [id number] : 1950 Acct:[id number] Age/Sex: 71 / M ADM Date: 10/14/22 Loc: MR Room: Type: [facility] Attending Dr: Tyler Sims MD Copies to: [...] considered. Impression dictated by: Fabrizio Peterson Jr., DDinoODino10/14/2022 9:05 AM Dictation Location: [place] [address] Transcribed By: [facility] 10/14/22 09 Dictated By: Fabrizio Peterson Jr, DO 10/14/22 0852 Signed By: 10/14/22 0905 [facility] INSULINon 07-28-2022 Insulin 7.7 uIU/mL Normal 2.6-24.[address] [facility] Comment on above: Performed By: #### I NSULIN #### [facility] [address] [place] [address] [address] Karen Richter BNPon 07-27-2022 Natriuretic peptide B (Bld) [Mass/Vol] 1335.0 pg/mL Critically high <=900.[address] [facility] Comment on above: Performed By: #### I NSULIN #### [facility] [address] [place] [address] [address] Karen Richter CBC AUTO DIFFon 07-27-2022 BASO # 0.1 103/ul Normal 0.0-0.[address] [facility] Comment on above: Performed By: #### P SAD #### [facility] [address] [place] [address] Dr. Karen Richter Basophils/100 WBC (Bld) 0.5 % Normal 0.2-2.0 [facility] Comment on above: Performed By: #### P SAD #### [facility] [address] [place] [address] [address] Karen Richter EO # 0.3 103/ul Normal 0.0-0.[address] [facility] Comment on above: Performed By: #### P SAD #### [facility] [address] [place] [address] Dr. Karen Richter Eosinophils/100 WBC (Bld) 3.2 % Normal 0.9-7.[address] [facility] Comment on above: Performed By: #### P SAD #### [facility] [address] [place] [address] Dr. Karen Richter Erythrocyte distribution width (RBC) [Ratio] 12.9 % Normal 11.0-15.[address] [facility] Comment on above: Performed By: #### P SAD #### [facility] [address] [place] [address] Dr. Karen Richter Hematocrit (Bld) [Volume fraction] 38.2 % Critically low 42.0-54.[address] [facility] Comment on above: Performed By: #### P SAD #### [facility] [address] [place] [address] Dr. Karen Richter Hemoglobin (Bld) [Mass/Vol] 12.7 g/dL Critically low 14.0-18.[address] [facility] Comment on above: Performed By: #### P SAD #### [facility] [address] [place] [address] Dr. Karen Richter IG # 0.02 10e3/ul Normal 0.00-0.[address] [facility] Comment on above: Performed By: #### P SAD #### [facility] [address] [place] [address] Dr. Karen Richter IG % 0.2 % Normal 0.0-0.[address] [facility] Comment on above: Performed By: #### P SAD #### [facility] [address] [place] [address] Dr. Karen Richter LYMPH # 1.4 103/ul Normal 1.2-3.[address] [facility] Comment on above: Performed By: #### P SAD #### [facility] [address] [place] [address] Dr. Karen Richter Lymphocytes/100 WBC (Bld) 14.9 % Critically low 20.5-60.[address] [facility] Comment on above: Performed By: #### P SAD #### [facility] [address] [place] [address] Dr. Karen Richter MANUAL DIFF REQ NO Normal [facility] Comment on above: Performed By: #### P SAD #### [facility] [address] [place] [address] Dr. Karen Richter MCH (RBC) [Entitic mass] 30.0 pg Normal 25.9-34.[address] [facility] Comment on above: Performed By: #### P SAD #### [facility] [address] [place] [address] Dr. Karen Richter MCHC (RBC) [Mass/Vol] 33.2 g/dL Normal 29.9-35.[address] [facility] Comment on above: Performed By: #### P SAD #### [facility] [address] [place] [address] Dr. Karen Richter MCV (RBC) [Entitic vol] 90.3 fL Normal 80.0-94.0 [facility] Comment on above: Performed By: #### P SAD #### [facility] [address] [place] [address] Dr. Karen Richter MONO # 0.9 103/ul Critically high 0.3-0.8 [facility] Comment on above: Performed By: #### P SAD #### [facility] [address] [place] [address] Dr. Karen Richter Monocytes/100 WBC (Bld) 10.0 % Normal 1.7-12.0 [facility] Comment on above: Performed By: #### P SAD #### [facility] [address] [place] [address] Dr. Karen Richter NEUT # 6.5 103/ul Normal 1.4-6.[address] [facility] Comment on above: Performed By: #### P SAD #### [facility] [address] [place] [address] Dr. Karen Richter Neutrophils/100 WBC (Bld) 71.2 % Normal 43.0-75.[address] [facility] Comment on above: Performed By: #### P SAD #### [facility] [address] [place] [address] Dr. Karen Richter Platelet mean volume (Bld) [Entitic vol] 10.2 fL Normal 9.5-13.[address] [facility] Comment on above: Performed By: #### P SAD #### [facility] [address] [place] [address] Dr. Karen Richter PLT 253 103/ul Normal 150-[address] [facility] Comment on above: Performed By: #### P SAD #### [facility] [address] [place] [address] Dr. Karen Richter RBC 4.23 106/ul Critically low 4.70-6.10 [facility] Comment on above: Performed By: #### P SAD #### [facility] [address] [place] [address] Dr. Karen Richter WBC 9.2 103/ul Normal 4.0-11.[address] [facility] Comment on above: Performed By: #### P SAD #### [facility] [address] [place] [address] Dr. Karen Richter FREE THYROXINE INDEX T7on FTI 2.04 Normal 1.30-4.[address] [facility] Comment on above: Performed By: #### T SH, URIC, T7, BNP, CMP, LIPID #### [facility] [address] [place] [address] Dr. Karen Richter T3U 34.0 % Normal 33.0-40.[address] [facility] Comment on above: Performed By: #### T SH, URIC, T7, BNP, CMP, LIPID #### [facility] [address] [place] [address] Dr. Karen Richter T4 [Mass/Vol] 6.00 ug/dL Normal 4.50-12.10 [facility] Comment on above: Performed By: #### T SH, URIC, T7, BNP, CMP, LIPID #### [facility] [address] [place] [address] [address] Karen Richter GLYCOHEMOGLOBIN A1Con 2022 ADA RECOMMENDATION SEE BELOW Normal [facility] Comment on above: Result Comment: ADA RECOMMENDED LIMIT 4.0 - 6.0 ADA THERAPEUTIC TARGET < 7.0 ACTION SUGGESTED > 7.0 Performed By: #### I NSULIN #### [facility] [address] [place] [address] Dr. Karen Richter Glucose [Mass/Vol] 134 mg/dL Normal [facility] Comment on above: Performed By: #### I NSULIN #### [facility] [address] [place] [address] Dr. Karen Richter HbA1c (Bld) [Mass fraction] 6.3 % Critically high 4.5-6.[address] [facility] Comment on above: Performed By: #### I NSULIN #### [facility] [address] [place] [address] Dr. Karen Richter LIPID PROFILEon 07-27-2022 CHOL-HDL RATIO NORM SEE BELOW Normal [facility] Comment on above: Result Comment: 3.3 - 4.4 LOW RISK 4.4 - 7.1 AVERAGE RISK 7.1 - 11.0 MODERATE RISK >11.0 HIGH RISK Performed By: #### T SH, URIC, T7, BNP, CMP, LIPID #### [facility] [address] [place] [address] Dr. Karen Richter Cholesterol [Mass/Vol] 123 mg/dL Normal <=200 Th [facility] Comment on above: Performed By: #### T SH, URIC, T7, BNP, CMP, LIPID #### [facility] [address] [place] [address] [address] Karen Richter Cholesterol in HDL [Mass/Vol] 39 mg/dL Critically low 40-[address] [facility] Comment on above: Performed By: #### T SH, URIC, T7, BNP, CMP, LIPID #### [facility] [address] [place] [address] [address] Karen Richter Cholesterol in LDL [Mass/Vol] 65.6 mg/dL Normal [facility] Comment on above: Performed By: #### T SH, URIC, T7, BNP, CMP, LIPID #### [facility] [address] [place] [address] [address] Karen Richter Cholesterol.total/Choles terol in HDL [Mass ratio] 3.2 {ratio} Normal [facility] Comment on above: Performed By: #### T SH, URIC, T7, BNP, CMP, LIPID #### [facility] [address] [place] [address] Dr. Karen Richter HDL NORMAL > or = 60 mg/dl - LOW CARDIOVASCULAR RISK <40 mg/dl - HIGH CARDIOVASCULAR RISK Normal [facility] Comment on above: Performed By: #### T SH, URIC, T7, BNP, CMP, LIPID #### [facility] [address] [place] [address] Dr. Karen Richter LDL CALC NORMAL SEE BELOW Normal [facility] Comment on above: Result Comment: <100 mg/dl OPTIMAL 100 - 129 mg/dl NEAR OR ABOVE OPTIMAL 130 - 159 mg/dl BORDERLINE HIGH 160 - 189 mg/dl HIGH >190 mg/dl VERY HIGH Performed By: #### T SH, URIC, T7, BNP, CMP, LIPID #### [facility] [address] [place] [address] Dr. Karen Richter Triglyceride [Mass/Vol] 92 mg/dL Normal <=150 [facility] Comment on above: Performed By: #### T SH, URIC, T7, BNP, CMP, LIPID #### [facility] [address] [place] [address] Dr. Karen Richter VLDL CALC 18.4 mg/dL Normal [facility] Comment on above: Performed By: #### T SH, URIC, T7, BNP, CMP, LIPID #### [facility] [address] [place] [address] Dr. Karen Richter PROF 14(COMP METB)on 023 Albumin [Mass/Vol] 3.6 g/dL Normal 3.4-5.0 [facility] Comment on above: Performed By: #### T SH, URIC, T7, BNP, CMP, LIPID #### [facility] [address] [place] [address] Dr. Karen Richter Albumin/Globulin [Mass ratio] 1.1 {ratio} Normal [facility] Comment on above: Performed By: #### T SH, URIC, T7, BNP, CMP, LIPID #### [facility] [address] [place] [address] Dr. Karen Richter ALP [Catalytic activity/Vol] 56 U/L Normal 46-[address] [facility] Comment on above: Performed By: #### T SH, URIC, T7, BNP, CMP, LIPID #### [facility] [address] [place] [address] Dr. Karen Richter ALT [Catalytic activity/Vol] 19 U/L Normal 16-[address] [facility] Comment on above: Performed By: #### T SH, URIC, T7, BNP, CMP, LIPID #### [facility] [address] [place] [address] Dr. Karen Richter Anion gap [Moles/Vol] 10.5 mmol/L Normal [facility] Comment on above: Performed By: #### T SH, URIC, T7, BNP, CMP, LIPID #### [facility] [address] [place] [address] Dr. Karen Richter AST [Catalytic activity/Vol] 15 U/L Normal 15-[address] [facility] Comment on above: Performed By: #### T SH, URIC, T7, BNP, CMP, LIPID #### [facility] [address] [place] [address] Dr. Karen Richter Bilirubin [Mass/Vol] 0.4 mg/dL Normal 0.2-1.[address] [facility] Comment on above: Performed By: #### T SH, URIC, T7, BNP, CMP, LIPID #### [facility] [address] [place] [address] Dr. Karen Richter Calcium [Mass/Vol] 9.0 mg/dL Normal 8.5-10.1 [facility] Comment on above: Performed By: #### T SH, URIC, T7, BNP, CMP, LIPID #### [facility] [address] [place] [address] Dr. Karen Richter Chloride [Moles/Vol] 106 mmol/L Normal 98-[address] [facility] Comment on above: Performed By: #### T SH, URIC, T7, BNP, CMP, LIPID #### [facility] [address] [place] [address] Dr. Karen Richter CO2 [Moles/Vol] 25.1 mmol/L Normal 21.0-32.0 [facility] Comment on above: Performed By: #### T SH, URIC, T7, BNP, CMP, LIPID #### [facility] [address] [place] [address] Dr. Karen Richter Creatinine [Mass/Vol] 1.95 mg/dL Critically high 0.70-1.[address] [facility] Comment on above: Performed By: #### T SH, URIC, T7, BNP, CMP, LIPID #### [facility] [address] [place] [address] Dr. Karen Richter EGFR-AF GREEK 41 mL/min/1.73m2 Critically low >=[address] [facility] Comment on above: Performed By: #### T SH, URIC, T7, BNP, CMP, LIPID #### [facility] [address] [place] [address] Dr. Karen Richter EGFR-NON AF GREEK 34 mL/min/1.73m2 Critically low >=[address] [facility] Comment on above: Performed By: #### T SH, URIC, T7, BNP, CMP, LIPID #### [facility] [address] [place] [address] Dr. Karen Richter Globulin (S) [Mass/Vol] 3.4 g/dL Normal [facility] Comment on above: Performed By: #### T SH, URIC, T7, BNP, CMP, LIPID #### [facility] [address] [place] [address] [address] Karen Richter Glucose [Mass/Vol] 162 mg/dL Critically high 74-106 [facility] Comment on above: Performed By: #### T SH, URIC, T7, BNP, CMP, LIPID #### [facility] [address] [place] [address] [address] Karen Richter Potassium [Moles/Vol] 4.6 mmol/L Normal 3.5-5.[address] [facility] Comment on above: Performed By: #### T SH, URIC, T7, BNP, CMP, LIPID #### [facility] [address] [place] [address] Dr. Karen Richter Protein [Mass/Vol] 7.0 g/dL Normal 6.4-8.2 [facility] Comment on above: Performed By: #### T SH, URIC, T7, BNP, CMP, LIPID #### [facility] [address] [place] [address] Dr. Karen Richter Sodium [Moles/Vol] 137 mmol/L Normal 136-145 [facility] Comment on above: Performed By: #### T SH, URIC, T7, BNP, CMP, LIPID #### [facility] [address] [place] [address] Dr. Karen Richter Urea nitrogen [Mass/Vol] 35.0 mg/dL Critically high 7.0-[address] [facility] Comment on above: Performed By: #### T SH, URIC, T7, BNP, CMP, LIPID #### [facility] [address] [place] [address] Dr. Karen Richter Urea nitrogen/Creatinine [Mass ratio] 17.9 mg/mg Normal [facility] Comment on above: Performed By: #### T SH, URIC, T7, BNP, CMP, LIPID #### [facility] [address] [place] [address] Dr. Karen Richter TSHon 07-27-2022 TSH 2.367 uIU/mL Normal 0.358-3.740 [facility] Comment on above: Performed By: #### T SH, URIC, T7, BNP, CMP, LIPID #### [facility] [address] [place] [address] Dr. Kraen Richter URIC ACID SERUMon 07-27-2022 Urate [Mass/Vol] 6.5 mg/dL Normal 3.5-7.2 [facility] Comment on above: Performed By: #### T SH, URIC, T7, BNP, CMP, LIPID #### [facility] [address] [place] [address] Dr. Karen Richter INSULINon 07-23-2022 Insulin 6.3 uIU/mL Normal 2.6-24.[address] [facility] Comment on above: Performed By: #### I NSULIN #### [facility] [address] [place] [address] Dr. Karen Richter BNPon 07-22-2022 Natriuretic peptide B (Bld) [Mass/Vol] 192.0 pg/mL Normal <=900.[address] [facility] Comment on above: Performed By: #### I NSULIN #### [facility] [address] [place] [address] Dr. Karen Richter CBC AUTO DIFFon 07-22-2022 BASO # 0.0 103/ul Normal 0.0-0.[address] [facility] Comment on above: Performed By: #### C BC #### [facility] [address] [place] [address] Dr. Karen Richter Basophils/100 WBC (Bld) 0.5 % Normal 0.2-2.0 [facility] Comment on above: Performed By: #### C BC #### [facility] [address] [place] [address] Dr. Karen Richter EO # 0.2 103/ul Normal 0.0-0.[address] [facility] Comment on above: Performed By: #### C BC #### [facility] [address] [place] [address] Dr. Karen Richter Eosinophils/100 WBC (Bld) 2.3 % Normal 0.9-7.[address] [facility] Comment on above: Performed By: #### C BC #### [facility] [address] [place] [address] Dr. Karen Richter Erythrocyte distribution width (RBC) [Ratio] 13.1 % Normal 11.0-15.[address] [facility] Comment on above: Performed By: #### C BC #### [facility] [address] [place] [address] Dr. Karen Richter Hematocrit (Bld) [Volume fraction] 39.7 % Critically low 42.0-54.[address] [facility] Comment on above: Performed By: #### C BC #### [facility] [address] [place] [address] Dr. Karen Richter Hemoglobin (Bld) [Mass/Vol] 13.0 g/dL Critically low 14.0-18.[address] [facility] Comment on above: Performed By: #### C BC #### [facility] [address] [place] [address] Dr. Karen Richter IG # 0.03 10e3/ul Normal 0.00-0.[address] [facility] Comment on above: Performed By: #### C BC #### [facility] [address] [place] [address] Dr. Karen Richter IG % 0.4 % Normal 0.0-0.[address] [facility] Comment on above: Performed By: #### C BC #### [facility] [address] [place] [address] Dr. Karen Richter LYMPH # 0.9 103/ul Critically low 1.2-3.8 [facility] Comment on above: Performed By: #### C BC #### [facility] [address] [place] [address] Dr. Karen Richter Lymphocytes/100 WBC (Bld) 12.0 % Critically low 20.5-60.[address] [facility] Comment on above: Performed By: #### C BC #### [facility] [address] [place] [address] Dr. Karen Richter MANUAL DIFF REQ NO Normal [facility] Comment on above: Performed By: #### C BC #### [facility] [address] [place] [address] Dr. Karen Richter MCH (RBC) [Entitic mass] 29.9 pg Normal 25.9-34.[address] [facility] Comment on above: Performed By: #### C BC #### [facility] [address] [place] [address] Dr. Karen Richter MCHC (RBC) [Mass/Vol] 32.7 g/dL Normal 29.9-35.[address] [facility] Comment on above: Performed By: #### C BC #### [facility] [address] [place] [address] Dr. Karen Richter MCV (RBC) [Entitic vol] 91.3 fL Normal 80.0-94.0 [facility] Comment on above: Performed By: #### C BC #### [facility] [address] [place] [address] Dr. Karen Richter MONO # 0.5 103/ul Normal 0.3-0.[address] [facility] Comment on above: Performed By: #### C BC #### [facility] [address] [place] [address] Dr. Karen Richter Monocytes/100 WBC (Bld) 7.0 % Normal 1.7-12.0 [facility] Comment on above: Performed By: #### C BC #### [facility] [address] [place] [address] Dr. Karen Richter NEUT # 5.8 103/ul Normal 1.4-6.[address] [facility] Comment on above: Performed By: #### C BC #### [facility] [address] [place] [address] Dr. Karen Richter Neutrophils/100 WBC (Bld) 77.8 % Critically high 43.0-75.[address] [facility] Comment on above: Performed By: #### C BC #### [facility] [address] [place] [address] Dr. Karen Richter Platelet mean volume (Bld) [Entitic vol] 9.8 fL Normal 9.5-13.[address] [facility] Comment on above: Performed By: #### C BC #### [facility] [address] [address] [address] Karen Richter PLT 272 103/ul Normal 150-[address] [facility] Comment on above: Performed By: #### C BC #### [facility] [address] [address] [address] Karen Richter RBC 4.35 106/ul Critically low 4.70-6.10 [facility] Comment on above: Performed By: #### C BC #### [facility] [address] [address] [address] Karen Richter WBC 7.4 103/ul Normal 4.0-11.[address] [facility] Comment on above: Performed By: #### C BC #### [facility] [address] [place] [address] Dr. Karen Richter FREE THYROXINE INDEX T7on FTI 2.38 Normal 1.30-4.[address] [facility] Comment on above: Performed By: #### I NSULIN #### [facility] [address] [place] [address] Dr. Karen Richter T3U 33.0 % Normal 33.0-40.[address] [facility] Comment on above: Performed By: #### I NSULIN #### [facility] [address] [place] [address] Dr. Karen Richter T4 [Mass/Vol] 7.20 ug/dL Normal 4.50-12.10 [facility] Comment on above: Performed By: #### I NSULIN #### [facility] [address] [place] [address] Dr. Karen Richter GLYCOHEMOGLOBIN A1Con 2022 ADA RECOMMENDATION SEE BELOW Normal [facility] Comment on above: Result Comment: ADA RECOMMENDED LIMIT 4.0 - 6.0 ADA THERAPEUTIC TARGET < 7.0 ACTION SUGGESTED > 7.0 Performed By: #### I NSULIN #### [facility] [address] [place] [address] Dr. Karen Richter Glucose [Mass/Vol] 137 mg/dL Normal [facility] Comment on above: Performed By: #### I NSULIN #### [facility] [address] [address] [address] Karen Richter HbA1c (Bld) [Mass fraction] 6.4 % Critically high 4.5-6.[address] [facility] Comment on above: Performed By: #### I NSULIN #### [facility] [address] [address] [address] Karen Richter LIPID PROFILEon 07-22-2022 CHOL-HDL RATIO NORM SEE BELOW Normal [facility] Comment on above: Result Comment: 3.3 - 4.4 LOW RISK 4.4 - 7.1 AVERAGE RISK 7.1 - 11.0 MODERATE RISK >11.0 HIGH RISK Performed By: #### I NSULIN #### [facility] [address] [place] [address] Dr. Karen Richter Cholesterol [Mass/Vol] 135 mg/dL Normal <=200 [facility] Comment on above: Performed By: #### I NSULIN #### [facility] [address] [address] [address] Kraen Richter Cholesterol in HDL [Mass/Vol] 48 mg/dL Normal 40-[address] [facility] Comment on above: Performed By: #### I NSULIN #### [facility] [address] [place] [address] Dr. Karen Richter Cholesterol in LDL [Mass/Vol] 62.2 mg/dL Normal [facility] Comment on above: Performed By: #### I NSULIN #### [facility] [address] [address] [address] Karen Richter Cholesterol.total/Choles terol in HDL [Mass ratio] 2.8 {ratio} Normal [facility] Comment on above: Performed By: #### I NSULIN #### [facility] [address] [place] [address] Dr. Karen Richter HDL NORMAL > or = 60 mg/dl - LOW CARDIOVASCULAR RISK <40 mg/dl - HIGH CARDIOVASCULAR RISK Normal [facility] Comment on above: Performed By: #### I NSULIN #### [facility] [address] [place] [address] Dr. Karen Richter LDL CALC NORMAL SEE BELOW Normal [facility] Comment on above: Result Comment: <100 mg/dl OPTIMAL 100 - 129 mg/dl NEAR OR ABOVE OPTIMAL 130 - 159 mg/dl BORDERLINE HIGH 160 - 189 mg/dl HIGH >190 mg/dl VERY HIGH Performed By: #### I NSULIN #### [facility] [address] [address] [address] Karen Richter Triglyceride [Mass/Vol] 124 mg/dL Normal <=150 [facility] Comment on above: Performed By: #### I NSULIN #### [facility] [address] [address] [address] Karen Richter VLDL CALC 24.8 mg/dL Normal [facility] Comment on above: Performed By: #### I NSULIN #### [facility] [address] [address] [address] Karen Richter PROF 14(COMP METB)on 023 Albumin [Mass/Vol] 4.2 g/dL Normal 3.4-5.0 [facility] Comment on above: Performed By: #### I NSULIN #### [facility] [address] [address] [address] Karen Richter Albumin/Globulin [Mass ratio] 1.1 {ratio} Normal [facility] Comment on above: Performed By: #### I NSULIN #### [facility] [address] [address] [address] Karen Richter ALP [Catalytic activity/Vol] 59 U/L Normal 46-[address] [facility] Comment on above: Performed By: #### I NSULIN #### [facility] [address] [address] [address] Karen Richter ALT [Catalytic activity/Vol] 24 U/L Normal 16-[address] [facility] Comment on above: Performed By: #### I NSULIN #### [facility] [address] [address] [address] Karen Richter Anion gap [Moles/Vol] 15.1 mmol/L Normal [facility] Comment on above: Performed By: #### I NSULIN #### [facility] [address] [address] [address] Karen Richter AST [Catalytic activity/Vol] 15 U/L Normal 15-[address] [facility] Comment on above: Performed By: #### I NSULIN #### [facility] [address] [address] [address] Karen Richter Bilirubin [Mass/Vol] 0.9 mg/dL Normal 0.2-1.[address] [facility] Comment on above: Performed By: #### I NSULIN #### [facility] [address] [address] [address] Karen Richter Calcium [Mass/Vol] 9.8 mg/dL Normal 8.5-10.1 [facility] Comment on above: Performed By: #### I NSULIN #### [facility] [address] [place] [address] Dr. Karen Richter Chloride [Moles/Vol] 108 mmol/L Critically high 98-[address] [facility] Comment on above: Performed By: #### I NSULIN #### [facility] [address] [address] [address] Karen Richter CO2 [Moles/Vol] 26.9 mmol/L Normal 21.0-32.0 [facility] Comment on above: Performed By: #### I NSULIN #### [facility] [address] [address] [address] Karen Richter Creatinine [Mass/Vol] 2.13 mg/dL Critically high 0.70-1.[address] [facility] Comment on above: Performed By: #### I NSULIN #### [facility] [address] [address] [address] Karen Richter EGFR-AF GREEK 37 mL/min/1.73m2 Critically low >=[address] [facility] Comment on above: Performed By: #### I NSULIN #### [facility] [address] [address] [address] Karen Richter EGFR-NON AF GREEK 31 mL/min/1.73m2 Critically low >=[address] [facility] Comment on above: Performed By: #### I NSULIN #### [facility] [address] [address] [address] Karen Richter Globulin (S) [Mass/Vol] 3.9 g/dL Normal [facility] Comment on above: Performed By: #### I NSULIN #### [facility] [address] [address] [address] Karen Richter Glucose [Mass/Vol] 147 mg/dL Critically high 74-106 [facility] Comment on above: Performed By: #### I NSULIN #### [facility] [address] [address] [address] Karen Richter Potassium [Moles/Vol] 5.0 mmol/L Normal 3.5-5.[address] [facility] Comment on above: Performed By: #### I NSULIN #### [facility] [address] [place] [address] Dr. Karen Richter Protein [Mass/Vol] 8.1 g/dL Normal 6.4-8.2 [facility] Comment on above: Performed By: #### I NSULIN #### [facility] [address] [address] [address] Karen Richter Sodium [Moles/Vol] 145 mmol/L Normal 136-145 [facility] Comment on above: Performed By: #### I NSULIN #### [facility] [address] [place] [address] Dr. Karen Richter Urea nitrogen [Mass/Vol] 31.0 mg/dL Critically high 7.0-18 .[address] [facility] Comment on above: Performed By: #### I NSULIN #### [facility] [address] [address] [address] Karen Richter Urea nitrogen/Creatinine [Mass ratio] 14.6 mg/mg Normal [facility] Comment on above: Performed By: #### I NSULIN #### [facility] [address] [address] [address] Karen Richter TSHon 07-22-2022 TSH 1.891 uIU/mL Normal 0.358-3.740 [facility] Comment on above: Performed By: #### I NSULIN #### [facility] [address] [place], [place] [address] Dr. Karen Richter URIC ACID SERUMon 07-22-2022 Urate [Mass/Vol] 6.8 mg/dL Normal 3.5-7.2 [facility] Comment on above: Performed By: #### I NSULIN #### [facility] [address] [place], [place] [address] Dr. Karen Richter Office Visit (Cardiology)on 06-15-2022 Follow-up visit Diagnoses/Problems Assessed Atrial fibrillation (427.31) (I48.91) Benign essential hypertension (401.1) (I10) Diabetes mellitus (250.00) (E11.9) Hyperlipidemia (272.4) (E78.5) Overweight with body mass index (BMI) of 26 to 26.9 in adult (278.02,V85.22) (E66.3,Z68.26) Former smoker (V15.82) (Z87.891) Quit 1980 Orders Atrial fibrillation IO EKG Electrocardiogram- 12 Lead; Status:Complete; Done: [id number] Overweight with body mass index (BMI) of 26 to 26.9 in adult Healthy Weight Tips; Status:Complete - Retrospective Authorization; Done: [id number] Some eating tips that can help you lose weight.; Status:Complete - Retrospective Authorization; Done: [id number] SocHx: Former smoker Tobacco Use Screening; Status:Complete; Done: [id number] Patient Instructions Please bring all medicines, vitamins, [...] negative for complaint. Vitals Vital Signs Recorded: [id number] 07:56AM Heart Rate49, Apical Gohreyla78, RUE, Sitting Rdhadrkqr19, RUE, Sitting Height5 ft 9 in Rqdcau533 lb BMI Tsqcruizry79.43 kg/m2 BSA Calculated1.97 Tobacco Useb) No PHQ-2 [...] murmurs , (more content not included)... Normal [facility] [facility] Tobacco Screening.on 023 Adult depression screening assessment No [facility] [place] [facility] [address] DO Work Phone: Fall risk assessment a) No falls within the last year [facility] [place] [facility] [address] DO Work Phone: Tobacco use status CP b) No [facility] [address] DO Work Phone: PSA, FREE AND TOTAL RATIOon 10-29-2021 % Free PSA 22.7 % Normal [facility] Comment on above: Result Comment: The table below lists the probability of prostate cancer for men with non-suspicious HARLEEN results and total PSA between 4 and 10 ng/mL, by patient age (Viktor et al, RALF 1998, 279:1542). % Free PSA 50-64 yr 65-75 yr 0.00-10.00% 56% 55% 10.01-15.00% 24% 35% 15.01-20.00% 17% 23% 20.01-25.00% 10% 20% >25.00% 5% 9% Please note: Catalona et al did not make specific recommendations regarding the use of percent free PSA for any other population of men. Performed By: #### P SAD #### [facility] [address] [address] [address] Karen Richter Prostate specific Ag [Mass/Vol] 9.5 ng/mL Critically high 0.0-4.[address] [facility] Comment on above: Result Comment: [employer] ECLIA methodology. . According to the [employer], Serum PSA should decrease and [...] disease. Performed By: #### P SAD #### [facility] [address] [address] [address] Karen Richter PSA, Free 2.16 ng/mL Normal N/A [facility] Comment on above: Result Comment: [employer] ECLIA methodology. Performed By: #### P SAD #### [facility] [address] [place], [place] [address] Dr. Karen Richter Vital Signs Date Time Vital Sign Value Performing Clinician Facility 06-12-2024 09:05-0500 Blood Pressure Location [facility] 06-12-2024 09:05-0500 Body temperature 98.6 [degF] [facility] 06-12-2024 09:05-0500 Diastolic blood pressure 88 mm[Hg] [facility] 06-12-2024 09:05-0500 Heart rate 70 /min [facility] 06-12-2024 09:05-0500 Systolic blood pressure 132 mm[Hg] [facility] 01-26-2024 14:46-0400 Body height 175.3 cm Rosa Elena Russell MD Work Phone: [facility] 01-26-2024 14:46-0400 Body mass index (BMI) [Ratio] 26.11 kg/m2 Rosa Elena Russell MD Work Phone: [facility] 01-26-2024 14:46-0400 Body weight 80.2 kg Rosa Elena Russell MD Work Phone: [facility] 01-26-2024 14:46-0400 Diastolic blood pressure 76 mm[Hg] Rosa Elena Russell MD Work Phone: [facility] 01-26-2024 14:46-0400 Heart rate 82 /min Rosa Elena Russell MD Work Phone: [facility] 01-26-2024 14:46-0400 Systolic blood pressure 104 mm[Hg] Rosa Elena Russell MD Work Phone: [facility] 12-13-2023 09:50-0400 Blood Pressure Location Tyler SIMS [facility] 12-13-2023 09:50-0400 Body temperature 98.6 [degF] Tyler [facility]S [facility] 12-13-2023 09:50-0400 Diastolic blood pressure 72 mm[Hg] Tyler SIMS [facility] 12-13-2023 09:50-0400 Heart rate 68 /min Tyler [facility]S [facility] 12-13-2023 09:50-0400 Respiratory rate 16 /min Tyler SIMS [facility] 12-13-2023 09:50-0400 Systolic blood pressure 131 mm[Hg] Tyler [facility] 06-15-2023 08:28-0500 Body height 175.3 cm Guanaco Maguire MD Work Phone: [facility] 06-15-2023 08:28-0500 Body mass index (BMI) [Ratio] 26.88 kg/m2 Guanaco Maguire MD Work Phone: [facility] 06-15-2023 08:28-0500 Body weight 82.56 kg Guanaco Maguire MD Work Phone: [facility] 06-15-2023 08:28-0500 Diastolic blood pressure 80 mm[Hg] Guanaco Maguire MD Work Phone: [facility] 06-15-2023 08:28-0500 Heart rate 81 /min Guanaco Maguire MD Work Phone: [facility] 06-15-2023 08:28-0500 Systolic blood pressure 118 mm[Hg] Guanaco Maguire MD Work Phone: [facility] 06-04-2023 08:47-0500 Blood Pressure Location Tyler SIMS [facility] 06-04-2023 08:47-0500 Diastolic blood pressure 77 mm[Hg] Tyler SIMS [facility] 06-04-2023 08:47-0500 Heart rate 52 /min Tyler SIMS [facility] 06-04-2023 08:47-0500 Respiratory rate 16 /min Tyler [facility]S [facility] 06-04-2023 08:47-0500 Systolic blood pressure 128 mm[Hg] Tyler SIMS [facility] 05-03-2023 12:22-0500 Blood Pressure Location Tyler [facility]S [facility] 05-03-2023 12:22-0500 Diastolic blood pressure 71 mm[Hg] Tyler SIMS [facility] 05-03-2023 12:22-0500 Heart rate 64 /min Tyler [facility]S [facility] 05-03-2023 12:22-0500 Respiratory rate 16 /min Tyler [facility]S [facility] 05-03-2023 12:22-0500 Systolic blood pressure 130 mm[Hg] Tyler [facility] 12-30-2022 07:41-0400 Body temperature 98.3 [degF] MD Narayan Melendez Work Phone: [facility] 12-30-2022 07:41-0400 Diastolic blood pressure 91 mm[Hg] MD Narayan Melendez Work Phone: [facility] 12-30-2022 07:41-0400 Heart rate 105 /min MD Narayan Melendez Work Phone: [facility] 12-30-2022 07:41-0400 Respiratory rate 13 /min MD Narayan Melendez Work Phone: [facility] 12-30-2022 07:41-0400 SaO2% (BldA) [Mass fraction] 97 % MD Narayan Melendez Work Phone: [facility] 12-30-2022 07:41-0400 Systolic blood pressure 126 mm[Hg] MD Narayan Melendez Work Phone: [facility] 12-30-2022 05:39-0400 Body weight 78.5 kg MD Narayan Melendez Work Phone: [facility] 12-29-2022 11:13-0400 Inhaled oxygen flow rate 10 L/min MD Narayan Melendez Work Phone: [facility] 12-29-2022 08:47-0400 Body height 175.26 cm MD Narayan Melendez Work Phone: [facility] 12-29-2022 08:47-0400 Body mass index (BMI) [Ratio] 25.4 kg/m2 MD Narayan Melendez Work Phone: [facility] 10-14-2022 07:07-0400 Body height 175.26 cm MD Narayan Melendez Work Phone: [facility] 10-14-2022 07:07-0400 Body weight 81.64 kg MD Narayan Melendez Work Phone: [facility] 07-27-2022 12:37-0400 Blood Pressure Location [facility] 07-27-2022 12:37-0400 Diastolic blood pressure 74 mm[Hg] Tyler SIMS [facility] 07-27-2022 12:37-0400 Heart rate 82 /min Tyler SIMS [facility] 07-27-2022 12:37-0400 Respiratory rate 16 /min Tyler SIMS [facility] 07-27-2022 12:37-0400 Systolic blood pressure 114 mm[Hg] Tyler SIMS [facility] 06-15-2022 07:56-0500 Body height 175.26 cm Narayan Melendez Work Phone: [facility] [address] DO Work Phone: 06-15-2022 07:56-0500 Body mass index (BMI) [Ratio] 26.43 kg/m2 Narayan Herman Hoy Work Phone: [facility] [address] DO Work Phone: 06-15-2022 07:56-0500 Body surface area Derived from formula 1.97 m2 Narayan Herman Hoy Work Phone: [facility] 250 DO Work Phone: 06-15-2022 07:56-0500 Body weight 81.19 kg Narayan Herman Hoy Work Phone: [facility] [address] DO Work Phone: 06-15-2022 07:56-0500 Diastolic blood pressure 62 mm[Hg] Narayan Sutton Hoy Work Phone: [facility] 250 DO Work Phone: 06-15-2022 07:56-0500 Heart rate 49 /min Narayan Herman Hoy Work Phone: [facility] 250 DO Work Phone: 06-15-2022 07:56-0500 Systolic blood pressure 98 mm[Hg] aNrayan Sutton Hoy Work Phone: [facility] 250 DO Work Phone: 04-14-2022 14:51-0500 Blood Pressure Location Steve MARTEL [facility] [place] 04-14-2022 14:51-0500 Diastolic blood pressure 66 mm[Hg] Steve MARTEL [facility] [place] 04-14-2022 14:51-0500 Heart rate 64 /min Steve MARTEL [facility] [place] 04-14-2022 14:51-0500 Respiratory rate 16 /min Steve VARGAS [facility] [place] 04-14-2022 14:51-0500 Systolic blood pressure 100 mm[Hg] Steve ALICIA [facility] [place] Encounters Encounter Date Encounter Type Care Provider Facility Start: 12-22-2024 ambulatory SIERRA E RENETTA Facili ty:[facility] Start: 12-05-2024 ambulatory SIERRA E RENETTA Facili ty:[facility] Start: 06-12-2024 End: 06-12-2024 ambulatory SIERRA E RENETTA Facility:[facility] Start: 06-12-2024 End: 06-12-2024 Patient encounter procedure SIERRA HERMANRY [facility] Start: 04-11-2024 End: 04-11-2024 Lab Drop off Tyler SIMS [facility] Start: 04-11-2024 End: 04-11-2024 ambulatory Tyler SIMS Facility:[facility] [place] [place] Start: 04-11-2024 End: 04-11-2024 Patient encounter procedure Tyler SIMS [facility] Start: 01-26-2024 End: 01-26-2024 Office outpatient visit 25 minutes Rosa Elena Russell MD Work Phone: [facility] Comment on above: Persistent atrial fi brillation (Multi) (Primary Dx); Paroxysmal atrial fibrillation (Multi); Mixed hyperlipidemia; Benign essential hypertension; Type 2 diabetes mellitus without complication, without long-term current use of insulin (Multi); Never smoked any substance; 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; BMI 26.0-26.9,adult Start: 01-26-2024 End: 01-26-2024 ambulatory [facility] Ambulatory Start: 12-13-2023 End: 12-13-2023 ambulatory Tyler SIMS [facility] Start: 12-13-2023 End: 12-13-2023 Patient encounter procedure Tyler SIMS [facility] Start: 06-15-2023 End: 06-15-2023 Office outpatient visit 25 minutes Guanaco Maguire MD Work Phone: [facility] Comment on above: Paroxysmal atrial fi brillation (CMS/HCC) (Primary Dx); Benign essential hypertension; Mixed hyperlipidemia; Never smoked any substance Start: 06-15-2023 End: 06-15-2023 ambulatory GUANACO Painting [facility] Ambulatory Start: 06-04-2023 End: 06-04-2023 Patient encounter procedure Tyler Franki SIMS [facility] Start: 05-03-2023 End: 05-03-2023 Patient encounter procedure Tyler Franki SIMS [facility] Start: 01-26-2023 End: 01-26-2023 Patient encounter procedure Tyler R EMANUEL [facility] Start: 01-01-2023 End: 01-01-2023 Patient encounter procedure Tyler Franki SIMS [facility] Start: 12-29-2022 End: 12-30-2022 ambulatory Tyler Sims Facility:[facility] Start: 12-29-2022 End: 12-30-2022 Admission to same day surgery center MD Narayan Melendez Work Phone: [facility] [place] Start: 12-29-2022 End: 12-30-2022 ambulatory MD Narayan Melendez Work Phone: [facility] Work Phone: Start: 12-11-2022 End: 12-11-2022 Patient encounter procedure Tyler SIMS [facility] [place] Start: 11-21-2022 Message Narayan Melendez Work Phone: [facility] 250 DO Work Phone: Start: 11-10-2022 End: 11-10-2022 Patient encounter procedure Tyler SIMS [facility] Start: 10-23-2022 End: 10-23-2022 Patient encounter procedure Tyler SIMS [facility] Start: 10-16-2022 End: 10-16-2022 Patient encounter procedure Tyler SIMS [facility] Start: 10-14-2022 End: 10-14-2022 ambulatory MD Narayan Melendez Work Phone: [facility] Work Phone: Start: 10-14-2022 End: 10-14-2022 Patient encounter procedure MD Narayan Melendez Work Phone: [facility] [place] Work Phone: Start: 09-03-2022 End: 09-04-[address] TYLER SIMS . Facility: Start: 07-27-2022 End: 07-27-2022 Lab Drop off Tyler SIMS [facility] Start: 07-27-2022 End: 07-27-2022 Patient encounter procedure Tyler SIMS [facility] [place] Start: 07-27-2022 End: 07-28-[address] NARAYAN MELENDEZ . Facility:[facility] Start: 07-22-2022 End: 07-23-[address] NARAYAN MELENDEZ . Facility:[facility] Start: 07-20-2022 Rx Renewal Narayan Herman Melendez Work Phone: [facility] 250 DO Work Phone: Start: 06-15-2022 Office outpatient vi sit 25 minutes Narayan Melendez Work Phone: [facility] 250 DO Work Phone: Start: 06-15-[address] Narayan Melendez Facility: Start: 05-05-2022 End: 05-05-2022 Patient encounter procedure Steve Doan ALICIA [facility] [place] [place] Start: 04-14-2022 End: 04-14-2022 Patient encounter procedure Steve R NILSae [facility] [place] Start: 01-15-[address] NARAYAN MELENDEZ . Facili ty:[facility] Start: 10-28-2021 End: 10-29-[address] FRANCISCO Sun Facility:[facility] Start: 07-23-2021 Rx Renewal Narayan Herman Melendez Work Phone: [facility] 250 DO Work Phone: Procedures Date Procedure Procedure Detail Performing Clinician Start: 06-15-2023 ECG 12-LEAD GUANACO BLANKENSHIP Start: 06-15-2023 Ecg routine ecg w/le ast 12 lds w/i&r Guanaco Maguire MD Work Phone: Start: 12-29-2022 Transurethral prostatectomy MD Narayan Melendez Work Phone: Start: 12-29-2022 Transurethral prostatectomy Tyler SIMS Start: 11-10-2022 Cystoscopy Tyelr LEBRON Start: 11-10-2022 Urodynamic studies Vaishnavir yanique SIMS Start: 10-14-2022 MR prostate wo con MD Jamison Melendez Work Phone: Start: 09-03-[address] FRANCISCO Sun Comment on above: Performed By: #### P SAD #### [facility] [address] [place] [address] Dr. Karen Richter Start: 07-27-[address] FRANCISCO Sun Comment on above: Performed By: #### P SASC #### [facility] [address] [place] [address] Dr. Karen Richter Start: 07-22-[address] FRANCISCO Sun Comment on above: Performed By: #### I NSULIN #### [facility] [address] [place] [address] Dr. Karen Richter Start: 03-12-2021 Excisional biopsy Darion dennis VARGAS Comment on above: right scalp Start: 09-27-2019 Transrectal biopsy o f prostate using ultrasound guidance Steve VARGAS Start: 05-17-2019 Echocardiography Start: 04-26-2019 Cardioversion Steve BLANTON Start: 08-15-2018 Transrectal biopsy o f prostate using ultrasound guidance Steve VARGAS Biopsy of prostate Narayan M Luxy Work Phone: Cardioversion Narayan M Hoy Work Phone: Colonoscopy Steve NILL Hernia repair Narayan M Hoy Work Phone: Repair of left ingui nal hernia Steve NILL Total colonoscopy Narayan M Hoy Work Phone: Vasectomy Narayan M Hoy Work Phone: Vasectomy Steve VARGAS Plan of Treatment Date Care Activity Detail Author Start: 07-26-2024 End: 07-26-2024 Patient encounter procedure 07/26/2024 11:00 AM EDT Office Visit [place] [address] [place] [address] Rosa Elena Russell MD [address] [facility] [address] [place] [address] [facility] Start: 02-03-2024 DTaP/Tdap/Td Vaccines (2 - Td or Tdap) DTaP/Tdap/Td Vaccines (2 - Td or Tdap) [facility] Start: 12-26-2023 COVID-19 Vaccine () COVID-19 Vaccine () [facility] Start: 12-26-2023 Influenza vaccination Influenza Vaccine (#1) [facility] Start: 2023 End: 2023 Patient encounter procedure 2023 9:20 AM EDT Office Visit [address] [place] [id number] Guanaco Maguire MD [address] [facility] [address], [facility] [address] [place] [address] [facility] Start: 06-15-2023 FUV, Provider: Guanaco Maguire, Status: Pen, Time: 8:30 AM FUV, Provider: Guanaco Maguire, Status: Pen, Time: 8:[address] [facility] 250 DO Work Phone: Start: 12-30-2022 [facility] Start: 12-29-2022 Hospital admission [facility] Start: 12-25-2022 COVID-19 Vaccine () COVID-19 Vaccine () [facility] Start: 12-25-2022 Influenza vaccination Influenza Vaccine (#1) [facility] Start: 05-12-2022 FUV, Provider: Guanaco Maguire, Status: Pen, Time: 8:50 AM FUV, Provider: Guanaco Maguire, Status: Pen, Time: 8:50 AM [facility] 250 DO Work Phone: Start: 05-17-2020 Echocardiography Echocardiogram [facility] Start: 2009 RSV patients and/or patients aged 60+ years (1 - 1-dose 60+ series) RSV patients and/or patients aged 60+ years (1 - 1-dose 60+ series) [facility] Start: 12-08-1999 Zoster Vaccines (1 of 2) Zoster Vaccines (1 of 2) [facility] Start: 1968 Urine screening for protein Diabetes: Urine Protein Screening [facility] Start: 12-08-1967 Hepatitis C screening Hepatitis C Screening [facility] Start: 12-08-1959 Diabetic foot examination Diabetes: Foot Exam [facility] Start: 12-08-1959 Glaucoma screening Diabetes: Retinopathy Screening [facility] Start: 12-08-1955 Pneumococcal Vaccine: 65+ Years (1 - PCV) Pneumococcal Vaccine: 65+ Years (1 - PCV) [facility] Start: 12-08-1955 Pneumococcal Vaccine: 65+ Years (1 of 2 - PCV) Pneumococcal Vaccine: 65+ Years (1 of 2 - PCV) [facility] Start: 1949 Creatinine measurement Creatinine Level [facility] Start: 1949 Hemoglobin A1c measurement Diabetes: Hemoglobin A1C [facility] Start: 1949 Lipid panel Lipid Panel [facility] Start: 1949 Medicare Annual Wellness Visit Medicare Annual Wellness Visit (AWV) [facility] Start: 1949 Potassium measurement Potassium Level [facility] Start: 1949 Screening for malignant neoplasm of colon [facility] Start: 1949 Yearly Adult Physical Yearly Adult Physical [facility] Patient referral [facility] Work Phone: [facility] Immunizations Immunization Date Immunization Notes Care Provider Fa cility 06-04-2021 Comirnaty 30 MCG/0.3 ML Intramuscular Suspension Narayan Melendez Work Phone: [facility] 250 DO Work Phone: 06-04-2021 SARS-CoV-2 mRNA (yhzwdfoqrci-hmpl-mnco ose) vaccine Steve VARGAS [facility] 07-23-2020 Pfizer-BioNTech COVID-19 Vacc 30 MCG/0.3ML Intramuscular Suspension Narayan Melendez Work Phone: [facility] 07-23-2020 SARS-CoV-2 (COVID-19 ) Ad26 vaccine, recombinant Steve ESTUARDOL [facility] 07-01-2020 Pfizer-BioNTech COVID-19 Vacc 30 MCG/0.3ML Intramuscular Suspension Narayan Melendez Work Phone: [facility] 07-01-2020 SARS-CoV-2 (COVID-19 ) Ad26 vaccine, recombinant Steve MARTEL [facility] NEGATED: Highlighted row has not occurred!04-14-2022 influenza virus vaccine, unspecified formulation Steve ESTUARDOL [facility] Payers Date Payer Category Payer [employer] ( and others) FOR LIFE [id number] 2023-Present [address] [place] [address] [id number] 2022 [employer] ( and others) [id number] 2022 [employer] ( and others) [id number] 2022 Self-pay [id number] 2014 Medicare MEDICARE MEDICAR E RAILROAD [id number] 2014-Present [address] [place] [address] [id number] 1959 [facility] ( and others) [id number] 1959 Medicare [id number] 1949 Unknown [id number] [id number]. 356 1949 Unknown [id number] 2.16.840.1.633045.3.579.2. 593 1949 Unknown [id number] 2.16.840.1.427321.3.579.2. 593 1949 Unknown [id number] 2.16.840.1.457853.3.579.2. 593 1949 Unknown [id number] 2.16.840.1.418500.3.579.2. 593 1949 Unknown [id number] 2.16.840.1.299689.3.579.2. 593 1949 Unknown [id number] 2.16.840.1.550713.3.579.2. 1244 1949 Unknown [id number] 2.16.840.1.253880.3.579.2. 1244 1949 Unknown [id number] 2.16.840.1.471662.3.579.2. 727 1949 Unknown [id number] 2.16.840.1.723190.3.579.2. 727 1949 Unknown [id number] 2.16.840.1.543246.3.579.2. 727 1949 Unknown [id number] 2.16.840.1.089949.3.579.2. 727 1949 Unknown [id number] 2.16.840.1.069220.3.579.2. 727 1949 Unknown [id number] 2.16.840.1.744948.3.579.2. 727 Unknown Unknown [id number] 2.16.840.1.906583.3.579.2. 531 Unknown [id number] 2.16.840.1.858725.3.579.2. 531 Social History Date Type Detail Facility Start: 06-15-2023 No alcohol use No alcohol use [place] [address] DO Work Phone: Comment on above: 3 cups daily; 3 cups coffee daily if make it to restaurant; Quit 1979; Start: 04-14-2022 End: 06-12-2024 Tobacco smoking status Never smoked tobacco (finding) [facility] [place] Tobacco smoking status Never [facility] [place] Start: 06-15-2023 Sex Assigned At Male F [facility] Start: 1950 Sex Assigned At Male F [facility] Start: 06-15-2023 Tobacco use and exposure Smokeless tobacco non-user [facility] Work Phone: Start: 06-15-2023 End: 01-26-2024 Alcohol intake Lifetime non-drinker (finding) [facility] Work Phone: Start: 1950 Sex Assigned At Not on file [facility] Work Phone: Start: 06-05-2023 End: 01-26-2024 Exposure to SARS-CoV-2 (event) Not sure [facility] Goals Date Patient Goal Desired Activity /State Functional Status Date Assessment Result Facility 06-12-2024 Functional Status N/A [facility] 12-13-2023 Functional Status N/A [facility] 06-04-2023 Functional Status N/A [facility] 05-03-2023 Functional Status N/A [facility] 12-30-2022 Functional status 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 [facility] Work Phone: 11-10-2022 Functional Status N/A [facility] 07-27-2022 Functional Status N/A [facility] 04-14-2022 Functional Status N/A [facility] Mental Status Date Assessment Result Facility 12-30-2022 Cognitive function Cognitive Sta tus Patient at [facility] Work Phone: Clinical Notes 06-15-2022 to 06-12-2024 Rosa Elena Russell MD - 01/26/2024 3:00 PM EDTPatient InstructionsAttaVince Maguire MD - 06/15/2023 8:30 AM ESTPatient Instructions Note Date & Type Note Facility 06-12-2024 Hospital Discharge instructions Patient Education 06/12/2024 09:27:43 Benign Prostatic Hyperplasia Benign Prostatic Hyperplasia Benign prostatic hyperplasia (BPH) [...] or symptoms? Symptoms of this condition include: Getting up often during the night to urinate. Needing to urinate frequently during the day. Difficulty starting urine flow. Decrease in size and strength of your urine stream. Leaking (dribbling) after urinating. Inability to pass urine. This needs immediate treatment. Inability to completely empty your bladder. Pain when you pass urine. This is more common if there is also an infection. Urinary tract infection (UTI). How is this diagnosed? This condition is diagnosed based on your medical history, a physical exam, and your symptoms. Tests will also be done, such as: A post-void bladder scan. This measures any amount of urine that may remain in your bladder after you finish urinating. A digital rectal exam. In a rectal exam, your health care provider checks your prostate by putting a lubricated, gloved finger into your rectum to feel the back of your prostate gland. This exam detects the size of your gland and any abnormal lumps or growths. An exam of your urine (urinalysis). A prostate specific antigen (PSA) screening. This is a blood test used to screen for prostate cancer. An ultrasound. This test uses sound waves [...] severity of your condition. Treatment may include: Observation and yearly exams. This may be the only treatment needed if your condition and symptoms are mild. Medicines to relieve your symptoms, including: ?Medicines to shrink the prostate. ?Medicines to relax the muscle of the prostate. Surgery in severe cases. Surgery may include: ?Prostatectomy. In this procedure, the prostate tissue is removed completely through an open incision or with a laparoscope or robotics. ?Transurethral resection of the prostate (TURP). In this procedure, a tool is inserted through the opening at the tip of the penis (urethra). It is used to cut away tissue of the inner core of the prostate. The pieces are removed through the same opening of the penis. This removes the blockage. ?Transurethral incision (TUIP). In this procedure, small cuts are made in the prostate. This lessens the prostate's pressure on the urethra. ?Transurethral microwave thermotherapy (TUMT). This procedure uses microwaves to create heat. The heat destroys and removes a small amount of prostate tissue. ?Transurethral needle ablation (TUNA). This procedure uses radio frequencies to destroy and remove a small amount of prostate tissue. ?Interstitial laser coagulation (ILC). This procedure uses a laser to destroy and remove a small amount of prostate tissue. ?Transurethral electrovaporization (TUVP). This procedure uses electrodes to destroy and remove a small amount of prostate tissue. ?Prostatic urethral lift. This procedure inserts an implant to push the lobes of the prostate away from the urethra. Follow these instructions at home: Take zung-vqq-geiwkii and prescription medicines only as told by your health care provider. Monitor your symptoms for any changes. Contact your health care provider with any changes. Avoid drinking large amounts of liquid before going to bed or out in public. Avoid or reduce how much caffeine or alcohol you drink. Give yourself time when you urinate. Keep all follow-up visits. This is important. Contact a health care provider if: You have unexplained back pain. Your symptoms do not get better with treatment. You develop side effects from the medicine you are taking. Your urine becomes very dark or has a bad smell. Your lower abdomen becomes distended and you have trouble passing urine. Get help right away if: You have a fever or chills. You suddenly cannot urinate. You feel light-headed or very dizzy, or you faint. There are large amounts of blood or clots in your urine. Your urinary problems become hard to manage. You develop moderate to severe low back or flank pain. The flank is the side of your body between the ribs and the hip. These symptoms may be an emergency. Get help right away. Call 911. Do not wait to see if the symptoms will go away. Do not drive yourself to the hospital. Summary Benign prostatic hyperplasia (BPH) is an enlarged prostate that is caused by the normal aging process. It is not caused by cancer. An enlarged prostate can press on the urethra. This can make it hard to pass urine. This condition is more likely to develop in men older than 50 years. Get help right away if you suddenly cannot urinate. This information is not intended to replace advice given to you by your health care provider. Make sure you discuss any questions you have with your health care provider. Document Revised: 10/29/2021 Document Reviewed: 10/29/2021 [employer] Patient Education 2023 Doculogy. Follow Up Care 12/13/2023 10:31:58 With:SIERRA JACKSON PA-C, URL Address: [address] [place] [id number] When:Within 6 Month(s) With:EMANUEL MULLIGAN, Tyler Doan, URL Address: [facility] [address] [place] [phone] [phone] When: Unknown [facility] 06-12-2024 Note Patient Education Urology Benign Prostatic Hyperplasia Benign [...] or symptoms? Symptoms of this condition include: ??? Getting up often during the night to urinate. ??? Needing to urinate frequently during the day. ??? Difficulty starting urine flow. ??? Decrease in size and strength of your urine stream. ??? Leaking (dribbling) after urinating. ??? Inability to pass urine. This needs immediate treatment. ??? Inability to completely empty your bladder. ??? Pain when you pass urine. This is more common if there is also an infection. ??? Urinary tract infection (UTI). How is this diagnosed? This condition is diagnosed based on your medical history, a physical exam, and your symptoms. Tests will also be done, such as: ??? A post-void bladder scan. This measures any amount of urine that may remain in your bladder after you finish urinating. ??? A digital rectal exam. In a rectal exam, your health care provider checks your prostate by putting a lubricated, gloved finger into your rectum to feel the back of your prostate gland. This exam detects the size of your gland and any abnormal lumps or growths. ??? An exam of your urine (urinalysis). ??? A prostate specific antigen (PSA) screening. This is a blood test used to screen for prostate cancer. ??? An ultrasound. This test uses sound waves [...] severity of your condition. Treatment may include: ??? Observation and yearly exams. This may be the only treatment needed if your condition and symptoms are mild. ??? Medicines to relieve your symptoms, including: ? Medicines to shrink the prostate. ? Medicines to relax the muscle of the prostate. ??? Surgery in severe cases. Surgery may include: [...] the urethra. Follow these instructions at home: ??? Take wklb-hoc-cpjqdmo and prescription medicines only as told by your health care provider. ??? Monitor your symptoms for any changes. Contact your health care provider with any changes. ??? Avoid drinking large amounts of liquid before going to bed or out in public. ??? Avoid or reduce how much caffeine or alcohol you drink. ??? Give yourself time when you urinate. ??? Keep all follow-up visits. This is important. Contact a health care provider if: ??? You have unexplained back pain. ??? Your symptoms do not get (more content not included)... [facility] 01-26-2024 History of Present illness Narrative Subjective [...] (Multi) 6. Never smoked any substance 7. half-way current use of anticoagulant therapy 8. BMI 26.0-26.9,adult Scribe Attestation By signing my name below, I, Chandrika Gifford LPN , Scribe attest that this documentation has been prepared [...] discussion and plan. documented in this encounter [facility] Work Phone: 01-26-2024 Instructions Chandrika Campbell LPN [...] be sent through Care Everywhere.Heart Healthy Diet (Czech)documented in this encounter [facility] Work Phone: 12-13-2023 Hospital Discharge instructions Patient [...] treatment? Where to find more information [employer]: www.cancer.org [employer]: www.auanet.org Contact a health care [...] provider. Document Revised: 10/06/2021 Document Reviewed: 10/06/2021 [employer] Patient Education 2022 PRX Follow Up Care 06/04/2023 09:42:59 With:EMANUEL MULLIGAN, Tyler Doan, URL Address: [facility] [address] [place] [address] [phone] When: Unknown Comments:6 mos w/ PSA [facility] [place] 12-13-2023 Note Patient Education Oncology Prostate [...] Where to find more information ? The [employer]: www.cancer.org ? [employer]: www.auanet.org Contact a health care [...] of the rectum. (more content not included)... [facility] 06-15-2023 History of Present illness Narrative Subjective Lenny Russell is a 72 y.o. male Chief [...] discussion and plan. documented in this encounter [facility] Work Phone: 06-15-2023 Instructions Nay Nick LPN [...] 30: -20.7 Lbs documented in this encounter [facility] Work Phone: 06-04-2023 Hospital Discharge instructions Patient [...] of times per day to perform CIC: __ To perform CIC, follow these steps: 1.Wash your hands with soap and water. If soap and water are not available, use hand regulatory coordinator. 2.Clean your penis with soap and water. [...] reusable catheter in a small bathroom. Take mbrt-pid-aksgojn and prescription medicines only as told by [...] provider. Document Revised: 02/16/2022 Document Reviewed: 02/16/2022 [employer] Patient Education 2022 Doculogy. Follow Up Care 05/03/2023 13:30:45 With:EMANUEL MULLIGAN, Tyler Doan, URL Address: [facility] [address] [place] [address]- [phone] When: Unknown Comments:6 mos w/ PSA [facility] 05-03-2023 Hospital Discharge instructions Patient Education 05/03/2023 [...] of times per day to perform CIC: __ To perform CIC, follow these steps: 1.Wash your hands with soap and water. If soap and water are not available, use hand regulatory coordinator. 2.Clean your penis with soap and water. [...] reusable catheter in a small bathroom. Take htqk-ccf-yxmedpk and prescription medicines only as told by [...] provider. Document Revised: 02/16/2022 Document Reviewed: 02/16/2022 [employer] Patient Education 2022 Doculogy. Follow Up Care 05/26/2022 09:30:22 With:EMANUEL MULLIGAN, Tyler Doan, URL Address: [facility] [address] [place] [address]- [phone] When: Unknown Comments:1 month [facility] 10-22-2022 Hospital Discharge instructions Follow Up Care 10/22/2022 14:09:52 With:Tyler SIMS Address: [facility] [address] [place] [address]- Business (1) When:11/24/2022 10:08:57 Comments:Patient is to see me to discuss his current situation [facility] 10-16-2022 Hospital Discharge instructions Patient Education [...] Follow these instructions at home: Medicines Take zgnd-jav-gcttzol and prescription medicines only as told by [...] provider. Document Revised: 01/01/2021 Document Reviewed: 01/01/2021 [employer] Patient Education 2022 Doculogy. Follow Up Care 10/15/2022 08:42:00 With:EMANUEL MULLIGAN, Tyler Doan, URL Address: [facility] [address] [place] [address]- [phone] When: Unknown [facility] [place] 07-27-2022 Hospital Discharge instructions Patient Education [...] one of these risk factors: ?Being of -[place] descent. ?Having a family history of prostate [...] you: Are older than age 55. Are -Swiss. Have a father, brother, or uncle who [...] 01/21/2018 Document Revised: 03/25/2018 Document Reviewed: 01/21/2018 [employer] Patient Education 2020 Doculogy. Follow Up Care 07/24/2022 09:34:47 With:EMANUEL MULLIGAN, NAHOMY FishmanL Address: [facility] [address], [place] [address]- When: Unknown [facility] 06-15-2022 History of Present illness Narrative [place]ikes [...] improved control of blood pressure and diabetes. [facility] 250 DO Work Phone: Evaluation + Plan note Future Appointments Appointment Date:05/05/2022 01:40:00 PM Scheduled Provider:Steve VARGAS MD Location:[facility] Appointment Type: Procedure 30 Appointment Date:05/26/2022 09:00:00 AM Scheduled Provider:SIERRA JACKSON PA-C Location:[facility] Appointment Type:URO Office Visit [facility] Evaluation + Plan note Future Appointments Appointment Date:05/26/2022 09:00:00 AM Scheduled Provider:SIERRA JACKSON PA-C Location:[facility] Appointment Type:URO Office Visit General [facility] Evaluation + Plan note Future Appointments Appointment Date:10/30/2022 08:15:00 AM Scheduled Provider:Tyler SIMS MD Location:[facility] Appointment Type:URO Office Visit Appointment Date:06/01/2023 09:00:00 AM Scheduled Provider:SIERRA JACKSON PA-C Location:[facility] Appointment Type:URO Office Visit Diagnostic Tests PendingPSA Total 07/27/22 [facility] Evaluation + Plan note Future Appointments Appointment Date:10/30/2022 08:15:00 AM Scheduled Provider:Tyler SIMS MD Location:[facility] Appointment Type:URO Office Visit Appointment Date:06/01/2023 09:00:00 AM Scheduled Provider:SIERRA JACKSON PA-C Location:[facility] Appointment Type:URO Office Visit Diagnostic Tests PendingUrine Culture 07/27/22 [facility] Evaluation + Plan note Future Appointments Appointment Date:11/16/2022 08:45:00 AM Scheduled Provider:Tyler SIMS MD Location:[facility] Appointment Type:URO Office Visit Appointment Date:06/01/2023 09:00:00 AM Scheduled Provider:SIERRA JACKSON PA-C Location:[facility] Appointment Type:URO Office Visit [facility] Evaluation + Plan note Future Appointments Appointment Date:10/26/2022 01:45:00 PM Scheduled Provider: [facility] Appointment Type:Urology CALL PAT FT Appointment Date:11/10/2022 08:30:00 AM Scheduled Provider: Location:[facility] Appointment Type:Urology FT Appointment Date:11/10/2022 09:45:00 AM Scheduled Provider: Location:[facility] Appointment Type:Urology FT Appointment Date:11/16/2022 08:45:00 AM Scheduled Provider:Tyler SIMS MD Location:[facility] Appointment Type:URO Office Visit Appointment Date:06/01/2023 09:00:00 AM Scheduled Provider:SIERRA JACKSON PA-C Location:[facility] Appointment Type:URO Office Visit [facility] Evaluation + Plan note Future Appointments Appointment Date:11/23/2022 11:30:00 AM Scheduled Provider:Tyler SIMS MD Location:[facility] Appointment Type:URO Office Visit Appointment Date:06/01/2023 09:00:00 AM Scheduled Provider:SIERRA JACKSON PA-C Location:[facility] Appointment Type:URO Office Visit [facility] Evaluation + Plan note Future Appointments Appointment Date:01/01/2023 08:30:00 AM Scheduled Provider: Location:[facility] Appointment Type:URO Nurse Visit Appointment Date:01/22/2023 08:00:00 AM Scheduled Provider:Tyler SIMS MD Location:[facility] Appointment Type:URO Office Visit Appointment Date:06/01/2023 09:00:00 AM Scheduled Provider:SIERRA JACKSON PA-C Location:[facility] Appointment Type:URO Office Visit [facility] Evaluation + Plan note Future Appointments Appointment Date:01/29/2023 09:30:00 AM Scheduled Provider:Tyler SIMS MD Location:[facility] Appointment Type:URO Office Visit Appointment Date:06/01/2023 09:00:00 AM Scheduled Provider:SIERRA JACKSON PA-C Location:[facility] Appointment Type:URO Office Visit [facility] Evaluation + Plan note Future Appointments Appointment Date:06/04/2023 08:45:00 AM Scheduled Provider:Tyler SIMS MD Location:[facility] Appointment Type:URO Office Visit [facility] Evaluation + Plan note Future Appointments Appointment Date:12/10/2023 09:15:00 AM Scheduled Provider:Tyler SIMS MD Location:[facility] Appointment Type:URO Office Visit [facility] Evaluation + Plan note Future Appointments Appointment Date:12/10/2023 09:15:00 AM Scheduled Provider:Tyler SIMS MD Location:[facility] Appointment Type:URO Office Visit Diagnostic Tests PendingPSA Total 06/04/23 [facility] Evaluation + Plan note Future Appointments Appointment Date:06/12/2024 08:45:00 AM Scheduled Provider:Tyler SIMS MD Location:[facility] Appointment Type:URO Office Visit Diagnostic Tests PendingPSA Total 12/13/23 [facility] Evaluation + Plan note Future Appointments Appointment Date:06/12/2024 08:45:00 AM Scheduled Provider:Tyler SIMS MD Location:[facility] Appointment Type:URO Office Visit [facility] Evaluation + Plan note Future Appointments Appointment Date:06/12/2024 08:45:00 AM Scheduled Provider:Tyler SIMS MD Location:[facility] Appointment Type:URO Office Visit Diagnostic Tests PendingUrine Culture 04/11/24 [facility] Evaluation + Plan note Future Appointments Appointment Date:12/05/2024 09:00:00 AM Scheduled Provider: Location:[facility] Appointment Type:URO Nurse Visit Appointment Date:12/22/2024 08:20:00 AM Scheduled Provider:SIERRA JACKSON PA-C Location:[facility] Appointment Type:URO Office Visit [facility] Evaluation note No assessment inform ation available [facility] Work Phone: Evaluation note Diagnosis Paroxysmal atrial fibrillation (CMS/HCC)- Primary Atrial fibrillation Benign essential hypertension Essential hypertension, benign Mixed hyperlipidemia Never smoked any substance documented in this encounter [facility] Work Phone: Evaluation note* Diagnosis Persistent atrial fibrillation (Multi)- Primary Atrial fibrillation Paroxysmal atrial fibrillation (Multi) Atrial fibrillation Mixed hyperlipidemia Benign essential hypertension Essential hypertension, benign Type 2 diabetes mellitus without complication, without long-term current use of insulin (Multi) Never smoked any substance half-way current use of anticoagulant therapy BMI 26.0-26.9,adult documented in this encounter [facility] Work Phone: Hospital course Narrative No data available for this section [facility] Discharge instructions No data available for this section [facility] Discharge instructions Additional Instructions Dr Sims to call in antibiotic prescription to your pharmacy. [facility] Work [facility] note No data available for this section [facility] [place] Reason for referral (narrative)* Consultation (Routine) - Authorized Specialty Diagnoses / Procedures Referred By Contac t Referred To Contact Cardiology Diagnoses Paroxysmal atrial fibrillation (Multi) Procedures Follow Up In Cardiology Rosa Elena Russell MD [address] [place] [address], [address] [address] Rosa Elena Russell MD [address] [place] [address] 2, [address] [address] Referral ID Status Reason Start Date Expiration Date V isits Requested Visits Authorized [id number] Authorized 01/26/2024 01/25/2025 1 1 [facility] Work Phone: Summary Purpose Family History Unknown [...] ECG 12 Lead Guanaco Maguire MD [address] [facility] 2, [address] [address] Referral ID Status Reason Start Date Expiration Date V isits Requested Visits Authorized [id number] Authorized 06/15/2023 06/14/2024 1 1 Specialty Diagnoses / Procedures Referred By Contac t Referred To Contact Cardiology Diagnoses Paroxysmal atrial fibrillation (CMS/HCC) Procedures Follow Up In Cardiology Guanaco Maguire MD [address] [place] [address] 2, [address] [address] Guanaco Maguire MD [facility] [facility] [address], [address] [address] Referral ID Status Reason Start Date Expiration Date V isits Requested Visits Authorized [id number] Authorized 06/15/2023 06/14/2024 1 1 Additional Source Comments (unrecognized sect ion and content) No Status Records FoundNo Status Records FoundNo Status Records FoundNo Status Records FoundNo Status Records FoundNo Status Records FoundNo Status Records FoundNo Status Records FoundNo Status Records Found INFORMATION SOURCE (unrecogn ized section and content) DATE CREATED AUTHOR 05/19/2019 [facility] DATE CREATED AUTHOR AUTHOR'S ORGANIZ ATION 06/15/2022 [facility] DATE CREATED AUTHOR AUTHOR'S ORGANIZ ATION 06/15/2022 [facility] DATE CREATED AUTHOR AUTHOR'S ORGANIZ ATION 09/06/2022 [facility] DATE CREATED AUTHOR AUTHOR'S ORGANIZ ATION 01/08/2023 [facility] DATE CREATED AUTHOR AUTHOR'S ORGANIZ ATION 01/28/2024 [facility] DATE CREATED AUTHOR AUTHOR'S ORGANIZ ATION 04/16/2024 [facility] DATE CREATED AUTHOR AUTHOR'S ORGANIZ ATION 06/13/2024 [facility] DATE CREATED AUTHOR AUTHOR'S ORGANIZ ATION 06/14/2024 [facility] Patient Care team informatio n (unrecognized section and content) Personnel Name: Narayan Melendez MD Address: Address: [address] [place] [address] Team Status: Active Member Role Status Dates Narayan Melendez MD Primary Care Provider Active Team Status: Inactive Member Role Status Dates Narayan Melendez MD Primary Care Provider Active Tyler Sims MD Attending Provider Active Filling Winder Relationship Specialty Start Date End Date Narayan Melendez MD [address] [facility] [place] [address] PCP - General 05/17/19 Filling Winder Relationship Specialty Start Date End Date Narayan Melendez MD [address] [facility] [place] [address] PCP - General 05/17/19 Goals (unrecognized section and content) Goals may be documented in a n alternate section Reason for Visit (unrecogniz ed section and content) Reason Comments Annual Exam Specialty Diagnoses / Procedures Referred By Clarisse t Referred To Contact Diagnoses Paroxysmal atrial fibrillation (CMS/HCC) Procedures ECG 12 Lead Guanaco Maguire MD [address] [facility] [address] [address] Referral ID Status Reason Start Date Expiration Date V isits Requested Visits Authorized [id number] Authorized 06/15/2023 06/14/2024 1 1 Reason Comments Follow-up 6 month Specialty Diagnoses / Procedures Referred By Mirandaac t Referred To Contact Cardiology Diagnoses Paroxysmal atrial fibrillation (Multi) Procedures Follow Up In Cardiology Guanaco Maguire MD Retired From Practice Guanaco Maguire MD Retired From Practice Referral ID Status Reason Start Date Expiration Date V isits Requested Visits Authorized [id number] Authorized 06/15/2023 06/14/2024 1 1 FOR RECORDS [...] BE BASED ON THE PRIMARY CLINICAL RECORDS. [facility]. provides no warranty or guarantee of the accuracy or completeness of information in this document.
[2024-08-01 07:45] LABS: Basophils Percent Auto 0.5 % (0.2-2.0); Eosinophils Absolute Auto 0.3 10^3/uL (0.0-0.7); Eosinophils Percent Auto 3.9 % (0.9-7.0); Hematocrit 41.4 % (42.0-54.0); Hemoglobin 13.9 g/dL (14.0-18.0); Immature Granulocytes Abs Auto 0.02 10^3/uL (0.00-0.03); Immature Granulocytes Pct Auto 0.3 % (0.0-0.5); Lymphocytes Absolute Auto 1.6 10^3/uL (1.2-3.8); Lymphocytes Percent Auto 20.9 % (20.5-60.0); Mean Corpuscular HGB Conc 33.6 g/dL (29.9-35.2); Mean Corpuscular Hemoglobin 30.2 pg (25.9-34.0); Mean Platelet Volume 10.1 fL (9.5-13.5); Monocytes Absolute Auto 0.6 10^3/uL (0.3-0.8); Neutrophils Absolute Auto 5.2 10^3/uL (1.4-6.5); Neutrophils Percent Auto 66.4 % (43.0-75.0); Platelet Count 255 10^3/uL (150-450); Red Cell Distribution Width 12.5 % (11.0-15.0); White Blood Count 7.9 10^3/uL (4.0-11.0)
[2024-08-01 09:16] LABS: Alanine Aminotransferase 18 U/L (16-63); Albumin Globulin Ratio 1.1; Albumin Level 3.6 g/dL (3.4-5.0); Alkaline Phosphatase 58 U/L (46-116); Anion Gap 11.1; Aspartate Amino Transferase 15 U/L (15-37); BUN Creatinine Ratio 18.2; Bilirubin Total 0.6 mg/dL (0.2-1.0); Carbon Dioxide 26.3 mmol/L (21.0-32.0); Chloride 105 mmol/L (98-107); Chol HDL Ratio 2.6; Cholesterol 106 mg/dL (<=200); Estimated GFR (African America 54 (>=60 mL/min/1.73m^2); Estimated GFR (Non-African Ame 44 (>=60 mL/min/1.73m^2); Free T3 2.41 pg/mL (2.18-3.98); Globulin 3.2 g/dL; Glucose 181 mg/dL (74-106); HDL Cholesterol 41 mg/dL (40-60); Potassium 4.4 mmol/L (3.5-5.1); Sodium 138 mmol/L (136-145); Thyroid Stimulating Hormone 3.185 uIU/mL (0.358-3.740); Total Protein 6.8 g/dL (6.4-8.2); Triglycerides 115 mg/dL (<=150)
[2024-08-01 10:39] LABS: Estimated Average Glucose 160 mg/dL; Glycohemoglobin A1C 7.2 % (4.5-6.2)
== END 2024-08-01 07:23 | disposition home or self-care (01) ==
LOC: LAB 07:24
PROVIDERS: PCP Family Medicine; Visit Provider Family Medicine
DX: E03.9 Hypothyroidism, unspecified (principal); E11.9 Type 2 diabetes mellitus without complications; I48.91 Unspecified atrial fibrillation; I10 Essential (primary) hypertension; E78.00 Pure hypercholesterolemia, unspecified; R53.83 Other fatigue
CPT/HCPCS: 36415; 80053; 80061; 83036; 84436; 84443; 84481; 85025